=== PATIENT | male | born 1945 | race Caucasian/White ===

== ENCOUNTER → 2017-03-21 | Outpatient (CLI) | payer MEDICARE, BC ==
[~2017-03-21] MED LIST: /CELE20CA PO; BISO10TA6 PO; CELE1CAP4 PO; COUM1TAB OR; FERR1TAB8 PO; GLUCOSAMINE HCL PO; HYDR-3719 PO; LASI40TA PO; LISI-542 PO; LISI20TA PO; LISI20TA5 PO; LOPR1TAB7 PO; MAGN64TASA PO; METH10TA PO; METH25TAB PO; MULTIVIT PO; OMEP20CA3 PO; PRAD75CA3 PO; Prilosec PO; SENN8.6T5 OR; SPIR25TA2 PO; VICODIN 5/500 PO; VITA500T3 PO; VITMTA PO; XARE20TA PO; [UNRECOGNIZED DRUG - CODE] PO
[2017-03-21 14:03] LABS: BASO # 0.1 K/mm3 (0.0-0.2); BASO % 1.1 % (0.0-1.0); EOS # 0.5 K/mm3 (0.0-0.50); EOS % 7.6 % (0.0-3.0); LARGE UNSTAINED CELL # 0.2 K/mm3 (0.0-0.4); LARGE UNSTAINED CELL % 2.9 % (0.0-4.0); LYMPH # 1.4 K/mm3 (1.5-4.5); LYMPH % 20.4 % (24.0-44.0); MEAN CORPUSCULAR HEMOGLOBIN 30.5 pg (27.0-33.0); MEAN CORPUSCULAR VOLUME 95.4 fl (80.0-96.0); MONO # 0.5 K/mm3 (0.0-0.8); MONO % 7.4 % (0.0-5.0); NEUTROPHILS # 4.2 K/mm3 (1.8-7.7); NEUTROPHILS % 60.6 % (36.0-66.0); PLATELET COUNT, AUTOMATED 239 k/mm3 (150-450); RED CELL DISTRIBUTION WIDTH 13.2 % (11.5-14.5); WHITE BLOOD COUNT 6.9 K/mm3 (4.0-10.0)
== END ==
LOC: M SMT 08:44
PROVIDERS: ATTEND Family Medicine
DX: E89.0 Postprocedural hypothyroidism (principal); D50.9 Iron deficiency anemia, unspecified; I11.0 Hypertensive heart disease with heart failure; I50.22 Chronic systolic (congestive) heart failure; Z79.899 Other long term (current) drug therapy

== ENCOUNTER → 2017-07-04 | Outpatient (CLI) | payer MEDICARE, BC ==
[2017-07-04 13:29] LABS: BASO # 0.1 10^3/uL (0.0-0.2); BASO % 1.5 % (0.0-1.0); EOS # 0.7 10^3/uL (0.0-0.50); IMMATURE GRANULOCYTE % 0.2 % (0-0); MEAN CORPUSCULAR HEMOGLOBIN 30.3 pg (27.0-33.0); MEAN CORPUSCULAR HGB CONC 31.2 g/dl (32.0-36.5); MEAN CORPUSCULAR VOLUME 97.1 fl (80.0-96.0); MONO # 1.1 10^3/uL (0.0-0.8); MONO % 11.6 % (0.0-5.0); NEUTROPHILS # 5.1 10^3/uL (1.8-7.7); NEUTROPHILS % 56.7 % (36.0-66.0); PLATELET COUNT, AUTOMATED 278 10^3/uL (150-450); WHITE BLOOD COUNT 9.1 10^3/uL (4.0-10.0)
[2017-07-04 13:50] LABS: ALBUMIN 3.3 GM/DL (3.2-5.2); ALBUMIN/GLOBULIN RATIO 0.97 (1.00-1.93); BILIRUBIN,TOTAL 0.6 MG/DL (0.2-1.0); CALCIUM LEVEL 8.7 MG/DL (8.8-10.2); CREATININE FOR GFR 1.68 MG/DL (0.70-1.30); FREE T4 1.14 NG/DL (0.76-1.46); GLOMERULAR FILTRATION RATE 43.2 (>42); TOTAL PROTEIN 6.7 GM/DL (6.4-8.2)
== END ==
LOC: M SMT 09:44
PROVIDERS: ATTEND Family Medicine
DX: K62.5 Hemorrhage of anus and rectum (principal); I10 Essential (primary) hypertension; D50.9 Iron deficiency anemia, unspecified; E89.0 Postprocedural hypothyroidism

== ENCOUNTER → 2017-07-17 | Outpatient (CLI) | payer MEDICARE, BC ==
--- NOTE | 2017-07-17 15:27 | REP ---
RENAL ULTRASOUND: Real-time sonographic evaluation of the kidneys performed and demonstrates both the kidneys to be normal in size and echotexture, right kidney measuring 9.7 x 4.2 x 4.5 cm and left kidney 10.9 x 3.8 x 5.8 cm. There is mild left hydronephrosis. There is no right hydronephrosis. Vascular calcifications are seen in both kidneys without a discrete calculus. Urinary bladder is not well distended and not well evaluated. IMPRESSION: Mild left hydronephrosis. Signed by Iain Jorgensen MD 07/18/2017 09:04 A
== END ==
LOC: M RAD 10:49
PROVIDERS: ATTEND Internal Medicine Nephrology
DX: N18.3 Chronic kidney disease, stage 3 (moderate) (principal)

== ENCOUNTER → 2017-08-09 | Outpatient (CLI) | payer MEDICARE, BC | LOC: M SMT 14:28 | DX: J20.9 Acute bronchitis, unspecified (principal) | CPT/HCPCS: 71046 ==

== ENCOUNTER → 2017-09-18 | Day surgery (SDC) | payer MEDICARE, BC ==
[~2017-09-18] MED LIST changes: -/CELE20CA PO; -BISO10TA6 PO; -CELE1CAP4 PO; -COUM1TAB OR; -FERR1TAB8 PO; -GLUCOSAMINE HCL PO; -HYDR-3719 PO; -LASI40TA PO; +LIDOCAINE 2% INJ 100 MG/5 ML SDV (FOR ANES.) As Ordered; -LISI-542 PO; -LISI20TA PO; -LISI20TA5 PO; -LOPR1TAB7 PO; -MAGN64TASA PO; -METH10TA PO; -METH25TAB PO; -MULTIVIT PO; -OMEP20CA3 PO; -PRAD75CA3 PO; +PROPOFOL 200 MG/20 ML VIAL As Ordered; -Prilosec PO; -SENN8.6T5 OR; -SPIR25TA2 PO; -VICODIN 5/500 PO; -VITA500T3 PO; -VITMTA PO; -XARE20TA PO; -[UNRECOGNIZED DRUG - CODE] PO; +fentaNYL 100 MCG/2 ML INJECTION (J3010) As Ordered
[2017-09-18] MEDS: LR 1,000 ML IV (09:00)
== END | disposition home or self-care (01) ==
LOC: M OPP 09:21
DX: K62.5 Hemorrhage of anus and rectum (principal); D50.9 Iron deficiency anemia, unspecified; K57.30 Diverticulosis of large intestine without perforation or abscess without bleeding; Z98.0 Intestinal bypass and anastomosis status; Z98.84 Bariatric surgery status; I48.91 Unspecified atrial fibrillation; I50.9 Heart failure, unspecified; E03.9 Hypothyroidism, unspecified; E66.9 Obesity, unspecified; E04.2 Nontoxic multinodular goiter; R12 Heartburn; K21.9 Gastro-esophageal reflux disease without esophagitis; R06.02 Shortness of breath; Z86.711 Personal history of pulmonary embolism; M19.90 Unspecified osteoarthritis, unspecified site; Z85.850 Personal history of malignant neoplasm of thyroid; Z92.3 Personal history of irradiation; N18.9 Chronic kidney disease, unspecified; Z87.891 Personal history of nicotine dependence; Z88.8 Allergy status to other drugs, medicaments and biological substances; Z79.01 Long term (current) use of anticoagulants; Z79.899 Other long term (current) drug therapy
CPT/HCPCS: 45378

== ENCOUNTER → 2017-12-18 | Outpatient (CLI) | payer MEDICARE, BC ==
[2017-12-18 18:31] LABS: IRON (FE) 61 UG/DL (65-175); PERCENT SATURATION 20.1 % (19.7-50.0); TOTAL IRON BINDING CAPACITY 303 UG/DL (250-450)
[2017-12-18 19:10] LABS: HEMATOCRIT 39.6 % (42.0-52.0); HEMOGLOBIN 12.3 g/dl (13.5-17.5); MEAN CORPUSCULAR HGB CONC 31.1 g/dl (32.0-36.5); MEAN CORPUSCULAR VOLUME 96.6 fl (80.0-96.0); PLATELET COUNT, AUTOMATED 316 10^3/uL (150-450); RED CELL DISTRIBUTION WIDTH 13.2 % (11.5-14.5); WHITE BLOOD COUNT 10.8 10^3/uL (4.0-10.0)
== END ==
LOC: M SMT 14:23
DX: D50.9 Iron deficiency anemia, unspecified (principal)
CPT/HCPCS: 83550

== ENCOUNTER → 2018-03-22 | Outpatient (CLI) | payer MEDICARE, BC ==
[2018-03-22 13:54] LABS: ANION GAP 10 MEQ/L (8-16); BLOOD UREA NITROGEN 22 MG/DL (7-18); CALCIUM LEVEL 8.5 MG/DL (8.8-10.2); CARBON DIOXIDE LEVEL 27 MEQ/L (21-32); CHLORIDE LEVEL 109 MEQ/L (98-107); CHOLESTEROL LEVEL 142 MG/DL (<200); CHOLESTEROL RISK RATIO 2.366 (<5); GLOMERULAR FILTRATION RATE 42.6 (>42); GLUCOSE, FASTING 99 MG/DL (70-100); HDL CHOLESTEROL 60 MG/DL (>40); LDL CHOLESTEROL 62.4 MG/DL (<100); NON-HDL-C 82 MG/DL; POTASSIUM SERUM 4.5 MEQ/L (3.5-5.1); SODIUM LEVEL 146 MEQ/L (136-145); TRIGLYCERIDES LEVEL 98 MG/DL (<150)
== END ==
LOC: M SMT 08:10
DX: I12.9 Hypertensive chronic kidney disease with stage 1 through stage 4 chronic kidney disease, or unspecified chronic kidney disease (principal); N18.3 Chronic kidney disease, stage 3 (moderate)
CPT/HCPCS: 80061

== ENCOUNTER 2018-08-17 15:22 | Inpatient (IN) | payer MEDICARE, BC ==
[~2018-08-17] VITALS: Ht 162.6 cm; Wt 98.2 kg
[~2018-08-17 15:22] MED LIST changes: +/CELE20CA PO; +BISO10TA6 PO; +CALC1CAP31 PO; +CELE1CAP4 PO; +COUM1TAB OR; +ELIQ2.5T PO; +FERR1TAB8 PO; +GLUCOSAMINE HCL PO; +HYDR-3719 PO; +LASI40TA PO; +LASI40TA9 PO; -LIDOCAINE 2% INJ 100 MG/5 ML SDV (FOR ANES.) As Ordered; +LISI-542 PO; +LISI20TA PO; +LISI20TA5 PO; +LOPR1TAB7 PO; +MAGN64TASA PO; +METH10TA PO; +METH25TAB PO; +MOVE1TAB PO; +MULTIVIT PO; +OMEP20CA3 PO; +OXYC1TAB23 PO; +PRAD75CA3 PO; -PROPOFOL 200 MG/20 ML VIAL As Ordered; +Prilosec PO; +SENN8.6T5 OR; +SPIR-10 PO; +SYNT100T PO; +VICODIN 5/500 PO; +VITA-122 PO; +VITA500T3 PO; +VITMTA PO; +XARE20TA PO; +[UNRECOGNIZED DRUG - CODE] PO; -fentaNYL 100 MCG/2 ML INJECTION (J3010) As Ordered
[2018-08-17] MEDS ORDERED: ASPIRIN 81 MG CHEW TABLET PO ONE (15:45)
[2018-08-17] MEDS ORDERED: ASPIRIN 81 MG CHEW TABLET As Ordered ONE (15:47)
[2018-08-17] MEDS ORDERED: ALLO100T PO (16:02)
[2018-08-17] MEDS ORDERED: NEUR300C PO (16:02)
[2018-08-17] MEDS ORDERED: TRAM1CAP15 PO (16:02)
[2018-08-17 16:03] LABS: BASO # 0.1 10^3/uL (0.0-0.2); BASO % 0.8 % (0.0-1.0); EOS # 0.6 10^3/uL (0.0-0.50); EOS % 4.3 % (0.0-3.0); HEMATOCRIT 39.5 % (42.0-52.0); HEMOGLOBIN 12.4 g/dl (13.5-17.5); LYMPH # 1.5 10^3/uL (1.5-4.5); LYMPH % 10.6 % (24.0-44.0); MEAN CORPUSCULAR HEMOGLOBIN 31.9 pg (27.0-33.0); MEAN CORPUSCULAR HGB CONC 31.4 g/dl (32.0-36.5); MEAN CORPUSCULAR VOLUME 101.5 fl (80.0-96.0); MONO # 1.1 10^3/uL (0.0-0.8); MONO % 7.6 % (0.0-5.0); NEUTROPHILS # 10.5 10^3/uL (1.8-7.7); NEUTROPHILS % 76.2 % (36.0-66.0); PLATELET COUNT, AUTOMATED 261 10^3/uL (150-450); RED BLOOD COUNT 3.89 10^6/uL (4.30-6.10); WHITE BLOOD COUNT 13.7 10^3/uL (4.0-10.0)
[2018-08-17 16:23] LABS: INR 1.04; PROTHROMBIN TIME 13.7 SECONDS (12.1-14.4)
[2018-08-17 16:24] LABS: BLOOD UREA NITROGEN 25 MG/DL (7-18); CALCIUM LEVEL 8.3 MG/DL (8.8-10.2); CARBON DIOXIDE LEVEL 28 MEQ/L (21-32); CHLORIDE LEVEL 107 MEQ/L (98-107); CPK CREATINE PHOSPHOKINASE 57 U/L (39-308); CREATININE FOR GFR 1.73 MG/DL (0.70-1.30); GLOMERULAR FILTRATION RATE 41.7 (>42); GLUCOSE, FASTING 186 MG/DL (70-100); MAGNESIUM LEVEL 2.1 MG/DL (1.8-2.4); MB/CK RELATIVE INDEX 2.63 (< OR =4); NT-PRO BNP 3859 PG/ML (<125); POTASSIUM SERUM 4.7 MEQ/L (3.5-5.1); SODIUM LEVEL 142 MEQ/L (136-145); TROPONIN I < 0.02 NG/ML (< 0.10)
[2018-08-17] MEDS ORDERED: TRAM50TA2 PO (16:37)
[2018-08-17] MEDS ORDERED: OSTETAB4 PO (16:37)
[2018-08-17] MEDS ORDERED: VITA500T53 PO (16:37)
[2018-08-17] MEDS ORDERED: FURO20TA2 PO (16:37)
[2018-08-17] MEDS ORDERED: METO100T5 PO (16:37)
[2018-08-17] MEDS ORDERED: LISI-542 PO (16:37)
[2018-08-17] MEDS ORDERED: VOLT1GEL15 TOP (16:37)
--- NOTE | 2018-08-17 18:45 | REPVR ---
EXAM: US Bilateral Duplex Lower Extremity Veins EXAM DATE/TIME: 08/17/2018 6:33 PM CLINICAL HISTORY: 73 years old, male; Pain; Leg, lower; Bilateral; Additional info: Swelling TECHNIQUE: Real-time duplex ultrasound of the Bilateral Lower Extremities with 2-D martinez scale, color Doppler flow and spectral waveform analysis. Complete exam focused on the bilateral lower extremity veins. COMPARISON: US Duplex, Ext LOWER veins, bilat 12/02/2015 2:14 PM FINDINGS: Right deep veins: Unremarkable. The common femoral, femoral and popliteal veins are patent without thrombus. Normal compressibility, augmentation response and Doppler waveforms. Right superficial veins: Saphenofemoral junction is patent without thrombus. Left deep veins: Unremarkable. The common femoral, femoral and popliteal veins are patent without thrombus. Normal compressibility, augmentation response and Doppler waveforms. Left superficial veins: Saphenofemoral junction is patent without thrombus. Soft tissues: Unremarkable. IMPRESSION: No acute findings. No evidence of deep vein thrombosis. Electronically signed by: Yobani Mendoza On 08/17/2018 18:45:01 PM
[2018-08-17] MEDS: PERCOCET 5MG/325MG TAB PO PRN (19:57)
[2018-08-17] MEDS: FUROSEMIDE 40 MG/4 ML VIAL (J1940) IV SCH (19:58)
[2018-08-17 20:33] VITALS: BP 149/86
[2018-08-17] MEDS: MAGNESIUM CHLORIDE 64 MG TABCR (SLO MAG) PO SCH (22:28)
[2018-08-17] MEDS: MULTIVITAMINS/MINERALS THERAP 1 TAB PO SCH (22:29)
[2018-08-17] MEDS: GABAPENTIN 300 MG CAP PO SCH (22:29)
[2018-08-17] MEDS: APIXABAN 2.5 MG TAB (ELIQUIS) PO SCH (22:30)
[2018-08-17] MEDS: VITAMIN D 1,000 INTERNATIONAL UNITS TABLET PO SCH (22:30)
[2018-08-17] MEDS: FERROUS SULFATE 325MG TAB PO SCH (22:31)
[2018-08-17] MEDS: METOPROLOL TARTRATE 100 MG TAB PO SCH (22:31)
[2018-08-17 23:59] VITALS: BP 149/71
[2018-08-18 00:02] LABS: CPK CREATINE PHOSPHOKINASE 26 U/L (39-308); MB/CK RELATIVE INDEX 5.77 (< OR =4); TROPONIN I < 0.02 NG/ML (< 0.10)
[2018-08-18] MEDS: FUROSEMIDE 40 MG/4 ML VIAL (J1940) IV SCH ×2 (00:03→06:29)
[2018-08-18 04:00] VITALS: BP 156/84
[2018-08-18 05:20] LABS: BASO # 0.1 10^3/uL (0.0-0.2); BASO % 0.8 % (0.0-1.0); EOS # 0.4 10^3/uL (0.0-0.50); HEMATOCRIT 37.5 % (42.0-52.0); HEMOGLOBIN 11.9 g/dl (13.5-17.5); LYMPH # 1.7 10^3/uL (1.5-4.5); LYMPH % 17.1 % (24.0-44.0); MEAN CORPUSCULAR HEMOGLOBIN 31.6 pg (27.0-33.0); MEAN CORPUSCULAR HGB CONC 31.7 g/dl (32.0-36.5); MEAN CORPUSCULAR VOLUME 99.5 fl (80.0-96.0); MONO # 1.2 10^3/uL (0.0-0.8); MONO % 11.3 % (0.0-5.0); NEUTROPHILS # 6.8 10^3/uL (1.8-7.7); NEUTROPHILS % 66.5 % (36.0-66.0); PLATELET COUNT, AUTOMATED 230 10^3/uL (150-450); RED BLOOD COUNT 3.77 10^6/uL (4.30-6.10); WHITE BLOOD COUNT 10.2 10^3/uL (4.0-10.0)
[2018-08-18 05:50] LABS: CALCIUM LEVEL 8.6 MG/DL (8.8-10.2); CREATININE FOR GFR 1.58 MG/DL (0.70-1.30); GLOMERULAR FILTRATION RATE 46.3 (>42); MAGNESIUM LEVEL 1.6 MG/DL (1.8-2.4); POTASSIUM SERUM 3.5 MEQ/L (3.5-5.1)
[2018-08-18] MEDS: PERCOCET 5MG/325MG TAB PO PRN ×3 (06:29→22:22)
[2018-08-18] MEDS: LEVOTHYROXINE 100MCG TABLET (0.1MG) PO SCH (06:29)
--- NOTE | 2018-08-18 06:39 | REP ---
Portable chest x-ray: Single view. History: Chest pain, shortness of breath. Comparison chest x-ray: August 09, 2017. Findings: EKG electrodes are seen. Moderate cardiac enlargement is observed. The aorta is tortuous. Pulmonary vasculature is not increased. Pleural angles are sharp. No infiltrate is seen. Impression: Cardiomegaly as before. Otherwise no acute disease. Electronically Signed by Eren Orr MD 08/18/2018 09:05 A
[2018-08-18] MEDS ORDERED: POTASSIUM CHLORIDE 10 MEQ SR TABLET PO ONE (07:45)
[2018-08-18 08:00] VITALS: BP 130/90
[2018-08-18] MEDS: MAG SULF 1GM/100ML (MAG RUN) 1 GM in APPROPRIATE DILUENT 1 EA IV SCH ×2 (08:16→09:59)
[2018-08-18] MEDS: METOPROLOL TARTRATE 100 MG TAB PO SCH ×2 (08:18→20:51)
[2018-08-18] MEDS: APIXABAN 2.5 MG TAB (ELIQUIS) PO SCH (08:18)
[2018-08-18] MEDS: OMEPRAZOLE 20 MG CAP PO SCH (08:19)
[2018-08-18] MEDS: CYANOCOBALAMIN 500 MCG TAB PO SCH (08:19)
[2018-08-18] MEDS: ALLOPURINOL 100 MG TAB PO SCH (08:19)
[2018-08-18] MEDS: MULTIVITAMINS/MINERALS THERAP 1 TAB PO SCH ×2 (08:19→20:52)
[2018-08-18] MEDS: LISINOPRIL 5 MG TAB PO SCH (08:19)
--- NOTE | 2018-08-18 11:22 | IPNPDOC ---
Text Note Date of Service The patient was seen on 08/18/18. NOTE Subjective: Patient states he has not been taking his Lasix, as he goes down to [place] to see his physicians, and states there are no places to stop in order to void. He notes that yesterday, he developed chest pressure midsternal, with associated near syncope. Upon presenting to the ED, he was noted to have ventricular tachycardia. He denies any chest pain or palpitations at this time. He notes his dyspnea is improved. Objective: Vitals: (see below) General: No acute distress, laying comfortably in bed. HEENT: Moist mucous membranes. Neck: Mild JVD. No lymphadenopathy Cardiac: Irregularly irregular, No murmurs Pulm: Diminished breath sounds at the bases b/l. No wheezing, rhonchi Abd: NT/ND + BS Ext: 1+ pitting edema bilateral lower extremities. No cyanosis. Distal pulses intact Labs (see below) Assessment/Plan 1. Acute decompensated heart failure, unknown ejection fraction. Continue with IV diuresis, changed to IV every 8 hours. Improving. Echocardiogram pending 2. Near syncope/chest pressure, with nonsustained ventricular tachycardia. Discussed with Dr. Hauser. Will obtain echo. Will likely need cardiac catheterization, inpatient versus outpatient. Continue to monitor on telemetry. No recurrent episodes of ventricular tachycardia. On beta david. Potassium and magnesium replaced. 3. History of PE/Atrial fibrillation rate controlled. On Eliquis - states he had Had prior GI bleed, for which his dose was decreased to 2.5 mg daily. 4. History of chronic pain continue home meds. 5. Diabetes mellitus continue sliding scale insulin. 6. Hypertension continue current blood pressure mediations. 7. 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 We'll obtain PT c onsult. DVT prophy:on Eliquis VS,Fishbone, I+O VS, Fishbone, I+O Laboratory Tests 08/17/18 15:40 Red Blood Count 3.89 L, Mean Corpuscular Volume 101.5 H, Mean Corpuscular Hemoglobin 31.9, Mean Corpuscular Hemoglobin Concent 31.4 L, Red Cell Distribution Width 14.2, Neutrophils (%) (Auto) 76.2 H, Lymphocytes (%) (Auto) 10.6 L, Monocytes (%) (Auto) 7.6 H, Eosinophils (%) (Auto) 4.3 H, Basophils (%) (Auto) 0.8, Neutrophils # (Auto) 10.5 H, Lymphocytes # (Auto) 1.5, Monocytes # (Auto) 1.1 H, Eosinophils # (Auto) 0.6 H, Basophils # (Auto) 0.1, Calcium Level 8.3 L, Total Creatine Kinase 57 08/18/18 04:50 Red Blood Count 3.77 L, Mean Corpuscular Volume 99.5 H, Mean Corpuscular Hemoglobin 31.6, Mean Corpuscular Hemoglobin Concent 31.7 L, Red Cell Distribution Width 14.1, Neutrophils (%) (Auto) 66.5 H, Lymphocytes (%) (Auto) 17.1 L, Monocytes (%) (Auto) 11.3 H, Eosinophils (%) (Auto) 4.0 H, Basophils (%) (Auto) 0.8, Neutrophils # (Auto) 6.8, Lymphocytes # (Auto) 1.7, Monocytes # (Auto) 1.2 H, Eosinophils # (Auto) 0.4, Basophils # (Auto) 0.1, Calcium Level 8.6 L Vital Signs Date Time Temp Pulse Resp B/P (MAP) Pulse Ox O2 Delivery O2 Flow Rate FiO2 08/18/18 08:19 130/90 08/18/18 08:18 68 08/18/18 08:00 97.4 18 92 Room Air I&O- Last 24 Hours up to 6 AM 08/18/18 05:59 Intake Total 270 ml Output Total 1000 ml Balance -730 ml AJAY QUIÑONES MD Aug 18, 2018 11:22
[2018-08-18 12:00] VITALS: BP 140/90
[2018-08-18] MEDS ORDERED: FUROSEMIDE 40 MG/4 ML VIAL (J1940) IV ONE (12:00)
[2018-08-18 16:00] VITALS: BP 132/78
[2018-08-18 20:00] VITALS: BP 135/88
[2018-08-18] MEDS: FERROUS SULFATE 325MG TAB PO SCH (20:52)
[2018-08-18] MEDS: GABAPENTIN 300 MG CAP PO SCH (20:52)
[2018-08-18] MEDS: VITAMIN D 1,000 INTERNATIONAL UNITS TABLET PO SCH (20:52)
[2018-08-18] MEDS: MAGNESIUM CHLORIDE 64 MG TABCR (SLO MAG) PO SCH (20:59)
[2018-08-18 23:59] VITALS: BP 129/78
--- NOTE | 2018-08-19 02:54 | CR ---
DATE OF CONSULTATION: 08/18/2018 REFERRING PHYSICIAN: Dr. Oneil Vallecillo MD INDICATION: Ventricular tachycardia, near-syncope. HISTORY OF PRESENT ILLNESS: Mr. Stafford is known to me from clinic. He is a very pleasant 73-year-old man with chronic atrial fibrillation, a history of pulmonary embolism with secondary pulmonary hypertension and chronic right-sided congestive heart failure. He called emergency medical services (EMS) yesterday after he had several episodes of chest discomfort associated with profound dizziness and near-syncopal sensation. Each of the episodes occurred when he was ambulating and after he sat down the symptoms gradually resolved over the course of about a minute or two. Because the symptoms are recurrent the family called EMS and upon their arrival the patient was virtually asymptomatic but when he tried to walk they were able to record wide complex tachycardia consistent with ventricular tachycardia. He was brought to hospital for further management. So far he has not had any arrhythmias, but he has been kept in bed. At bedside the patient has no acute complaints. He does admit that lately he has not been taking diuretic much because he has made several trips to [place] to see various doctors through the [place] system. But he did not notice any unusual symptoms until the current presentation. He denies any recent fever or chills. He denies any true syncopal events. He denies any new medications. PAST MEDICAL HISTORY 1. Chronic atrial fibrillation. 2. History of massive pulmonary embolism in 2010. 3. Chronic pulmonary hypertension based on last echocardiogram in November 2016 it was at least moderate. 4. 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 5. Hypertension. 6. History of hyperthyroidism. 7. History of thyroidectomy. 8. Gastroesophageal reflux disease (GERD). 9. Osteoporosis. 10. Chronic back pain and lower extremity pain. 11. No history of coronary artery disease or recent or even more remote stress testing. PAST SURGICAL HISTORY: 1. Bariatric surgery. 2. History of surgeries for leg injuries from [place]. 3. Thyroidectomy for hyperthyroidism. SOCIAL HISTORY: The patient is , lives with his . He quit smoking many years ago. There is no significant alcohol use. FAMILY HISTORY: No close relatives with early coronary artery disease. REVIEW OF SYSTEMS: He denies any recent fever, chills, nausea or vomiting, diarrhea, palpitations other than these episodes described in HPI. He has chronic peripheral edema. He has chronic back pain and lower extremity pain. OUTPATIENT MEDICATIONS: - allopurinol 100 mg a day - apixaban 2.5 mg twice a day - calcitriol 0.25 mg at night - vitamin D3 - vitamin B12 - iron sulfate 325 mg a day - furosemide 20 mg a day (not very compliant) - gabapentin 300 mg two tablets at night - levothyroxine 100 mcg a day - lisinopril 5 mg a day - magnesium chloride 64 mcg a day - metoprolol tartrate 100 mg twice a day - multivitamin - omeprazole 20 mg - Osteo Bi-Flex - oxycodone/acetaminophen (APAP) 5/325 mg two tablets every 6 hours as needed for pain control - tramadol 50 mg three times a day for pain - Voltaren Gel ALLERGIES: Allergies to ASPIRIN and NONSTEROIDAL ANTI-INFLAMMATORY DRUGS (NSAIDS). PHYSICAL EXAMINATION: Mr. Stafford is an elderly man who appears actually probably mildly younger than his calendar age. Morning vital signs: Blood pressure 130/90, heart rate has been mostly 60s and 70s in atrial fibrillation, afebrile. Saturation 92% on room air. Weight is 100.7 kg. He had very good diuretic response yesterday of about a liter after he received diuretics and he also already has very good diuretic response today. He is alert and oriented and appropriate. His jugular venous pulse (JVP) does not appear grossly elevated. I do not appreciate any wheezing, crackles or rhonchi on lung exam. Heart exam reveals irregularly irregular rhythm without gallop, rub or murmur. Abdomen is soft, nontender. No hepatosplenomegaly. He has lymphedema and multiple scars after injuries more on the right than left lower extremity. Peripheral pulses are palpable. LABORATORY DATA: Basic metabolic panel: Sodium 143, potassium 3.5, BUN 23, creatinine 1.6 for glomerular filtration rate (GFR) 46, glucose 107. Two sets of cardiac enzymes are negative and the proBNP was 3,900 and thyroid-stimulating hormone (TSH) 2.3. Complete blood count (CBC): White blood cell (WBC) count 10.2, hemoglobin 11.9, hematocrit 35, platelet count 230,000. His bilateral lower extremity ultrasound revealed no evidence for deep vein thrombosis (DVT) and chest x-ray did not reveal any obvious congestive heart failure. It is suggestive of cardiomegaly. An echocardiogram was performed earlier today interpreted by self revealed left ventricular ejection function (LVEF) of approximately 50% - 55%. There is no hemodynamically significant valvular disease. Pulmonary artery pressure is likely moderately severe elevated and central venous pressure is also mildly elevated. This is not significantly changed compared to his prior echocardiogram from December in 2016. An electrocardiogram reveals presence of atrial fibrillation with controlled ventricular rate and no ischemic abnormalities. ASSESSMENT/PLAN: Mr. Stafford is a 73-year-old man who has chronic atrial fibrillation, a history of pulmonary embolism in 2010 with chronic pulmonary hypertension and right-sided heart failure. He has been in his usual state of health until shortly prior to this presentation where he had three episodes of chest discomfort associated with dizziness and sensation of palpitations and near syncope. EMS were able to record wide-complex tachycardia that spontaneously terminated after approximately a minute. In this setting this is a very high-risk scenario to have sustained ventricular tachycardia on three separate occasions and presence of preserved left ventricular (LV) systolic function is certainly suggestive of underlying coronary artery disease. I spoke with the patient and we agreed that we will tentatively plan on transferring him tomorrow to [facility] in [place] for coronary angiogram. He will also be seen by electrophysiology. In preparation for an angiogram I discontinued his Eliquis. His last dose was administered this morning. Otherwise the remaining medications can continue.
[2018-08-19 04:00] VITALS: BP 122/71
[2018-08-19] MEDS: PERCOCET 5MG/325MG TAB PO PRN (04:44)
[2018-08-19 05:12] LABS: BASO # 0.1 10^3/uL (0.0-0.2); BASO % 0.9 % (0.0-1.0); EOS # 0.6 10^3/uL (0.0-0.50); EOS % 5.2 % (0.0-3.0); HEMATOCRIT 40.1 % (42.0-52.0); HEMOGLOBIN 12.7 g/dl (13.5-17.5); LYMPH # 2.2 10^3/uL (1.5-4.5); LYMPH % 20.5 % (24.0-44.0); MEAN CORPUSCULAR HEMOGLOBIN 31.1 pg (27.0-33.0); MEAN CORPUSCULAR HGB CONC 31.7 g/dl (32.0-36.5); MONO # 1.2 10^3/uL (0.0-0.8); MONO % 11.5 % (0.0-5.0); NEUTROPHILS # 6.5 10^3/uL (1.8-7.7); NEUTROPHILS % 61.6 % (36.0-66.0); PLATELET COUNT, AUTOMATED 266 10^3/uL (150-450); RED BLOOD COUNT 4.09 10^6/uL (4.30-6.10); WHITE BLOOD COUNT 10.6 10^3/uL (4.0-10.0)
[2018-08-19 05:32] LABS: CALCIUM LEVEL 8.6 MG/DL (8.8-10.2); CREATININE FOR GFR 1.71 MG/DL (0.70-1.30); GLOMERULAR FILTRATION RATE 42.2 (>42); MAGNESIUM LEVEL 2.3 MG/DL (1.8-2.4); POTASSIUM SERUM 3.7 MEQ/L (3.5-5.1)
[2018-08-19] MEDS: LEVOTHYROXINE 100MCG TABLET (0.1MG) PO SCH (05:48)
--- NOTE | 2018-08-19 06:28 | ECHO ---
DATE OF PROCEDURE: 08/18/2018 REFERRING PHYSICIAN: Dr. Vallecillo INDICATION: Ventricular tachycardia, congestive heart failure. HEIGHT: 64 inches WEIGHT: 236 pounds. DIMENSIONS: IVS: 1.1 LV: 5.1 LVPW: 1.1 LA: 4.1 Aorta: 3.5 IVS: 2.3 Left atrial volume index: 41 FINDINGS: The study is of acceptable technical quality. Left ventricle is normal size and overall normal systolic function. Estimated LVEF around 50-55%. Right ventricle appears dilated and normally contractile. There is severe biatrial enlargement, right atrium appears larger than left. Aortic valve is sclerotic, but it has three leaflets and mobility is preserved. Mitral and tricuspid valves appear normal. Pulmonic valve was poorly visualized, but grossly appears normal. Inferior vena cava is dilated, but collapses with respiration indicative of likely mildly elevated central venous pressure. Aortic root, aortic arch and visualized segment of abdominal aorta appear normal. Doppler interrogation of the aortic valve reveals no stenosis and mild insufficiency. There is mild mitral insufficiency and mild tricuspid insufficiency. Calculated pulmonary artery pressure is in 60s corresponding to moderately severe pulmonary hypertension. Trace pulmonic insufficiency is also noted. Evaluation of diastolic function is inconclusive due to underlying atrial fibrillation with controlled rate. FINDINGS: 1. Study is of acceptable technical quality. 2. Normal LV size with preserved LV systolic function. 3. Dilated right ventricle. 4. Severe biatrial enlargement. 5. Mild aortic mitral and tricuspid insufficiency. 6. Mildly elevated central venous pressure and likely moderately severe pulmonary hypertension. COMMENT: Subacute bacterial endocarditis (SBE) prophylaxis is not recommended cyanotic.
[2018-08-19 08:00] VITALS: BP 139/77
[2018-08-19] MEDS ORDERED: POTASSIUM CHLORIDE 10 MEQ SR TABLET PO ONE (08:00)
[2018-08-19 08:18] VITALS: BP 133/77
[2018-08-19] MEDS: LISINOPRIL 5 MG TAB PO SCH (08:18)
[2018-08-19] MEDS: CYANOCOBALAMIN 500 MCG TAB PO SCH (08:18)
[2018-08-19] MEDS: METOPROLOL TARTRATE 100 MG TAB PO SCH (08:18)
[2018-08-19] MEDS: MULTIVITAMINS/MINERALS THERAP 1 TAB PO SCH (08:19)
[2018-08-19] MEDS: FUROSEMIDE 40 MG/4 ML VIAL (J1940) IV SCH ×2 (08:19)
[2018-08-19] MEDS: OMEPRAZOLE 20 MG CAP PO SCH (08:19)
[2018-08-19] MEDS: ALLOPURINOL 100 MG TAB PO SCH (08:19)
[2018-08-19] MEDS ORDERED: SLF 3 ML SYR IV PRN (09:00)
--- NOTE | 2018-08-19 09:32 | IPN ---
DATE: 08/19/2018 Mr. Stafford has not had any problems overnight. He did have one ventricular triplet but no longer arrhythmias, but he has not been ambulating. Vital signs: Blood pressure 133/77, heart rate was high at 115 this morning atrial fibrillation, but for the most part was in 70s yesterday, afebrile, saturation 98% on room air. Fluid balance was about negative 4 liters yesterday. Weight is 98 kg this morning. He is alert and oriented and appropriate. His jugular venous pulse (JVP) is still elevated. Lungs are clear though heart exam irregular rhythm. No gallop or rub is appreciated. Abdomen is obese. There is still mild edema, mostly lymphedema. LABORATORY DATA: Basic metabolic panel reveals sodium 142, potassium 3.7, BUN 28, creatinine 1.7, glucose 111. ASSESSMENT/PLAN: Mr. Stafford is a 73-year-old man who has chronic atrial fibrillation and chronic right-sided heart failure. He has also history of pulmonary embolism and moderate or moderately severe pulmonary hypertension that has been present for many years. He presented with several episodes of chest pain associated with dizziness and near-syncope. EMS detected sustained ventricular tachycardia that was documented by ECG. He has preserved LV systolic function. At this point up transferring the patient to [facility] for coronary angiography. If this is not ischemia driven then he will need antiarrhythmic therapy. I spoke with Dr. Eason and Dr. De La Rosa ship worker and chairman & ceo and he will be seen by the both in [facility]. I had again a long discussion with the patient and his this morning. I explained the rationale for the decision making and potential outcomes.
--- NOTE | 2018-08-19 11:13 | DS.PDOC ---
Discharge Summary General Date of Admission Aug 17, 2018 at 18:26 Date of Discharge 08/19/18 Attending Physician: AJAY QUIÑONES MD Specialist/Consultants Involve: Cecil Hauser MD Discharge Summary PROCEDURES PERFORMED DURING STAY: None. ADMITTING/DISCHARGE DIAGNOSES: 1. Ventricular tachycardia 2. Acute decompensated heart failure 3. Near syncope 4. History of Atrial fibrillation/PE on eliquis 5. History of chronic pain 6. Diabetes mellitus 7. Chronic gait dysfunction secondary to [place] injury COMPLICATIONS/CHIEF COMPLAINT: Chest pain/shortness of breath HISTORY OF PRESENT ILLNESS/HOSPITAL COURSE: This is a 73-year-old male past medical history of congestive heart failure, pulmonary embolism, atrial fibrillation who presents with chest pain and short ness of breath. Patient was noted to be in decompensated heart failure, and noted to have ventricular tachycardia on the monitor. Patient also had a near syncopal episode with associated palpitations. Patient noted that he is not compliant with his Lasix. Patient was admitted and started on Lasix IV, and his potassium/magnesium were replaced. In light of the patient's symptoms of near syncope, chest pain, palpitations, and ventricular tachycardia, there is certainly concern for underlying coronary artery disease, for which Dr. Hauser has arranged for the patient to be transferred to [place] for a cardiac catheterization. Patient is agreeable and will be sent today. At this time the patient denies any chest pain or palpitations. These hemodynamically stable. DISCHARGE MEDICATIONS: Please see below. ALLERGIES: Please see below. PHYSICAL EXAMINATION ON DISCHARGE: Vitals: (see below) General: No acute distress, laying comfortably in bed. HEENT: Moist mucous membranes. Neck: Mild JVD. No lymphadenopathy Cardiac: Irregularly irregular, No murmurs Pulm: Diminished breath sounds at the bases b/l. No wheezing, rhonchi Abd: NT/ND + BS Ext: 1+ pitting edema bilateral lower extremities. No cyanosis. Distal pulses intact LABORATORY DATA: Please see below. PROGNOSIS: Fair ACTIVITY: As tolerated. DIET: Low-sodium DISCHARGE PLAN/DISPOSITION: Transferred to [facility] for cardiac catheterization and EP evaluation DISCHARGE INSTRUCTIONS: 1. Follow-up with PCP and cardiology as recommended by [facility]. Return to the ED if symptoms worsen. DISCHARGE CONDITION: Stable. TIME SPENT ON DISCHARGE: Greater than 30 minutes. Vital Signs/I&Os Vital Signs Date Time Temp Pulse Resp B/P (MAP) Pulse Ox O2 Delivery O2 Flow Rate FiO2 08/19/18 08:18 115 133/77 08/19/18 08:00 97.0 18 98 Room Air I&O- Last 24 Hours up to 6 AM 08/19/18 06:00 Intake Total 720 ml Output Total 5050 ml Balance -4330 ml Laboratory Data Labs 24H Laboratory Tests 2 08/19/18 04:36: Immature Granulocyte % (Auto) 0.3, White Blood Count 10.6H, Red Blood Count 4.09L, Hemoglobin 12.7L, Hematocrit 40.1L, Mean Corpuscular Volume 98.0H, Mean Corpuscular Hemoglobin 31.1, Mean Corpuscular Hemoglobin Concent 31.7L, Red Cell Distribution Width 13.8, Platelet Count 266, Neutrophils (%) (Auto) 61.6, Lymphocytes (%) (Auto) 20.5L, Monocytes (%) (Auto) 11.5H, Eosinophils (%) (Auto) 5.2H, Basophils (%) (Auto) 0.9, Neutrophils # (Auto) 6.5, Lymphocytes # (Auto) 2.2, Monocytes # (Auto) 1.2H, Eosinophils # (Auto) 0.6H, Basophils # (Auto) 0.1, Nucleated Red Blood Cells % (auto) 0.0, Anion Gap 7L, Glomerular Filtration Rate 42.2, Blood Urea Nitrogen 28H, Creatinine 1.71H, Sodium Level 142, Potassium Level 3.7, Chloride Level 103, Carbon Dioxide Level 32, Calcium Level 8.6L, Magnesium Level 2.3 CBC/BMP Laboratory Tests 08/19/18 04:36 Red Blood Count 4.09 L, Mean Corpuscular Volume 98.0 H, Mean Corpuscular Hemoglobin 31.1, Mean Corpuscular Hemoglobin Concent 31.7 L, Red Cell Distribution Width 13.8, Neutrophils (%) (Auto) 61.6, Lymphocytes (%) (Auto) 20.5 L, Monocytes (%) (Auto) 11.5 H, Eosinophils (%) (Auto) 5.2 H, Basophils (%) (Auto) 0.9, Neutrophils # (Auto) 6.5, Lymphocytes # (Auto) 2.2, Monocytes # (Auto) 1.2 H, Eosinophils # (Auto) 0.6 H, Basophils # (Auto) 0.1, Calcium Level 8.6 L Discharge Medications Scheduled (Move Free Joint Health Ad) 1 Tab Tab, 1 TAB PO DAILY, (Reported) (Osteo Bi-Flex Advanced Do) 1 Tab Tab, 1 TAB PO QHS, (Reported) Allopurinol (Allopurinol) 100 Mg Tab, 100 MG PO DAILY, (Reported) Apixaban Base (Eliquis) 2.5 Mg Tab, 2.5 MG PO BID, (Reported) Calcitriol (Calcitriol) 0.25 Mcg Cap, 0.25 MCG PO QHS, (Reported) Cholecalciferol (Vitamin D3) 1,000 Unit Tab, 1,000 UNIT PO QHS, (Reported) Cyanocobalamin (Vitamin B12) 500 Mcg Tab, 500 MCG PO DAILY, (Reported) Ferrous Sulfate (Ferrous Sulfate) 325 Mg Tab, 325 MG PO QHS, (Reported) Furosemide (Furosemide) 20 Mg Tab, 20 MG PO DAILY, (Reported) Gabapentin (Neurontin) 300 Mg Cap, 600 MG PO QHS, (Reported) Levothyroxine Sodium (Synthroid) 100 Mcg Tab, 100 MCG PO DAILY, (Reported) Lisinopril (Lisinopril) 5 Mg Tab, 5 MG PO DAILY, (Reported) Magnesium Chloride (Mag64) 64 Mg Tabcr, 64 MG PO QHS, (Reported) Metoprolol Tartrate (Metoprolol Tartrate) 100 Mg Tab, 100 MG PO BID, (Reported) Multivitamins *[facility] STOCKED* (Thera M Plus *[facility] STOCKED*) 1 Tab Tab, 1 TAB PO BID, (Reported) Omeprazole (Omeprazole) 20 Mg Cap, 20 MG PO DAILY, (Reported) Tramadol HCl (Tramadol HCl) 50 Mg Tab, 50 MG PO TID, (Reported) Scheduled PRN (Voltaren) 1 % Gel, 1 APLCT TOP QID PRN for KNEE PAIN, (Reported) apply to affected area(s) Oxycodone/Acetaminophen (Oxycodone/Acetaminophen 5-325 mg) 1 Tab Tab, 2 TAB PO Q6H PRN for PAIN, (Reported) Allergies Coded Allergies: NSAIDs (Unverified Allergy, Unknown, STOMACH ACHE, 09/10/17) Aspirin (Verified Adverse Reaction, Mild, NAUSEA/VOMITING, 09/10/17) AJAY QUIÑONES MD Aug 19, 2018 11:13
--- NOTE | 2018-08-19 11:45 | HPE ---
DATE OF ADMISSION: 08/17/2018 PRIMARY CARE PROVIDER: Wilda Johnson DO, [facility] AUDIO VIDEO TECH: Cecil Hauser MD CHIEF COMPLAINT: Dizziness - non-sustained ventricular tachycardia (V-tac). HISTORY: Bob Stafford felt weak and dizzy today. He cannot walk without being short of breath and feeling like he is going to pass out. He called an ambulance and in the ambulance he had non-sustained Vtac. In the emergency room he has had atrial fibrillation with rapid ventricular response as well as some bradycardic episodes. Patient called an ambulance initially it was for chest pain. He said he did not want to come to the emergency room. He became short of breath, lightheaded and had captured strip showing Vtac while trying to decide whether to come to the emergency room, which kind of forced the issue. His air quality manager is Dr. Hauser. He has been consulted. He is aware of the patient's presenting symptoms. I do not have access to his records. I do see on 12/2015 he had an echocardiogram at [facility] and left atrium was 40 mm, ejection fraction 40 to 45%, global hypokinesis noted. Severe biatrial enlargement. Mitral insufficiency noted. Thread-like echo density attached to the mitral chordal apparatus most likely a loose chord. Moderate pulmonary hypertension noted. 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 PAST MEDICAL HISTORY: He has atrial fibrillation, history of deep venous thrombosis (DVT) and pulmonary embolism, gastric bypass surgery, with a pulmonary embolism (PE) a week after his gastric bypass, history of Grave's disease, followed by Dr. Miriam Carranza in the past, hypertension, type 2 diabetes, gout, chronic low back pain, history of shrapnel injury to both lower legs in [facility] in the 1960s. PAST SURGICAL HISTORY: Left lower extremity tendon repair. Gastric bypass 2004. Tonsillectomy. SOCIAL HISTORY: . Quit smoking in 1981. Occasional alcohol use. REVIEW OF SYSTEMS: No hemoptysis, fever, chills. Does have increasing lower extremity edema. The lower edema is chronic. It has been worse recently. MEDICATIONS: - allopurinol 100 mg daily - Eliquis 2.5 mg twice a day - calcitriol 25 mcg at bedtime - vitamin D 1000 units daily - gabapentin 600 mg at bedtime - furosemide 20 mg daily - ferrous sulfate 325 mg at bedtime - vitamin B12 500 mcg daily - levothyroxine 100 mcg daily - lisinopril 5 mg daily - mag chloride 64 mg at bedtime - metoprolol tartrate 100 mg twice a day - multivitamin - omeprazole 20 mg daily - Anzua-Hm-Sjue - oxycodone - acetaminophen two tablets every 6 hours or tramadol 50 mg three times a day. Both are reported. - voltaren 1% gel four times a day PHYSICAL EXAMINATION: VITAL SIGNS: Per flow sheet. Heart rate was 60 to 120 at different times during the exam. Afebrile. GENERAL APPEARANCE: Resting comfortably. No distress. HEENT: Unremarkable. Thyroid nonpalpable. HEART: Irregular rate and rhythm. 1/6 holosystolic murmur at the apex. LUNGS: Clear. ABDOMEN: Soft, nontender. No masses. EXTREMITIES: Has 1+ peripheral edema. Some venous stasis present. Moves arms and legs with equal strength. LABS: White count 13.7, hemoglobin 12.4, platelets 261. Sodium 142, potassium 4.7, BUN 25, creatinine 1.7, glucose 186. BNP 3859. TSH normal. EKG was reviewed. Chest x-ray showed cardiomegaly. IMPRESSION: 1. Dizziness, probably from ventricular arrhythmia. He had non-sustained but prolonged Vtac captured by EMS strips. Will be admitted to a monitored bed. Dr. Hauser has been consulted and he is aware of this admission. Continue beta david therapy. Magnesium level is normal. Will check that daily. There is some atrial fibrillation. He has rapid ventricular response at times, but also heart rate is in the 60s so I cannot augment his current chronotropic therapy. Continue Eliquis. 2. Leukocytosis. Etiology is unknown. Could be stress/reactive. Followup CBC with diff ordered. 3. Hypothyroidism. Status post presumed PICKARD therapy for Grave's disease. Continue levothyroxine 100 mcg daily. 4. History of global hypokinesis/cardiomyopathy 09/2015. I am not sure if he has had a more recent echocardiogram. I will order one. Though if it has been done through cardiology office, this could be cancelled. Defer to Dr. Hauser on this. 5. Chronic kidney disease, stage III. Adjust dose of medicines based on renal function. 6. Volume overload on exam. Presumed congestive heart failure. I will initiate a diuresis. Echocardiogram ordered. Dr. Weldon will assume his care in the morning.
[2018-08-19] MEDS ORDERED: SLF 3 ML SYR IV SCH (14:00)
--- NOTE | 2018-08-20 07:19 | ECGEPIP ---
Stationary ECG Study [facility] - ED Test Date: 2018-08-17 Pat Name: MILENA ROBISON Department: Room: - Gender: M Storage Battery Inspector: mauricio : 1945 Requested By: Katelyn Mauricio Order Number: [id number] Reading MD: Kris Murillo Measurements Intervals [place] Rate: 73 P: MA: 0 QRS: -2 QRSD: 102 T: 23 QT: 397 QTc: 438 Interpretive Statements ATRIAL FIBRILLATION WITH ABERRANT CONDUCTION OR VENTRICULAR PREMATURE COMPLEXES ABNORMAL RHYTHM ECG NONSPECIFIC ST T WAVE CHANGES 04/25/[address] T WAVE CHANGES Electronically Signed On 08-20-2018 7:19:15 EST by Kris Murillo
--- NOTE | 2018-08-20 19:19 | ECGEPIP ---
Stationary ECG Study [facility] - ED Test Date: 2018-08-17 Pat Name: MILENA ROBISON Department: Room: [place] [address] Gender: M Ophthalmic Medical Technician: YOANNA : 1945 Requested By: EJ HERNANDEZ Order Number: [id number] Reading MD: Kris Murillo Measurements Intervals [place] Rate: 75 P: -48 [place]: 129 QRS: 3 QRSD: 107 T: 18 QT: 417 QTc: 469 Interpretive Statements ATRIAL FIBRILLATION NONSPECIFIC ST T WAVE CHANGES CW 08/17/18 SIMILAR Electronically Signed On 08-20-2018 19:18:46 EST by Kris Murillo
== END 2018-08-19 10:08 | disposition short-term general hospital (02) | DRG 292 ==
LOC: M ED 15:22 → EDBD 15:22 → M ED INP 18:26 → M PCU 20:10
PROVIDERS: ADMIT Family Medicine; ATTEND Internal Medicine
DX: I13.0 Hypertensive heart and chronic kidney disease with heart failure and stage 1 through stage 4 chronic kidney disease, or unspecified chronic kidney disease (principal); I50.30 Unspecified diastolic (congestive) heart failure; I47.2 Ventricular tachycardia; I50.810 Right heart failure, unspecified; E11.9 Type 2 diabetes mellitus without complications; Z79.01 Long term (current) use of anticoagulants; I48.2 Chronic atrial fibrillation; Z86.711 Personal history of pulmonary embolism; R55 Syncope and collapse; R26.89 Other abnormalities of gait and mobility; G89.29 Other chronic pain; Z79.899 Other long term (current) drug therapy; Z88.6 Allergy status to analgesic agent; Z88.8 Allergy status to other drugs, medicaments and biological substances; I27.20 Pulmonary hypertension, unspecified; Z86.718 Personal history of other venous thrombosis and embolism; M10.9 Gout, unspecified; Z87.891 Personal history of nicotine dependence; D72.829 Elevated white blood cell count, unspecified; N18.3 Chronic kidney disease, stage 3 (moderate); M81.0 Age-related osteoporosis without current pathological fracture

== ENCOUNTER → 2018-10-10 | Outpatient (CLI) | payer MEDICARE, BC ==
[~2018-10-10] MED LIST changes: +ALLO100T PO; +FURO20TA2 PO; +METO100T5 PO; +NEUR300C PO; +OSTETAB4 PO; +TRAM1CAP15 PO; +TRAM50TA2 PO; +VITA500T53 PO; +VOLT1GEL15 TOP
[2018-10-10 13:41] LABS: BASO # 0.1 10^3/uL (0.0-0.2); BASO % 0.8 % (0.0-1.0); EOS # 0.5 10^3/uL (0.0-0.50); HEMATOCRIT 39.5 % (42.0-52.0); HEMOGLOBIN 12.6 g/dl (13.5-17.5); LYMPH % 19.8 % (24.0-44.0); MEAN CORPUSCULAR HEMOGLOBIN 31.4 pg (27.0-33.0); MEAN CORPUSCULAR HGB CONC 31.9 g/dl (32.0-36.5); MEAN CORPUSCULAR VOLUME 98.5 fl (80.0-96.0); MONO # 0.9 10^3/uL (0.0-0.8); MONO % 9.4 % (0.0-5.0); NEUTROPHILS # 6.5 10^3/uL (1.8-7.7); NEUTROPHILS % 64.7 % (36.0-66.0); PLATELET COUNT, AUTOMATED 266 10^3/uL (150-450); RED BLOOD COUNT 4.01 10^6/uL (4.30-6.10)
[2018-10-10 14:20] LABS: ALBUMIN 3.4 GM/DL (3.2-5.2); BILIRUBIN,TOTAL 0.5 MG/DL (0.2-1.0); CALCIUM LEVEL 8.6 MG/DL (8.8-10.2); CHOLESTEROL RISK RATIO 2.836 (<5); CREATININE FOR GFR 1.77 MG/DL (0.70-1.30); FREE T4 1.32 NG/DL (0.76-1.46); GLOMERULAR FILTRATION RATE 40.6 (>42); PERCENT SATURATION 21.1 % (19.7-50.0); POTASSIUM SERUM 4.7 MEQ/L (3.5-5.1); THYROID STIMULATING HORMONE 6.67 uIU/ML (0.358-3.740); TOTAL PROTEIN 6.8 GM/DL (6.4-8.2)
== END ==
LOC: M SMT 10:09
PROVIDERS: ATTEND Family Medicine
DX: D50.9 Iron deficiency anemia, unspecified (principal); I51.7 Cardiomegaly; R06.02 Shortness of breath; R05 Cough; Z85.850 Personal history of malignant neoplasm of thyroid; Z95.818 Presence of other cardiac implants and grafts

== ENCOUNTER → 2018-10-10 | Outpatient (CLI) | payer MEDICARE, BC ==
--- NOTE | 2018-10-10 12:50 | REP ---
Chest x-ray: Two views. History: Cough and shortness of breath. Comparison chest x-ray: August 17, 2018. Findings: The left hemidiaphragm is again noted to be somewhat elevated. Mild cardiomegaly is observed unchanged. A loop recorder is visible in the left precordial region. There are degenerative changes in the thoracic spine. Pleural angles are sharp. No infiltrate is seen. Pulmonary vasculature is cephalized. The thoracic aorta is tortuous. Impression: Cardiomegaly. Mildly elevated left hemidiaphragm. Loop recorder visible. Pulmonary vascular cephalization. Otherwise no acute disease. No focal infiltrate. Electronically Signed by Eren Orr MD 10/10/2018 01:41 P
== END ==
LOC: M SMT 10:14
PROVIDERS: ATTEND Internal Medicine Cardiovascular Disease
DX: I51.7 Cardiomegaly (principal); R06.02 Shortness of breath; R05 Cough; Z95.818 Presence of other cardiac implants and grafts

== ENCOUNTER → 2019-05-22 | Outpatient (CLI) | payer MEDICARE, BC ==
[~2019-05-22] MED LIST changes: -/CELE20CA PO; +BISO10TA10 PO; -BISO10TA6 PO; +CYAN500T8 PO; -LISI20TA PO; +LISI20TA19 PO; -OMEP20CA3 PO; +OMEP20CA4 PO; -PRAD75CA3 PO; +PRAD75CA5 PO; +VITA500T17 PO; -VITA500T3 PO; -VITA500T53 PO
[2019-05-22 13:39] LABS: ALBUMIN 3.5 GM/DL (3.2-5.2); BILIRUBIN,TOTAL 0.5 MG/DL (0.2-1.0); CALCIUM LEVEL 9.1 MG/DL (8.8-10.2); CREATININE FOR GFR 2.03 MG/DL (0.70-1.30); GLOMERULAR FILTRATION RATE 34.6 (>42); POTASSIUM SERUM 4.9 MEQ/L (3.5-5.1)
[2019-05-22 13:40] LABS: BASO # 0.1 10^3/uL (0.0-0.2); EOS # 0.4 10^3/uL (0.0-0.5); EOS % 4.8 % (0.0-3.0); HEMATOCRIT 45.3 % (42.0-52.0); HEMOGLOBIN 13.5 g/dl (13.5-17.5); LYMPH % 21.6 % (24.0-44.0); MEAN CORPUSCULAR HEMOGLOBIN 30.5 pg (27.0-33.0); MEAN CORPUSCULAR HGB CONC 29.8 g/dl (32.0-36.5); MEAN CORPUSCULAR VOLUME 102.3 fl (80.0-96.0); MONO # 1.1 10^3/uL (0.0-0.8); MONO % 11.8 % (0.0-5.0); NEUTROPHILS # 5.6 10^3/uL (1.5-8.5); NEUTROPHILS % 60.4 % (36.0-66.0); PLATELET COUNT, AUTOMATED 273 10^3/uL (150-450); RED BLOOD COUNT 4.43 10^6/uL (4.30-6.10); WHITE BLOOD COUNT 9.3 10^3/uL (4.0-10.0)
== END ==
LOC: M SMT 10:33
PROVIDERS: ATTEND Family Medicine
DX: I50.22 Chronic systolic (congestive) heart failure (principal); D50.9 Iron deficiency anemia, unspecified; I48.19 Other persistent atrial fibrillation

== ENCOUNTER 2019-10-18 02:49 | Emergency (ER) | payer MEDICARE, BC, OTHER ==
[~2019-10-18] VITALS: Ht 157.5 cm; Wt 119.9 kg
[~2019-10-18 02:49] MED LIST changes: -BISO10TA10 PO; +BISO10TA14 PO; +OMEP1CAP73 PO; -OMEP20CA4 PO
[2019-10-18] MEDS ORDERED: oxyCODONE 10 MG CR TAB PO ONE (03:30)
--- NOTE | 2019-10-18 03:40 | REPVR ---
PROCEDURE INFORMATION: Exam: CT Head Without Contrast Exam date and time: 10/18/2019 2:54 AM Age: 74 years old Clinical indication: Injury or trauma; Fall; Initial encounter; Concussion / head injury; Consciousness not specified TECHNIQUE: Imaging protocol: Computed tomography of the head without contrast. Radiation optimization: All CT scans at this facility use at least one of these dose optimization techniques: automated exposure control; mA and/or kV adjustment per patient size (includes targeted exams where dose is matched to clinical indication); or iterative reconstruction. COMPARISON: Thyroid, ST head+neck US 12/07/2015 3:47 PM FINDINGS: Brain: Mild hypodensities in the periventricular white matter which are consistent with chronic small vessel ischemic disease. Chronic lacunar infarcts in the lentiform nuclei bilaterally. No acute intracranial hemorrhage.Cortical martinez-white matter differentiation is preserved. Ventricles: Normal. No ventriculomegaly. Bones/joints: Unremarkable. No acute fracture. Sinuses: Visualized sinuses are unremarkable. No fluid levels. Mastoid air cells: Visualized mastoid air cells are well aerated. Soft tissues: Unremarkable. IMPRESSION: 1. No acute intracranial hemorrhage. 2. Mild hypodensities in the periventricular white matter which are consistent with chronic small vessel ischemic disease. 3. Chronic lacunar infarcts in the lentiform nuclei bilaterally. Electronically signed by: Kieran Segovia On 10/18/2019 03:39:49 AM
--- NOTE | 2019-10-18 03:43 | REPVR ---
PROCEDURE INFORMATION: Exam: CT Cervical Spine Without Contrast Exam date and time: 10/18/2019 2:54 AM Age: 74 years old Clinical indication: Neck pain; Additional info: Fall TECHNIQUE: Imaging protocol: Computed tomography images of the cervical spine without contrast. Radiation optimization: All CT scans at this facility use at least one of these dose optimization techniques: automated exposure control; mA and/or kV adjustment per patient size (includes targeted exams where dose is matched to clinical indication); or iterative reconstruction. COMPARISON: CT Neck with contrast 04/25/2016 11:05 PM FINDINGS: Limitations: Examination is limited by motion artifact. Vertebrae: No acute fracture. Normal alignment. Diffuse facet arthropathy. Multilevel mild anterior marginal osteophytes. C2-C3: No disc herniation. No spinal canal stenosis. No neural foraminal narrowing. C3-C4: 3 mm central disc protrusion. Mild spinal stenosis. Moderate right neural foraminal narrowing. Moderate left neural foraminal narrowing. C4-C5: 3 mm disc osteophyte complex. Mild spinal stenosis. Moderate right neural foraminal narrowing. No left neural foraminal narrowing. C5-C6: 3 mm disc osteophyte complex. Mild spinal stenosis. Mild right neural foraminal narrowing. No left neural foraminal narrowing. C6-C7: 3 mm disc osteophyte complex. Mild spinal stenosis. Mild right neural foraminal narrowing. Moderate left neural foraminal narrowing. C7-T1: No disc herniation. No spinal canal stenosis. No neural foraminal narrowing. Soft tissues: Unremarkable. Thyroid: Status post thyroid surgery. Vasculature: Mild atherosclerotic disease at the origin of the internal carotid arteries bilaterally. Lungs: Lung apices are normal. IMPRESSION: 1. No acute fracture. 2. Degenerative changes as described. Electronically signed by: Kieran Segovia On 10/18/2019 03:43:35 AM
[2019-10-18] MEDS ORDERED: LIDOCAINE W/EPINEPHRINE 1% 20ML VIAL SC ONE (04:45)
[2019-10-18 07:46] VITALS: BP 140/68
--- NOTE | 2019-10-19 18:33 | ED PDOC ---
Post-Departure Follow-Up dr abelardo latif faxed formal report of ct c spine for fu Kris Harris MD Oct 19, 2019 18:33
== END 2019-10-18 07:47 | disposition home or self-care (01) ==
LOC: M ED 02:49
DX: S81.812A Laceration without foreign body, left lower leg, initial encounter (principal); S00.83XA Contusion of other part of head, initial encounter; W05.0XXA Fall from non-moving wheelchair, initial encounter; Y92.019 Unspecified place in single-family (private) house as the place of occurrence of the external cause; I63.9 Cerebral infarction, unspecified; M48.02 Spinal stenosis, cervical region; M50.21 Other cervical disc displacement, high cervical region; M25.78 Osteophyte, vertebrae; I11.0 Hypertensive heart disease with heart failure; D51.9 Vitamin B12 deficiency anemia, unspecified; E55.9 Vitamin D deficiency, unspecified; E78.5 Hyperlipidemia, unspecified; E03.9 Hypothyroidism, unspecified; E11.9 Type 2 diabetes mellitus without complications; Z98.84 Bariatric surgery status; Z88.6 Allergy status to analgesic agent; Z79.01 Long term (current) use of anticoagulants; Z79.84 Long term (current) use of oral hypoglycemic drugs; Z79.899 Other long term (current) drug therapy

== ENCOUNTER → 2019-11-20 | Outpatient (REF) ==
[2019-11-20 09:43] LABS: HEMATOCRIT 29.1 % (42.0-52.0); HEMOGLOBIN 8.8 g/dl (13.5-17.5); MEAN CORPUSCULAR HEMOGLOBIN 29.8 pg (27.0-33.0); MEAN CORPUSCULAR HGB CONC 30.2 g/dl (32.0-36.5); MEAN CORPUSCULAR VOLUME 98.6 fl (80.0-96.0); PLATELET COUNT, AUTOMATED 275 10^3/uL (150-450); RED BLOOD COUNT 2.95 10^6/uL (4.30-6.10); WHITE BLOOD COUNT 6.3 10^3/uL (4.0-10.0)
[2019-11-20 10:58] LABS: CREATININE FOR GFR 2.47 MG/DL (0.70-1.30); GLOMERULAR FILTRATION RATE 27.5 (>42); POTASSIUM SERUM 4.1 MEQ/L (3.5-5.1)
[2019-11-20 10:59] LABS: ALBUMIN 2.4 GM/DL (3.2-5.2); BILIRUBIN,TOTAL 0.4 MG/DL (0.2-1.0); MAGNESIUM LEVEL 2.2 MG/DL (1.8-2.4); THYROID STIMULATING HORMONE 10.8 uIU/ML (0.358-3.740); TOTAL PROTEIN 5.7 GM/DL (6.4-8.2)
== END ==
LOC: SKLAB2 09:55
PROVIDERS: ATTEND Internal Medicine
DX: D64.9 Anemia, unspecified (principal); N18.9 Chronic kidney disease, unspecified; I12.9 Hypertensive chronic kidney disease with stage 1 through stage 4 chronic kidney disease, or unspecified chronic kidney disease; I48.91 Unspecified atrial fibrillation; E83.42 Hypomagnesemia

== ENCOUNTER → 2019-11-24 | Outpatient (REF) ==
[2019-11-24 07:50] LABS: ALBUMIN 2.4 GM/DL (3.2-5.2); CALCIUM LEVEL 7.9 MG/DL (8.8-10.2); CREATININE FOR GFR 2.33 MG/DL (0.70-1.30); GLOMERULAR FILTRATION RATE 29.5 (>42); PHOSPHORUS LEVEL 4.6 MG/DL (2.5-4.9); POTASSIUM SERUM 4.5 MEQ/L (3.5-5.1)
== END ==
LOC: SKLAB2 08:41
PROVIDERS: ATTEND Internal Medicine
DX: E07.9 Disorder of thyroid, unspecified (principal)

== ENCOUNTER → 2019-11-27 | Outpatient (REF) ==
[2019-11-27 13:17] LABS: MEAN CORPUSCULAR HEMOGLOBIN 30.4 pg (27.0-33.0); PLATELET COUNT, AUTOMATED 295 10^3/uL (150-450); RED BLOOD COUNT 2.96 10^6/uL (4.30-6.10); WHITE BLOOD COUNT 8.2 10^3/uL (4.0-10.0)
== END ==
LOC: SKLAB2 09:02
PROVIDERS: ATTEND Internal Medicine
DX: D64.9 Anemia, unspecified (principal)

== ENCOUNTER → 2019-12-02 | Outpatient (REF) ==
[2019-12-02 08:07] LABS: ALBUMIN 2.4 GM/DL (3.2-5.2); CREATININE FOR GFR 1.78 MG/DL (0.70-1.30); GLOMERULAR FILTRATION RATE 40.2 (>42)
== END ==
LOC: SKLAB2 07:00
PROVIDERS: ATTEND Internal Medicine
DX: N18.9 Chronic kidney disease, unspecified (principal)

== ENCOUNTER → 2019-12-04 | Outpatient (REF) ==
[2019-12-04 08:59] LABS: HEMATOCRIT 29.9 % (42.0-52.0); HEMOGLOBIN 9.3 g/dl (13.5-17.5); MEAN CORPUSCULAR HEMOGLOBIN 30.7 pg (27.0-33.0); MEAN CORPUSCULAR HGB CONC 31.1 g/dl (32.0-36.5); MEAN CORPUSCULAR VOLUME 98.7 fl (80.0-96.0); PLATELET COUNT, AUTOMATED 220 10^3/uL (150-450); RED BLOOD COUNT 3.03 10^6/uL (4.30-6.10); WHITE BLOOD COUNT 6.9 10^3/uL (4.0-10.0)
== END ==
LOC: SKLAB2 07:00
PROVIDERS: ATTEND Internal Medicine
DX: D64.9 Anemia, unspecified (principal)

== ENCOUNTER 2020-07-26 23:11 | Inpatient (IN) | payer OTHER, MEDICARE, BC ==
[~2020-07-26] VITALS: Ht 162.6 cm; Wt 119.5 kg
[~2020-07-26 23:11] MED LIST changes: +CYAN500T14 PO; -CYAN500T8 PO; -LISI20TA19 PO; +LISI20TA35 PO
--- NOTE | 2020-07-27 00:09 | REPVR ---
PROCEDURE INFORMATION: Exam: XR Chest, 1 View Exam date and time: 07/26/2020 11:56 PM Age: 75 years old Clinical indication: Other: Chf TECHNIQUE: Imaging protocol: XR of the chest Views: 1 view. COMPARISON: [place] PORTABLE CHEST X-RAY 08/17/2018 3:48 PM FINDINGS: Lungs: There is decreased inflation of the lungs. No interval focal infiltrates are seen. Pleural space: Unremarkable. No pleural effusion. No pneumothorax. Heart/Mediastinum: Mild cardiomegaly which is unchanged from the prior study. Bones/joints: Unremarkable. Soft tissues: There are generous overlying soft tissues. IMPRESSION: Stable poor inspiratory chest since 08/17/2018. No interval congestive failure is seen. Electronically signed by: Guero Thomson On 07/27/2020 00:08:51 AM
[2020-07-27 00:19] LABS: BASO # 0.1 10^3/uL (0.0-0.2); BASO % 0.7 % (0.0-1.0); EOS # 0.3 10^3/uL (0.0-0.5); EOS % 3.3 % (0.0-3.0); HEMATOCRIT 35.1 % (42.0-52.0); HEMOGLOBIN 10.4 g/dl (13.5-17.5); LYMPH # 0.7 10^3/uL (1.5-5.0); LYMPH % 8.7 % (24.0-44.0); MEAN CORPUSCULAR HEMOGLOBIN 29.6 pg (27.0-33.0); MEAN CORPUSCULAR HGB CONC 29.6 g/dl (32.0-36.5); MONO # 1.1 10^3/uL (0.0-0.8); MONO % 12.7 % (0.0-5.0); NEUTROPHILS # 6.2 10^3/uL (1.5-8.5); NEUTROPHILS % 74.4 % (36.0-66.0); PLATELET COUNT, AUTOMATED 223 10^3/uL (150-450); RED BLOOD COUNT 3.51 10^6/uL (4.30-6.10); WHITE BLOOD COUNT 8.3 10^3/uL (4.0-10.0)
--- NOTE | 2020-07-27 00:41 | ECGEPIP ---
[facility] - ED Test Date: 2020-07-26 Pat Name: MILENA ROBISON Department: Room: - Gender: Male Direct Support Worker: : 1945 Requested By: Curt Barone Order Number: [id number] Reading MD: Curt Sweeney Measurements Intervals [place] Rate: 100 P: [place]: 0 QRS: -2 QRSD: 108 T: 160 QT: 381 QTc: 492 Interpretive Statements ATRIAL FIBRILLATION WITH RAPID VENTRICULAR RESPONSE LOW QRS VOLTAGE IN EXTREMITY LEADS PATTERN CONSISTENT WITH PULMONARY DISEASE SEPTAL MYOCARDIAL INFARCTION, PROBABLY OLD RATE CHANGE COMPARED TO 08/17/18 Electronically Signed on 07-27-2020 0:41:02 EST by Curt Sweeney
[2020-07-27 01:09] LABS: ALBUMIN 2.5 GM/DL (3.2-5.2); BILIRUBIN,DIRECT 0.1 MG/DL (0.0-0.2); BILIRUBIN,TOTAL 0.5 MG/DL (0.2-1.0); CALCIUM LEVEL 8.1 MG/DL (8.8-10.2); CREATININE FOR GFR 1.9 MG/DL (0.70-1.30); FREE T4 1.06 NG/DL (0.76-1.46); GLOMERULAR FILTRATION RATE 37.2 (>42); POTASSIUM SERUM 4.2 MEQ/L (3.5-5.1); THYROID STIMULATING HORMONE 17.6 uIU/ML (0.358-3.740); TOTAL PROTEIN 6.2 GM/DL (6.4-8.2)
[2020-07-27] MEDS ORDERED: DIGOXIN INJ 0.5 MG/2 ML AMP (J1160) IV ONE (01:30)
--- NOTE | 2020-07-27 01:59 | REPVR ---
PROCEDURE INFORMATION: Exam: CT Abdomen And Pelvis Without Contrast Exam date and time: 07/27/2020 1:13 AM Age: 75 years old Clinical indication: Abdominal pain; Generalized; Additional info: Anasarca, R/O ascites TECHNIQUE: Imaging protocol: Computed tomography of the abdomen and pelvis without contrast. Radiation optimization: All CT scans at this facility use at least one of these dose optimization techniques: automated exposure control; mA and/or kV adjustment per patient size (includes targeted exams where dose is matched to clinical indication); or iterative reconstruction. COMPARISON: CT ABD PELVIS W/O FOL BY WIT 08/25/2014 4:11 PM FINDINGS: Lungs: Minimal bibasilar fibro-atelectatic change. Liver: Normal. No mass. Gallbladder and bile ducts: Multiple small gallstones are layering in the gallbladder. The gallbladder measures 5.6 cm in diameter. Pancreas: Normal. No ductal dilation. Spleen: There is a splenic calcification. Adrenal glands: Normal. No mass. Kidneys and ureters: Normal. No hydronephrosis. Stomach and bowel: There has been gastric bypass with collapse of the bypassed stomach. Mild colonic diverticulosis without diverticulitis. Appendix: A normal small appendix is seen. Intraperitoneal space: No peritoneal ascites. Vasculature: There is mild calcification of the abdominal aorta with extension into the iliac arteries. Lymph nodes: Unremarkable. No enlarged lymph nodes. Urinary bladder: Unremarkable as visualized. Reproductive: Unremarkable as visualized. Bones/joints: Degenerative changes of the lumbar spine are noted and include discs and facet arthropathy. Soft tissues: Diffuse subcutaneous edema is noted about the abdomen and pelvis. IMPRESSION: 1. Cholelithiasis with multiple small stones and mild distention of the gallbladder. 2. Diffuse subcutaneous edema about the abdomen and pelvis. No peritoneal ascites is seen. 3. Status post gastric bypass. 4. Mild colonic diverticulosis, greatest in the sigmoid without diverticulitis. Electronically signed by: Guero Thomson On 07/27/2020 01:59:14 AM
[2020-07-27 03:10] LABS: RSV AMPLIFICATION NEGATIVE (NEGATIVE)
--- NOTE | 2020-07-27 03:26 | HPEPDOC ---
[facility] Medical History & Physical Date of Admission Jul 27, 2020 Date of Service: Jul 27, 2020 Other Provider Nathan Auguste MD History and Physical TIME OF SERVICE: 3:38 AM CHIEF COMPLAINT: bloating HISTORY OF PRESENT ILLNESS: This 75 yr old M presented with c/o feeling "bloated" for a few weeks. He stopped taking his lasix because he was too weak to get up and go to the bathroom. His PCP is aware of his c/o weakness and told the patient that it was due to not taking enough of his thyroid medications. He denied having CP, dyspnea, f/c/d. REVIEW OF SYSTEMS: 12 point review of systems negative except as listed in HPI PAST MEDICAL/ SURGICAL HISTORY: PE / Chronic thrombo-embolic pulmonary hypertension Iron deficiency anemia. CKD 3 HFpEF A. fib Lower GI bleed Diverticulosis Depression SHASHANK Status dermatitis Squamous cell cancer affecting the ear. Grave's dz BPH Osteoporosis Bariatric surgery Thyroidectomy SOCIAL HISTORY: He is a He is a former smoker FAMILY HISTORY: Reviewed per patient, none ALLERGIES: Please see below. HOME MEDICATIONS: Please see below. PHYSICAL EXAMINATION: VITAL SIGNS: Please see below. GEN: well-nourished / well developed/ NAD INTEGUMENT: not flushed/ not jaundice HEENT: lips acyanotic /mucus membranes moist and pink CVS: Heart rate irregularly irregular/NMRG/ radial pulses intact / + bilateral lower extremity edema LUNGS: able to speak full sentences without stopping to take a breath / no coughing / lungs are clear to auscultation bilaterally on room air ABDOMEN: Contour ( obese) /, soft & not tender with palpation MSK/EXTREMITIES: NCAT NEURO: CN 2-12 are grossly intact / speech is not dysarthric PSYCH: alert and oriented to person place and time/ able to understand and follow all commands LABORATORY DATA: See below. IMAGING: Chest x-ray "Stable poor inspiratory chest since 08/17/2018. No interval congestive failure is seen. " CT abdomen and pelvis "1. Cholelithiasis with multiple small stones and mild distention of the gallbladder. 2. Diffuse subcutaneous edema about the abdomen and pelvis. No peritoneal ascites is seen. 3. Status post gastric bypass. 4. Mild colonic diverticulosis, greatest in the sigmoid without diverticulitis. " MICROBIOLOGY: Please see below. ASSESSMENT: Mr. Stafford is a 75-year-old with a history of osteoporosis, CKD 3, PE, chronic thromboembolic pulmonary hypertension, HFpEF A. fib, Lower GI bleed, depression, SHASHANK, Graves disease, and BPH who presented with complaints of weak ness in the setting of not taking his thyroid medications. Because of the weakness, he stopped taking his diuretics and developed fluid overload. He will be admitted for management of acute decompensated CHF and rapid A. fib. PLAN: 1. Custar Fibrillation w RVR EKG showed A. fib with RVR He received digoxin in the ER Plan: admit to PCU / telemetry / f/u Trops to r/o MN, BNP, Mag / resume amiodarone, atenolol and apixaban 2. Acute diastolic CHF/HFpEF 2/2 not taking diuretics Plan: Follow-up I's and O's/daily weights/salt and fluid restriction/IV Lasix 3. Weakness 2/2 suboptimally treated hypothyroidism Plan: IV levothyroxine until gut edema related to fluid overload has resolved 4. 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 Macrocytic anemia He has a history of B12 deficiency & BA Plan f/u iron studies, B12, folate 6. CKD 3 Plan: Calcitriol 7. PE / Chronic thrombo-embolic pulmonary hypertension Plan: Eliquis 8. SHASHANK Plan: may use CPAP 9. Obesity BMI 55.6 complicates care He has SHASHANK and has had Bariatric surgery Plan: f/u A1C DVT PROPHYLAXIS: n/a on DOAC DISPOSITION: home after more than 2 midnight's stay Vital Signs Vital Signs Date Time Temp Pulse Resp B/P (MAP) Pulse Ox O2 Delivery O2 Flow Rate FiO2 07/27/20 02:30 128 18 102/62 (75) 94 Room Air 07/26/20 23:40 97.8 Laboratory Data Labs 24H Laboratory Tests 2 07/26/20 23:45: Immature Granulocyte % (Auto) 0.2, Neutrophils (%) (Auto) 74.4H, Lymphocytes (%) (Auto) 8.7L, Monocytes (%) (Auto) 12.7H, Eosinophils (%) (Auto) 3.3H, Basophils (%) (Auto) 0.7, Neutrophils # (Auto) 6.2, Lymphocytes # (Auto) 0.7L, Monocytes # (Auto) 1.1H, Eosinophils # (Auto) 0.3, Basophils # (Auto) 0.1, Nucleated Red Blood Cells % (auto) 0.0, Anion Gap 6L, Glomerular Filtration Rate 37.2L, Calcium Level 8.1L, Total Bilirubin 0.5, Direct Bilirubin 0.1, Aspartate Amino Transf (AST/SGOT) 39H, Alanine Aminotransferase (ALT/SGPT) 27, Alkaline Phosphatase 148H, Total Protein 6.2L, Albumin 2.5L, Albumin/Globulin Ratio 0.7, Thyroid Stimulating Hormone (TSH) 17.600H, Free Thyroxine 1.06 07/27/20 02:25: Coronavirus (COVID-19)(PCR) NEGATIVE, Influenza Type A (RT-PCR) NEGATIVE, Influenza Type B (RT-PCR) NEGATIVE, Respiratory Syncytial Virus (PCR) NEGATIVE CBC/BMP Laboratory Tests 07/26/20 23:45 Home Medications Scheduled Allopurinol (Allopurinol) 100 Mg Tab, 100 MG PO DAILY Amiodarone HCl (Amiodarone HCl) 200 Mg Tablet, 200 MG PO DAILY Apixaban (Eliquis) 2.5 Mg Tab, 2.5 MG PO BID Atenolol (Atenolol) 25 Mg Tablet, 25 MG PO DAILY Atenolol (Atenolol) 25 Mg Tablet, 50 MG PO QHS Calcitriol (Calcitriol) 0.25 Mcg Cap, 0.25 MCG PO QHS Calcium Carbonate (Calcium) 500 Mg Tablet, 500 MG PO DAILY Cholecalciferol (Vitamin D3) (Vitamin D3) 1,000 Unit Tablet, 2,000 UNITS PO QHS Duloxetine Hcl (Duloxetine HCl) 30 Mg Capsule.dr, 30 MG PO DAILY Ferrous Sulfate (Ferrous Sulfate) 325 Mg Tab, 325 MG PO BID Furosemide (Furosemide) 40 Mg Tablet, 40 MG PO Q2D Gabapentin (Gabapentin) 600 Mg Tablet, 600 MG PO QHS Gluc Hudson/Chondro [place] A/Vit C/Mn (Glucosamine Chondroitin Tab) 1 Each Tablet, 1 TAB PO BID Ketoconazole (Ketoconazole) 15 Gm Cream..g., 1 DOSE EXT DAILY APPLY FROM BELOW THE KNEE TO THE FOOT Lanolin Alcohol/Mo/W.pet/[place] (Eucerin Creme) 454 Gm Cream..g., 1 DOSE TOP DA YOUSIF Levothyroxine Sodium (Synthroid) 137 Mcg Tablet, 137 MCG PO DAILY Lisinopril (Lisinopril) 5 Mg Tab, 5 MG PO DAILY Magnesium Chloride (Mag64) 64 Mg Tabcr, 64 MG PO QHS Multivitamins (Thera M Plus Tablet) 1 Tab Tab, 1 TAB PO BID Mupirocin (Mupirocin) 2 % Oint...g., 1 DOSE EXT DAILY APPLY TO LEGS Omeprazole (Omeprazole) 20 Mg Cap, 20 MG PO DAILY Oxycodone HCl (Oxycodone HCl) 10 Mg Tablet, 10 MG PO TID BREAKFAST, DINNER, QHS Prazosin Hcl (Prazosin HCl) 1 Mg Capsule, 1 MG PO QHS Scheduled PRN Diclofenac Sodium (Voltaren) 1 % Gel, 2 GM TOP BID PRN for PAIN APPLY TO KNEES Nystatin (Nystatin Powder) 15 Gm Powder, 1 DOSE TOP BID PRN for RASH APPLY TO STOMACH FOLDS Tramadol HCl (Tramadol HCl) 50 Mg Tab, 50 MG PO TID PRN for PAIN Allergies Coded Allergies: aspirin (Verified Adverse Reaction, Mild, NAUSEA / VOMITING, 10/18/19) NSAIDS (Non-Steroidal Anti-Inflamma (Verified Adverse Reaction, Unknown, STOMACHE ACHE, 10/18/19) A-FIB/CHADSVASC A-FIB History Current/History of A-Fib/PAF?: Yes Current PO Anticoag Therapy: Yes OSVALDO ZHONG MD Jul 27, 2020 03:26
[2020-07-27] MEDS ORDERED: GLUCTAB6 PO (03:32)
[2020-07-27] MEDS ORDERED: FURO40TA2 PO (03:32)
[2020-07-27] MEDS ORDERED: OXYC10TA12 PO (03:32)
[2020-07-27] MEDS ORDERED: GABA600T4 PO (03:32)
[2020-07-27] MEDS ORDERED: AMIO200T3 PO (03:32)
[2020-07-27] MEDS ORDERED: MUPI2OI EXT (03:32)
[2020-07-27] MEDS ORDERED: KETO2CR EXT (03:32)
[2020-07-27] MEDS ORDERED: ATEN25TA PO ×2 (03:32)
[2020-07-27] MEDS ORDERED: EUCECRE8 TOP (03:32)
[2020-07-27] MEDS ORDERED: OYST1TAB PO (03:32)
[2020-07-27] MEDS ORDERED: DULO1CAP5 PO (03:32)
[2020-07-27] MEDS ORDERED: NYST1POW9 TOP (03:32)
[2020-07-27] MEDS ORDERED: PRAZ1CAP PO (03:32)
[2020-07-27] MEDS ORDERED: D31000TA2 PO (03:32)
[2020-07-27] MEDS ORDERED: SYNT137T7 PO (03:32)
[2020-07-27] MEDS ORDERED: MOM 30ML SUSPENSION UDC PO PRN (03:45)
[2020-07-27] MEDS ORDERED: MAALOX 30 ML SUSP *UDC PO PRN (03:45)
[2020-07-27] MEDS ORDERED: FUROSEMIDE 40MG/4ML VIAL (J1940) IV SCH (04:30)
[2020-07-27] MEDS ORDERED: LEVOTHYROXINE 100MCG (0.1MG) VIAL IV ONE (04:45)
[2020-07-27] MEDS ORDERED: LEVOTHYROXINE 137MCG TABLET (0.137MG) PO SCH (06:00)
[2020-07-27 07:21] LABS: HEMATOCRIT 35.8 % (42.0-52.0); HEMOGLOBIN 10.5 g/dl (13.5-17.5); MEAN CORPUSCULAR HEMOGLOBIN 29.8 pg (27.0-33.0); MEAN CORPUSCULAR HGB CONC 29.3 g/dl (32.0-36.5); MEAN CORPUSCULAR VOLUME 101.7 fl (80.0-96.0); PLATELET COUNT, AUTOMATED 248 10^3/uL (150-450); RED BLOOD COUNT 3.52 10^6/uL (4.30-6.10); WHITE BLOOD COUNT 7.7 10^3/uL (4.0-10.0)
[2020-07-27 07:29] LABS: INR 1.17; PROTHROMBIN TIME 15.2 SECONDS (12.5-14.3)
[2020-07-27 07:30] LABS: PARTIAL THROMBOPLASTIN TIME 35.4 SECONDS (24.2-38.5)
[2020-07-27 07:43] LABS: ALBUMIN 2.6 GM/DL (3.2-5.2); ALT/SGPT 26 U/L (12-78); BILIRUBIN,TOTAL 0.5 MG/DL (0.2-1.0); BLOOD UREA NITROGEN 21 MG/DL (7-18); CALCIUM LEVEL 8.1 MG/DL (8.8-10.2); CARBON DIOXIDE LEVEL 30 MEQ/L (21-32); CHLORIDE LEVEL 108 MEQ/L (98-107); GLOMERULAR FILTRATION RATE 39.6 (>42); GLUCOSE, FASTING 103 MG/DL (70-100); POTASSIUM SERUM 3.6 MEQ/L (3.5-5.1); SODIUM LEVEL 144 MEQ/L (136-145); TOTAL PROTEIN 6.2 GM/DL (6.4-8.2); TROPONIN I < 0.02 NG/ML (< 0.10)
[2020-07-27 07:45] LABS: PHOSPHORUS LEVEL 3.5 MG/DL (2.5-4.9); TROPONIN I < 0.02 NG/ML (< 0.10)
[2020-07-27 08:00] VITALS: BP 119/64
[2020-07-27] MEDS: MULTIVITAMINS/MINERALS THERAP 1 TAB PO SCH ×2 (08:24→22:02)
[2020-07-27] MEDS: FERROUS SULFATE 325MG TAB PO SCH ×2 (08:24→22:03)
[2020-07-27] MEDS: oxyCODONE 5MG TAB PO SCH ×3 (08:24→22:02)
[2020-07-27] MEDS: DULoxetine 30 MG CAP (CYMBALTA) PO SCH (08:24)
[2020-07-27] MEDS: OYSTER SHELL CALCIUM 500 MG TAB PO SCH (08:24)
[2020-07-27] MEDS: APIXABAN 2.5 MG TAB (ELIQUIS) PO SCH ×2 (08:25→22:03)
[2020-07-27] MEDS: allopurinoL 100 MG TAB PO SCH (08:25)
[2020-07-27] MEDS: AMIODARONE 200 MG TAB (PACERONE) PO SCH (08:25)
[2020-07-27] MEDS: OMEPRAZOLE 20 MG CAP PO SCH (08:25)
[2020-07-27] MEDS: lisinopriL 5 MG TAB PO SCH (08:46)
[2020-07-27] MEDS: atenoloL 50 MG TAB PO SCH ×2 (08:46→22:03)
[2020-07-27] MEDS ORDERED: MUPIROCIN 2% OINT 22 GM TUBE EXT SCH (09:00)
[2020-07-27] MEDS ORDERED: KETOCONAZOLE 2% CREAM EXT SCH (09:00)
[2020-07-27] MEDS ORDERED: METOPROLOL TARTRATE 100 MG TAB PO SCH (09:00)
[2020-07-27] MEDS ORDERED: atenoloL 25 MG TAB PO SCH ×2 (09:00→21:00)
[2020-07-27 09:30] LABS: HEPATITIS B SURFACE ANTIGEN NEGATIVE (NEGATIVE)
[2020-07-27 09:57] LABS: HEPATITIS B CORE ANTIBODY IGM NEGATIVE (NEGATIVE)
[2020-07-27 10:00] LABS: HEPATITIS A ANTIBODY IGM NEGATIVE (NEGATIVE)
[2020-07-27 10:04] LABS: HEPATITIS C VIRUS ABY INDEX 0.1 INDEX (<0.8)
[2020-07-27 12:00] VITALS: BP 131/78
[2020-07-27] MEDS: FUROSEMIDE 40MG/4ML VIAL (J1940) IV SCH ×2 (13:04→22:01)
[2020-07-27 14:00] VITALS: BP 131/65
--- NOTE | 2020-07-27 14:54 | IPNPDOC ---
Text Note Date of Service The patient was seen on 07/27/20. NOTE SUBJECTIVE: Feels better this am. Says the swelling is going down. Denies any SOB. Omar was placed in the ED. He uses a power chair for mobilization. Has chronic bilateral leg wounds since the [place] due to sharpnel which has been really bad from October this year. PHYSICAL EXAMINATION: VITAL SIGNS: Please see below. GEN: well-nourished / well developed/ NAD INTEGUMENT: not flushed/ not jaundice HEENT: lips acyanotic /mucus membranes moist and pink , anicteric. CVS: Heart rate irregularly irregular/NMRG/ radial pulses intact / + bilateral lower extremity edema LUNGS: able to speak full sentences without stopping to take a breath / no coughing / lungs are clear to auscultation bilaterally on room air, diminished at the bases. ABDOMEN: Contour ( obese) /, soft & not tender with palpation Extremities: both legs with chronic wounds, left worse than right now under dressing. Bipedal chronic edema and lymphedema. Skin tears at both the upper extremities just below the elbow. NEURO: CN 2-12 are grossly intact / speech is not dysarthric PSYCH: alert and oriented to person place and time/ able to understand and follow all commands LABORATORY DATA: See below. IMAGING: Chest x-ray "Stable poor inspiratory chest since 08/17/2018. No interval congest per failure is seen. " CT abdomen and pelvis "1. Cholelithiasis with multiple small stones and mild distention of the gallbladder. 2. Diffuse subcutaneous edema about the abdomen and pelvis. No peritoneal ascites is seen. 3. Status post gastric bypass. 4. Mild colonic diverticulosis, greatest in the sigmoid without diverticulitis. " MICROBIOLOGY: Please see below. ASSESSMENT and Plan: Mr. Stafford is a 75-year-old with a history of osteoporosis, CKD 3, PE, chronic thromboembolic pulmonary hypertension, HFpEF A. fib, Lower GI bleed, depression, SHASHANK, Graves disease, and BPH who presented with complaints of weakness in the setting of not taking his thyroid medications. Because of the weakness, he stopped taking his diuretics and developed fluid overload. He will be admitted for management of acute decompensated CHF and rapid A. fib. Chronic [place] Fibrillation w RVR He received digoxin in the ER, Rate now controlled amiodarone, atenolol and apixaban Acute diastolic CHF/HFpEF 2/2 not taking diuretics IV lasix, I/O, 2 gm sodium diet. Weakness probably due to CHF exacerbation and fluid overload. Uses a motorized chair to mobilize. about a week ago fell out of the chiar as he fell asleep in it and it has only 1 arm. He had to remove the arm as otherwise it would not pass though the dooorways. His leg wound opened up more after the fall and he was in a lot of pain Hypothyroid TSH mildly elevated at 17 continue PO synthroid Transaminitis Due to chronic right heart failure and congestive hepatopathy. Macrocytic anemia He has a history of B12 deficiency & BA CKD 3 Calcitriol Pulmonary embolism / Chronic thrombo-embolic pulmonary hypertension Eliquis SHASHANK may use CPAP Morbid Obesity with H/O bariatric surgery BMI 55.6 complicates care Bilateral leg chronic wounds will continue with daily dressings here as per home regimen. DVT PROPHYLAXIS: n/a on DOAC VS,Fishbone, I+O VS, Fishbone, I+O Laboratory Tests 07/26/20 23:45 07/27/20 07:02 Vital Signs Date Time Temp Pulse Resp B/P (MAP) Pulse Ox O2 Delivery O2 Flow Rate FiO2 07/27/20 12:00 97.9 79 16 131/78 (95) 95 Room Air RUSS CHAN MD Jul 27, 2020 14:30
[2020-07-27] MEDS: KETOCONAZOLE 2% CREAM TOP SCH (16:11)
[2020-07-27] MEDS ORDERED: MAGNESIUM CHLORIDE 64 MG TABCR (SLO MAG) PO SCH (21:00)
[2020-07-27 22:00] VITALS: BP 138/72
[2020-07-27] MEDS: CALCITRIOL 0.25 MCG CAP (S0169) PO SCH (22:02)
[2020-07-27] MEDS: VITAMIN D 1,000 INTERNATIONAL UNITS TABLET PO SCH (22:02)
[2020-07-27] MEDS: GABAPENTIN 300 MG CAP PO SCH (22:03)
[2020-07-27] MEDS: PRAZOSIN 1 MG CAP PO SCH (22:17)
[2020-07-28] MEDS: FUROSEMIDE 40MG/4ML VIAL (J1940) IV SCH ×2 (05:54→18:19)
[2020-07-28] MEDS: LEVOTHYROXINE 137MCG TABLET (0.137MG) PO SCH (05:54)
[2020-07-28 06:00] VITALS: BP 142/98
[2020-07-28 06:28] LABS: HEMATOCRIT 35.1 % (42.0-52.0); HEMOGLOBIN 10.8 g/dl (13.5-17.5); MEAN CORPUSCULAR HEMOGLOBIN 30.9 pg (27.0-33.0); MEAN CORPUSCULAR HGB CONC 30.8 g/dl (32.0-36.5); MEAN CORPUSCULAR VOLUME 100.6 fl (80.0-96.0); PLATELET COUNT, AUTOMATED 283 10^3/uL (150-450); RED BLOOD COUNT 3.49 10^6/uL (4.30-6.10); WHITE BLOOD COUNT 9.8 10^3/uL (4.0-10.0)
[2020-07-28 06:56] LABS: ALBUMIN 2.4 GM/DL (3.2-5.2); BILIRUBIN,TOTAL 0.7 MG/DL (0.2-1.0); CALCIUM LEVEL 8.2 MG/DL (8.8-10.2); CREATININE FOR GFR 1.61 MG/DL (0.70-1.30); POTASSIUM SERUM 3.3 MEQ/L (3.5-5.1); TOTAL PROTEIN 5.9 GM/DL (6.4-8.2)
[2020-07-28] MEDS: POTASSIUM CHLORIDE 10 MEQ SR TABLET PO ONE ×2 (08:00→09:52)
[2020-07-28] MEDS ORDERED: LEVOTHYROXINE 100MCG (0.1MG) VIAL IV SCH (09:00)
[2020-07-28] MEDS ORDERED: POTASSIUM CHLORIDE 10 MEQ SR TABLET PO SCH (09:00)
[2020-07-28] MEDS: AMIODARONE 200 MG TAB (PACERONE) PO SCH (09:53)
[2020-07-28] MEDS: MULTIVITAMINS/MINERALS THERAP 1 TAB PO SCH ×2 (09:53→21:00)
[2020-07-28] MEDS: OMEPRAZOLE 20 MG CAP PO SCH (09:53)
[2020-07-28] MEDS: atenoloL 50 MG TAB PO SCH ×2 (09:53→21:04)
[2020-07-28] MEDS: lisinopriL 5 MG TAB PO SCH (09:53)
[2020-07-28] MEDS: FERROUS SULFATE 325MG TAB PO SCH ×2 (09:54→21:00)
[2020-07-28] MEDS: oxyCODONE 5MG TAB PO SCH ×3 (09:54→21:00)
[2020-07-28] MEDS: DULoxetine 30 MG CAP (CYMBALTA) PO SCH (09:54)
[2020-07-28] MEDS: OYSTER SHELL CALCIUM 500 MG TAB PO SCH (09:54)
[2020-07-28] MEDS: allopurinoL 100 MG TAB PO SCH (09:54)
[2020-07-28] MEDS: APIXABAN 2.5 MG TAB (ELIQUIS) PO SCH ×2 (09:54→21:00)
[2020-07-28] MEDS ORDERED: KCL 10MEQ/100ML SWI (KRUN) 10 MEQ in IV 1 EA IV ONE ×4 (12:00→15:00)
[2020-07-28] MEDS: KETOCONAZOLE 2% CREAM TOP SCH (12:24)
--- NOTE | 2020-07-28 13:17 | IPNPDOC ---
Text Note Date of Service The patient was seen on 07/28/20. NOTE SUBJECTIVE: Feels better this am. Says the swelling is going down. Denies any SOB. Omar was placed in the ED. He uses a power chair for mobilization. Good urine output. Negative about 8 l till now from admission. PHYSICAL EXAMINATION: VITAL SIGNS: Please see below. GEN: well-nourished / well developed/ NAD INTEGUMENT: not flushed/ not jaundice HEENT: lips acyanotic /mucus membranes moist and pink , anicteric. CVS: Heart rate irregularly irregular/NMRG/ radial pulses intact / + bilateral lower extremity edema LUNGS: able to speak full sentences without stopping to take a breath / no coughing / lungs are clear to auscultation bilaterally on room air, diminished at the bases. ABDOMEN: Contour ( obese) /, soft & not tender with palpation Extremities: both legs with chronic wounds, left worse than right now under dressing. Bipedal chronic edema and lymphedema. Skin tears at both the upper extremities just below the elbow. NEURO: CN 2-12 are grossly intact / speech is not dysarthric PSYCH: alert and oriented to person place and time/ able to understand and follow all commands LABORATORY DATA: See below. IMAGING: Chest x-ray "Stable poor inspiratory chest since 08/17/2018. No interval congestive failure is seen. " CT abdomen and pelvis "1. Cholelithiasis with multiple small stones and mild distention of the gallbladder. 2. Diffuse subcutaneous edema about the abdomen and pelvis. No peritoneal ascites is seen. 3. Status post gastric bypass. 4. Mild colonic diverticulosis, greatest in the sigmoid without diverticulitis. " MICROBIOLOGY: Please see below. ASSESSMENT and Plan: Mr. Stafford is a 75-year-old with a history of osteoporosis, CKD 3, PE, chronic thromboembolic pulmonary hypertension, HFpEF A. fib, Lower GI bleed, depression, SHASHANK, Graves disease, and BPH who presented with complaints of weakness in the setting of not taking his thyroid medications. Because of the weakness, he stopped taking his diuretics and developed fluid overload. He will be admitted for management of acute decompensated CHF and rapid A. fib. Acute diastolic CHF/HFpEF 2/2 not taking diuretics IV lasix, I/O, 2 gm sodium diet. Hypokalemia will replace. Chronic [place] Fibrillation w RVR He received digoxin in the ER, Rate now controlled amiodarone, atenolol and apixaban Weakness probably due to CHF exacerbation and fluid overload. Uses a motorized chair to mobilize. about a week ago fell out of the chair as he fell asleep in it and it has only 1 arm. He had to remove the arm as otherwise it would not pass though the dooorways. His leg wound opened up more after the fall and he was in a lot of pain PT/OT Hypothyroid TSH mildly elevated at 17 continue PO synthroid Transaminitis Due to chronic right heart failure and congestive hepatopathy. Macrocytic anemia He has a history of B12 deficiency & BA CKD 3 Calcitriol Pulmonary embolism / Chronic thrombo-embolic pulmonary hypertension Eliquis SHASHANK may use CPAP Morbid Obesity with H/O bariatric surgery BMI 55.6 complicates care Bilateral leg chronic wounds will continue with daily dressings here as per home regimen. DVT PROPHYLAXIS: n/a on DOAC VS,Fishbone, I+O VS, Fishbone, I+O Laboratory Tests 07/28/20 05:45 Vital Signs Date Time Temp Pulse Resp B/P (MAP) Pulse Ox O2 Delivery O2 Flow Rate FiO2 07/28/20 10:30 18 Room Air 07/28/20 09:53 98 07/28/20 09:53 128/67 07/28/20 06:00 98.2 97 I&O- Last 24 Hours up to 6 AM 07/28/20 06:00 Intake Total 1580 ml Output Total 7900 ml Balance -6320 ml RUSS CHAN MD Jul 28, 2020 13:17
[2020-07-28] MEDS: MAGNESIUM GLUCONATE 500 MG TAB PO SCH ×2 (20:59→21:00)
[2020-07-28] MEDS: CALCITRIOL 0.25 MCG CAP (S0169) PO SCH (21:00)
[2020-07-28] MEDS: VITAMIN D 1,000 INTERNATIONAL UNITS TABLET PO SCH (21:00)
[2020-07-28] MEDS: GABAPENTIN 300 MG CAP PO SCH (21:00)
[2020-07-28] MEDS: PRAZOSIN 1 MG CAP PO SCH (21:03)
[2020-07-28 22:00] VITALS: BP 112/75
[2020-07-29] MEDS: LEVOTHYROXINE 137MCG TABLET (0.137MG) PO SCH (05:52)
[2020-07-29 06:00] VITALS: BP 153/89
[2020-07-29 08:46] LABS: HEMATOCRIT 36.1 % (42.0-52.0); HEMOGLOBIN 11.1 g/dl (13.5-17.5); MEAN CORPUSCULAR HEMOGLOBIN 30.7 pg (27.0-33.0); MEAN CORPUSCULAR HGB CONC 30.7 g/dl (32.0-36.5); PLATELET COUNT, AUTOMATED 255 10^3/uL (150-450); RED BLOOD COUNT 3.61 10^6/uL (4.30-6.10); WHITE BLOOD COUNT 10.6 10^3/uL (4.0-10.0)
[2020-07-29 09:06] LABS: CALCIUM LEVEL 7.7 MG/DL (8.8-10.2); CREATININE FOR GFR 1.63 MG/DL (0.70-1.30); GLOMERULAR FILTRATION RATE 44.4 (>42); POTASSIUM SERUM 3.6 MEQ/L (3.5-5.1)
[2020-07-29] MEDS: allopurinoL 100 MG TAB PO SCH (09:07)
[2020-07-29] MEDS: MULTIVITAMINS/MINERALS THERAP 1 TAB PO SCH ×2 (09:07→20:43)
[2020-07-29] MEDS: FERROUS SULFATE 325MG TAB PO SCH ×2 (09:07→20:42)
[2020-07-29] MEDS: MAGNESIUM GLUCONATE 500 MG TAB PO SCH ×2 (09:07→20:40)
[2020-07-29] MEDS: APIXABAN 2.5 MG TAB (ELIQUIS) PO SCH ×2 (09:07→20:41)
[2020-07-29] MEDS: FUROSEMIDE 40MG/4ML VIAL (J1940) IV SCH ×2 (09:08→16:17)
[2020-07-29] MEDS: OMEPRAZOLE 20 MG CAP PO SCH (09:08)
[2020-07-29] MEDS: DULoxetine 30 MG CAP (CYMBALTA) PO SCH (09:08)
[2020-07-29] MEDS: AMIODARONE 200 MG TAB (PACERONE) PO SCH (09:09)
[2020-07-29] MEDS: atenoloL 50 MG TAB PO SCH ×2 (09:09→20:42)
[2020-07-29] MEDS: lisinopriL 5 MG TAB PO SCH (09:09)
[2020-07-29] MEDS: KETOCONAZOLE 2% CREAM TOP SCH (09:10)
[2020-07-29] MEDS: oxyCODONE 5MG TAB PO SCH ×3 (09:10→20:42)
[2020-07-29] MEDS: OYSTER SHELL CALCIUM 500 MG TAB PO SCH (09:11)
--- NOTE | 2020-07-29 12:02 | REP ---
INDICATION: Pain with movement, falls at home COMPARISON: None. TECHNIQUE: AP, lateral, bilateral oblique views. FINDINGS: Advanced osteopenia and generalized arthritic degenerative changes are appreciated along with overlying soft tissue swelling. The ankle mortise appears relatively intact. No obvious acute fractures identified. IMPRESSION: Advanced osteopenia and degenerative changes with overlying soft tissue swelling. No definite acute fracture appreciated. If the patient remains symptomatic consider re-evaluation in 3-[address] to evaluate for subtle injury. <Electronically signed by Jc Fairchild > 07/29/20 [id number]
--- NOTE | 2020-07-29 12:11 | IPNPDOC ---
Text Note Date of Service The patient was seen on 07/29/20. NOTE SUBJECTIVE: No complaints this am except for leg weakness and right ankle pain. Says the swelling is going down. Denies any SOB. Omar was placed in the ED. He uses a power chair for mobilization. Good urine output. Very good negative balance. I/O documentation is wrong. Xray right ankle. PHYSICAL EXAMINATION: VITAL SIGNS: Please see below. GEN: well-nourished / well developed/ NAD INTEGUMENT: not flushed/ not jaundice HEENT: lips acyanotic /mucus membranes moist and pink , anicteric. CVS: Heart rate irregularly irregular/NMRG/ radial pulses intact / + bilateral lower extremity edema LUNGS: able to speak full sentences without stopping to take a breath / no coughing / lungs are clear to auscultation bilaterally on room air, diminished at the bases. ABDOMEN: Contour ( obese) /, soft & not tender with palpation Extremities: both legs with chronic wounds, left worse than right now under dressing. Bipedal chronic edema and lymphedema. Skin tears at both the upper extremities just below the elbow. NEURO: CN 2-12 are grossly intact / speech is not dysarthric PSYCH: alert and oriented to person place and time/ able to understand and follow all commands LABORATORY DATA: See below. IMAGING: Chest x-ray "Stable poor inspiratory chest since 08/17/2018. No interval congestive failure is seen. " CT abdomen and pelvis "1. Cholelithiasis with multiple small stones and mild distention of the gallbladder. 2. Diffuse subcutaneous edema about the abdomen and pelvis. No peritoneal ascites is seen. 3. Status post gastric bypass. 4. Mild colonic diverticulosis, greatest in the sigmoid without diverticulitis. " MICROBIOLOGY: Please see below. ASSESSMENT and Plan: Mr. Stafford is a 75-year-old with a history of osteoporosis, CKD 3, PE, chronic thromboembolic pulmonary hypertension, HFpEF A. fib, Lower GI bleed, depression, SHASHANK, Graves disease, and BPH who presented with complaints of weakness in the setting of not taking his thyroid medications. Because of the weakness, he stopped taking his diuretics and developed fluid overload. He will be admitted for management of acute decompensated CHF and rapid A. fib. Acute diastolic CHF/HFpEF 2/2 not taking diuretics IV lasix, I/O, 2 gm sodium diet. Hypokalemia replaced. Chronic [place] Fibrillation w RVR He received digoxin in the ER, Rate now controlled amiodarone, atenolol and apixaban Weakness unable to ambulate for a month. probably due to CHF exacerbation and fluid overload. Uses a motorized chair to mobilize. about a week ago fell out of the chair as he fell asleep in it and it has only 1 arm. He had to remove the arm as otherwise it would not pass though the doorways. PT/OT recommended continued rehab after dc. Hypothyroid TSH mildly elevated at 17 continue PO synthroid Transaminitis Due to chronic right heart failure and congestive hepatopathy. Macrocytic anemia He has a history of B12 deficiency & BA CKD 3 creatinine improved a little with diuresis. Calcitriol Pulmonary embolism / Chronic thrombo-embolic pulmonary hypertension Eliquis SHASHANK may use CPAP Morbid Obesity with H/O bariatric surgery BMI 55.6 complicates care Bilateral leg chronic wounds will continue with daily dressings here as per home regimen. DVT PROPHYLAXIS: n/a on DOAC VS,Fishbone, I+O VS, Fishbone, I+O Vital Signs Date Time Temp Pulse Resp B/P (MAP) Pulse Ox O2 Delivery O2 Flow Rate FiO2 07/29/20 06:00 98.2 94 18 153/89 (110) 95 Room Air I&O- Last 24 Hours up to 6 AM 07/29/20 06:00 Intake Total 2220 ml Output Total 63459 ml Balance -84728 ml RUSS CHAN MD Jul 29, 2020 07:59
[2020-07-29 14:00] VITALS: BP 141/81
[2020-07-29] MEDS: NYSTATIN 100,000 UNITS/GM TOPICAL PWD 15 GM TOP PRN (19:17)
[2020-07-29] MEDS: VITAMIN D 1,000 INTERNATIONAL UNITS TABLET PO SCH (20:40)
[2020-07-29] MEDS: CALCITRIOL 0.25 MCG CAP (S0169) PO SCH (20:41)
[2020-07-29] MEDS: PRAZOSIN 1 MG CAP PO SCH (20:41)
[2020-07-29] MEDS: GABAPENTIN 300 MG CAP PO SCH (20:41)
[2020-07-29 22:00] VITALS: BP 132/80
[2020-07-30 06:00] VITALS: BP 139/77
[2020-07-30] MEDS: LEVOTHYROXINE 137MCG TABLET (0.137MG) PO SCH (06:08)
[2020-07-30 06:24] LABS: BASO # 0.1 10^3/uL (0.0-0.2); BASO % 0.4 % (0.0-1.0); EOS # 0.3 10^3/uL (0.0-0.5); EOS % 2.1 % (0.0-3.0); HEMATOCRIT 34.9 % (42.0-52.0); HEMOGLOBIN 10.5 g/dl (13.5-17.5); LYMPH # 1.2 10^3/uL (1.5-5.0); LYMPH % 9.4 % (24.0-44.0); MEAN CORPUSCULAR HEMOGLOBIN 29.7 pg (27.0-33.0); MEAN CORPUSCULAR HGB CONC 30.1 g/dl (32.0-36.5); MEAN CORPUSCULAR VOLUME 98.6 fl (80.0-96.0); MONO # 2.2 10^3/uL (0.0-0.8); MONO % 17.9 % (0.0-5.0); NEUTROPHILS # 8.6 10^3/uL (1.5-8.5); NEUTROPHILS % 69.6 % (36.0-66.0); PLATELET COUNT, AUTOMATED 274 10^3/uL (150-450); RED BLOOD COUNT 3.54 10^6/uL (4.30-6.10); WHITE BLOOD COUNT 12.3 10^3/uL (4.0-10.0)
[2020-07-30 06:50] LABS: CALCIUM LEVEL 7.8 MG/DL (8.8-10.2); CREATININE FOR GFR 1.49 MG/DL (0.70-1.30); GLOMERULAR FILTRATION RATE 49.2 (>42); POTASSIUM SERUM 3.3 MEQ/L (3.5-5.1)
[2020-07-30] MEDS: OYSTER SHELL CALCIUM 500 MG TAB PO SCH (08:13)
[2020-07-30] MEDS: allopurinoL 100 MG TAB PO SCH (08:13)
[2020-07-30] MEDS: APIXABAN 2.5 MG TAB (ELIQUIS) PO SCH ×2 (08:13→21:09)
[2020-07-30] MEDS: MAGNESIUM GLUCONATE 500 MG TAB PO SCH ×2 (08:13→21:09)
[2020-07-30] MEDS: OMEPRAZOLE 20 MG CAP PO SCH (08:13)
[2020-07-30] MEDS: FERROUS SULFATE 325MG TAB PO SCH ×2 (08:13→21:09)
[2020-07-30] MEDS: FUROSEMIDE 40MG/4ML VIAL (J1940) IV SCH ×2 (08:13→17:15)
[2020-07-30] MEDS: MULTIVITAMINS/MINERALS THERAP 1 TAB PO SCH ×2 (08:14→21:10)
[2020-07-30] MEDS: atenoloL 50 MG TAB PO SCH ×2 (08:14→21:08)
[2020-07-30] MEDS: DULoxetine 30 MG CAP (CYMBALTA) PO SCH (08:14)
[2020-07-30] MEDS: AMIODARONE 200 MG TAB (PACERONE) PO SCH (08:14)
[2020-07-30] MEDS: lisinopriL 5 MG TAB PO SCH (08:14)
[2020-07-30] MEDS: oxyCODONE 5MG TAB PO SCH ×3 (08:15→21:09)
[2020-07-30] MEDS: traMADol 50 MG TAB PO PRN ×2 (08:16→15:50)
[2020-07-30] MEDS: POTASSIUM CHLORIDE 10 MEQ SR TABLET PO SCH ×2 (08:16→21:09)
[2020-07-30] MEDS: NYSTATIN 100,000 UNITS/GM TOPICAL PWD 15 GM TOP PRN (08:17)
[2020-07-30] MEDS: KETOCONAZOLE 2% CREAM TOP SCH (08:18)
[2020-07-30 14:00] VITALS: BP 135/87
[2020-07-30] MEDS: GABAPENTIN 300 MG CAP PO SCH (21:05)
[2020-07-30] MEDS: VITAMIN D 1,000 INTERNATIONAL UNITS TABLET PO SCH (21:09)
[2020-07-30] MEDS: PRAZOSIN 1 MG CAP PO SCH (21:10)
[2020-07-30] MEDS: CALCITRIOL 0.25 MCG CAP (S0169) PO SCH (21:10)
[2020-07-30 22:00] VITALS: BP 134/86
[2020-07-31 06:00] VITALS: BP 111/59
[2020-07-31] MEDS: LEVOTHYROXINE 137MCG TABLET (0.137MG) PO SCH (06:12)
[2020-07-31 06:29] LABS: BASO % 0.2 % (0.0-1.0); EOS # 0.1 10^3/uL (0.0-0.5); EOS % 0.5 % (0.0-3.0); HEMATOCRIT 34.3 % (42.0-52.0); HEMOGLOBIN 10.5 g/dl (13.5-17.5); LYMPH % 7.4 % (24.0-44.0); MEAN CORPUSCULAR HEMOGLOBIN 30.2 pg (27.0-33.0); MEAN CORPUSCULAR HGB CONC 30.6 g/dl (32.0-36.5); MEAN CORPUSCULAR VOLUME 98.6 fl (80.0-96.0); MONO # 2.1 10^3/uL (0.0-0.8); MONO % 15.9 % (0.0-5.0); NEUTROPHILS # 10.1 10^3/uL (1.5-8.5); NEUTROPHILS % 75.6 % (36.0-66.0); PLATELET COUNT, AUTOMATED 250 10^3/uL (150-450); RED BLOOD COUNT 3.48 10^6/uL (4.30-6.10); WHITE BLOOD COUNT 13.4 10^3/uL (4.0-10.0)
[2020-07-31 06:48] LABS: CALCIUM LEVEL 7.4 MG/DL (8.8-10.2); CREATININE FOR GFR 1.7 MG/DL (0.70-1.30); GLOMERULAR FILTRATION RATE 42.3 (>42); POTASSIUM SERUM 3.7 MEQ/L (3.5-5.1)
--- NOTE | 2020-07-31 08:40 | IPN ---
PROGRESS NOTE DATE: 07/30/2020 SUBJECTIVE: Bob is [facility] stable from yesterday, admitted with decompensated congestive heart failure, history of atrial fibrillation back to ventricular response, which is now under control. Severe deconditioning due to weakness and inability to ambulate. He would like to get to the rehab unit during his hospitalization. He is on chronic anticoagulation therapy for a history of pulmonary embolism. Chronic embolic pulmonary hypertension. He also has chronic kidney disease for which he follows with nephrology. Overall, he feels better. He has had a good diuresis. Looks like he has had a 20 liter of that diuresis to date if his input and output is accurate. OBJECTIVE: VITAL SIGNS: Blood pressure 137/75, afebrile, vital signs stable. Pulse of 90. GENERAL APPEARANCE: Alert and conversant, in no distress. LUNGS: Decreased breath sounds. HEART: Regular rate and rhythm. ABDOMEN: Soft and nontender. EXTREMITIES: Trace to 1+ peripheral edema. NEUROLOGIC: Last mental status exam was normal. He is alert and conversant with no distress. EXTREMITIES: He has some ecchymosis over his upper shoulders. He has some lymphedema of his lower extremities, which is chronic and this was dressed. LABORATORY DATA: White count is 12.3, hemoglobin 10.5, platelets 274,000. Sodium 139, potassium 3.3, BUN 17, creatinine 1.49, glucose 113. ASSESSMENT AND PLAN: 1. Decompensated congestive heart failure. He has had a dramatic diuresis to date, but he still has some peripheral edema, and I would continue his IV diuretics until his renal function shows he has reached a dry weight. 2. Hypokalemia. Supplemental potassium has been given. 3. Hypertensive heart disease. Blood pressure is under good control on current regimen. 4. Atrial fibrillation. His rate is controlled and he is anticoagulated with Eliquis. 5. Chronic kidney disease stage III. Adjust dose of medicine based on renal function. Continue his vitamin D supplementation and his SHLOMO inhibitor therapy. Watch renal function closely. Daily labs have been ordered.
[2020-07-31] MEDS: FUROSEMIDE 40MG/4ML VIAL (J1940) IV SCH ×2 (09:24→16:35)
[2020-07-31] MEDS: oxyCODONE 5MG TAB PO SCH ×3 (09:24→21:44)
[2020-07-31] MEDS: OMEPRAZOLE 20 MG CAP PO SCH (09:25)
[2020-07-31] MEDS: POTASSIUM CHLORIDE 10 MEQ SR TABLET PO SCH ×2 (09:25→21:44)
[2020-07-31] MEDS: lisinopriL 5 MG TAB PO SCH (09:25)
[2020-07-31] MEDS: MAGNESIUM GLUCONATE 500 MG TAB PO SCH ×2 (09:25→21:44)
[2020-07-31] MEDS: DULoxetine 30 MG CAP (CYMBALTA) PO SCH (09:26)
[2020-07-31] MEDS: OYSTER SHELL CALCIUM 500 MG TAB PO SCH (09:26)
[2020-07-31] MEDS: FERROUS SULFATE 325MG TAB PO SCH ×2 (09:26→21:44)
[2020-07-31] MEDS: MULTIVITAMINS/MINERALS THERAP 1 TAB PO SCH ×2 (09:26→21:44)
[2020-07-31] MEDS: AMIODARONE 200 MG TAB (PACERONE) PO SCH (09:26)
[2020-07-31] MEDS: atenoloL 50 MG TAB PO SCH ×2 (09:26→22:56)
[2020-07-31] MEDS: APIXABAN 2.5 MG TAB (ELIQUIS) PO SCH ×2 (09:26→21:44)
[2020-07-31] MEDS: allopurinoL 100 MG TAB PO SCH (09:26)
[2020-07-31] MEDS: KETOCONAZOLE 2% CREAM TOP SCH (09:27)
--- NOTE | 2020-07-31 12:23 | IPNPDOC ---
Text Note Date of Service The patient was seen on 07/31/20. NOTE Subjective: Patient seen and examined at bedside. Objective: Constitutional: Appears well. Non-distressed HEENT: PEERLA, EOMI Cardiovascular: Heart sounds 1+ 2 present. No added sounds, murmurs, regurgitations Lungs: Clear to auscultation bilaterally. No wheezing/crackles Abdomen: Soft, non-tender. Non-distended. BS present Extremities: No pitting edema Neurological: No FND. AO x 3 Assessment/Plan: 75-year-old M, history of osteoporosis, CKD 3, PE, chronic thromboembolic pulmonary hypertension, HFpEF A. fib, Lower GI bleed, depression, SHASHANK, Graves disease, and BPH who presented with complaints of weakness in the setting of not taking his thyroid medications. Because of the weakness, he stopped taking his diuretics and developed fluid overload. He will be admitted for management of acute decompensated CHF and rapid A. fib. Diet: Low sodium DVT PPX: Elliquis 2.5 BID Disposition: Case discussed with Dr. Hawk Helm MD Hospitalist Resident Sophia SCHULZ I+Sophia THAYER I+O Laboratory Tests 07/31/20 05:24 Vital Signs Date Time Temp Pulse Resp B/P (MAP) Pulse Ox O2 Delivery O2 Flow Rate FiO2 07/31/20 09:54 16 07/31/20 09:26 98 128/88 07/31/20 06:00 98.4 91 Room Air I&O- Last 24 Hours up to 6 AM 07/31/20 06:00 Intake Total 900 ml Output Total 3500 ml Balance -2600 ml MERT HELM M.D.,PGY-2 Jul 31, 2020 12:22
--- NOTE | 2020-07-31 12:32 | IPNPDOC ---
Text Note Date of Service The patient was seen on 07/31/20. NOTE Subjective: Patient seen and examined at bedside. Doing well overnight. Notes his weakness has improved and swelling is going down. Continues to have -3L fluid balance overnight. Objective: Constitutional: Appears well. Non-distressed. Obese HEENT: PEERLA, EOMI Cardiovascular: Heart sounds 1+ 2 present. No added sounds, murmurs, re gurgitations Lungs: Mild crackling bilateral lung bases. No wheezing. Abdomen: Soft, non-tender. Non-distended. BS present Extremities: Bipedal edema 2+. 1+ Pitting edema up to level of upper tibia. W rapped with dressing. Neurological: No FND. AO x 3 Assessment/Plan: 75-year-old M with a history of osteoporosis, CKD 3, PE, chronic thromboembolic pulmonary hypertension, HFpEF A. fib, Lower GI bleed, depression, SHASHANK, Graves disease, and BPH who presented with complaints of weakness in the setting of not taking his thyroid medications. Because of the weakness, he stopped taking his diuretics and developed fluid overload. He will be admitted for management of acute decompensated CHF and rapid A. fib. #Acute on chronic HFpEF -ECHO LV 50-55% on 08/2018 -BNP not measured -As per Dr. Horton's not, exacerbation likely 2/2 medication non-compliance -Hospital Regiment: IV furosemide 40 BID. Will change to PO 40 BID on 08/01. Continues to have negative fluid balance as per I/Os. Low sodium diet. Head of bed elevated. Jose stockings -Incentive spirometer ordered #Chronic [place] Fibrillation w RVR (controlled) -S/P Digoxin in ED. Currently controlled -Home medications: Atenolol 75 daily, amiodarone 200 daily, eliquis 2.5 BID -In hospital, atenolol 50 daily in light of CHF exacerbation #Weakness -As per previous note, patient has been unable to ambulate for a month. -Likely 2/2 CHF exacerbation -Uses a motorized chair to mobilize. - PT/OT recommended continued rehab after dc. #Subclinical Hypothyroidism vs Sick euthyroid -TSH elevated at 17. Free T4 WNL -C/W home medication PO synthroid 137 mcg -T3 Ordered for tomorrow #Mild Transaminitis (resolved) -Likely 2/2 chronic HFpEF vs fatty liver -AST/ALT WNL. ALK phos elevated at 151 on 07/27 likely 2/2 prolonged immobility #Macrocytic anemia -Hb Stable -Hx of stage 3b CKD and B12/Iron deficiency although labs in November were not significantly lowered - B12, folate and Iron panel ordered for tomorrow #CKD 3b -BUN /Creatinine initially improved with diuresis but may be worsened on 07/31. -07/31: BUN 21. Creatinine 1.80. -C/W home medication calcitriol 0.25 qhs #Hx of Pulmonary embolism / Chronic thrombo-embolic pulmonary hypertension -Unclear when PE was. As per 2016 VQ scan, intermediate probability of PE. However, patient is on eliquis for A.Fib already. #SHASHANK -May use CPAP #Morbid Obesity with H/O bariatric surgery BMI 55.6 complicates care #Bilateral leg chronic wounds will continue with daily dressings here as per home regimen. Diet: Low sodium DVT PPX: Eliquis 2.5 BID Disposition: Home Case discussed with Dr. Hawk Helm MD Hospitalist Resident Sophia SCHULZ I+O VSSophia I+O Laboratory Tests 07/31/20 05:24 Vital Signs Date Time Temp Pulse Resp B/P (MAP) Pulse Ox O2 Delivery O2 Flow Rate FiO2 07/31/20 09:54 16 07/31/20 09:26 98 128/88 07/31/20 06:00 98.4 91 Room Air I&O- Last 24 Hours up to 6 AM 07/31/20 06:00 Intake Total 900 ml Output Total 3500 ml Balance -2600 ml GME ATTESTATION GME ATTESTATION My faculty preceptor for this patient encounter was physically present during the encounter and was fully available. All aspects of the patient interview, examination, medical decision making process, and medical care plan development were reviewed and approved by the faculty preceptor. The faculty preceptor is aware and concurs with the plan as stated in the body of this note and will attest to such by his/her cosignature. ATTENDING NOTE IMari, have independently examined this patient and performed my own physical exam, as well as reviewed the documentation and edited where necessary. I have discussed in detail with the resident / student the findings and plan of treatment as documented by the resident / student and edited their note. I agree with their findings and treatment plan and have edited their documentation. I will continue to follow the patient during this hospital stay. MERT HELM M.D.,PGY-2 Jul 31, 2020 12:32 KOBI SALMERON MD Aug 01, 2020 16:33
[2020-07-31 14:00] VITALS: BP 103/63
[2020-07-31 20:54] VITALS: BP 100/58
[2020-07-31] MEDS: PRAZOSIN 1 MG CAP PO SCH (21:00)
[2020-07-31 21:35] VITALS: BP 98/54
[2020-07-31] MEDS: VITAMIN D 1,000 INTERNATIONAL UNITS TABLET PO SCH (21:44)
[2020-07-31] MEDS: GABAPENTIN 300 MG CAP PO SCH (21:44)
[2020-07-31] MEDS: CALCITRIOL 0.25 MCG CAP (S0169) PO SCH (21:45)
[2020-07-31 22:00] VITALS: BP 103/54
[2020-07-31] MEDS ORDERED: atenoloL 25 MG TAB PO ONE (22:30)
[2020-07-31 23:40] VITALS: BP 90/62
[2020-08-01 02:00] VITALS: BP 98/60
[2020-08-01 04:15] VITALS: BP 98/66
[2020-08-01 06:00] VITALS: BP 100/70
[2020-08-01] MEDS: LEVOTHYROXINE 137MCG TABLET (0.137MG) PO SCH (06:09)
[2020-08-01 06:44] LABS: BASO % 0.2 % (0.0-1.0); EOS # 0.1 10^3/uL (0.0-0.5); EOS % 1.1 % (0.0-3.0); HEMOGLOBIN 10.4 g/dl (13.5-17.5); LYMPH # 1.1 10^3/uL (1.5-5.0); LYMPH % 8.3 % (24.0-44.0); MEAN CORPUSCULAR HEMOGLOBIN 29.7 pg (27.0-33.0); MEAN CORPUSCULAR HGB CONC 29.7 g/dl (32.0-36.5); MONO # 2.1 10^3/uL (0.0-0.8); MONO % 16.5 % (0.0-5.0); NEUTROPHILS # 9.3 10^3/uL (1.5-8.5); NEUTROPHILS % 73.5 % (36.0-66.0); PLATELET COUNT, AUTOMATED 268 10^3/uL (150-450); WHITE BLOOD COUNT 12.6 10^3/uL (4.0-10.0)
[2020-08-01 07:24] LABS: CALCIUM LEVEL 7.7 MG/DL (8.8-10.2); CREATININE FOR GFR 1.78 MG/DL (0.70-1.30); FREE T3 1.2 PG/ML (2.2-4.0); GLOMERULAR FILTRATION RATE 40.1 (>42); PERCENT SATURATION 13.4 % (19.7-50.0); POTASSIUM SERUM 3.9 MEQ/L (3.5-5.1)
[2020-08-01] MEDS: lisinopriL 5 MG TAB PO SCH (09:00)
[2020-08-01] MEDS: oxyCODONE 5MG TAB PO SCH ×3 (09:17→21:16)
[2020-08-01] MEDS: DULoxetine 30 MG CAP (CYMBALTA) PO SCH (09:18)
[2020-08-01] MEDS: FUROSEMIDE 40 MG TAB PO SCH ×2 (09:18→16:20)
[2020-08-01] MEDS: AMIODARONE 200 MG TAB (PACERONE) PO SCH (09:18)
[2020-08-01] MEDS: OYSTER SHELL CALCIUM 500 MG TAB PO SCH (09:18)
[2020-08-01] MEDS: FERROUS SULFATE 325MG TAB PO SCH ×2 (09:18→21:17)
[2020-08-01] MEDS: APIXABAN 2.5 MG TAB (ELIQUIS) PO SCH ×2 (09:18→21:17)
[2020-08-01] MEDS: MULTIVITAMINS/MINERALS THERAP 1 TAB PO SCH ×2 (09:18→21:17)
[2020-08-01] MEDS: POTASSIUM CHLORIDE 10 MEQ SR TABLET PO SCH ×2 (09:18→21:00)
[2020-08-01] MEDS: MAGNESIUM GLUCONATE 500 MG TAB PO SCH ×3 (09:18→21:16)
[2020-08-01] MEDS: allopurinoL 100 MG TAB PO SCH (09:19)
[2020-08-01] MEDS: OMEPRAZOLE 20 MG CAP PO SCH (09:19)
[2020-08-01] MEDS: KETOCONAZOLE 2% CREAM TOP SCH (09:21)
[2020-08-01] MEDS: atenoloL 50 MG TAB PO SCH ×2 (09:24→21:37)
--- NOTE | 2020-08-01 12:25 | IPNPDOC ---
Text Note Date of Service The patient was seen on 08/01/20. NOTE Subjective: Patient seen and examined at bedside. Doing well overnight. Notes he is still swollen however clinically euvolemic. Furosemide will be switched to PO today. Awaiting rehab placement Objective: Constitutional: Appears well. Non-distressed. Obese HEENT: PEERLA, EOMI Cardiovascular: Heart sounds 1+ 2 present. No added sounds, murmurs, regurgitations Lungs: Mild crackling bilateral lung bases. No wheezing. Abdomen: Soft, non-tender. Non-distended. BS present Extremities: No pitting edema noted in bilateral lower extremities. Toes warm and well perfused with 2+ DP pulses. Left leg wounds wrapped with dressing. Two areas with ulceration seen. One near left tibia on lateral side and one on back of calf near ankle. The one near the ankle has two areas of black tissue, one near the top and a smaller one on the inferior pole Neurological: No FND. AO x 3 Assessment/Plan: 75-year-old M with a history of osteoporosis, CKD 3, PE, chronic thromboembolic pulmonary hypertension, HFpEF A. fib, Lower GI bleed, depression, SHASHANK, Graves disease, and BPH who presented with complaints of weakness in the setting of not taking his thyroid medications. Because of the weakness, he stopped taking his diuretics and developed fluid overload. He will be admitted for management of acute decompensated CHF and rapid A. fib. #Acute on chronic HFpEF (resolved) -ECHO LV 50-55% on 08/2018 -BNP not measured -As per Dr. Horton's not, exacerbation likely 2/2 medication non-compliance -Home regiment: Furosemide 40 mg q2d -Hospital Regiment: IV furosemide 40 BID. Changed to PO 40 BID on 08/01. Strict I/Os. Low sodium diet. Head of bed elevated. Jose stockings -Incentive spirometer ordered #Chronic [place] Fibrillation w RVR (controlled) -S/P Digoxin in ED. Currently controlled -Home medications: Atenolol 75 daily, amiodarone 200 daily, eliquis 2.5 BID -In hospital, atenolol 50 daily in light of CHF exacerbation #Weakness -As per previous note, patient has been unable to ambulate for a month. -Likely 2/2 CHF exacerbation -Uses a motorized chair to mobilize. - PT/OT recommended continued rehab after dc. #Subclinical Hypothyroidism vs Sick euthyroid -TSH elevated at 17. Free T4 WNL. T3 low -C/W home medication PO synthroid 137 mcg #Mild Transaminitis (resolved) -Likely 2/2 chronic HFpEF vs fatty liver -AST/ALT WNL. ALK phos elevated at 151 on 07/27 likely 2/2 prolonged immobility #Macrocytic anemia -Hb Stable -Hx of stage 3b CKD and B12/Iron deficiency although labs in November were not significantly lowered - B12, folate and Iron panel. levels pending #CKD 3b -BUN /Creatinine initially improved with diuresis but may be worsened on 07/31. -07/31: BUN 21. Creatinine 1.80. Worsening likely due to overdiuresis. Regiment titrated on 08/01 -C/W home medication calcitriol 0.25 qhs #Hx of Pulmonary embolism / Chronic thrombo-embolic pulmonary hypertension -Unclear when PE was. As per 2015 VQ scan, intermediate probability of PE. However, patient is on eliquis for A.Fib already. #SHASHANK -May use CPAP #Bilateral leg chronic wounds -will continue with daily dressings here as per home regimen. -Advanced wound care consult ordered as it is unclear whether black tissue is necrotic or not. Patient unable to verify #Morbid Obesity with H/O bariatric surgery -BMI 55.6 complicates care Diet: Low sodium DVT PPX: Eliquis 2.5 BID Disposition: Home Case discussed with Dr. Hawk Helm MD Hospitalist Resident Sophia SCHULZ I+O Sophia SCHULZ I+O Laboratory Tests 08/01/20 06:33 Vital Signs Date Time Temp Pulse Resp B/P (MAP) Pulse Ox O2 Delivery O2 Flow Rate FiO2 08/01/20 09:47 16 08/01/20 09:24 95 111/60 08/01/20 06:00 98.7 95 Room Air I&O- Last 24 Hours up to 6 AM 08/01/20 06:00 Intake Total 760 ml Output Total 1400 ml Balance -640 ml GME ATTESTATION GME ATTESTATION My faculty preceptor for this patient encounter was physically present during the encounter and was fully available. All aspects of the patient interview, examination, medical decision making process, and medical care plan development were reviewed and approved by the faculty preceptor. The faculty preceptor is aware and concurs with the plan as stated in the body of this note and will attest to such by his/her cosignature. ATTENDING NOTE I, A Yarelyf, have independently examined this patient and performed my own physical exam, as well as reviewed the documentation and edited where necessary. I have discussed in detail with the resident / student the findings and plan of treatment as documented by the resident / student and edited their note. I agree with their findings and treatment plan and have edited their documentation. I will continue to follow the patient during this hospital stay. Dr. Gipson for advanced wound consultation and lower extremities. Wound with appearance of overlying eschar Improved volume status closely euvolemic to be switched from IV Lasix to by mouth Will need subacute rehabilitation MERT HELM M.D.,PGY-2 Aug 01, 2020 12:25 KOBI SALMERON MD Aug 01, 2020 16:34
[2020-08-01 14:00] VITALS: BP 124/84
[2020-08-01] MEDS ORDERED: ANALGESIC BALM CRM 120 GM TOP PRN (17:15)
[2020-08-01] MEDS: PRAZOSIN 1 MG CAP PO SCH (21:00)
[2020-08-01] MEDS: GABAPENTIN 300 MG CAP PO SCH (21:16)
[2020-08-01] MEDS: VITAMIN D 1,000 INTERNATIONAL UNITS TABLET PO SCH (21:16)
[2020-08-01] MEDS: CALCITRIOL 0.25 MCG CAP (S0169) PO SCH (21:17)
[2020-08-01 22:00] VITALS: BP 115/69
[2020-08-02] MEDS: LEVOTHYROXINE 137MCG TABLET (0.137MG) PO SCH (05:42)
[2020-08-02 06:00] VITALS: BP 142/78
[2020-08-02 07:14] LABS: BASO # 0.1 10^3/uL (0.0-0.2); BASO % 0.4 % (0.0-1.0); EOS # 0.2 10^3/uL (0.0-0.5); EOS % 1.8 % (0.0-3.0); HEMATOCRIT 34.9 % (42.0-52.0); HEMOGLOBIN 10.6 g/dl (13.5-17.5); LYMPH # 0.9 10^3/uL (1.5-5.0); LYMPH % 7.6 % (24.0-44.0); MEAN CORPUSCULAR HGB CONC 30.4 g/dl (32.0-36.5); MEAN CORPUSCULAR VOLUME 98.9 fl (80.0-96.0); MONO # 1.9 10^3/uL (0.0-0.8); MONO % 15.6 % (0.0-5.0); NEUTROPHILS # 8.9 10^3/uL (1.5-8.5); NEUTROPHILS % 74.1 % (36.0-66.0); PLATELET COUNT, AUTOMATED 296 10^3/uL (150-450); RED BLOOD COUNT 3.53 10^6/uL (4.30-6.10)
[2020-08-02 07:41] LABS: CREATININE FOR GFR 1.93 MG/DL (0.70-1.30); GLOMERULAR FILTRATION RATE 36.5 (>42); POTASSIUM SERUM 3.9 MEQ/L (3.5-5.1)
[2020-08-02] MEDS: DULoxetine 30 MG CAP (CYMBALTA) PO SCH (08:11)
[2020-08-02] MEDS: FERROUS SULFATE 325MG TAB PO SCH ×2 (08:11→20:31)
[2020-08-02] MEDS: OMEPRAZOLE 20 MG CAP PO SCH (08:11)
[2020-08-02] MEDS: MULTIVITAMINS/MINERALS THERAP 1 TAB PO SCH ×2 (08:11→20:34)
[2020-08-02] MEDS: MAGNESIUM GLUCONATE 500 MG TAB PO SCH ×2 (08:11→20:30)
[2020-08-02] MEDS: OYSTER SHELL CALCIUM 500 MG TAB PO SCH (08:11)
[2020-08-02] MEDS: allopurinoL 100 MG TAB PO SCH (08:11)
[2020-08-02] MEDS: APIXABAN 2.5 MG TAB (ELIQUIS) PO SCH ×2 (08:11→20:31)
[2020-08-02] MEDS: AMIODARONE 200 MG TAB (PACERONE) PO SCH (08:16)
[2020-08-02] MEDS: FUROSEMIDE 40 MG TAB PO SCH (08:16)
[2020-08-02] MEDS: atenoloL 50 MG TAB PO SCH ×2 (08:16→21:17)
[2020-08-02] MEDS: oxyCODONE 5MG TAB PO SCH ×3 (08:17→20:33)
[2020-08-02] MEDS: POTASSIUM CHLORIDE 10 MEQ SR TABLET PO SCH ×2 (08:17→20:29)
[2020-08-02] MEDS: KETOCONAZOLE 2% CREAM TOP SCH (08:18)
[2020-08-02] MEDS: lisinopriL 5 MG TAB PO SCH (08:18)
[2020-08-02 10:18] LABS: FOLATE 21.1 NG/ML (>5.4)
[2020-08-02 14:00] VITALS: BP 127/86
[2020-08-02] MEDS ORDERED: FERROUS SULFATE 325MG TAB PO SCH (14:30)
--- NOTE | 2020-08-02 14:31 | IPNPDOC ---
Text Note Date of Service The patient was seen on 08/02/20. NOTE Subjective: Patient seen and examined at bedside. Doing well overnight. Notes he is still swollen however clinically euvolemic. Furosemide will be switched to PO today. Awaiting rehab placement Objective: Constitutional: Appears well. Non-distressed. Obese HEENT: PEERLA, EOMI Cardiovascular: Heart sounds 1+ 2 present. No added sounds, murmurs, regurgitations Lungs: Mild crackling bilateral lung bases. No wheezing. Abdomen: Soft, non-tender. Non-distended. BS present Extremities: No pitting edema noted in bilateral lower extremities. Toes warm and well perfused with 2+ DP pulses. Left leg wounds wrapped with dressing. Two areas with ulceration seen. One near left tibia on lateral side and one on back of calf near ankle. The one near the ankle has two areas of black tissue, one near the top and a smaller one on the inferior pole Neurological: No FND. AO x 3 Assessment/Plan: 75-year-old M with a history of osteoporosis, CKD 3, PE, chronic thromboembolic pulmonary hypertension, HFpEF A. fib, Lower GI bleed, depression, SHASHANK, Graves disease, and BPH who presented with complaints of weakness in the setting of not taking his thyroid medications. Because of the weakness, he stopped taking his diuretics and developed fluid overload. He will be admitted for management of acute decompensated CHF and rapid A. fib. #Acute on chronic HFpEF (resolved) -ECHO LV 50-55% on 08/2018 -BNP not measured -As per Dr. Horton's not, exacerbation likely 2/2 medication non-compliance -Home regiment: Furosemide 40 mg q2d -Hospital Regiment: IV furosemide 40 BID. Changed to PO 40 BID on 08/01 and 08/02 and will continue q2d as per home regiment starting 08/04. Strict I/Os. Low sodium diet. Head of bed elevated. Jose stockings -Incentive spirometer ordered #Chronic [place] Fibrillation w RVR (controlled) -S/P Digoxin in ED. Currently controlled -Home medications: Atenolol 75 daily, amiodarone 200 daily, eliquis 2.5 BID -C/w Home medications as above. #Weakness -As per previous note, patient has been unable to ambulate for a month. -Likely 2/2 CHF exacerbation -Uses a motorized chair to mobilize. - PT/OT recommended continued rehab after dc. #Subclinical Hypothyroidism vs Sick euthyroid -TSH elevated at 17. Free T4 WNL. T3 low -C/W home medication PO synthroid 137 mcg #Mild Transaminitis (resolved) -Likely 2/2 chronic HFpEF vs fatty liver -AST/ALT WNL. ALK phos elevated at 151 on 07/27 likely 2/2 prolonged immobility and bone turnover #Macrocytic anemia -Hb Stable -Hx of stage 3b CKD and B12/Iron deficiency although labs in November were not significantly lowered - B12, folate WNL. Iron low at 18 although ferritin WNL. Iron replaced with 325 ferrous sulfate BID #CKD 3b (worsening) -BUN /Creatinine initially improved with diuresis but may be worsened on 07/31. -07/31: BUN 21. Creatinine 1.80. Worsening likely due to overdiuresis. Since 08/01, patient has been back on home dose of 40 lasix PO q2d. Next dose 08/04 -C/W home medication calcitriol 0.25 qhs #Hx of Pulmonary embolism / Chronic thrombo-embolic pulmonary hypertension -Unclear when PE was. As per 2016 VQ scan, intermediate probability of PE. However, patient is on eliquis for A.Fib already. #SHASHANK -May use CPAP #Bilateral leg chronic wounds -will continue with daily dressings here as per home regimen. -Advanced wound care consult ordered due to 2 areas of black tissue seen. As per , these have been intermittently present. However unsure if necrotic. No wound care consult available until next week. Will need to follow up outpatient #Morbid Obesity with H/O bariatric surgery -BMI 55.6 complicates care Diet: Low sodium DVT PPX: Eliquis 2.5 BID Disposition: Home Case discussed with Dr. Hawk Helm MD Hospitalist Resident Sophia SCHULZ I+O Sophia SCHULZ I+O Laboratory Tests 08/02/20 06:35 Vital Signs Date Time Temp Pulse Resp B/P (MAP) Pulse Ox O2 Delivery O2 Flow Rate FiO2 08/02/20 08:47 15 Room Air 08/02/20 08:18 125/82 08/02/20 08:16 110 08/02/20 06:00 98.0 91 I&O- Last 24 Hours up to 6 AM 08/02/20 05:59 Intake Total 1375 ml Output Total 1300 ml Balance 75 ml GME ATTESTATION GME ATTESTATION My faculty preceptor for this patient encounter was physically present during the encounter and was fully available. All aspects of the patient interview, examination, medical decision making process, and medical care plan development were reviewed and approved by the faculty preceptor. The faculty preceptor is aware and concurs with the plan as stated in the body of this note and will attest to such by his/her cosignature. ATTENDING NOTE IMari, have independently examined this patient and performed my own physical exam, as well as reviewed the documentation and edited where necessary. I have discussed in detail with the resident / student the findings and plan of treatment as documented by the resident / student and edited their note. I agree with their findings and treatment plan and have edited their documentation. I will continue to follow the patient during this hospital stay. Appears more euvolemic today. OP followup with Dr manzo wound care MERT HELM M.D.,PGY-2 Aug 02, 2020 14:31 KOBI SALMERON MD Aug 03, 2020 19:26
[2020-08-02] MEDS: GABAPENTIN 300 MG CAP PO SCH (20:30)
[2020-08-02] MEDS: VITAMIN D 1,000 INTERNATIONAL UNITS TABLET PO SCH (20:30)
[2020-08-02] MEDS: CALCITRIOL 0.25 MCG CAP (S0169) PO SCH (20:31)
[2020-08-02] MEDS: PRAZOSIN 1 MG CAP PO SCH (20:42)
[2020-08-02] MEDS ORDERED: atenoloL 25 MG TAB PO SCH (21:00)
[2020-08-02 22:00] VITALS: BP 118/64
[2020-08-02] MEDS: ACETAMINOPHEN TAB 650MG DOSE (2X325MG) PO PRN (22:22)
[2020-08-03 06:00] VITALS: BP 111/65
[2020-08-03] MEDS: LEVOTHYROXINE 137MCG TABLET (0.137MG) PO SCH (06:02)
[2020-08-03 06:17] LABS: BASO % 0.4 % (0.0-1.0); EOS # 0.5 10^3/uL (0.0-0.5); EOS % 4.9 % (0.0-3.0); HEMATOCRIT 32.6 % (42.0-52.0); HEMOGLOBIN 9.7 g/dl (13.5-17.5); LYMPH % 9.8 % (24.0-44.0); MEAN CORPUSCULAR HEMOGLOBIN 29.7 pg (27.0-33.0); MEAN CORPUSCULAR HGB CONC 29.8 g/dl (32.0-36.5); MEAN CORPUSCULAR VOLUME 99.7 fl (80.0-96.0); MONO # 1.4 10^3/uL (0.0-0.8); MONO % 13.9 % (0.0-5.0); NEUTROPHILS # 6.9 10^3/uL (1.5-8.5); NEUTROPHILS % 70.7 % (36.0-66.0); PLATELET COUNT, AUTOMATED 284 10^3/uL (150-450); RED BLOOD COUNT 3.27 10^6/uL (4.30-6.10); WHITE BLOOD COUNT 9.8 10^3/uL (4.0-10.0)
[2020-08-03 06:49] LABS: CALCIUM LEVEL 7.7 MG/DL (8.8-10.2); CREATININE FOR GFR 1.82 MG/DL (0.70-1.30); GLOMERULAR FILTRATION RATE 39.1 (>42)
[2020-08-03] MEDS: lisinopriL 5 MG TAB PO SCH (09:00)
[2020-08-03] MEDS: oxyCODONE 5MG TAB PO SCH ×3 (09:29→21:21)
[2020-08-03] MEDS: atenoloL 25 MG TAB PO SCH (09:30)
[2020-08-03] MEDS: allopurinoL 100 MG TAB PO SCH (09:33)
[2020-08-03] MEDS: MAGNESIUM GLUCONATE 500 MG TAB PO SCH ×2 (09:33→21:19)
[2020-08-03] MEDS: FERROUS SULFATE 325MG TAB PO SCH ×2 (09:33→21:20)
[2020-08-03] MEDS: DULoxetine 30 MG CAP (CYMBALTA) PO SCH (09:34)
[2020-08-03] MEDS: APIXABAN 2.5 MG TAB (ELIQUIS) PO SCH ×2 (09:34→21:20)
[2020-08-03] MEDS: OYSTER SHELL CALCIUM 500 MG TAB PO SCH (09:34)
[2020-08-03] MEDS: MULTIVITAMINS/MINERALS THERAP 1 TAB PO SCH ×2 (09:34→21:20)
[2020-08-03] MEDS: FUROSEMIDE 40 MG TAB PO SCH ×2 (09:34→16:13)
[2020-08-03] MEDS: POTASSIUM CHLORIDE 10 MEQ SR TABLET PO SCH ×2 (09:35→21:19)
[2020-08-03] MEDS: AMIODARONE 200 MG TAB (PACERONE) PO SCH (09:35)
[2020-08-03] MEDS: OMEPRAZOLE 20 MG CAP PO SCH (09:35)
[2020-08-03] MEDS: ACETAMINOPHEN TAB 650MG DOSE (2X325MG) PO PRN (13:40)
[2020-08-03] MEDS: KETOCONAZOLE 2% CREAM TOP SCH (13:41)
[2020-08-03 14:00] VITALS: BP 128/65
[2020-08-03] MEDS: PRAZOSIN 1 MG CAP PO SCH (20:18)
[2020-08-03] MEDS: CALCITRIOL 0.25 MCG CAP (S0169) PO SCH (21:19)
[2020-08-03] MEDS: VITAMIN D 1,000 INTERNATIONAL UNITS TABLET PO SCH (21:20)
[2020-08-03] MEDS: GABAPENTIN 300 MG CAP PO SCH (21:21)
[2020-08-03] MEDS: atenoloL 50 MG TAB PO SCH (21:23)
[2020-08-03 22:00] VITALS: BP 113/65
--- NOTE | 2020-08-03 22:11 | IPNPDOC ---
Text Note Date of Service The patient was seen on 08/03/20. NOTE SUBJECTIVE: Continues to be very weak. Working with PT but he is very frustrated as he is not seeing any improvement in his strength or his mobility. He is upset that his leg wounds are not closing. PHYSICAL EXAMINATION: VITAL SIGNS: Please see below. GEN: well-nourished / well developed/ NAD INTEGUMENT: not flushed/ not jaundice HEENT: lips acyanotic /mucus membranes moist and pink , anicteric. CVS: Heart rate irregularly irregular/NMRG/ radial pulses intact / + bilateral lower extremity edema LUNGS: able to speak full sentences without stopping to take a breath / no coughing / lungs are clear to auscultation bilaterally on room air, diminished at the bases. ABDOMEN: Contour ( obese) /, soft & not tender with palpation Extremities: both legs with chronic wounds, left worse than right. On Left leg there are 2 areas of chronic ulcers on the lateral aspect one above the ankle and one below the knee. Lower one worse 6 cm x 3 cm with a small area of black s pot at the base of the ulcer with some slough. The upper ulcer is 4 cm x 2 cm with some slough at the lower edge. Base is clean. The right leg just a small superficial ulcer about 2 cm x 1cm on the lateral side, clean base dry. Bipedal chronic edema and lymphedema. NEURO: CN 2-12 are grossly intact / speech is not dysarthric PSYCH: alert and oriented to person place and time/ able to understand and follow all commands Laboratory and Radiology reviewed. ASSESSMENT and Plan: Mr. Stafford is a 75-year-old with a history of osteoporosis, CKD 3, PE, chronic thromboembolic pulmonary hypertension, HFpEF A. fib, Lower GI bleed, depression, SHASHANK, Graves disease, and BPH who presented with complaints of weakness and falls and unable to stand and pivot for about a month. Because of the weakness, he stopped taking his diuretics and developed fluid overload. In ED he was found to have CHF exacerbation and Afib with Rvr. He was admitted for management of acute decompensated CHF and rapid A. fib. Acute on chronic diastolic CHF/HFpEF 2/2 not taking diuretics improving Continue Po lasix, I/O, 2 gm sodium diet, fluid restriction. Hypokalemia replaced. Chronic [place] Fibrillation w RVR RVR has resolved. Rate now controlled amiodarone, atenolol and apixaban Weakness unable to ambulate for a month. probably due to CHF exacerbation and fluid overload. Uses a motorized chair to mobilize. about a week ago fell out of the chair as he fell asleep in it and it has only 1 arm. He had to remove the arm as otherwise it would not pass though the doorways. PT/OT recommended continued rehab after dc. Hypothyroid TSH mildly elevated at 17 continue PO synthroid Transaminitis Due to chronic right heart failure and congestive hepatopathy. Macrocytic anemia He has a history of B12 deficiency & BA CKD 3 baseline creatinine 1.6 to 1.8. creatinine remains at baseline. Calcitriol Pulmonary embolism / Chronic thrombo-embolic pulmonary hypertension Eliquis SHASHANK may use CPAP Morbid Obesity with H/O bariatric surgery BMI 55.6 complicates care Bilateral leg chronic wounds since October 2019. will continue with daily dressings here as per home regimen. An area of necrotic tissues at luis base of left leg lower lateral ulcer As per , these have been intermittently present. Will get surgical evaluation for the wounds. DVT PROPHYLAXIS: n/a on DOAC VS,Fishbone, I+O VS, Fishbone, I+O Laboratory Tests 08/03/20 05:32 Vital Signs Date Time Temp Pulse Resp B/P (MAP) Pulse Ox O2 Delivery O2 Flow Rate FiO2 08/03/20 21:23 68 08/03/20 21:21 16 Room Air 08/03/20 20:18 113/65 08/03/20 14:00 98.9 98 I&O- Last 24 Hours up to 6 AM 08/03/20 07:00 Intake Total 680 ml Output Total 1500 ml Balance -820 ml RUSS CHAN MD Aug 03, 2020 22:11
[2020-08-04] MEDS: LEVOTHYROXINE 137MCG TABLET (0.137MG) PO SCH (05:32)
[2020-08-04 06:00] VITALS: BP 128/65
[2020-08-04 06:34] LABS: BASO # 0.1 10^3/uL (0.0-0.2); BASO % 0.5 % (0.0-1.0); EOS # 0.6 10^3/uL (0.0-0.5); HEMATOCRIT 34.6 % (42.0-52.0); HEMOGLOBIN 10.2 g/dl (13.5-17.5); LYMPH # 1.1 10^3/uL (1.5-5.0); LYMPH % 10.5 % (24.0-44.0); MEAN CORPUSCULAR HEMOGLOBIN 29.7 pg (27.0-33.0); MEAN CORPUSCULAR HGB CONC 29.5 g/dl (32.0-36.5); MEAN CORPUSCULAR VOLUME 100.6 fl (80.0-96.0); MONO # 1.2 10^3/uL (0.0-0.8); MONO % 12.4 % (0.0-5.0); NEUTROPHILS # 7.1 10^3/uL (1.5-8.5); NEUTROPHILS % 70.2 % (36.0-66.0); PLATELET COUNT, AUTOMATED 333 10^3/uL (150-450); RED BLOOD COUNT 3.44 10^6/uL (4.30-6.10)
[2020-08-04 07:05] LABS: CREATININE FOR GFR 1.85 MG/DL (0.70-1.30); GLOMERULAR FILTRATION RATE 38.3 (>42); POTASSIUM SERUM 4.3 MEQ/L (3.5-5.1)
--- NOTE | 2020-08-04 07:45 | IPNPDOC ---
Text Note Date of Service The patient was seen on 08/04/20. NOTE SUBJECTIVE: No new events overnight. Continues to be very weak. Working with PT but he is very frustrated as he is not seeing any improvement in his strength or his mobility. He is upset that his leg wounds are not closing. his leg swelling has improved significantly since last week. PHYSICAL EXAMINATION: VITAL SIGNS: Please see below. GEN: well-nourished / well developed/ NAD INTEGUMENT: not flushed/ not jaundice HEENT: lips acyanotic /mucus membranes moist and pink , anicteric. CVS: Heart rate irregularly irregular/NMRG/ radial pulses intact / + bilateral lower extremity edema LUNGS: able to speak full sentences without stopping to take a breath / no coughing / lungs are clear to auscultation bilaterally on room air, diminished at the bases. ABDOMEN: Contour ( obese) /, soft & not tender with palpation Extremities: both legs with chronic wounds, left worse than right. On Left leg there are 2 areas of chronic ulcers on the lateral aspect one above the ankle and one below the knee. Lower one worse 6 cm x 3 cm with a small area of black spot at the base of the ulcer with some slough. The upper ulcer is 4 cm x 2 cm with some slough at the lower edge. Base is clean. The right leg just a small superficial ulcer about 2 cm x 1cm on the lateral side, clean base dry. Bipedal chronic edema and lymphedema. NEURO: CN 2-12 are grossly intact / speech is not dysarthric PSYCH: alert and oriented to person place and time/ able to understand and follow all commands Laboratory and Radiology reviewed. ASSESSMENT and Plan: Mr. Stafford is a 75-year-old with a history of osteoporosis, CKD 3, PE, chronic thromboembolic pulmonary hypertension, HFpEF A. fib, Lower GI bleed, depression, SHASHANK, Graves disease, and BPH who presented with complaints of weakness and falls and unable to stand and pivot for about a month. Because of the weakness, he stopped taking his diuretics and developed fluid overload. In ED he was found to have CHF exacerbation and Afib with Rvr. He was admitted for management of acute decompensated CHF and rapid A. fib. Acute on chronic diastolic CHF/HFpEF 2/2 not taking diuretics improving Continue Po lasix, I/O, 2 gm sodium diet, fluid restriction. Hypokalemia replaced. Chronic [place] Fibrillation w RVR RVR has resolved. Rate now controlled amiodarone, atenolol and apixaban Weakness unable to ambulate for a month. probably due to CHF exacerbation and fluid overload. Uses a motorized chair to mobilize. about a week ago fell out of the chair as he fell asleep in it and it has only 1 arm. He had to remove the arm as otherwise it would not pass though the doorways. PT/OT recommended continued rehab after dc. Hypothyroid TSH mildly elevated at 17 continue PO synthroid Transaminitis Due to chronic right heart failure and congestive hepatopathy. Macrocytic anemia He has a history of B12 deficiency & BA CKD 3 baseline creatinine 1.6 to 1.8. creatinine remains at baseline. Calcitriol Pulmonary embolism / Chronic thrombo-embolic pulmonary hypertension Eliquis SHASHANK may use CPAP Morbid Obesity with H/O bariatric surgery BMI 55.6 complicates care Bilateral leg chronic wounds since October 2019. will continue with daily dressings here as per home regimen. An area of necrotic tissues at [facility] base of left leg lower lateral ulcer As per , these have been intermittently present. Will get surgical evaluation for the wounds. DVT PROPHYLAXIS: on DOAC VS,Fishbone, I+O VS, Fishbone, I+O Laboratory Tests 08/04/20 05:51 Vital Signs Date Time Temp Pulse Resp B/P (MAP) Pulse Ox O2 Delivery O2 Flow Rate FiO2 08/04/20 06:00 97.9 93 18 128/65 (86) 95 Room Air I&O- Last 24 Hours up to 6 AM 08/04/20 06:00 Intake Total 1560 ml Output Total 1700 ml Balance -140 ml Discharge Summary General Date of Admission Jul 27, 2020 at 03:31 Date of Discharge 08/04/20 Discharge Summary PROCEDURES PERFORMED DURING STAY: [None]. DISCHARGE DIAGNOSES: Acute on chronic diastolic CHF/HFpEF Transaminitis due to congestive hepatopathy. Afib with RVR Chronic bilateral leg wounds. Chronic bilateral stasis dermatitis and lymphedema. CKD stage 3 Morbid obesity s/p bariatric surgery SHASHANK Weakness and debility Pulmonary embolism / Chronic thrombo-embolic pulmonary hypertension Macrocytic anemia Iron deficiency H/O Lower GI bleed Diverticulosis Depression Squamous cell cancer affecting the ear. Grave's dz s/p thyroidectomy Hypothyroidism BPH Osteoporosis COMPLICATIONS/CHIEF COMPLAINT: Chronic Atrial Fibrillation W/Rvr. HOSPITAL COURSE: Mr. Stafford is a 75-year-old with a history of osteoporosis, CKD 3, PE, chronic thromboembolic pulmonary hypertension, HFpEF A. fib, Lower GI bleed, depression, SHASHANK, Graves disease, and BPH, uses motorized WC for movement, who presented with complaints of weakness and falls and unable to stand and pivot for about a month. Because of the weakness, he stopped taking his diuretics and developed fluid overload. In ED he was found to have CHF exacerbation and Afib with Rvr. He was admitted for management of acute decompensated CHF and rapid A. fib. He was aggressively diuresed with improvement in his swelling and decrease in his weight. His afib rate improved. However he continued to be very weak and debilitated and unable to stand and pivot. He was assessed by PT and they felt he would benefit from continued rehab after discharge. He is being discharged to ARU. DISCHARGE MEDICATIONS: Please see below. ALLERGIES: Please see below. PHYSICAL EXAMINATION ON DISCHARGE: As above LABORATORY DATA: Please see below. ACTIVITY: [As tolerated]. DIET: 2 gm sodium, fluid restriction 1.8 L DISCHARGE PLAN: ARU DISCHARGE INSTRUCTIONS: Dr Cortez consulted from leg wounds please follow up with him. DISCHARGE CONDITION: [Stable]. TIME SPENT ON DISCHARGE: 35 minutes. Vital Signs/I&Os Vital Signs Date Time Temp Pulse Resp B/P (MAP) Pulse Ox O2 Delivery O2 Flow Rate FiO2 08/04/20 08:56 18 08/04/20 08:18 93 128/65 08/04/20 06:00 97.9 95 Room Air I&O- Last 24 Hours up to 6 AM 08/04/20 06:00 Intake Total 1560 ml Output Total 1700 ml Balance -140 ml Laboratory Data Labs 24H Laboratory Tests 2 08/04/20 05:51: Immature Granulocyte % (Auto) 0.4, Neutrophils (%) (Auto) 70.2H, Lymphocytes (%) (Auto) 10.5L, Monocytes (%) (Auto) 12.4H, Eosinophils (%) (Auto) 6.0H, Basophils (%) (Auto) 0.5, Neutrophils # (Auto) 7.1, Lymphocytes # (Auto) 1.1L, Monocytes # (Auto) 1.2H, Eosinophils # (Auto) 0.6H, Basophils # (Auto) 0.1, Nucleated Red Blood Cells % (auto) 0.0, Anion Gap 4L, Glomerular Filtration Rate 38.3L, Calcium Level 8.0L CBC/BMP Laboratory Tests 08/04/20 05:51 Discharge Medications Scheduled Allopurinol (Allopurinol) 100 Mg Tab, 100 MG PO DAILY, (Reported) Amiodarone HCl (Amiodarone HCl) 200 Mg Tablet, 200 MG PO DAILY, (Reported) Apixaban (Eliquis) 2.5 Mg Tab, 2.5 MG PO BID, (Reported) Atenolol (Atenolol) 25 Mg Tablet, 25 MG PO DAILY, (Reported) Atenolol (Atenolol) 25 Mg Tablet, 50 MG PO QHS, (Reported) Calcitriol (Calcitriol) 0.25 Mcg Cap, 0.25 MCG PO QHS, (Reported) Calcium Carbonate (Calcium) 500 Mg Tablet, 500 MG PO DAILY, (Reported) Cholecalciferol (Vitamin D3) (Vitamin D3) 1,000 Unit Tablet, 2,000 UNITS PO QHS, (Reported) Duloxetine Hcl (Duloxetine HCl) 30 Mg Capsule.dr, 30 MG PO DAILY, (Reported) Ferrous Sulfate (Ferrous Sulfate) 325 Mg Tab, 325 MG PO BID, (Reported) Furosemide (Furosemide) 40 Mg Tablet, 40 MG PO Q2D, (Reported) Gabapentin (Gabapentin) 600 Mg Tablet, 600 MG PO QHS, (Reported) Gluc [place]/Chondro [place] A/Vit C/Mn (Glucosamine Chondroitin Tab) 1 Each Tablet, 1 TAB PO BID, (Reported) Ketoconazole (Ketoconazole) 15 Gm Cream..g., 1 DOSE EXT DAILY, (Reported) APPLY FROM BELOW THE KNEE TO THE FOOT Lanolin Alcohol/Mo/W.pet/[place] (Eucerin Creme) 454 Gm Cream..g., 1 DOSE TOP DAILY, (Reported) Levothyroxine Sodium (Synthroid) 137 Mcg Tablet, 137 MCG PO DAILY, (Reported) Lisinopril (Lisinopril) 5 Mg Tab, 5 MG PO DAILY, (Reported) Magnesium Chloride (Mag64) 64 Mg Tabcr, 64 MG PO QHS, (Reported) Multivitamins (Thera M Plus Tablet) 1 Tab Tab, 1 TAB PO BID, (Reported) Mupirocin (Mupirocin) 2 % Oint...g., 1 DOSE EXT DAILY, (Reported) APPLY TO LEGS Omeprazole (Omeprazole) 20 Mg Cap, 20 MG PO DAILY, (Reported) Oxycodone HCl (Oxycodone HCl) 10 Mg Tablet, 10 MG PO TID, (Reported) BREAKFAST, DINNER, QHS Prazosin Hcl (Prazosin HCl) 1 Mg Capsule, 1 MG PO QHS, (Reported) Scheduled PRN Diclofenac Sodium (Voltaren) 1 % Gel, 2 GM TOP BID PRN for PAIN, (Reported) APPLY TO KNEES Nystatin (Nystatin Powder) 15 Gm Powder, 1 DOSE TOP BID PRN for RASH, (Reported) APPLY TO STOMACH FOLDS Tramadol HCl (Tramadol HCl) 50 Mg Tab, 50 MG PO TID PRN for PAIN, (Reported) Allergies Coded Allergies: aspirin (Verified Adverse Reaction, Mild, NAUSEA / VOMITING, 10/18/19) NSAIDS (Non-Steroidal Anti-Inflamma (Verified Adverse Reaction, Unknown, STOMACHE ACHE, 10/18/19) RUSS CHAN MD Aug 04, 2020 07:45
[2020-08-04] MEDS: OMEPRAZOLE 20 MG CAP PO SCH (08:15)
[2020-08-04] MEDS: MULTIVITAMINS/MINERALS THERAP 1 TAB PO SCH (08:15)
[2020-08-04] MEDS: allopurinoL 100 MG TAB PO SCH (08:16)
[2020-08-04] MEDS: FUROSEMIDE 40 MG TAB PO SCH ×2 (08:16→16:25)
[2020-08-04] MEDS: FERROUS SULFATE 325MG TAB PO SCH (08:16)
[2020-08-04] MEDS: MAGNESIUM GLUCONATE 500 MG TAB PO SCH ×2 (08:16→08:24)
[2020-08-04] MEDS: APIXABAN 2.5 MG TAB (ELIQUIS) PO SCH (08:16)
[2020-08-04] MEDS: DULoxetine 30 MG CAP (CYMBALTA) PO SCH (08:17)
[2020-08-04] MEDS: oxyCODONE 5MG TAB PO SCH ×2 (08:17→15:11)
[2020-08-04] MEDS: AMIODARONE 200 MG TAB (PACERONE) PO SCH (08:17)
[2020-08-04] MEDS: OYSTER SHELL CALCIUM 500 MG TAB PO SCH (08:17)
[2020-08-04 08:18] VITALS: BP 128/65
[2020-08-04] MEDS: POTASSIUM CHLORIDE 10 MEQ SR TABLET PO SCH ×2 (08:18→08:22)
[2020-08-04] MEDS: lisinopriL 5 MG TAB PO SCH (08:18)
[2020-08-04] MEDS: atenoloL 25 MG TAB PO SCH (08:18)
[2020-08-04] MEDS: KETOCONAZOLE 2% CREAM TOP SCH (08:18)
[2020-08-04] MEDS ORDERED: FUROSEMIDE 40 MG TAB PO SCH (09:00)
[2020-08-04] MEDS ORDERED: FURO40TA2 PO (11:13)
[2020-08-04] MEDS ORDERED: KLOR10TA76 PO (11:13)
[2020-08-04] MEDS: ACETAMINOPHEN TAB 650MG DOSE (2X325MG) PO PRN (12:12)
[2020-08-04 14:00] VITALS: BP 116/63
--- NOTE | 2020-08-04 16:39 | CR ---
CONSULTATION DATE: 08/04/2020 REASON FOR CONSULTATION: Left lower extremity wound. HISTORY OF PRESENT ILLNESS: Patient is a 75-year-old male with a history of chronic venous stasis dermatitis. He [facility], and his does home wound care for him as well when the [facility] is unable to [facility]. He currently was following up with them about once a week. He was admitted to the hospital recently for atrial fibrillation and acute congestive heart failure (CHF) exacerbation. He currently is being transferred over to rehabilitation for further stay; however, they noticed that his wound on his left lower extremity is starting to have a little bit of a black eschar on the top of it, so I was asked to evaluate him prior to moving over to rehabilitation. He denies any other complaints. He normally takes care of his wounds himself, and his takes care of them, and they have not had any problems. He says, however, since he has been in the hospital they have started to open up and get a little bit worse. No problems with drainage or pain. No foul smell. No problems with nausea, vomiting, fevers, or chills. MEDICAL HISTORY: Positive for: 1. Pulmonary emboli (PE). 2. Pulmonary hypertension. 3. Iron deficiency anemia. 4. Chronic kidney disease. 5. Heart failure. 6. Atrial fibrillation. 7. Diverticulosis. 8. Depression. 9. Sleep apnea. 10. Venous stasis dermatitis. 11. Graves disease. 12. BPH. 13. Osteoporosis. SURGICAL HISTORY: 1. Bariatric surgery. 2. Thyroidectomy. SOCIAL HISTORY: Denies drugs, alcohol, tobacco use. FAMILY HISTORY: Noncontributory. ALLERGIES: NONSTEROIDAL ANTI-INFLAMMATORY DRUGS (NSAIDS), ASPIRIN. HOME MEDICATIONS: Please see medication rec. REVIEW OF SYSTEMS: Pertinent positives and negatives as stated in history of present illness (HPI). PHYSICAL EXAMINATION: GENERAL: Alert and oriented (A and O) times three. No acute distress. VITAL SIGNS: Temperature 97.9, pulse 93, respirations 18, blood pressure 128/65, pulse oximetry 95% on room air. HEENT: Pupils equally round and reactive to light and accommodation. HEART: S1, S2, irregularly irregular rate and rhythm. LUNGS: Clear to auscultation bilaterally. ABDOMEN: Soft, nontender, nondistended, slightly obese with a body mass index (BMI) of 45. EXTREMITIES: Bilateral lower extremity pressure dressings are in place. Removal of the left lower extremity pressure dressing reveals two open areas, about 2 x 5 cm distally and 2 x 4 cm on the proximal lower extremity. The superior wound is dry but has slough tissue around the borders of it. The one inferiorly has a black eschar, about 1 x 1.5 cm in the upper pole of it. Recommendation was proceed with bedside debridement. ASSESSMENT AND PLAN: Patient is a 75-year-old male with venous stasis dermatitis, currently with some necrosis of his wound on the left lower extremity. Recommendation is to proceed with bedside debridement. Risks and benefits not limited to, but including bleeding, infection, damage to surrounding structures, need for further surgery, were discussed in detail with the patient. Informed consent was obtained, and the bedside procedure was completed using a curette. Dressings were then reapplied, and he was stable to be transferred over to rehabilitation once a bed is available.
== END 2020-08-04 18:07 | DRG 291 ==
LOC: M ED 23:11 → M ED INP 07-27 03:31 → M MSPAV 07-27 14:07
PROVIDERS: ADMIT Internal Medicine; ATTEND Internal Medicine Nephrology
DX: I13.0 Hypertensive heart and chronic kidney disease with heart failure and stage 1 through stage 4 chronic kidney disease, or unspecified chronic kidney disease (principal); I50.33 Acute on chronic diastolic (congestive) heart failure; I27.82 Chronic pulmonary embolism; Z68.43 Body mass index [BMI] 50.0-59.9, adult; I48.20 Chronic atrial fibrillation, unspecified; N18.30 Chronic kidney disease, stage 3 unspecified; D50.9 Iron deficiency anemia, unspecified; K57.30 Diverticulosis of large intestine without perforation or abscess without bleeding; G47.33 Obstructive sleep apnea (adult) (pediatric); N40.0 Benign prostatic hyperplasia without lower urinary tract symptoms; M81.0 Age-related osteoporosis without current pathological fracture; I27.20 Pulmonary hypertension, unspecified; Z87.891 Personal history of nicotine dependence; E03.9 Hypothyroidism, unspecified; Z79.899 Other long term (current) drug therapy; Z88.6 Allergy status to analgesic agent; E66.01 Morbid (severe) obesity due to excess calories; E87.6 Hypokalemia; I87.8 Other specified disorders of veins

== ENCOUNTER 2020-08-04 11:30 | Inpatient (IN) | payer OTHER, MEDICARE, BC ==
[~2020-08-04] VITALS: Ht 165.1 cm; Wt 107.1 kg
[~2020-08-04 11:30] MED LIST changes: +AMIO200T3 PO; +ATEN25TA PO; +D31000TA2 PO; +DULO1CAP5 PO; +EUCECRE8 TOP; +FURO40TA2 PO; +GABA600T4 PO; +GLUCTAB6 PO; +KETO2CR EXT; +KLOR10TA76 PO; +MUPI2OI EXT; +NYST1POW9 TOP; +OXYC10TA12 PO; +OYST1TAB PO; +PRAZ1CAP PO; +SYNT137T7 PO
[2020-08-04] MEDS ORDERED: BISACODYL 10 MG SUPP PR PRN (14:15)
[2020-08-04] MEDS ORDERED: MOM 30ML SUSPENSION UDC PO PRN (14:15)
--- NOTE | 2020-08-04 15:04 | HPEPDOC ---
Management Consulting Note DATE OF ADMISSION: 08-04-20 DATE OF SERVICE: 08-05-20 TIME OF ADMISSION: Please refer to physician's admission order. SOURCE OF ADMISSION INFORMATION: [facility] record and patient CHIEF COMPLAINT: CHF exacerbation HISTORY OF PRESENT ILLNESS: 75M pmh chronic PE and pulmonary HTN, CKD3, Afib, chronic diastolic CHF, hypothyroidism, left ear squamous cell cancer, depression, diverticulosis, SHASHANK, lower GI bleed presented to [facility] ED on 07-27-20 with weakness and appeared fluid overloaded. And found to be in Afib with rapid RVR. He was admitted to telemetry and given IV thyroxine for his recent non-compliance and worsening hypothyroidism and IV diuretics. He was found to have bilateral leg venous stasis wounds for which daily wound dressings were applied and general surgery consulted for possible debridement. He had impairments in mobility and ADLs and deemed medically appropriate for discharge to ARU on 08-04-20. REVIEW OF SYSTEMS: The following is a completed review of systems and has been reviewed. Review of systems otherwise unremarkable. PAIN: Patient self reports no pain EYES: No recent vision changes EARS, NOSE, & THROAT: No throat pain, or dysphagia, or rhinorrhea CARDIOVASCULAR: Denies chest pain or palpitations PULMONARY: Denies shortness of breath GASTROINTESTINAL: + constipation. GENITOURINARY: +retention MUSCULOSKELETAL: generalized weakness NEUROLOGICAL:+bilat LE paresthesias HEMATOLOGICAL: denies easy bruising SKIN: bilat Le wounds PSYCHIATRIC: Unremarkable All other review of systems found to be negative. PAST MEDICAL HISTORY: as per hpi PAST SURGICAL HISTORY: thyroidectomy, bariatric surgery ALLERGIES: Please see below. MEDICATIONS: Please see below. SOCIAL HISTORY: former smoker, no etoh or illicit drugs DIET: low sodium, fluid restrict PHYSICAL EXAMINATION: VITAL SIGNS: Please see below. GENERAL: Pleasant and cooperative. No acute distress. obese HEENT: PERRL. Extraocular movements intact. Clear conjunctiva CARDIOVASCULAR: Irregular rate and rhythm. No murmurs, rubs, or gallops LUNGS: Clear to auscultation bilaterally. No wheezes. No rhonchi ABDOMEN: Soft, nontender, nondistended. Positive bowel sounds. Normal active bowel sounds NEUROLOGICAL: Alert and oriented times three. Cranial nerves II through XII grossly intact. Sensation diminished to light touch in stocking pattern EXTREMITIES: 5-\5 strength bilateral upper extremities. 3/5 bilat hip flexors, 4-/5 bilat knee extensors, ankle DF, 3/5 EHL SKIN: right calf with hyperpigmented skin, no open wounds, small healing wound anterior proximal tibia left calf with hyperpigmented skin, distal wound s/p recent debridement with gra nulation tissue, no eschar, and some yellow exudate, left proximal wound with granulation tissue LABORATORY DATA: Please see below. IMAGING: Imaging documentation personally reviewed by record FUNCTIONAL STATUS: Premorbid: Modified Independent mobility from a wheelchair level, requiring assistance with LE dressing On Admission: Min-total assist for bed mobility, functional transfers, toileting, dressing GOALS: Modified independent for functional transfers from wheelchair level, toileting, upper body dressing, bathing, supervision-min assist for LE dressing and wound care ASSESSMENT:75-year-old M with past medical history of CKD and Afib who presents status post CHF exacerbation with LE wounds PLAN: 1. Rehab- PT/OT- advance ADLS and mobility, strengthen/stretch/maintain ROM all 4 limbs 2. Neuro-patient presenting with peripheral polyneuropathy likely due to longstanding hypothyroidism and and PVD contributing to overall weakness and functional impairments 3. CArdiac- recent acute on chronic diastolic CHF exacerbation, c/u daily weights, fluid restrict, lasix and SHLOMO-I- medicine consulted to assist in overall management -Afib on Amiodarone and Eliquis, c/u atenolol 4. Resp- SHASHANK, patien reports he does not use CPAP at home and does not want nocturnal 02, monitor for infection 5. Endo- hypothyroidism, c/u synthroid 6. Renal- CKD- monitor kidney function will consider inhouse renal function 7. Rheum- hx of gout c/u allopurinol 8. Pain- Gabapentin qHS and oxycodone, tylenol prn 9. DErm- bilat LE wounds- c/u wound care, surgery consulted for bedside debridement- appreciated 10. GI ppx- prilosec 11. DVT ppx- on eliquis 12. Dispo- TBD POST ADMISSION PHYSICIAN EVALUATION: Medical and functional status: Description of medical status, medical assessment: As above. Rehabilitation diagnosis and current and prior cold morbid medical conditions as above. Risk of complications and plans to mitigate them as above. Description of functional status current status is as above. Prior status as above. Status compared to preadmission: There are no clinically significant differences between the patient's current status and the information described on the preadmission screening document. Treatment plan anticipated: Treatment plan is as described above. Required disciplines including physical therapy, occupational therapy, others as noted above Intensity of services: 3 hours a day, 6 days a week. Special considerations: There are no specific special or safety considerations that would likely preclude immediate implementation of an intensive rehabilitation program or subsequently influence the plan of care ATTESTATION: Considering all the information above, it is my best judgment that this patient requires intensive rehabilitation therapy as described above and an inpatient hospital environment due to the complexity of nursing, medical, and rehabilitation needs required by the patient. Furthermore, this patient can reasonably be expected to participate in an benefit from an inpatient rehabilitation stay with an interdisciplinary team approach to the delivery of rehabilitation care under the direction and supervision of rehabilitation physician PROGNOSIS: good ESTIMATED LENGTH OF STAY:12-16 days. PROJECTED DISCHARGE DESTINATION: Home with family support and any durable medical equipment required to increase functional safety and mobility TIME SPENT COUNSELING AND COORDINATING INITIAL CARE: Greater than 70 minutes. Vital Signs Vital Signs Date Time Temp Pulse Resp B/P (MAP) Pulse Ox O2 Delivery O2 Flow Rate FiO2 08/04/ 17:30 97.2 85 24 167/94 (118) 96 Room Air Home Medications Scheduled Allopurinol (Allopurinol) 100 Mg Tab, 100 MG PO DAILY, (Reported) Amiodarone HCl (Amiodarone HCl) 200 Mg Tablet, 200 MG PO DAILY, (Reported) Apixaban (Eliquis) 2.5 Mg Tab, 2.5 MG PO BID, (Reported) Atenolol (Atenolol) 25 Mg Tablet, 25 MG PO DAILY, (Reported) Atenolol (Atenolol) 25 Mg Tablet, 50 MG PO QHS, (Reported) Calcitriol (Calcitriol) 0.25 Mcg Cap, 0.25 MCG PO QHS, (Reported) Calcium Carbonate (Calcium) 500 Mg Tablet, 500 MG PO DAILY, (Reported) Cholecalciferol (Vitamin D3) (Vitamin D3) 1,000 Unit Tablet, 2,000 UNITS PO QHS, (Reported) Duloxetine Hcl (Duloxetine HCl) 30 Mg Capsule.dr, 30 MG PO DAILY, (Reported) Ferrous Sulfate (Ferrous Sulfate) 325 Mg Tab, 325 MG PO BID, (Reported) Furosemide (Furosemide) 40 Mg Tablet, 40 MG PO BID Gabapentin (Gabapentin) 600 Mg Tablet, 600 MG PO QHS, (Reported) Gluc Hudson/Chondro Hudson A/Vit C/Mn (Glucosamine Chondroitin Tab) 1 Each Tablet, 1 TAB PO BID, (Reported) Ketoconazole (Ketoconazole) 15 Gm Cream..g., 1 DOSE EXT DAILY, (Reported) APPLY FROM BELOW THE KNEE TO THE FOOT Lanolin Alcohol/Mo/W.pet/Lillian (Eucerin Creme) 454 Gm Cream..g., 1 DOSE TOP DAILY, (Reported) Levothyroxine Sodium (Synthroid) 137 Mcg Tablet, 137 MCG PO DAILY, (Reported) Lisinopril (Lisinopril) 5 Mg Tab, 5 MG PO DAILY, (Reported) Magnesium Chloride (Mag64) 64 Mg Tabcr, 64 MG PO QHS, (Reported) Multivitamins (Thera M Plus Tablet) 1 Tab Tab, 1 TAB PO BID, (Reported) Mupirocin (Mupirocin) 2 % Oint...g., 1 DOSE EXT DAILY, (Reported) APPLY TO LEGS Omeprazole (Omeprazole) 20 Mg Cap, 20 MG PO DAILY, (Reported) Oxycodone HCl (Oxycodone HCl) 10 Mg Tablet, 10 MG PO TID, (Reported) BREAKFAST, DINNER, QHS Potassium Chloride (Klor-Con M10) 10 Meq Tab.er.prt, 20 MEQ PO BID Prazosin Hcl (Prazosin HCl) 1 Mg Capsule, 1 MG PO QHS, (Reported) Scheduled PRN Diclofenac Sodium (Voltaren) 1 % Gel, 2 GM TOP BID PRN for PAIN, (Reported) APPLY TO KNEES Nystatin (Nystatin Powder) 15 Gm Powder, 1 DOSE TOP BID PRN for RASH, (Reported) APPLY TO STOMACH FOLDS Tramadol HCl (Tramadol HCl) 50 Mg Tab, 50 MG PO TID PRN for PAIN, (Reported) Allergies Coded Allergies: aspirin (Verified Adverse Reaction, Mild, NAUSEA / VOMITING, 10/18/19) NSAIDS (Non-Steroidal Anti-Inflamma (Verified Adverse Reaction, Unknown, STOMACHE ACHE, 10/18/19) A-FIB/CHADSVASC A-FIB History Current/History of A-Fib/PAF?: Yes Current PO Anticoag Therapy: Yes RENALDO WALKER MD Aug 04, 2020 15:04
[2020-08-04] MEDS ORDERED: oxyCODONE 5MG TAB PO SCH (16:00)
[2020-08-04] MEDS ORDERED: FUROSEMIDE 40 MG TAB PO SCH (17:00)
[2020-08-04 17:30] VITALS: BP 167/94
--- NOTE | 2020-08-04 19:11 | RO ---
OPERATIVE NOTE DATE OF OPERATION: 08/04/2020 PREOPERATIVE DIAGNOSIS: Left lower extremity venous stasis wound. POSTOPERATIVE DIAGNOSIS: Left lower extremity venous stasis wound. PROCEDURE: Bedside sharp excisional debridement of left lower extremity wound. SURGEON: Dr. Cortez ASSIST: None. ANESTHESIA: None. INDICATION FOR PROCEDURE: The patient is a 75-year-old male with chronic lower extremity venous stasis dermatitis. He has wounds on bilateral lower extremities. The left wound has a little bit of an eschar over the inferior portion of it. Therefore, the recommendation is to proceed with bedside debridement. Risks and benefits of the procedure are not limited to but include bleeding, infection, damage to surrounding structures, and need for further surgery were discussed in detail with the patient. Informed consent was obtained and the procedure was planned. PROCEDURE: The patient's left dressing was removed using a sharp curette. He has two wounds about 2 x 5 cm in size on the left lower extremity distally and a 2 x 4 cm in size on the left lower extremity just proximal to that. The one distally had a little bit of a black eschar on the superior pole of it. The other one had a little bit of a white fluff tissue around the borders. All of the white fluff tissue, as well as the eschar from the skin and subcutaneous tissue, were debrided from both wounds using the curette. Once that was completed, the patient had his wounds covered with dry gauze and tape. Those were left in place for a couple of hours and then he had his pressure dressing reapplied by nursing.
[2020-08-04 20:30] VITALS: BP 131/76
[2020-08-04] MEDS: REMEDY PHYTOPLEX Z-GUARD PASTE 113GM TUBE (FROM STOREROOM PRODUCT) TOP SCH (21:00)
[2020-08-04] MEDS: APIXABAN 2.5 MG TAB (ELIQUIS) PO SCH (21:48)
[2020-08-04] MEDS: SENNA 8.6 MG TAB (SENOKOT) PO SCH (21:48)
[2020-08-04] MEDS: DOCUSATE SODIUM 100MG CAPSULE PO SCH (21:48)
[2020-08-04] MEDS: MAGNESIUM GLUCONATE 500 MG TAB PO SCH (21:48)
[2020-08-04] MEDS: VITAMIN D 1,000 INTERNATIONAL UNITS TABLET PO SCH (21:49)
[2020-08-04] MEDS: CALCITRIOL 0.25 MCG CAP (S0169) PO SCH (21:49)
[2020-08-04] MEDS: FERROUS SULFATE 325MG TAB PO SCH (21:49)
[2020-08-04] MEDS: atenoloL 50 MG TAB PO SCH (21:49)
[2020-08-04] MEDS: PRAZOSIN 1 MG CAP PO SCH (21:49)
[2020-08-04] MEDS: POTASSIUM CHLORIDE 10 MEQ SR TABLET PO SCH (21:50)
[2020-08-04] MEDS: GABAPENTIN 300 MG CAP PO SCH (21:50)
[2020-08-04] MEDS: ACETAMINOPHEN TAB 650MG DOSE (2X325MG) PO PRN (21:51)
[2020-08-04] MEDS: oxyCODONE 5MG TAB PO SCH (21:51)
[2020-08-05] MEDS: ACETAMINOPHEN TAB 650MG DOSE (2X325MG) PO PRN ×3 (03:00→21:18)
[2020-08-05] MEDS: LEVOTHYROXINE 137MCG TABLET (0.137MG) PO SCH (05:55)
[2020-08-05 06:00] VITALS: BP 118/57
[2020-08-05 07:26] LABS: BASO # 0.1 10^3/uL (0.0-0.2); BASO % 0.7 % (0.0-1.0); EOS # 0.6 10^3/uL (0.0-0.5); EOS % 7.7 % (0.0-3.0); HEMATOCRIT 31.7 % (42.0-52.0); HEMOGLOBIN 9.5 g/dl (13.5-17.5); LYMPH % 11.9 % (24.0-44.0); MEAN CORPUSCULAR HEMOGLOBIN 30.2 pg (27.0-33.0); MEAN CORPUSCULAR VOLUME 100.6 fl (80.0-96.0); MONO # 0.9 10^3/uL (0.0-0.8); MONO % 11.3 % (0.0-5.0); NEUTROPHILS # 5.6 10^3/uL (1.5-8.5); NEUTROPHILS % 67.9 % (36.0-66.0); PLATELET COUNT, AUTOMATED 316 10^3/uL (150-450); RED BLOOD COUNT 3.15 10^6/uL (4.30-6.10); WHITE BLOOD COUNT 8.2 10^3/uL (4.0-10.0)
[2020-08-05 08:05] LABS: ALBUMIN 1.7 GM/DL (3.2-5.2); BILIRUBIN,TOTAL 0.4 MG/DL (0.2-1.0); CALCIUM LEVEL 8.1 MG/DL (8.8-10.2); CREATININE FOR GFR 1.85 MG/DL (0.70-1.30); GLOMERULAR FILTRATION RATE 38.3 (>42); POTASSIUM SERUM 4.2 MEQ/L (3.5-5.1); TOTAL PROTEIN 5.2 GM/DL (6.4-8.2)
[2020-08-05] MEDS: FUROSEMIDE 40 MG TAB PO SCH ×2 (08:19→16:32)
[2020-08-05] MEDS: FERROUS SULFATE 325MG TAB PO SCH ×2 (08:19→20:07)
[2020-08-05] MEDS: OMEPRAZOLE 20 MG CAP PO SCH (08:19)
[2020-08-05] MEDS: POTASSIUM CHLORIDE 10 MEQ SR TABLET PO SCH ×2 (08:19→20:06)
[2020-08-05] MEDS: OYSTER SHELL CALCIUM 500 MG TAB PO SCH (08:20)
[2020-08-05] MEDS: APIXABAN 2.5 MG TAB (ELIQUIS) PO SCH ×2 (08:20→20:07)
[2020-08-05] MEDS: allopurinoL 100 MG TAB PO SCH (08:20)
[2020-08-05] MEDS: DOCUSATE SODIUM 100MG CAPSULE PO SCH ×2 (08:20→20:06)
[2020-08-05] MEDS: MAGNESIUM GLUCONATE 500 MG TAB PO SCH ×2 (08:20→20:13)
[2020-08-05] MEDS: DULoxetine 30 MG CAP (CYMBALTA) PO SCH (08:20)
[2020-08-05] MEDS: MULTIVITAMINS/MINERALS THERAP 1 TAB PO SCH (08:20)
[2020-08-05] MEDS: AMIODARONE 200 MG TAB (PACERONE) PO SCH (08:21)
[2020-08-05] MEDS: atenoloL 25 MG TAB PO SCH (08:36)
[2020-08-05] MEDS: oxyCODONE 5MG TAB PO SCH ×3 (08:36→20:11)
[2020-08-05] MEDS: lisinopriL 5 MG TAB PO SCH (08:37)
[2020-08-05] MEDS: REMEDY PHYTOPLEX Z-GUARD PASTE 113GM TUBE (FROM STOREROOM PRODUCT) TOP SCH ×3 (08:37→20:13)
[2020-08-05] MEDS: KETOCONAZOLE 2% CREAM TOP SCH (11:47)
[2020-08-05 14:00] VITALS: BP 127/67
--- NOTE | 2020-08-05 14:23 | IPNPDOC ---
Text Note Date of Service The patient was seen on 08/05/20. NOTE SUBJECTIVE: No new events overnight. Continues to be very weak. Working with PT. His left leg wounds were debrided at bedside by Dr Cortez yesterday. Looks clean now. The right leg wounds have closed. PHYSICAL EXAMINATION: VITAL SIGNS: Please see below. GEN: well-nourished / well developed, obese. INTEGUMENT: not flushed/ not jaundice HEENT: lips acyanotic /mucus membranes moist and pink , anicteric. CVS: Heart rate irregularly irregular, normal rate. No rub r murmur or gallop. LUNGS:Clear to auscultation anteriorly, has bilateral basal crackles. ABDOMEN: Contour ( obese) /, soft & not tender with palpation, There is parietal edema with lymphedematous changes on luis left lateral wall. Patients always seems to be tilted to that side. Extremities: On Left leg there are 2 areas of chronic ulcers on the lateral aspect one above the ankle and one below the knee. Lower one worse 6 cm x 3 cm. The upper ulcer is 4 cm x 3 cm. Now with clean base with healthy granulation tissue. Right leg wounds have closed. Pedal edema better, Does have lymphedema. NEURO: CN 2-12 are grossly intact / speech is not dysarthric PSYCH: alert and oriented to person place and time/ able to understand and follow all commands Laboratory and Radiology reviewed. ASSESSMENT and Plan: Mr. Stafford is a 75-year-old with a history of osteoporosis, CKD 3, PE, chronic thromboembolic pulmonary hypertension, HFpEF A. fib, Lower GI bleed, depression, SHASHANK, Graves disease, and BPH who presented with complaints of weakness and falls and unable to stand and pivot for about a month. Because of the weakness, he stopped taking his diuretics and developed fluid overload. In ED he was found to have CHF exacerbation and Afib with Rvr. He was admitted for management of acute decompensated CHF and rapid A. fib. He was aggressively diuresed with improvement in his fluid status and CHF exacerbation however he remained extremely week ans was unable to stand and pivot na it was felt he would benefit from further rehab. So he was discharged to ARU for continued rehab. Debility, weakness, inability to stand and pivot PT/OT as per ARU. Acute on chronic diastolic CHF/HFpEF 2/2 not taking diuretics improving Continue Po lasix, I/O, carb consistent diet and fluid restriction. Chronic [place] Fibrillation Rate controlled amiodarone, atenolol and apixaban Hypothyroid TSH mildly elevated at 17 continue PO synthroid Transaminitis Due to chronic right heart failure and congestive hepatopathy. Macrocytic anemia He has a history of B12 deficiency & BA CKD 3 baseline creatinine 1.6 to 1.8. creatinine remains at baseline. Calcitriol Pulmonary embolism / Chronic thrombo-embolic pulmonary hypertension Eliquis SHASHANK may use CPAP Morbid Obesity with H/O bariatric surgery BMI 55.6 complicates care Left chronic leg wounds since October 2019. will continue with daily dressings here as per home regimen. S/p debridement on 08/04/20 He did have chronic wounds on the right leg also but those have healed. VS,Fishbone, I+O VS, Fishbone, I+O Laboratory Tests 08/05/20 07:01 Vital Signs Date Time Temp Pulse Resp B/P (MAP) Pulse Ox O2 Delivery O2 Flow Rate FiO2 08/05/20 09:06 18 08/05/20 08:37 107/60 08/05/20 08:36 Room Air 08/05/20 08:36 83 08/05/20 06:00 97.2 94 I&O- Last 24 Hours up to 6 AM 08/05/20 06:00 Intake Total 620 ml Output Total 1075 ml Balance -455 ml RUSS CHAN MD Aug 05, 2020 11:53
[2020-08-05 20:00] VITALS: BP 109/60
[2020-08-05] MEDS: VITAMIN D 1,000 INTERNATIONAL UNITS TABLET PO SCH (20:07)
[2020-08-05] MEDS: SENNA 8.6 MG TAB (SENOKOT) PO SCH (20:07)
[2020-08-05] MEDS: CALCITRIOL 0.25 MCG CAP (S0169) PO SCH (20:07)
[2020-08-05] MEDS: GABAPENTIN 300 MG CAP PO SCH (20:08)
[2020-08-05] MEDS: PRAZOSIN 1 MG CAP PO SCH (20:10)
[2020-08-05] MEDS: atenoloL 50 MG TAB PO SCH (20:13)
[2020-08-06] MEDS: LEVOTHYROXINE 137MCG TABLET (0.137MG) PO SCH (05:27)
[2020-08-06 05:29] VITALS: BP 119/66
[2020-08-06] MEDS: FERROUS SULFATE 325MG TAB PO SCH ×2 (08:22→20:15)
[2020-08-06] MEDS: MAGNESIUM GLUCONATE 500 MG TAB PO SCH ×2 (08:22→20:14)
[2020-08-06] MEDS: atenoloL 25 MG TAB PO SCH (08:22)
[2020-08-06] MEDS: allopurinoL 100 MG TAB PO SCH (08:22)
[2020-08-06] MEDS: OMEPRAZOLE 20 MG CAP PO SCH (08:22)
[2020-08-06] MEDS: lisinopriL 5 MG TAB PO SCH (08:22)
[2020-08-06] MEDS: FUROSEMIDE 40 MG TAB PO SCH ×2 (08:23→16:36)
[2020-08-06] MEDS: MULTIVITAMINS/MINERALS THERAP 1 TAB PO SCH (08:23)
[2020-08-06] MEDS: DULoxetine 30 MG CAP (CYMBALTA) PO SCH (08:23)
[2020-08-06] MEDS: OYSTER SHELL CALCIUM 500 MG TAB PO SCH (08:23)
[2020-08-06] MEDS: APIXABAN 2.5 MG TAB (ELIQUIS) PO SCH ×2 (08:23→20:16)
[2020-08-06] MEDS: DOCUSATE SODIUM 100MG CAPSULE PO SCH ×2 (08:23→20:16)
[2020-08-06] MEDS: POTASSIUM CHLORIDE 10 MEQ SR TABLET PO SCH ×2 (08:23→20:14)
[2020-08-06] MEDS: AMIODARONE 200 MG TAB (PACERONE) PO SCH (08:23)
[2020-08-06] MEDS: REMEDY PHYTOPLEX Z-GUARD PASTE 113GM TUBE (FROM STOREROOM PRODUCT) TOP SCH ×3 (08:24→20:18)
[2020-08-06] MEDS: oxyCODONE 5MG TAB PO SCH ×3 (08:24→20:15)
[2020-08-06] MEDS: KETOCONAZOLE 2% CREAM TOP SCH (08:29)
[2020-08-06] MEDS ORDERED: VANICREAM MOISTURIZING SKIN CREAM 113GM TUBE TOP SCH (09:00)
[2020-08-06 10:25] LABS: BASO # 0.1 10^3/uL (0.0-0.2); EOS # 0.8 10^3/uL (0.0-0.5); EOS % 7.7 % (0.0-3.0); HEMATOCRIT 36.3 % (42.0-52.0); HEMOGLOBIN 10.9 g/dl (13.5-17.5); LYMPH # 0.9 10^3/uL (1.5-5.0); LYMPH % 9.4 % (24.0-44.0); MEAN CORPUSCULAR HEMOGLOBIN 30.7 pg (27.0-33.0); MEAN CORPUSCULAR VOLUME 102.3 fl (80.0-96.0); MONO # 0.8 10^3/uL (0.0-0.8); MONO % 8.4 % (0.0-5.0); NEUTROPHILS # 7.1 10^3/uL (1.5-8.5); PLATELET COUNT, AUTOMATED 417 10^3/uL (150-450); RED BLOOD COUNT 3.55 10^6/uL (4.30-6.10); WHITE BLOOD COUNT 9.7 10^3/uL (4.0-10.0)
[2020-08-06 10:54] LABS: CALCIUM LEVEL 8.4 MG/DL (8.8-10.2); CREATININE FOR GFR 2.3 MG/DL (0.70-1.30); GLOMERULAR FILTRATION RATE 29.8 (>42); POTASSIUM SERUM 4.6 MEQ/L (3.5-5.1)
[2020-08-06 14:00] VITALS: BP 138/84
[2020-08-06 20:00] VITALS: BP 114/57
[2020-08-06] MEDS: PRAZOSIN 1 MG CAP PO SCH (20:15)
[2020-08-06] MEDS: VITAMIN D 1,000 INTERNATIONAL UNITS TABLET PO SCH (20:16)
[2020-08-06] MEDS: atenoloL 50 MG TAB PO SCH (20:16)
[2020-08-06] MEDS: SENNA 8.6 MG TAB (SENOKOT) PO SCH (20:16)
[2020-08-06] MEDS: GABAPENTIN 300 MG CAP PO SCH (20:16)
[2020-08-06] MEDS: CALCITRIOL 0.25 MCG CAP (S0169) PO SCH (20:16)
[2020-08-06] MEDS: ACETAMINOPHEN TAB 650MG DOSE (2X325MG) PO PRN (20:17)
[2020-08-07] MEDS: LEVOTHYROXINE 137MCG TABLET (0.137MG) PO SCH (05:58)
[2020-08-07 06:00] VITALS: BP 107/56
[2020-08-07] MEDS: lisinopriL 5 MG TAB PO SCH (07:06)
[2020-08-07] MEDS: atenoloL 25 MG TAB PO SCH (07:06)
[2020-08-07] MEDS: MAGNESIUM GLUCONATE 500 MG TAB PO SCH ×2 (07:28→21:05)
[2020-08-07] MEDS: OYSTER SHELL CALCIUM 500 MG TAB PO SCH (07:28)
[2020-08-07] MEDS: APIXABAN 2.5 MG TAB (ELIQUIS) PO SCH ×2 (07:28→21:05)
[2020-08-07] MEDS: FERROUS SULFATE 325MG TAB PO SCH ×2 (07:28→21:05)
[2020-08-07] MEDS: MULTIVITAMINS/MINERALS THERAP 1 TAB PO SCH (07:28)
[2020-08-07] MEDS: AMIODARONE 200 MG TAB (PACERONE) PO SCH (07:28)
[2020-08-07] MEDS: allopurinoL 100 MG TAB PO SCH (07:28)
[2020-08-07] MEDS: POTASSIUM CHLORIDE 10 MEQ SR TABLET PO SCH (07:29)
[2020-08-07] MEDS: DULoxetine 30 MG CAP (CYMBALTA) PO SCH (07:29)
[2020-08-07] MEDS: OMEPRAZOLE 20 MG CAP PO SCH (07:29)
[2020-08-07] MEDS: REMEDY PHYTOPLEX Z-GUARD PASTE 113GM TUBE (FROM STOREROOM PRODUCT) TOP SCH ×3 (07:30→21:10)
[2020-08-07] MEDS: oxyCODONE 5MG TAB PO SCH ×3 (07:30→21:09)
[2020-08-07] MEDS: DOCUSATE SODIUM 100MG CAPSULE PO SCH ×2 (07:30→21:04)
[2020-08-07] MEDS: VANICREAM MOISTURIZING SKIN CREAM 113GM TUBE TOP SCH (07:31)
[2020-08-07] MEDS: ACETAMINOPHEN TAB 650MG DOSE (2X325MG) PO PRN ×2 (12:04→18:13)
[2020-08-07 14:00] VITALS: BP 119/78
[2020-08-07 20:00] VITALS: BP 113/72
[2020-08-07] MEDS: CALCITRIOL 0.25 MCG CAP (S0169) PO SCH (21:04)
[2020-08-07] MEDS: SENNA 8.6 MG TAB (SENOKOT) PO SCH (21:05)
[2020-08-07] MEDS: GABAPENTIN 300 MG CAP PO SCH (21:05)
[2020-08-07] MEDS: VITAMIN D 1,000 INTERNATIONAL UNITS TABLET PO SCH (21:05)
[2020-08-07] MEDS: PRAZOSIN 1 MG CAP PO SCH (21:07)
[2020-08-07] MEDS: atenoloL 50 MG TAB PO SCH (21:08)
[2020-08-08] MEDS: LEVOTHYROXINE 137MCG TABLET (0.137MG) PO SCH (05:34)
[2020-08-08] MEDS: ACETAMINOPHEN TAB 650MG DOSE (2X325MG) PO PRN (05:36)
[2020-08-08 06:00] VITALS: BP 98/63
[2020-08-08] MEDS: lisinopriL 5 MG TAB PO SCH (07:13)
[2020-08-08] MEDS: atenoloL 25 MG TAB PO SCH (07:14)
[2020-08-08] MEDS: OMEPRAZOLE 20 MG CAP PO SCH (08:12)
[2020-08-08] MEDS: APIXABAN 2.5 MG TAB (ELIQUIS) PO SCH ×2 (08:12→20:10)
[2020-08-08] MEDS: AMIODARONE 200 MG TAB (PACERONE) PO SCH (08:12)
[2020-08-08] MEDS: DULoxetine 30 MG CAP (CYMBALTA) PO SCH (08:13)
[2020-08-08] MEDS: OYSTER SHELL CALCIUM 500 MG TAB PO SCH (08:13)
[2020-08-08] MEDS: MAGNESIUM GLUCONATE 500 MG TAB PO SCH ×2 (08:13→20:11)
[2020-08-08] MEDS: POTASSIUM CHLORIDE 10 MEQ SR TABLET PO SCH (08:13)
[2020-08-08] MEDS: FERROUS SULFATE 325MG TAB PO SCH ×2 (08:13→20:10)
[2020-08-08] MEDS: allopurinoL 100 MG TAB PO SCH (08:13)
[2020-08-08] MEDS: MULTIVITAMINS/MINERALS THERAP 1 TAB PO SCH (08:14)
[2020-08-08] MEDS: DOCUSATE SODIUM 100MG CAPSULE PO SCH ×2 (08:14→20:10)
[2020-08-08] MEDS: oxyCODONE 5MG TAB PO SCH ×3 (08:14→20:12)
[2020-08-08] MEDS: REMEDY PHYTOPLEX Z-GUARD PASTE 113GM TUBE (FROM STOREROOM PRODUCT) TOP SCH ×3 (08:14→20:14)
[2020-08-08] MEDS: VANICREAM MOISTURIZING SKIN CREAM 113GM TUBE TOP SCH (08:21)
[2020-08-08 14:00] VITALS: BP 138/72
[2020-08-08 20:00] VITALS: BP 129/76
[2020-08-08] MEDS: SENNA 8.6 MG TAB (SENOKOT) PO SCH (20:10)
[2020-08-08] MEDS: VITAMIN D 1,000 INTERNATIONAL UNITS TABLET PO SCH (20:10)
[2020-08-08] MEDS: GABAPENTIN 300 MG CAP PO SCH (20:10)
[2020-08-08] MEDS: CALCITRIOL 0.25 MCG CAP (S0169) PO SCH (20:10)
[2020-08-08] MEDS: atenoloL 50 MG TAB PO SCH (20:12)
[2020-08-08] MEDS: PRAZOSIN 1 MG CAP PO SCH (20:13)
[2020-08-09] MEDS: LEVOTHYROXINE 137MCG TABLET (0.137MG) PO SCH (05:49)
[2020-08-09 06:00] VITALS: BP 131/74
[2020-08-09] MEDS: DOCUSATE SODIUM 100MG CAPSULE PO SCH ×2 (07:12→21:00)
[2020-08-09] MEDS: oxyCODONE 5MG TAB PO SCH ×3 (07:13→20:59)
[2020-08-09] MEDS: MULTIVITAMINS/MINERALS THERAP 1 TAB PO SCH (07:13)
[2020-08-09] MEDS: FERROUS SULFATE 325MG TAB PO SCH ×2 (07:13→21:00)
[2020-08-09] MEDS: allopurinoL 100 MG TAB PO SCH (07:13)
[2020-08-09] MEDS: atenoloL 25 MG TAB PO SCH (07:14)
[2020-08-09] MEDS: DULoxetine 30 MG CAP (CYMBALTA) PO SCH (07:14)
[2020-08-09] MEDS: OYSTER SHELL CALCIUM 500 MG TAB PO SCH (07:14)
[2020-08-09] MEDS: OMEPRAZOLE 20 MG CAP PO SCH (07:14)
[2020-08-09] MEDS: AMIODARONE 200 MG TAB (PACERONE) PO SCH (07:14)
[2020-08-09] MEDS: POTASSIUM CHLORIDE 10 MEQ SR TABLET PO SCH (07:14)
[2020-08-09] MEDS: MAGNESIUM GLUCONATE 500 MG TAB PO SCH (07:15)
[2020-08-09] MEDS: APIXABAN 2.5 MG TAB (ELIQUIS) PO SCH ×2 (07:15→21:00)
[2020-08-09] MEDS: lisinopriL 5 MG TAB PO SCH (07:15)
[2020-08-09] MEDS: REMEDY PHYTOPLEX Z-GUARD PASTE 113GM TUBE (FROM STOREROOM PRODUCT) TOP SCH ×3 (07:16→21:02)
[2020-08-09] MEDS: VANICREAM MOISTURIZING SKIN CREAM 113GM TUBE TOP SCH (07:16)
[2020-08-09 08:09] LABS: BASO # 0.1 10^3/uL (0.0-0.2); EOS # 0.7 10^3/uL (0.0-0.5); HEMATOCRIT 36.7 % (42.0-52.0); HEMOGLOBIN 10.9 g/dl (13.5-17.5); LYMPH # 1.3 10^3/uL (1.5-5.0); MEAN CORPUSCULAR HEMOGLOBIN 30.7 pg (27.0-33.0); MEAN CORPUSCULAR HGB CONC 29.7 g/dl (32.0-36.5); MEAN CORPUSCULAR VOLUME 103.4 fl (80.0-96.0); MONO # 0.9 10^3/uL (0.0-0.8); MONO % 9.3 % (0.0-5.0); NEUTROPHILS # 6.2 10^3/uL (1.5-8.5); NEUTROPHILS % 67.4 % (36.0-66.0); PLATELET COUNT, AUTOMATED 476 10^3/uL (150-450); RED BLOOD COUNT 3.55 10^6/uL (4.30-6.10); WHITE BLOOD COUNT 9.2 10^3/uL (4.0-10.0)
[2020-08-09 08:40] LABS: CALCIUM LEVEL 8.7 MG/DL (8.8-10.2); CREATININE FOR GFR 2.36 MG/DL (0.70-1.30); GLOMERULAR FILTRATION RATE 28.9 (>42); POTASSIUM SERUM 5.5 MEQ/L (3.5-5.1)
[2020-08-09] MEDS ORDERED: SOD POLYSTYRENE SULFONATE SUSP 15 GM/60 ML UD PO ONE (09:15)
--- NOTE | 2020-08-09 10:16 | IPNPDOC ---
PM&R Progress Note DATE OF SERVICE: Aug 09, 2020 Motor And Controls Tester Progress Note Subjective: Patirnt reporting he has had bilateral hand and arm tremors in the past when he goes to reach for items, but that it has gotten worse since being hospitalized. He is agreeable to removing the wilder and working on bedside commode transfer once cleared by kidney doctors. REVIEW OF SYSTEMS: The following is a completed review of systems and has been reviewed. Review of systems otherwise unremarkable. PAIN: Patient self reports no pain EYES: No recent vision changes EARS, NOSE, & THROAT: No throat pain, or dysphagia, or rhinorrhea CARDIOVASCULAR: Denies chest pain or palpitations PULMONARY: Denies shortness of breath GASTROINTESTINAL: denies diarrhea/constipation GENITOURINARY: +retention MUSCULOSKELETAL: generalized weakness NEUROLOGICAL:+bilat LE paresthesias HEMATOLOGICAL: denies easy bruising SKIN: bilat Le wounds PSYCHIATRIC: Unremarkable All other review of systems found to be negative. PHYSICAL EXAMINATION: VITAL SIGNS: Please see below. GENERAL: Pleasant and cooperative. No acute distress. obese HEENT: PERRL. Extraocular movements intact. Clear conjunctiva CARDIOVASCULAR: Irregular rate and rhythm. No murmurs, rubs, or gallops LUNGS: Clear to auscultation bilaterally. No wheezes. No rhonchi ABDOMEN: Soft, nontender, nondistended. Positive bowel sounds. Normal active bowel sounds NEUROLOGICAL: Alert and oriented times three. Cranial nerves II through XII grossly intact. Sensation diminished to light touch in stocking pattern EXTREMITIES: 5-\5 strength bilateral upper extremities. 3/5 bilat hip flexors, 4-/5 bilat knee extensors, ankle DF, 3/5 EHL SKIN: bilat calf wound not examined today ASSESSMENT:75-year-old M with past medical history of CKD and Afib who presents status post CHF exacerbation with LE wounds PLAN: 1. Rehab- PT/OT- advance ADLS and mobility, strengthen/stretch/maintain ROM all 4 limbs 2. Neuro-patient presenting with peripheral polyneuropathy likely due to longstanding hypothyroidism and and PVD contributing to overall weakness and functional impairments -bilat UE intention tremors possible side effect of gabapentin and cymbalta, will lower dosing in setting of worsening kidney function 3. CArdiac- recent acute on chronic diastolic CHF exacerbation, c/u daily weights, fluid restrict, lasix and SHLOMO-I- medicine consulted to assist in overall management -Afib on Amiodarone and Eliquis, c/u atenolol 4. Resp- SHASHANK, patien reports he does not use CPAP at home and does not want nocturnal 02, monitor for infection 5. Endo- hypothyroidism, c/u synthroid, repeat TSH 14 which although high is improvement from last levels and responding to synthroid, FT4 wnl 6. Renal- CKD with hyperkalemia and worsening renal function, renal consulted to assist in CKD/fluid management- kayexelate and veltassa ordered, daily po potassium discontinued -patient had refused wilder removal over weekend as repots difficulty transferring to toilet and does not want to use urinal, however has agreed to have it removed once cleared by renal who would like to monitor I&Os for a period of time, therapy to work on bed-side commode transfers in the meantime to better prepare patient for voiding at night once wilder removed 7. Rheum- hx of gout c/u allopurinol 8. Pain- Gabapentin qHS and oxycodone, tylenol prn 9. DErm- bilat LE wounds- c/u wound care s/p surgical bedside sharp debridement 10. GI ppx- prilosec 11. DVT ppx- on eliquis 12. Dispo- TBD Allergies Coded Allergies: aspirin (Verified Adverse Reaction, Mild, NAUSEA / VOMITING, 10/18/19) NSAIDS (Non-Steroidal Anti-Inflamma (Verified Adverse Reaction, Unknown, STOMACHE ACHE, 10/18/19) Vital Signs Vital Signs Date Time Temp Pulse Resp B/P (MAP) Pulse Ox O2 Delivery O2 Flow Rate FiO2 08/09/20 07:43 16 08/09/20 07:15 131/74 08/09/20 07:14 84 08/09/20 06:00 97.4 98 Room Air Laboratory Data CBC/BMP Laboratory Tests 08/09/20 07:39 Labs 24H Laboratory Tests 2 08/09/20 07:39: Immature Granulocyte % (Auto) 0.3, Neutrophils (%) (Auto) 67.4H, Lymphocytes (%) (Auto) 14.0L, Monocytes (%) (Auto) 9.3H, Eosinophils (%) (Auto) 8.0H, Basophils (%) (Auto) 1.0, Neutrophils # (Auto) 6.2, Lymphocytes # (Auto) 1.3L, Monocytes # (Auto) 0.9H, Eosinophils # (Auto) 0.7H, Basophils # (Auto) 0.1, Nucleated Red Blood Cells % (auto) 0.0, Anion Gap 5L, Glomerular Filtration Rate 28.9L, C alcium Level 8.7L Current Medications Current Medications Current Medications Medications (Trade) Dose Ordered Sig/Alie Route PRN Reason Start Time Stop Time Status Last Admin Dose Admin Acetaminophen (Tylenol Tab) 650 mg Q4HP PRN PO fever/MILD PAIN (PS 1-4) 08/04/20 14:15 08/08/20 05:36 Allopurinol (Zyloprim) 100 mg DAILY PO 08/05/20 09:00 08/09/20 07:13 Amiodarone HCl (Pacerone, Cordarone) 200 mg DAILY PO 08/05/20 09:00 08/09/20 07:14 Apixaban (Eliquis) 2.5 mg BID PO 08/04/20 21:00 08/09/20 07:15 Atenolol (Tenormin) 25 mg DAILY PO 08/05/20 09:00 08/09/20 07:14 Atenolol (Tenormin) 50 mg QHS PO 08/04/20 21:00 08/08/20 20:12 Bisacodyl (Dulcolax Suppository) 10 mg DAILYPRN PRN [place] CONSTIPATION 08/04/20 14:15 Calcitriol (Rocaltrol) 0.25 mcg QHS PO 08/04/20 21:00 08/08/20 20:10 Calcium Carbonate (Oscal) 500 mg DAILY PO 08/05/20 09:00 08/09/20 07:14 Docusate Sodium (Colace) 100 mg BID PO 08/04/20 21:00 08/09/20 07:12 Duloxetine HCl (Cymbalta) 30 mg DAILY PO 08/05/20 09:00 08/09/20 07:14 Emollient Cream (Vanicream) APPLY DAILY TO BILATE... DAILY TOP 08/06/20 09:56 08/09/20 07:16 Emollient Cream (Vanicream) please see with wound c... ASDIRECTED TOP 08/06/20 09:00 08/06/20 09:56 DC Ferrous Sulfate (Ferrous Sulfate) 325 mg BID PO 08/04/20 21:00 08/09/20 07:13 Furosemide (Lasix) 40 mg BID@, PO 08/04/20 17:00 08/04/20 19:24 DC Furosemide (Lasix) 40 mg BID@,17 PO 08/05/20 09:00 08/07/20 06:35 DC 08/06/20 16:36 Gabapentin (Neurontin) 600 mg QHS PO 08/04/20 21:00 08/08/20 20:10 Ketoconazole (Nizoral) apply to bilat legs and f... DAILY TOP 08/05/20 09:00 08/06/20 08:55 DC 08/06/20 08:29 Levothyroxine Sodium (Synthroid) 137 mcg DAILY@06 PO 08/05/20 06:00 08/09/20 05:49 Lisinopril (Prinivil) 5 mg DAILY PO 08/05/20 09:00 08/09/20 07:15 Magnesium Gluconate (Magnesium Gluconate) 500 mg BID PO 08/04/20 21:00 08/09/20 07:15 Magnesium Hydroxide (Milk Of Magnesia) 30 ml DAILYPRN PRN PO CONSTIPATION 08/04/20 14:15 Miscellaneous (Unresolved Clarification Entry) SEE LABEL COMMENTS DAILY XX 08/06/20 09:00 08/06/20 09:54 DC Multivitamins (Theragram-M) 1 tab DAILY PO 08/05/20 09:00 08/09/20 07:13 Omeprazole (PriLOSEC) 20 mg DAILY PO 08/05/20 09:00 08/09/20 07:14 Oxycodone HCl (Roxicodone, Oxyir) 10 mg TID PO 08/04/20 16:00 08/04/20 18:32 DC Oxycodone HCl (Roxicodone, Oxyir) 10 mg TID PO 08/04/20 21:00 08/09/20 07:13 Potassium Chloride (Micro-K Extencaps) 40 meq BID PO 08/04/20 21:00 08/07/20 06:35 DC 08/06/20 20:14 Potassium Chloride (Micro-K Extencaps) 40 meq DAILY PO 08/07/20 09:00 08/09/20 09:04 DC 08/09/20 07:14 Prazosin HCl (Minipress) 1 mg QHS PO 08/04/20 21:00 08/08/20 20:13 Senna (Senokot) 1 tab QHS PO 08/04/20 21:00 08/08/20 20:10 Vitamin D (Vitamin D) 2,000 units QHS PO 08/04/20 21:00 08/08/20 20:10 RENALDO WALKER MD Aug 09, 2020 10:16
[2020-08-09 10:38] LABS: FREE T4 1.1 NG/DL (0.76-1.46); MAGNESIUM LEVEL 2.6 MG/DL (1.8-2.4); THYROID STIMULATING HORMONE 14.2 uIU/ML (0.358-3.740)
--- NOTE | 2020-08-09 11:19 | REP ---
INDICATION: hx of chf COMPARISON: None. TECHNIQUE: Portable AP view of the chest FINDINGS: Mediastinum and cardiac silhouette stable with cardiomegaly again suggested. Loop recorder identified. Lung benjamin demonstrate chronic changes. No acute consolidation, effusion, or pneumothorax. Skeletal structures are intact. IMPRESSION: Chronic stable changes. No acute process appreciated. <Electronically signed by Jc Fairchild > 08/09/20 1113
[2020-08-09] MEDS ORDERED: PATIROMER SORBITEX CALCIUM 8.4 GM POWDER PACKET (VELTASSA) PO ONE (12:00)
[2020-08-09 13:24] VITALS: BP 146/62
[2020-08-09] MEDS: FUROSEMIDE 40 MG TAB PO SCH (14:18)
[2020-08-09 20:15] VITALS: BP 109/65
[2020-08-09] MEDS: GABAPENTIN 300 MG CAP PO SCH (21:00)
[2020-08-09] MEDS: atenoloL 50 MG TAB PO SCH (21:00)
[2020-08-09] MEDS: CALCITRIOL 0.25 MCG CAP (S0169) PO SCH (21:00)
[2020-08-09] MEDS: SENNA 8.6 MG TAB (SENOKOT) PO SCH (21:00)
[2020-08-09] MEDS: PRAZOSIN 1 MG CAP PO SCH (21:00)
[2020-08-09] MEDS: VITAMIN D 1,000 INTERNATIONAL UNITS TABLET PO SCH (21:02)
--- NOTE | 2020-08-10 00:46 | REPVR ---
PROCEDURE INFORMATION: Exam: US Retroperitoneal Limited, Kidneys Exam date and time: 08/10/2020 12:31 AM Age: 75 years old Clinical indication: Condition or disease; Kidney or ureter condition; Acute renal insufficiency; Additional info: Mp on ckd TECHNIQUE: Imaging protocol: Real-time ultrasound of the retroperitoneum with image documentation. Examination was focused on the kidneys. COMPARISON: RENAL US 07/17/2017 10:57 AM FINDINGS: Right kidney: The right kidney measures 10.0 cm in its cephalocaudad dimension and 5.3 x 4.6 cm in diameter. No mass, cyst or hydronephrosis. The parenchyma is mildly hyperechoic. Left kidney: The left kidney measures 9.9 cm in its cephalocaudad dimension and 4.4 x 4.2 cm in diameter. No mass, cyst or hydronephrosis. The left renal parenchyma is mildly hyperechoic. Bladder: The bladder is not seen due to Nelson in position. IMPRESSION: 1. Mildly hyperechoic renal parenchyma consistent with medical renal disease. 2. Otherwise negative renal sonogram. No hydronephrosis. Electronically signed by: Guero Thomson On 08/10/2020 00:46:48 AM
[2020-08-10 05:59] VITALS: BP 129/83
[2020-08-10] MEDS: LEVOTHYROXINE 137MCG TABLET (0.137MG) PO SCH (06:13)
[2020-08-10 07:17] LABS: CALCIUM LEVEL 8.5 MG/DL (8.8-10.2); CREATININE FOR GFR 2.27 MG/DL (0.70-1.30); GLOMERULAR FILTRATION RATE 30.3 (>42); POTASSIUM SERUM 5.3 MEQ/L (3.5-5.1)
[2020-08-10] MEDS: DOCUSATE SODIUM 100MG CAPSULE PO SCH ×2 (09:00→21:09)
[2020-08-10] MEDS: OYSTER SHELL CALCIUM 500 MG TAB PO SCH (09:13)
[2020-08-10] MEDS: DULoxetine 20 MG CAP (CYMBALTA) PO SCH (09:13)
[2020-08-10] MEDS: atenoloL 25 MG TAB PO SCH (09:16)
[2020-08-10] MEDS: oxyCODONE 5MG TAB PO SCH ×3 (09:16→21:08)
[2020-08-10] MEDS: MULTIVITAMINS/MINERALS THERAP 1 TAB PO SCH (09:17)
[2020-08-10] MEDS: AMIODARONE 200 MG TAB (PACERONE) PO SCH (09:17)
[2020-08-10] MEDS: allopurinoL 100 MG TAB PO SCH (09:17)
[2020-08-10] MEDS: OMEPRAZOLE 20 MG CAP PO SCH (09:17)
[2020-08-10] MEDS: APIXABAN 2.5 MG TAB (ELIQUIS) PO SCH ×2 (09:17→21:09)
[2020-08-10] MEDS: FUROSEMIDE 40 MG TAB PO SCH (09:17)
[2020-08-10] MEDS: FERROUS SULFATE 325MG TAB PO SCH ×2 (09:17→21:09)
[2020-08-10] MEDS: REMEDY PHYTOPLEX Z-GUARD PASTE 113GM TUBE (FROM STOREROOM PRODUCT) TOP SCH ×3 (09:19→21:10)
--- NOTE | 2020-08-10 09:44 | IPNPDOC ---
PM&R Progress Note DATE OF SERVICE: Aug 10, 2020 Optometric Technologist Progress Note Subjective: Patient refusing to take veltassa stating he thinks his potassium levels will go down by tomorrow. He denies chest pain or worsening tremor. REVIEW OF SYSTEMS: The following is a completed review of systems and has been reviewed. Review of systems otherwise unremarkable. PAIN: Patient self reports no pain EYES: No recent vision changes EARS, NOSE, & THROAT: No throat pain, or dysphagia, or rhinorrhea CARDIOVASCULAR: Denies chest pain or palpitations PULMONARY: Denies shortness of breath GASTROINTESTINAL: denies diarrhea/constipation GENITOURINARY: +retention MUSCULOSKELETAL: generalized weakness NEUROLOGICAL:+bilat LE paresthesias HEMATOLOGICAL: denies easy bruising SKIN: bilat Le wounds PSYCHIATRIC: Unremarkable All other review of systems found to be negative. PHYSICAL EXAMINATION: VITAL SIGNS: Please see below. GENERAL: Pleasant and cooperative. No acute distress. obese HEENT: PERRL. Extraocular movements intact. Clear conjunctiva CARDIOVASCULAR: Irregular rate and rhythm. No murmurs, rubs, or gallops LUNGS: Clear to auscultation bilaterally. No wheezes. No rhonchi ABDOMEN: Soft, nontender, nondistended. Positive bowel sounds. Normal active bowel sounds NEUROLOGICAL: Alert and oriented times three. Cranial nerves II through XII grossly intact. Sensation diminished to light touch in stocking pattern EXTREMITIES: 5-\5 strength bilateral upper extremities. 3/5 bilat hip flexors, 4-/5 bilat knee extensors, ankle DF, 3/5 EHL SKIN: bilat calf wound not examined today ASSESSMENT:75-year-old M with past medical history of CKD and Afib who presents status post CHF exacerbation with LE wounds PLAN: 1. Rehab- PT/OT- advance ADLS and mobility, strengthen/stretch/maintain ROM all 4 limbs 2. Neuro-patient presenting with peripheral polyneuropathy likely due to longstanding hypothyroidism and and PVD contributing to overall weakness and functional impairments -bilat UE intention tremors possible side effect of gabapentin and cymbalta, c/u lower dosing in setting of worsening kidney function 3. CArdiac- recent acute on chronic diastolic CHF exacerbation, c/u daily weights, fluid restrict, lasix and SHLOMO-I- medicine consulted to assist in overall management -Afib on Amiodarone and Eliquis, c/u atenolol 4. Resp- SHASHANK, patient reports he does not use CPAP at home and does not want nocturnal 02, monitor for infection 5. Endo- hypothyroidism, c/u synthroid, repeat TSH 14 which although high is improvement from last levels and responding to synthroid, FT4 wnl 6. Renal- CKD with hyperkalemia and worsening renal function, renal consulted to assist in CKD/fluid management- today K 5.3, patient refusing veltassa and wants to wait another day to see if his K level goes down on its own-daily po potassium discontinued -patient had refused wilder removal over weekend as repots difficulty transferring to toilet and does not want to use urinal, however has agreed to have it removed once cleared by renal who would like to monitor I&Os for a period of time, therapy to work on bed-side commode transfers in the meantime to better prepare patient for voiding at night once wilder removed 7. Rheum- hx of gout c/u allopurinol 8. Pain- Gabapentin qHS and oxycodone, tylenol prn 9. DErm- bilat LE wounds- c/u wound care s/p surgical bedside sharp debridement, will refer to dr. reece on d/c 10. GI ppx- prilosec 11. DVT ppx- on eliquis 12. Dispo- 08-17-20 to home, progressing towards goals Allergies Coded Allergies: aspirin (Verified Adverse Reaction, Mild, NAUSEA / VOMITING, 10/18/19) NSAIDS (Non-Steroidal Anti-Inflamma (Verified Adverse Reaction, Unknown, STOMACHE ACHE, 10/18/19) Vital Signs Vital Signs Date Time Temp Pulse Resp B/P (MAP) Pulse Ox O2 Delivery O2 Flow Rate FiO2 08/10/20 09:16 18 Room Air 08/10/20 09:16 88 120/80 08/10/20 05:59 98.5 93 Laboratory Data CBC/BMP Laboratory Tests 08/10/20 06:23 Labs 24H Laboratory Tests 2 08/10/20 06:23: Anion Gap 4L, Glomerular Filtration Rate 30.3L, Calcium Level 8.5L Current Medications Current Medications Current Medications Medications (Trade) Dose Ordered Sig/Alie Route PRN Reason Start Time Stop Time Status Last Admin Dose Admin Acetaminophen (Tylenol Tab) 650 mg Q4HP PRN PO fever/MILD PAIN (PS 1-4) 08/04/20 14:15 08/08/20 05:36 Allopurinol (Zyloprim) 100 mg DAILY PO 08/05/20 09:00 08/10/20 09:17 Amiodarone HCl (Pacerone, Cordarone) 200 mg DAILY PO 08/05/20 09:00 08/10/20 09:17 Apixaban (Eliquis) 2.5 mg BID PO 08/04/20 21:00 08/10/20 09:17 Atenolol (Tenormin) 25 mg DAILY PO 08/05/20 09:00 08/10/20 09:16 Atenolol (Tenormin) 50 mg QHS PO 08/04/20 21:00 08/08/20 20:12 Bisacodyl (Dulcolax Suppository) 10 mg DAILYPRN PRN [place] CONSTIPATION 08/04/20 14:15 Calcitriol (Rocaltrol) 0.25 mcg QHS PO 08/04/20 21:00 08/09/20 21:00 Calcium Carbonate (Oscal) 500 mg DAILY PO 08/05/20 09:00 08/10/20 09:13 Docusate Sodium (Colace) 100 mg BID PO 08/04/20 21:00 08/09/20 21:00 Duloxetine HCl (Cymbalta) 20 mg DAILY PO 08/10/20 09:00 08/10/20 09:13 Duloxetine HCl (Cymbalta) 30 mg DAILY PO 08/05/20 09:00 08/09/20 10:49 DC 08/09/20 07:14 Emollient Cream (Vanicream) APPLY DAILY TO BILATE... DAILY TOP 08/06/20 09:56 08/09/20 07:16 Emollient Cream (Vanicream) please see with wound c... ASDIRECTED TOP 08/06/20 09:00 08/06/20 09:56 DC Ferrous Sulfate (Ferrous Sulfate) 325 mg BID PO 08/04/20 21:00 08/10/20 09:17 Furosemide (Lasix) 40 mg BID@, PO 08/04/20 17:00 08/04/20 19:24 DC Furosemide (Lasix) 40 mg BID@, PO 08/05/20 09:00 08/07/20 06:35 DC 08/06/20 16:36 Furosemide (Lasix) 40 mg DAILY PO 08/09/20 09:00 08/10/20 09:17 Gabapentin (Neurontin) 300 mg QHS PO 08/09/20 21:00 08/09/20 21:00 Gabapentin (Neurontin) 600 mg QHS PO 08/04/20 21:00 08/09/20 10:11 DC 08/08/20 20:10 Ketoconazole (Nizoral) apply to bilat legs and f... DAILY TOP 08/05/20 09:00 08/06/20 08:55 DC 08/06/20 08:29 Levothyroxine Sodium (Synthroid) 137 mcg DAILY@06 PO 08/05/20 06:00 08/10/20 06:13 Lisinopril (Prinivil) 5 mg DAILY PO 08/05/20 09:00 08/09/20 10:11 DC 08/09/20 07:15 Magnesium Gluconate (Magnesium Gluconate) 500 mg BID PO 08/04/20 21:00 08/09/20 10:49 DC 08/09/20 07:15 Magnesium Hydroxide (Milk Of Magnesia) 30 ml DAILYPRN PRN PO CONSTIPATION 08/04/20 14:15 Miscellaneous (Unresolved Clarification Entry) SEE LABEL COMMENTS DAILY XX 08/06/20 09:00 08/06/20 09:54 DC Multivitamins (Theragram-M) 1 tab DAILY PO 08/05/20 09:00 08/10/20 09:17 Omeprazole (PriLOSEC) 20 mg DAILY PO 08/05/20 09:00 08/10/20 09:17 Oxycodone HCl (Roxicodone, Oxyir) 10 mg TID PO 08/04/20 16:00 08/04/20 18:32 DC Oxycodone HCl (Roxicodone, Oxyir) 10 mg TID PO 08/04/20 21:00 08/10/20 09:16 Potassium Chloride (Micro-K Extencaps) 40 meq BID PO 08/04/20 21:00 08/07/20 06:35 DC 08/06/20 20:14 Potassium Chloride (Micro-K Extencaps) 40 meq DAILY PO 08/07/20 09:00 08/09/20 09:04 DC 08/09/20 07:14 Prazosin HCl (Minipress) 1 mg QHS PO 08/04/20 21:00 08/09/20 21:00 Senna (Senokot) 1 tab QHS PO 08/04/20 21:00 08/09/20 21:00 Vitamin D (Vitamin D) 2,000 units QHS PO 08/04/20 21:00 08/09/20 21:02 RENALDO WALKER MD Aug 10, 2020 09:44
[2020-08-10] MEDS ORDERED: PATIROMER SORBITEX CALCIUM 8.4 GM POWDER PACKET (VELTASSA) PO ONE (11:00)
--- NOTE | 2020-08-10 12:43 | CR ---
NEPHROLOGY CONSULTATION DATE: 08/09/2020 REQUESTING PHYSICIAN: Dr. Marielena Lizarraga CONSULTING PHYSICIAN: Dr. Mcneal REASON FOR CONSULTATION: Acute kidney injury on chronic kidney disease stage 3 with hyperkalemia. HISTORY OF PRESENT ILLNESS: Bob Stafford is previously unknown to me, but he sees Dr. Nikita Mcneal in the Nephrology Office. He is a 75-year-old male with a past medical history of chronic diastolic congestive heart failure, chronic kidney disease stage 3b with baseline creatinine of 1.8, chloride pulmonary embolism, severe pulmonary hypertension, atrial fibrillation, and other comorbid conditions mentioned below. He presented to the Emergency Room on July 27 with decompensated heart failure and generalized weakness and was found to be in atrial fibrillation with rapid ventricular response. The patient was diuresed and he required IV Thyroxine as well for his hypothyroidism. He symptomatically improved but was found to be debilitated and had bilateral leg venous stasis wounds and impairments in mobility and was discharged to the Acute Rehabilitation Unit on August 04, 2020. In the Acute Rehab Unit his diuretics were held, but he was receiving potassium supplementation. His creatinine increased from 1.8 to 2.3 and the patient became hyperkalemic and Nephrology evaluation was subsequently requested. PAST MEDICAL HISTORY: The patient's past medical history is significant for: 1. 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 2. Moderate to severe pulmonary hypertension. 3. Dilated right ventricle. 4. Chronic kidney disease stage 3b. 5. Atrial fibrillation. 6. History of ventricular tachycardia. 7. Chronic diastolic congestive heart failure. 8. Hypothyroidism (Graves disease). 9. Left ear squamous cell cancer. 10. Depression. 11. Diverticulosis. 12. Obstructive sleep apnea. 13. Lower GI bleed. 14. 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 15. Gastroesophageal reflux disease. 16. Osteoporosis. 17. Chronic back pain. PAST SURGICAL HISTORY: The patient's past surgical history is significant for: 1. Bariatric surgery. 2. Thyroidectomy. 3. History of surgeries for leg injuries from [place]. SOCIAL HISTORY: He is and lives with his . He is an ex-smoker. There is no alcohol or drug use. FAMILY HISTORY: No family history of coronary artery disease. ALLERGIES: NSAIDs. HOME MEDICATIONS: 1. Allopurinol 100 mg p.o. daily. 2. Amiodarone 200 mg p.o. daily. 3. Eliquis 2.5 mg p.o. twice daily. 4. Atenolol 25 mg p.o. daily and 50 mg p.o. q. h.s. 5. Calcitriol 0.25 mg p.o. q. h.s. 6. Tums 500 mg p.o. daily. 7. Vitamin D 2,000 units p.o. q. h.s. 8. Duloxetine 30 mg p.o. daily. 9. Ferrous Sulfate 325 mg p.o. twice daily. 10. Lasix 40 mg alternating with 20 mg every day. 11. Gabapentin 600 mg p.o. q. h.s. 12. Glucosamine Chondroitin one tab p.o. twice daily. 13. Levothyroxine 137 mcg p.o. daily. 14. Lisinopril 5 mg p.o. daily. 15. Magnesium Chloride 64 mg p.o. q. h.s. 16. Multivitamin one tab p.o. twice daily. 17. Omeprazole 20 mg p.o. daily. 18. Oxycodone 10 mg p.o. three times daily. 19. Potassium Chloride 20 mEq p.o. twice daily. 20. Prazosin one mg p.o. q. h.s. 21. Nystatin p.r.n. 22. Tramadol p.r.n. REVIEW OF SYSTEMS: Constitutional: He denies fevers or chills. Eyes: He denies visual changes or tearing. ENT: He denies rhinorrhea or dysphagia. CARDIAC: He reports history of congestive heart failure and atrial fibrillation. RESPIRATORY: He denies shortness of breath. He reports sleep apnea. GASTROINTESTINAL: He denies nausea or vomiting. GENITOURINARY: He reports Nelson catheter. MUSCULOSKELETAL: He reports generalized weakness and chronic back pain. NEUROLOGICAL: He reports bilateral lower extremity paresthesias. He denies seizures. HEMATOLOGIC: He reports iron deficiency and anemia and longterm anticoagulant use. SKIN: Bilateral lower extremity wounds are reported. PSYCHIATRIC: He reports a history of depression. ENDOCRINE: He reports obesity and hypothyroidism. The remainder of the review of systems is negative or as per HPI. PHYSICAL EXAMINATION: VITAL SIGNS: Temperature 97.8, pulse 67, respiratory rate 22, blood pressure 146/62, saturating 96% on room air. INTAKE AND OUTPUT: Intake yesterday was 1,220. Urine output was 925. Weight in the bed scale today is not recorded. GENERAL APPEARANCE: The patient is seen sitting out of bed to chair, morbidly obese male in no apparent distress. HEENT: The extraocular muscles are intact. Tongue is moist. NECK: Supple. Jugular veins are not elevated while he is sitting upright. HEART: Irregularly irregular. There is no murmur. LUNGS: Clear to auscultation bilaterally. No crackles or rales. ABDOMEN: Soft, obese and nontender. There are bowel sounds. GENITOURINARY: Indwelling Nelson catheter. EXTREMITIES: He has wraps that extend up to the knees bilaterally. There is trace edema present in the thighs and 1+ edema in the dependent areas. NEUROLOGICAL: He is oriented x3, interactive and conversational. SKIN: The bilateral calf wounds are not examined and are covered with clean dressings and wraps. LABORATORY DATA: Sodium 138, potassium 5.5, bicarbonate 32, BUN 30, creatinine 2.3, magnesium 2.6. BNP 6,400. Hemoglobin 10.9, platelet count 476. INPATIENT MEDICATIONS: 1. Tylenol p.r.n. 2. Allopurinol 100 mg p.o. daily. 3. Amiodarone 200 mg p.o. daily. 4. Eliquis 2.5 mg p.o. twice daily. 5. Atenolol 25 mg in the morning, 50 mg at bedtime. 6. Dulcolax p.r.n. 7. Calcitriol 0.25 mcg p.o. q. h.s. 8. Docusate 100 mg p.o. twice daily. 9. Duloxetine 20 mg p.o. daily. 10. Iron tab twice daily. 11. Gabapentin 300 mg p.o. q. h.s. 12. Levothyroxine 137 mcg p.o. daily. 13. He was on Lisinopril 5 mg daily but this was discontinued today. 14. Multivitamin one tab p.o. daily. 15. Omeprazole 20 mg p.o. daily. 16. Oxycodone 10 mg p.o. three times daily. 17. Oyster Shell Calcium 500 mg p.o. daily. 18. He received Veltassa 8.4 grams p.o. x1 and Kayexalate 30 mL p.o. x1. 19. He was on potassium supplements but this was also discontinued today. 20. Prazosin one mg p.o. q. h.s. 21. Vitamin D 2,000 units p.o. q. h.s. PROBLEMS: 1. Acute kidney injury on chronic kidney disease stage 3b baseline creatinine is around 1.8, and the patient has mild acute kidney injury at present. His beau inhibitor was already stopped today, and he is mildly hypervolemic on exam and I am going to place him back on an oral diuretic regimen of Lasix 40 mg p.o. daily. We will also get a renal ultrasound. He has a Nelson catheter. There is no evidence of urinary retention. His remainder medications are appropriate for GFR and Gabapentin dose was already appropriately decreased. 2. Decompensated diastolic congestive heart failure - BNP is 6,400. His Lasix was held in the Acute Rehabilitation Unit. I am going to get a chest x-ray as well. He is comfortable on room air. We will restart him back on Lasix for control of volume status and it will also help with his hyperkalemia. 3. Hyperkalemia it is due to use of beau inhibitor and potassium supplementation while the patient's loop diuretic was held. His potassium was already stopped. His beau inhibitor was stopped. I am putting him back on Lasix and Primary Team gave him a dose of Kayexalate. His potassium will likely improve. 4. Hypertension - blood pressures are acceptable on the current regimen of Atenolol. 5. Anemia related to iron deficiency, chronic kidney disease and it is improved from prior he thinks he got IV iron while he was on the medical side of the hospital. He is on an oral iron tablet now. There is no need for erythropoietin stimulating agent at present.
--- NOTE | 2020-08-10 13:23 | IPN ---
INPATIENT PROGRESS NOTE DATE: 08/10/20 SUBJECTIVE: Patient seen and examined this morning in the Acute Rehabilitation Unit. He reports his physical therapy is going well. He wants to get rid of the Nelson catheter, but is still unable to get to the bathroom and states that he cannot use the urinal either. His renal function is slowly improving. He denies any shortness of breath at rest and denies dyspnea with simple exertion. PHYSICAL EXAMINATION: Temperature 98.5, pulse 85, respiratory rate 18, blood pressure 129/83, saturating 93% on room air. Intake yesterday was 1270, urine output yesterday was 750. Weight on the bed scale today was 111.7 kg. General: Patient is seen awake, alert and oriented in bed in no apparent distress. HEENT: Extraocular muscles are intact. Tongue is moist. Neck: Supple. Jugular veins are not elevated. Heart: Sounds are irregularly irregular. There is 1+ thigh edema present bilaterally. Lungs: Clear to auscultation, no crackles or rales. Abdomen: Soft and very obese and nontender. There is an indwelling Nelson catheter present. Neurologic: He is awake, alert and oriented times 3, at baseline mentation. Extremities: He moves all 4 extremities on command. He has wraps on his calves bilaterally. IMAGING: Chest x-ray yesterday showed no effusions and no acute process. Renal ultrasound done yesterday showed hyperechoic renal parenchyma and no other acute finding. INPATIENT MEDICATIONS: He was started yesterday on Lasix 40 mg by mouth daily. His remainder of medications are unchanged from prior. PROBLEMS/PLAN: 1. FABI on CKD stage 3B: His renal function renal function is improving. He remains off of SHLOMO inhibitor. He is back on Lasix 40 mg by mouth daily. His potassium levels are improving as well. His renal ultrasound was negative. He continues with an indwelling Nelson catheter, but this can be discontinued as he progresses with his rehabilitation as he has trouble transferring to toilet and tells me he cannot even use a urinal. 2. Diastolic congestive heart failure: Patient has mild decompensation. He was off of his diuretic for a few days. He is back on Lasix 40 mg by mouth daily. His chest x-ray was clear. His SHLOMO inhibitor is held in the setting of mild acute kidney injury. Continue diuresis and oral fluid restriction of 1800 mL. 3. Hyperkalemia: Potassium level is slowly improved. It was due to an FABI, potassium supplement, SHLOMO inhibitor. He is receiving another dose of Veltassa today.
[2020-08-10 14:00] VITALS: BP 140/89
[2020-08-10] MEDS: VANICREAM MOISTURIZING SKIN CREAM 113GM TUBE TOP SCH (15:22)
[2020-08-10 20:10] VITALS: BP_SYST 12; BP_SYST 120; BP_DIAS 79
[2020-08-10] MEDS: PRAZOSIN 1 MG CAP PO SCH (21:08)
[2020-08-10] MEDS: CALCITRIOL 0.25 MCG CAP (S0169) PO SCH (21:09)
[2020-08-10] MEDS: GABAPENTIN 300 MG CAP PO SCH (21:09)
[2020-08-10] MEDS: SENNA 8.6 MG TAB (SENOKOT) PO SCH (21:09)
[2020-08-10] MEDS: VITAMIN D 1,000 INTERNATIONAL UNITS TABLET PO SCH (21:09)
[2020-08-10] MEDS: atenoloL 50 MG TAB PO SCH (21:09)
[2020-08-11] MEDS: LEVOTHYROXINE 137MCG TABLET (0.137MG) PO SCH (05:37)
[2020-08-11 05:48] VITALS: BP 126/75
[2020-08-11 07:30] LABS: BASO # 0.1 10^3/uL (0.0-0.2); BASO % 0.9 % (0.0-1.0); EOS # 0.7 10^3/uL (0.0-0.5); EOS % 7.8 % (0.0-3.0); HEMATOCRIT 32.5 % (42.0-52.0); HEMOGLOBIN 9.5 g/dl (13.5-17.5); LYMPH # 1.1 10^3/uL (1.5-5.0); MEAN CORPUSCULAR HGB CONC 29.2 g/dl (32.0-36.5); MEAN CORPUSCULAR VOLUME 102.5 fl (80.0-96.0); MONO # 1.2 10^3/uL (0.0-0.8); MONO % 13.1 % (0.0-5.0); NEUTROPHILS % 65.7 % (36.0-66.0); PLATELET COUNT, AUTOMATED 443 10^3/uL (150-450); RED BLOOD COUNT 3.17 10^6/uL (4.30-6.10); WHITE BLOOD COUNT 9.1 10^3/uL (4.0-10.0)
[2020-08-11 07:55] LABS: CALCIUM LEVEL 8.5 MG/DL (8.8-10.2); CREATININE FOR GFR 2.23 MG/DL (0.70-1.30); GLOMERULAR FILTRATION RATE 30.9 (>42); POTASSIUM SERUM 4.5 MEQ/L (3.5-5.1)
[2020-08-11] MEDS: DOCUSATE SODIUM 100MG CAPSULE PO SCH ×2 (09:00→20:34)
[2020-08-11] MEDS: REMEDY PHYTOPLEX Z-GUARD PASTE 113GM TUBE (FROM STOREROOM PRODUCT) TOP SCH ×3 (09:00→20:37)
[2020-08-11] MEDS: MULTIVITAMINS/MINERALS THERAP 1 TAB PO SCH (09:11)
[2020-08-11] MEDS: allopurinoL 100 MG TAB PO SCH (09:11)
[2020-08-11] MEDS: APIXABAN 2.5 MG TAB (ELIQUIS) PO SCH ×2 (09:11→20:34)
[2020-08-11] MEDS: OYSTER SHELL CALCIUM 500 MG TAB PO SCH (09:11)
[2020-08-11] MEDS: FERROUS SULFATE 325MG TAB PO SCH ×2 (09:11→20:34)
[2020-08-11] MEDS: oxyCODONE 5MG TAB PO SCH ×3 (09:11→20:36)
[2020-08-11] MEDS: AMIODARONE 200 MG TAB (PACERONE) PO SCH (09:12)
[2020-08-11] MEDS: DULoxetine 20 MG CAP (CYMBALTA) PO SCH (09:12)
[2020-08-11] MEDS: OMEPRAZOLE 20 MG CAP PO SCH (09:12)
[2020-08-11] MEDS: FUROSEMIDE 40 MG TAB PO SCH (09:12)
[2020-08-11] MEDS: atenoloL 25 MG TAB PO SCH (09:13)
[2020-08-11] MEDS: VANICREAM MOISTURIZING SKIN CREAM 113GM TUBE TOP SCH (09:15)
[2020-08-11 10:39] LABS: PERCENT SATURATION 48.2 % (19.7-50.0)
--- NOTE | 2020-08-11 11:56 | IPNPDOC ---
PM&R Progress Note DATE OF SERVICE: Aug 11, 2020 [employer] Progress Note Subjective: Patient sttaing he thinks his arm swelling is better now that he is back on lasix. He would like to hold off on removing wilder because he wants to be left alone to attending psychiatrist the bathroom in order to go and knows he is not safe to do that just yet. REVIEW OF SYSTEMS: The following is a completed review of systems and has been reviewed. Review of systems otherwise unremarkable. PAIN: Patient self reports no pain EYES: No recent vision changes EARS, NOSE, & THROAT: No throat pain, or dysphagia, or rhinorrhea CARDIOVASCULAR: Denies chest pain or palpitations PULMONARY: Denies shortness of breath GASTROINTESTINAL: denies diarrhea/constipation GENITOURINARY: +retention MUSCULOSKELETAL: generalized weakness NEUROLOGICAL:+bilat LE paresthesias HEMATOLOGICAL: denies easy bruising SKIN: bilat Le wounds PSYCHIATRIC: Unremarkable All other review of systems found to be negative. PHYSICAL EXAMINATION: VITAL SIGNS: Please see below. GENERAL: Pleasant and cooperative. No acute distress. obese HEENT: PERRL. Extraocular movements intact. Clear conjunctiva CARDIOVASCULAR: Irregular rate and rhythm. No murmurs, rubs, or gallops LUNGS: Clear to auscultation bilaterally. No wheezes. No rhonchi ABDOMEN: Soft, nontender, nondistended. Positive bowel sounds. Normal active bowel sounds NEUROLOGICAL: Alert and oriented times three. Cranial nerves II through XII grossly intact. Sensation diminished to light touch in stocking pattern EXTREMITIES: 5-\5 strength bilateral upper extremities. 3/5 bilat hip flexors, 4-/5 bilat knee extensors, ankle DF, 3/5 EHL SKIN: bilat calf wound not examined today ASSESSMENT:75-year-old M with past medical history of CKD and Afib who presents status post CHF exacerbation with LE wounds PLAN: 1. Rehab- PT/OT- advance ADLS and mobility, strengthen/stretch/maintain ROM all 4 limbs 2. Neuro-patient presenting with peripheral polyneuropathy likely due to longstanding hypothyroidism and and PVD contributing to overall weakness and functional impairments -bilat UE intention tremors possible side effect of gabapentin and cymbalta, c/u lower dosing in setting of worsening kidney function 3. CArdiac- recent acute on chronic diastolic CHF exacerbation, c/u daily weights, fluid restrict, lasix, SHLOMO-I d/c'd due to worsening FABI- medicine consulted to assist in overall management -Afib on Amiodarone and Eliquis, c/u atenolol 4. Resp- SHASHANK, patient reports he does not use CPAP at home and does not want nocturnal 02, monitor for infection 5. Endo- hypothyroidism, c/u synthroid, repeat TSH 14 which although high is improvement from last levels and responding to synthroid, FT4 wnl 6. Renal- CKD with hyperkalemia and worsening renal function, renal consulted to assist in CKD/fluid management- hyperkalemia resolved today -patient requesting to wait until discharge for wilder to be removed stating he has a shy bladder and can only go when left alone to stand by the toilet and that it takes a long time, he does not want to practice here, but is willing to reconsider in a few days 7. Rheum- hx of gout c/u allopurinol 8. Pain- Gabapentin qHS and oxycodone, tylenol prn 9. DErm- bilat LE wounds- c/u wound care s/p surgical bedside sharp debridement, will refer to dr. reece on d/c 10. GI ppx- prilosec 11. DVT ppx- on eliquis 12. Dispo- 08-17-20 to home, progressing towards goals Allergies Coded Allergies: aspirin (Verified Adverse Reaction, Mild, NAUSEA / VOMITING, 10/18/19) NSAIDS (Non-Steroidal Anti-Inflamma (Verified Adverse Reaction, Unknown, STOMACHE ACHE, 10/18/19) Vital Signs Vital Signs Date Time Temp Pulse Resp B/P (MAP) Pulse Ox O2 Delivery O2 Flow Rate FiO2 08/11/20 09:45 18 08/11/20 09:13 79 124/69 08/11/20 05:48 97.3 94 Room Air Laboratory Data CBC/BMP Laboratory Tests 08/11/20 06:32 Labs 24H Laboratory Tests 2 08/11/20 06:32: Immature Granulocyte % (Auto) 0.5, Neutrophils (%) (Auto) 65.7, Lymphocytes (%) (Auto) 12.0L, Monocytes (%) (Auto) 13.1H, Eosinophils (%) (Auto) 7.8H, Basophils (%) (Auto) 0.9, Neutrophils # (Auto) 6.0, Lymphocytes # (Auto) 1.1L, Monocytes # (Auto) 1.2H, Eosinophils # (Auto) 0.7H, Basophils # (Auto) 0.1, Nucleated Red Blood Cells % (auto) 0.0, Anion Gap 3L, Glomerular Filtration Rate 30.9L, Calcium Level 8.5L, Iron Level 41L, Total Iron Binding Capacity 85L, Transferrin % Saturation 48.2 Current Medications Current Medications Current Medications Medications (Trade) Dose Ordered Sig/Alie Route PRN Reason Start Time Stop Time Status Last Admin Dose Admin Acetaminophen (Tylenol Tab) 650 mg Q4HP PRN PO fever/MILD PAIN (PS 1-4) 08/04/20 14:15 08/08/20 05:36 Allopurinol (Zyloprim) 100 mg DAILY PO 08/05/20 09:00 08/11/20 09:11 Amiodarone HCl (Pacerone, Cordarone) 200 mg DAILY PO 08/05/20 09:00 08/11/20 09:12 Apixaban (Eliquis) 2.5 mg BID PO 08/04/20 21:00 08/11/20 09:11 Atenolol (Tenormin) 25 mg DAILY PO 08/05/20 09:00 08/11/20 09:13 Atenolol (Tenormin) 50 mg QHS PO 08/04/20 21:00 08/10/20 21:09 Bisacodyl (Dulcolax Suppository) 10 mg DAILYPRN PRN [place] CONSTIPATION 08/04/20 14:15 Calcitriol (Rocaltrol) 0.25 mcg QHS PO 08/04/20 21:00 08/10/20 21:09 Calcium Carbonate (Oscal) 500 mg DAILY PO 08/05/20 09:00 08/11/20 09:11 Docusate Sodium (Colace) 100 mg BID PO 08/04/20 21:00 08/10/20 21:09 Duloxetine HCl (Cymbalta) 20 mg DAILY PO 08/10/20 09:00 08/11/20 09:12 Duloxetine HCl (Cymbalta) 30 mg DAILY PO 08/05/20 09:00 08/09/20 10:49 DC 08/09/20 07:14 Emollient Cream (Vanicream) APPLY DAILY TO BILATE... DAILY TOP 08/06/20 09:56 08/11/20 09:15 Emollient Cream (Vanicream) please see with wound c... ASDIRECTED TOP 08/06/20 09:00 08/06/20 09:56 DC Ferrous Sulfate (Ferrous Sulfate) 325 mg BID PO 08/04/20 21:00 08/11/20 09:11 Furosemide (Lasix) 40 mg BID@,17 PO 08/04/20 17:00 08/04/20 19:24 DC Furosemide (Lasix) 40 mg BID@,17 PO 08/05/20 09:00 08/07/20 06:35 DC 08/06/20 16:36 Furosemide (Lasix) 40 mg DAILY PO 08/09/20 09:00 08/11/20 09:12 Gabapentin (Neurontin) 300 mg QHS PO 08/09/20 21:00 08/10/20 21:09 Gabapentin (Neurontin) 600 mg QHS PO 08/04/20 21:00 08/09/20 10:11 DC 08/08/20 20:10 Ketoconazole (Nizoral) apply to bilat legs and f... DAILY TOP 08/05/20 09:00 08/06/20 08:55 DC 08/06/20 08:29 Levothyroxine Sodium (Synthroid) 137 mcg DAILY@06 PO 08/05/20 06:00 08/11/20 05:37 Lisinopril (Prinivil) 5 mg DAILY PO 08/05/20 09:00 08/09/20 10:11 DC 08/09/20 07:15 Magnesium Gluconate (Magnesium Gluconate) 500 mg BID PO 08/04/20 21:00 08/09/20 10:49 DC 08/09/20 07:15 Magnesium Hydroxide (Milk Of Magnesia) 30 ml DAILYPRN PRN PO CONSTIPATION 08/04/20 14:15 Miscellaneous (Unresolved Clarification Entry) SEE LABEL COMMENTS DAILY XX 08/06/20 09:00 08/06/20 09:54 DC Multivitamins (Theragram-M) 1 tab DAILY PO 08/05/20 09:00 08/11/20 09:11 Omeprazole (PriLOSEC) 20 mg DAILY PO 08/05/20 09:00 08/11/20 09:12 Oxycodone HCl (Roxicodone, Oxyir) 10 mg TID PO 08/04/20 16:00 08/04/20 18:32 DC Oxycodone HCl (Roxicodone, Oxyir) 10 mg TID PO 08/04/20 21:00 08/11/20 09:11 Potassium Chloride (Micro-K Extencaps) 40 meq BID PO 08/04/20 21:00 08/07/20 06:35 DC 08/06/20 20:14 Potassium Chloride (Micro-K Extencaps) 40 meq DAILY PO 08/07/20 09:00 08/09/20 09:04 DC 08/09/20 07:14 Prazosin HCl (Minipress) 1 mg QHS PO 08/04/20 21:00 08/10/20 21:08 Senna (Senokot) 1 tab QHS PO 08/04/20 21:00 08/10/20 21:09 Vitamin D (Vitamin D) 2,000 units QHS PO 08/04/20 21:00 08/10/20 21:09 RENALDO WALKER MD Aug 11, 2020 11:55
[2020-08-11 14:00] VITALS: BP 138/78
[2020-08-11 20:00] VITALS: BP 132/78
[2020-08-11] MEDS: CALCITRIOL 0.25 MCG CAP (S0169) PO SCH (20:34)
[2020-08-11] MEDS: SENNA 8.6 MG TAB (SENOKOT) PO SCH (20:34)
[2020-08-11] MEDS: GABAPENTIN 300 MG CAP PO SCH (20:34)
[2020-08-11] MEDS: VITAMIN D 1,000 INTERNATIONAL UNITS TABLET PO SCH (20:35)
[2020-08-11] MEDS: atenoloL 50 MG TAB PO SCH (20:35)
[2020-08-11] MEDS: PRAZOSIN 1 MG CAP PO SCH (20:36)
--- NOTE | 2020-08-11 20:57 | IPN ---
NEPHROLOGY PROGRESS NOTE DATE: 08/11/2020 SUBJECTIVE: Bob is seen and examined this morning in the Rehabilitation Unit while he was working with the physical therapist. He denies any overnight events or complaints. Denies any shortness of breath nor dyspnea on exertion. Renal function remains stable and urine output is improving and hyperkalemia has resolved. He denies any trouble with his therapy. VITAL SIGNS: Temperature 98.1, pulse 82, respiratory rate 19, blood pressure 138/78, saturating 94% on room air. INTAKE AND OUTPUT: Intake yesterday was one liter. Urine output was 2.1 liters, net negative to one liter. Weight in the bed scale today is 110.2 kg. PHYSICAL EXAMINATION: GENERAL APPEARANCE: The patient is seen working with the physical therapist, awake, alert, oriented, in no apparent distress. The extraocular muscles are intact. Tongue is moist. NECK: Supple. Jugular veins are not elevated. HEART: Irregular. There is no significant edema in the upper extremities nor in the thighs. His calves are wrapped in dressings. LUNGS: Clear to auscultation bilaterally. No crackles or rales. He is comfortable on room air. ABDOMEN: Soft, obese and nontender. There are bowel sounds. GENITOURINARY: Indwelling Nelson catheter. EXTREMITIES: Dressings bilaterally of the legs that come up to the knee. NEUROLOGICAL: Oriented x3, interactive and conversational, at baseline mentation. LABORATORY STUDIES: Sodium 137, potassium 4.5, bicarbonate 35, BUN 26, creatinine 2.2, transferrin saturation is 48%. Hemoglobin 9.5, platelet count 443. INPATIENT MEDICATIONS: The patient's medications were reviewed by myself. He was started yesterday on Cymbalta 20 mg p.o. daily. His remainder of medications are unchanged from prior. PROBLEMS: 1. Acute kidney injury on chronic kidney disease, stage 3b. His renal function is stable though not at baseline. His baseline is creatinine 1.6 to around 1.9. He continues on Lasix 40 mg by mouth daily. His renal ultrasound was negative for obstructive uropathy. He continues with Nelson catheter right now because of limited mobility and this can be discontinued as he progresses with his rehabilitation and can transfer to toilet. 2. Congestive heart failure volume status is improved. Continue Lasix 40 mg daily. Chest x-ray is clear. He is saturating well on room air. He is on a fluid restriction of 1.8 liters. 3. Status post hyperkalemia - potassium levels have normalized. Yoandy inhibitor remains on hold. No further need of Veltassa. I would continue to hold the yoandy inhibitor at present though because of the mild acute kidney injury. 4. Anemia related to chronic kidney disease his iron stores are adequate. Transferrin saturation was 48%. He is on oral iron supplement. We will start Aranesp if hemoglobin remains persistently below 10. 5. Hypertension blood pressures are acceptable on the current regimen and no changes are being made. 6. Atrial fibrillation - The patient is weight controlled with Atenolol and also on Amiodarone and he is anticoagulated with Eliquis. 7. Secondary hyperparathyroidism of renal origin he is on Calcitriol. Parathyroid hormone level is ordered for tomorrow.
[2020-08-12] MEDS: LEVOTHYROXINE 137MCG TABLET (0.137MG) PO SCH (05:54)
[2020-08-12 06:00] VITALS: BP 122/58
[2020-08-12 08:16] LABS: CALCIUM LEVEL 8.2 MG/DL (8.8-10.2); CREATININE FOR GFR 2.15 MG/DL (0.70-1.30); GLOMERULAR FILTRATION RATE 32.2 (>42); POTASSIUM SERUM 4.2 MEQ/L (3.5-5.1)
--- NOTE | 2020-08-12 08:50 | IPNPDOC ---
PM&R Progress Note DATE OF SERVICE: Aug 12, 2020 [employer] Progress Note Subjective: Patient reporting if he is able to be left alone either on the toilet or leaning against the bed to urinate he will be able to go stating he has a shy bladder. REVIEW OF SYSTEMS: The following is a completed review of systems and has been reviewed. Review of systems otherwise unremarkable. PAIN: Patient self reports no pain EYES: No recent vision changes EARS, NOSE, & THROAT: No throat pain, or dysphagia, or rhinorrhea CARDIOVASCULAR: Denies chest pain or palpitations PULMONARY: Denies shortness of breath GASTROINTESTINAL: denies diarrhea/constipation GENITOURINARY: +retention MUSCULOSKELETAL: generalized weakness NEUROLOGICAL:+bilat LE paresthesias HEMATOLOGICAL: denies easy bruising SKIN: bilat Le wounds PSYCHIATRIC: Unremarkable All other review of systems found to be negative. PHYSICAL EXAMINATION: VITAL SIGNS: Please see below. GENERAL: Pleasant and cooperative. No acute distress. obese HEENT: PERRL. Extraocular movements intact. Clear conjunctiva CARDIOVASCULAR: Irregular rate and rhythm. No murmurs, rubs, or gallops LUNGS: Clear to auscultation bilaterally. No wheezes. No rhonchi ABDOMEN: Soft, nontender, nondistended. Positive bowel sounds. Normal active bowel sounds NEUROLOGICAL: Alert and oriented times three. Cranial nerves II through XII grossly intact. Sensation diminished to light touch in stocking pattern EXTREMITIES: 5-\5 strength bilateral upper extremities. 3/5 bilat hip flexors, 4-/5 bilat knee extensors, ankle DF, 3/5 EHL SKIN: bilat calf wound not examined today ASSESSMENT:75-year-old M with past medical history of CKD and Afib who presents status post CHF exacerbation with LE wounds PLAN: 1. Rehab- PT/OT- advance ADLS and mobility, strengthen/stretch/maintain ROM all 4 limbs 2. Neuro-patient presenting with peripheral polyneuropathy likely due to longstanding hypothyroidism and and PVD contributing to overall weakness and functional impairments -bilat UE intention tremors possible side effect of gabapentin and cymbalta, c/u lower dosing in setting of worsening kidney function 3. CArdiac- recent acute on chronic diastolic CHF exacerbation, c/u daily weights, fluid restrict, lasix, SHLOMO-I d/c'd due to worsening FABI- medicine consulted to assist in overall management -Afib on Amiodarone and Eliquis, c/u atenolol 4. Resp- SHASHANK, patient reports he does not use CPAP at home and does not want nocturnal 02, monitor for infection 5. Endo- hypothyroidism, c/u synthroid, repeat TSH 14 which although high is improvement from last levels and responding to synthroid, FT4 wnl 6. Renal- CKD with hyperkalemia and worsening renal function, renal consulted to assist in CKD/fluid management- hyperkalemia resolved today -patient agrees to remove wilder tomorrow morning after practicing safe pos itioning in therapy today 7. Rheum- hx of gout c/u allopurinol 8. Pain- Gabapentin qHS and oxycodone, tylenol prn 9. DErm- bilat LE wounds- c/u wound care s/p surgical bedside sharp debridement, will refer to dr. reece on d/c 10. GI ppx- prilosec 11. DVT ppx- on eliquis 12. Dispo- 08-17-20 to home, progressing towards goals Allergies Coded Allergies: aspirin (Verified Adverse Reaction, Mild, NAUSEA / VOMITING, 10/18/19) NSAIDS (Non-Steroidal Anti-Inflamma (Verified Adverse Reaction, Unknown, STOMACHE ACHE, 10/18/19) Vital Signs Vital Signs Date Time Temp Pulse Resp B/P (MAP) Pulse Ox O2 Delivery O2 Flow Rate FiO2 08/12/20 06:00 98.5 81 19 122/58 (79) 95 Room Air Laboratory Data CBC/BMP Laboratory Tests 08/12/20 07:08 Labs 24H Laboratory Tests 2 08/12/20 07:08: Anion Gap 6L, Glomerular Filtration Rate 32.2L, Calcium Level 8.2L, NT-Pro -B-Type Natriuretic Peptide 6900H Current Medications Current Medications Current Medications Medications (Trade) Dose Ordered Sig/Alie Route PRN Reason Start Time Stop Time Status Last Admin Dose Admin Acetaminophen (Tylenol Tab) 650 mg Q4HP PRN PO fever/MILD PAIN (PS 1-4) 08/04/20 14:15 08/08/20 05:36 Allopurinol (Zyloprim) 100 mg DAILY PO 08/05/20 09:00 08/11/20 09:11 Amiodarone HCl (Pacerone, Cordarone) 200 mg DAILY PO 08/05/20 09:00 08/11/20 09:12 Apixaban (Eliquis) 2.5 mg BID PO 08/04/20 21:00 08/11/20 20:34 Atenolol (Tenormin) 25 mg DAILY PO 08/05/20 09:00 08/11/20 09:13 Atenolol (Tenormin) 50 mg QHS PO 08/04/20 21:00 08/11/20 20:35 Bisacodyl (Dulcolax Suppository) 10 mg DAILYPRN PRN [place] CONSTIPATION 08/04/20 14:15 Calcitriol (Rocaltrol) 0.25 mcg QHS PO 08/04/20 21:00 08/11/20 20:34 Calcium Carbonate (Oscal) 500 mg DAILY PO 08/05/20 09:00 08/11/20 09:11 Docusate Sodium (Colace) 100 mg BID PO 08/04/20 21:00 08/11/20 20:34 Duloxetine HCl (Cymbalta) 20 mg DAILY PO 08/10/20 09:00 08/11/20 09:12 Duloxetine HCl (Cymbalta) 30 mg DAILY PO 08/05/20 09:00 08/09/20 10:49 DC 08/09/20 07:14 Emollient Cream (Vanicream) APPLY DAILY TO BILATE... DAILY TOP 08/06/20 09:56 08/11/20 09:15 Emollient Cream (Vanicream) please see with wound c... ASDIRECTED TOP 08/06/20 09:00 08/06/20 09:56 DC Ferrous Sulfate (Ferrous Sulfate) 325 mg BID PO 08/04/20 21:00 08/11/20 20:34 Furosemide (Lasix) 40 mg BID@,17 PO 08/04/20 17:00 08/04/20 19:24 DC Furosemide (Lasix) 40 mg BID@, PO 08/05/20 09:00 08/07/20 06:35 DC 08/06/20 16:36 Furosemide (Lasix) 40 mg DAILY PO 08/09/20 09:00 08/11/20 09:12 Gabapentin (Neurontin) 300 mg QHS PO 08/09/20 21:00 08/11/20 20:34 Gabapentin (Neurontin) 600 mg QHS PO 08/04/20 21:00 08/09/20 10:11 DC 08/08/20 20:10 Ketoconazole (Nizoral) apply to bilat legs and f... DAILY TOP 08/05/20 09:00 08/06/20 08:55 DC 08/06/20 08:29 Levothyroxine Sodium (Synthroid) 137 mcg DAILY@06 PO 08/05/20 06:00 08/12/20 05:54 Lisinopril (Prinivil) 5 mg DAILY PO 08/05/20 09:00 08/09/20 10:11 DC 08/09/20 07:15 Magnesium Gluconate (Magnesium Gluconate) 500 mg BID PO 08/04/20 21:00 08/09/20 10:49 DC 08/09/20 07:15 Magnesium Hydroxide (Milk Of Magnesia) 30 ml DAILYPRN PRN PO CONSTIPATION 08/04/20 14:15 Miscellaneous (Unresolved Clarification Entry) SEE LABEL COMMENTS DAILY XX 08/06/20 09:00 08/06/20 09:54 DC Multivitamins (Theragram-M) 1 tab DAILY PO 08/05/20 09:00 08/11/20 09:11 Omeprazole (PriLOSEC) 20 mg DAILY PO 08/05/20 09:00 08/11/20 09:12 Oxycodone HCl (Roxicodone, Oxyir) 10 mg TID PO 08/04/20 16:00 08/04/20 18:32 DC Oxycodone HCl (Roxicodone, Oxyir) 10 mg TID PO 08/04/20 21:00 08/11/20 20:36 Potassium Chloride (Micro-K Extencaps) 40 meq BID PO 08/04/20 21:00 08/07/20 06:35 DC 08/06/20 20:14 Potassium Chloride (Micro-K Extencaps) 40 meq DAILY PO 08/07/20 09:00 08/09/20 09:04 DC 08/09/20 07:14 Prazosin HCl (Minipress) 1 mg QHS PO 08/04/20 21:00 08/11/20 20:36 Senna (Senokot) 1 tab QHS PO 08/04/20 21:00 08/11/20 20:34 Vitamin D (Vitamin D) 2,000 units [facility] PO 08/04/20 21:00 08/11/20 20:35 RENALDO WALKER MD Aug 12, 2020 08:50
[2020-08-12] MEDS: DOCUSATE SODIUM 100MG CAPSULE PO SCH ×2 (08:59→21:40)
[2020-08-12] MEDS: FERROUS SULFATE 325MG TAB PO SCH ×2 (09:00→21:40)
[2020-08-12] MEDS: OMEPRAZOLE 20 MG CAP PO SCH (09:00)
[2020-08-12] MEDS: DULoxetine 20 MG CAP (CYMBALTA) PO SCH (09:00)
[2020-08-12] MEDS: FUROSEMIDE 40 MG TAB PO SCH (09:00)
[2020-08-12] MEDS: MULTIVITAMINS/MINERALS THERAP 1 TAB PO SCH (09:00)
[2020-08-12] MEDS: allopurinoL 100 MG TAB PO SCH (09:00)
[2020-08-12] MEDS: OYSTER SHELL CALCIUM 500 MG TAB PO SCH (09:00)
[2020-08-12] MEDS: APIXABAN 2.5 MG TAB (ELIQUIS) PO SCH ×2 (09:01→21:40)
[2020-08-12] MEDS: AMIODARONE 200 MG TAB (PACERONE) PO SCH (09:01)
[2020-08-12] MEDS: atenoloL 25 MG TAB PO SCH (09:01)
[2020-08-12] MEDS: oxyCODONE 5MG TAB PO SCH ×3 (09:02→21:43)
[2020-08-12] MEDS: REMEDY PHYTOPLEX Z-GUARD PASTE 113GM TUBE (FROM STOREROOM PRODUCT) TOP SCH ×3 (09:03→21:44)
[2020-08-12] MEDS: VANICREAM MOISTURIZING SKIN CREAM 113GM TUBE TOP SCH (09:04)
[2020-08-12 11:38] LABS: PTH INTACT 53.1 PG/ML (18.5-88.0)
[2020-08-12 14:00] VITALS: BP 132/73
[2020-08-12 20:00] VITALS: BP 127/70
[2020-08-12] MEDS: SENNA 8.6 MG TAB (SENOKOT) PO SCH (21:40)
[2020-08-12] MEDS: GABAPENTIN 300 MG CAP PO SCH (21:41)
[2020-08-12] MEDS: VITAMIN D 1,000 INTERNATIONAL UNITS TABLET PO SCH (21:41)
[2020-08-12] MEDS: CALCITRIOL 0.25 MCG CAP (S0169) PO SCH (21:41)
[2020-08-12] MEDS: PRAZOSIN 1 MG CAP PO SCH (21:41)
[2020-08-12] MEDS: atenoloL 50 MG TAB PO SCH (21:42)
[2020-08-12] MEDS: CALCIUM CARBONATE 500 MG CHEW U/D PO PRN (23:34)
[2020-08-13 05:28] VITALS: BP 100/52
[2020-08-13] MEDS: LEVOTHYROXINE 137MCG TABLET (0.137MG) PO SCH (05:49)
[2020-08-13 08:16] LABS: BASO # 0.1 10^3/uL (0.0-0.2); BASO % 1.1 % (0.0-1.0); EOS # 0.5 10^3/uL (0.0-0.5); EOS % 6.6 % (0.0-3.0); HEMATOCRIT 31.7 % (42.0-52.0); HEMOGLOBIN 9.3 g/dl (13.5-17.5); LYMPH # 1.1 10^3/uL (1.5-5.0); LYMPH % 13.7 % (24.0-44.0); MEAN CORPUSCULAR HEMOGLOBIN 29.5 pg (27.0-33.0); MEAN CORPUSCULAR HGB CONC 29.3 g/dl (32.0-36.5); MEAN CORPUSCULAR VOLUME 100.6 fl (80.0-96.0); MONO % 11.7 % (0.0-5.0); NEUTROPHILS # 5.5 10^3/uL (1.5-8.5); NEUTROPHILS % 66.4 % (36.0-66.0); PLATELET COUNT, AUTOMATED 456 10^3/uL (150-450); RED BLOOD COUNT 3.15 10^6/uL (4.30-6.10); WHITE BLOOD COUNT 8.2 10^3/uL (4.0-10.0)
[2020-08-13 08:49] LABS: CALCIUM LEVEL 8.1 MG/DL (8.8-10.2); CREATININE FOR GFR 2.07 MG/DL (0.70-1.30); GLOMERULAR FILTRATION RATE 33.7 (>42); POTASSIUM SERUM 4.2 MEQ/L (3.5-5.1)
[2020-08-13] MEDS: atenoloL 25 MG TAB PO SCH (09:00)
[2020-08-13] MEDS: REMEDY PHYTOPLEX Z-GUARD PASTE 113GM TUBE (FROM STOREROOM PRODUCT) TOP SCH ×3 (09:00→20:45)
[2020-08-13] MEDS: oxyCODONE 5MG TAB PO SCH ×3 (09:09→20:43)
[2020-08-13] MEDS: DULoxetine 20 MG CAP (CYMBALTA) PO SCH (09:09)
[2020-08-13] MEDS: DOCUSATE SODIUM 100MG CAPSULE PO SCH ×2 (09:10→20:43)
[2020-08-13] MEDS: allopurinoL 100 MG TAB PO SCH (09:10)
[2020-08-13] MEDS: AMIODARONE 200 MG TAB (PACERONE) PO SCH (09:10)
[2020-08-13] MEDS: FUROSEMIDE 40 MG TAB PO SCH (09:10)
[2020-08-13] MEDS: CALCIUM CARBONATE 500 MG CHEW U/D PO PRN (09:10)
[2020-08-13] MEDS: OMEPRAZOLE 20 MG CAP PO SCH (09:10)
[2020-08-13] MEDS: APIXABAN 2.5 MG TAB (ELIQUIS) PO SCH ×2 (09:10→20:44)
[2020-08-13] MEDS: OYSTER SHELL CALCIUM 500 MG TAB PO SCH (09:10)
[2020-08-13] MEDS: MULTIVITAMINS/MINERALS THERAP 1 TAB PO SCH (09:10)
[2020-08-13] MEDS: FERROUS SULFATE 325MG TAB PO SCH ×2 (09:10→20:44)
[2020-08-13] MEDS: VANICREAM MOISTURIZING SKIN CREAM 113GM TUBE TOP SCH (09:12)
--- NOTE | 2020-08-13 09:59 | IPN ---
INPATIENT PROGRESS NOTE DATE: 08/12/20 SUBJECTIVE: Bob seen and examined this morning in the rehabilitation unit receiving his therapy. Denies any overnight events, specifically denies shortness of breath or dyspnea with exertion. Reports his swelling seems to be getting better. PHYSICAL EXAMINATION: Vital signs: Temperature 97.9, pulse 88, respiratory rate 18, blood pressure 132/73, saturating 96% on room air. Intake yesterday was 1280, urine output was 1850. Weight on the bed scale today is 110.4 kg. General: Patient is seen awake, alert, oriented, in no apparent distress. HEENT: Extraocular muscles are intact. Tongue is moist. Neck: Supple. Jugular veins are not elevated. Heart: Sounds are irregular. There is no significant edema in the upper extremities or in the thighs. His calves were wrapped in dressings. Lungs: Clear to auscultation bilaterally. No crackles or rales. He is comfortable on room air. Abdomen: Soft, obese and nontender. There are bowel sounds. Genitourinary: Indwelling Nelson catheter. Extremities: Show dressings on the legs bilaterally that come up to the knees. Neurologically: He is oriented times 3, interactive, conversational and at baseline mentation. LABORATORY DATA: Labs today show white count 9.1, hemoglobin 9.5, platelets 443. Sodium 141, potassium 4.2, bicarbonate 34, BUN 26, creatinine 2.1. BNP 6900. Transferrin saturation 48%. INPATIENT MEDICATIONS: Reviewed by myself and no change noted as compared to the past 24 hours. PROBLEMS/PLAN: 1. FABI on CKD stage 3B: Baseline creatinine is around 1.6-1.9. He has a mild FABI. His volume status is improving. There is no obstructive uropathy. He continues on Lasix 40 mg daily along with an oral fluid restriction. 2. Hypertension: Blood pressures are acceptable on the current regimen and SHLOMO inhibitor continues to be held in view of mild acute kidney injury and recent hyperkalemia. 3. Anemia related to chronic kidney disease: His iron stores are adequate. He is on a ferrous supplement. We will start Aranesp if hemoglobin remains persistently less than 10. 4. Atrial fibrillation: Patient is rate controlled with atenolol and amiodarone and anticoagulated with Eliquis. 5. Congestive heart failure with preserved ejection fraction: Patient continues on Lasix 40 mg by mouth daily and daily weights are slow down trending and he is respiring comfortably on room air. Continue current diuretic along with 1800 mL fluid restriction.
[2020-08-13] MEDS ORDERED: MAALOX 30 ML SUSP *UDC PO ONE (11:15)
--- NOTE | 2020-08-13 13:43 | IPNPDOC ---
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 REVIEW OF SYSTEMS: The following is a completed review of systems and has been reviewed. Review of systems otherwise unremarkable. PAIN: Patient self reports no pain EYES: No recent vision changes EARS, NOSE, & THROAT: No throat pain, or dysphagia, or rhinorrhea CARDIOVASCULAR: Denies chest pain or palpitations PULMONARY: Denies shortness of breath GASTROINTESTINAL: denies diarrhea/constipation GENITOURINARY: denies dysuria or retention MUSCULOSKELETAL: generalized weakness NEUROLOGICAL:+bilat LE paresthesias HEMATOLOGICAL: denies easy bruising SKIN: bilat Le wounds PSYCHIATRIC: Unremarkable All other review of systems found to be negative. PHYSICAL EXAMINATION: VITAL SIGNS: Please see below. GENERAL: Pleasant and cooperative. No acute distress. obese HEENT: PERRL. Extraocular movements intact. Clear conjunctiva CARDIOVASCULAR: Irregular rate and rhythm. No murmurs, rubs, or gallops LUNGS: Clear to auscultation bilaterally. No wheezes. No rhonchi ABDOMEN: Soft, nontender, nondistended. Positive bowel sounds. Normal active bowel sounds NEUROLOGICAL: Alert and oriented times three. Cranial nerves II through XII grossly intact. Sensation diminished to light touch in stocking pattern EXTREMITIES: 5-\5 strength bilateral upper extremities. 3/5 bilat hip flexors, 4-/5 bilat knee extensors, ankle DF, 3/5 EHL SKIN: bilat calf wound not examined today ASSESSMENT:75-year-old M with past medical history of CKD and Afib who presents status post CHF exacerbation with LE wounds PLAN: 1. Rehab- PT/OT- advance ADLS and mobility, strengthen/stretch/maintain ROM all 4 limbs 2. Neuro-patient presenting with peripheral polyneuropathy likely due to longstanding hypothyroidism and and PVD contributing to overall weakness and fun ctional impairments -bilat UE intention tremors possible side effect of gabapentin and cymbalta, c/u lower dosing in setting of worsening kidney function 3. CArdiac- recent acute on chronic diastolic CHF exacerbation, c/u daily weights, fluid restrict, lasix, SHLOMO-I d/c'd due to worsening FABI- medicine consulted to assist in overall management -Afib on Amiodarone and Eliquis, c/u atenolol 4. Resp- SHASHANK, patient reports he does not use CPAP at home and does not want nocturnal 02, monitor for infection 5. Endo- hypothyroidism, c/u synthroid, repeat TSH 14 which although high is improvement from last levels and responding to synthroid, FT4 wnl 6. Renal- CKD with hyperkalemia and worsening renal function, renal consulted to assist in CKD/fluid management- hyperkalemia resolved today -wilder remvoed, monitor PVrs 7. Rheum- hx of gout c/u allopurinol 8. Pain- Gabapentin qHS and oxycodone, tylenol prn 9. DErm- bilat LE wounds- c/u wound care s/p surgical bedside sharp debridement, will refer to dr. reece on d/c 10. GI ppx- prilosec 11. DVT ppx- on eliquis 12. Dispo- 08-17-20 to home, progressing towards goals Allergies Coded Allergies: aspirin (Verified Adverse Reaction, Mild, NAUSEA / VOMITING, 10/18/19) NSAIDS (Non-Steroidal Anti-Inflamma (Verified Adverse Reaction, Unknown, STOMACHE ACHE, 10/18/19) Vital Signs Vital Signs Date Time Temp Pulse Resp B/P (MAP) Pulse Ox O2 Delivery O2 Flow Rate FiO2 08/13/20 09:39 17 08/13/20 09:00 97 100/52 08/13/20 05:28 99.2 91 Room Air Laboratory Data CBC/BMP Laboratory Tests 08/13/20 07:27 Labs 24H Laboratory Tests 2 08/13/20 07:27: Immature Granulocyte % (Auto) 0.5, Neutrophils (%) (Auto) 66.4H, Lymphocytes (%) (Auto) 13.7L, Monocytes (%) (Auto) 11.7H, Eosinophils (%) (Auto) 6.6H, Basophils (%) (Auto) 1.1H, Neutrophils # (Auto) 5.5, Lymphocytes # (Auto) 1.1L, Monocytes # (Auto) 1.0H, Eosinophils # (Auto) 0.5, Basophils # (Auto) 0.1, Nucleated Red Blood Cells % (auto) 0.0, Anion Gap 5L, Glomerular Filtration Rate 33.7L, Calcium Level 8.1L Current Medications Current Medications Current Medications Medications (Trade) Dose Ordered Sig/Alie Route PRN Reason Start Time Stop Time Status Last Admin Dose Admin Acetaminophen (Tylenol Tab) 650 mg Q4HP PRN PO fever/MILD PAIN (PS 1-4) 08/04/20 14:15 08/08/20 05:36 Allopurinol (Zyloprim) 100 mg DAILY PO 08/05/20 09:00 08/13/20 09:10 Amiodarone HCl (Pacerone, Cordarone) 200 mg DAILY PO 08/05/20 09:00 08/13/20 09:10 Apixaban (Eliquis) 2.5 mg BID PO 08/04/20 21:00 08/13/20 09:10 Atenolol (Tenormin) 25 mg DAILY PO 08/05/20 09:00 08/12/20 09:01 Atenolol (Tenormin) 50 mg QHS PO 08/04/20 21:00 08/12/20 21:42 Bisacodyl (Dulcolax Suppository) 10 mg DAILYPRN PRN [place] CONSTIPATION 08/04/20 14:15 Calcitriol (Rocaltrol) 0.25 mcg QHS PO 08/04/20 21:00 08/12/20 21:41 Calcium Carbonate (Oscal) 500 mg DAILY PO 08/05/20 09:00 08/13/20 09:10 Calcium Carbonate (Tums) 100 mg TID PRN PO INDIGESTION 08/13/20 16:00 Calcium Carbonate (Tums) 500 mg BID PRN PO INDIGESTION 08/12/20 23:30 08/13/20 11:03 DC 08/13/20 09:10 Darbepoetin Spencer (Aranesp) 100 mcg Sa@09 SC 08/14/20 09:00 Docusate Sodium (Colace) 100 mg BID PO 08/04/20 21:00 08/13/20 09:10 Duloxetine HCl (Cymbalta) 20 mg DAILY PO 08/10/20 09:00 08/13/20 09:09 Duloxetine HCl (Cymbalta) 30 mg DAILY PO 08/05/20 09:00 08/09/20 10:49 DC 08/09/20 07:14 Emollient Cream (Vanicream) APPLY DAILY TO BILATE... DAILY TOP 08/06/20 09:56 08/13/20 09:12 Emollient Cream (Vanicream) please see with wound c... ASDIRECTED TOP 08/06/20 09:00 08/06/20 09:56 DC Ferrous Sulfate (Ferrous Sulfate) 325 mg BID PO 08/04/20 21:00 08/13/20 09:10 Furosemide (Lasix) 40 mg BID@,17 PO 08/04/20 17:00 08/04/20 19:24 DC Furosemide (Lasix) 40 mg BID@, PO 08/05/20 09:00 08/07/20 06:35 DC 08/06/20 16:36 Furosemide (Lasix) 40 mg DAILY PO 08/09/20 09:00 08/13/20 09:10 Gabapentin (Neurontin) 300 mg QHS PO 08/09/20 21:00 08/12/20 21:41 Gabapentin (Neurontin) 600 mg QHS PO 08/04/20 21:00 08/09/20 10:11 DC 08/08/20 20:10 Ketoconazole (Nizoral) apply to bilat legs and f... DAILY TOP 08/05/20 09:00 08/06/20 08:55 DC 08/06/20 08:29 Levothyroxine Sodium (Synthroid) 137 mcg DAILY@06 PO 08/05/20 06:00 08/13/20 05:49 Lisinopril (Prinivil) 5 mg DAILY PO 08/05/20 09:00 08/09/20 10:11 DC 08/09/20 07:15 Magnesium Gluconate (Magnesium Gluconate) 500 mg BID PO 08/04/20 21:00 08/09/20 10:49 DC 08/09/20 07:15 Magnesium Hydroxide (Milk Of Magnesia) 30 ml DAILYPRN PRN PO CONSTIPATION 08/04/20 14:15 Miscellaneous (Unresolved Clarification Entry) SEE LABEL COMMENTS DAILY XX 08/06/20 09:00 08/06/20 09:54 DC Multivitamins (Theragram-M) 1 tab DAILY PO 08/05/20 09:00 08/13/20 09:10 Omeprazole (PriLOSEC) 20 mg DAILY PO 08/05/20 09:00 08/13/20 09:10 Oxycodone HCl (Roxicodone, Oxyir) 10 mg TID PO 08/04/20 16:00 08/04/20 18:32 DC Oxycodone HCl (Roxicodone, Oxyir) 10 mg TID PO 08/04/20 21:00 08/13/20 09:09 Potassium Chloride (Micro-K Extencaps) 40 meq BID PO 08/04/20 21:00 08/07/20 06:35 DC 08/06/20 20:14 Potassium Chloride (Micro-K Extencaps) 40 meq DAILY PO 08/07/20 09:00 08/09/20 09:04 DC 08/09/20 07:14 Prazosin HCl (Minipress) 1 mg QHS PO 08/04/20 21:00 08/12/20 21:41 Senna (Senokot) 1 tab QHS PO 08/04/20 21:00 08/12/20 21:40 Vitamin D (Vitamin D) 2,000 units QHS PO 08/04/20 21:00 08/12/20 21:41 RENALDO WALKER MD Aug 13, 2020 13:43
[2020-08-13 14:00] VITALS: BP 122/59
[2020-08-13] MEDS ORDERED: CALCIUM CARBONATE 500 MG CHEW U/D PO PRN (16:00)
[2020-08-13 20:36] VITALS: BP 136/78
[2020-08-13] MEDS: SENNA 8.6 MG TAB (SENOKOT) PO SCH (20:43)
[2020-08-13] MEDS: GABAPENTIN 300 MG CAP PO SCH (20:43)
[2020-08-13] MEDS: PRAZOSIN 1 MG CAP PO SCH (20:43)
[2020-08-13] MEDS: CALCITRIOL 0.25 MCG CAP (S0169) PO SCH (20:44)
[2020-08-13] MEDS: VITAMIN D 1,000 INTERNATIONAL UNITS TABLET PO SCH (20:44)
[2020-08-13] MEDS: atenoloL 50 MG TAB PO SCH (20:44)
[2020-08-14] MEDS: LEVOTHYROXINE 137MCG TABLET (0.137MG) PO SCH (06:46)
[2020-08-14 06:49] VITALS: BP 123/66
[2020-08-14] MEDS: oxyCODONE 5MG TAB PO SCH ×3 (07:47→20:57)
[2020-08-14] MEDS: OYSTER SHELL CALCIUM 500 MG TAB PO SCH (07:47)
[2020-08-14] MEDS: OMEPRAZOLE 20 MG CAP PO SCH (07:48)
[2020-08-14] MEDS: FUROSEMIDE 40 MG TAB PO SCH ×2 (07:48→16:20)
[2020-08-14] MEDS: MULTIVITAMINS/MINERALS THERAP 1 TAB PO SCH (07:48)
[2020-08-14] MEDS: AMIODARONE 200 MG TAB (PACERONE) PO SCH (07:48)
[2020-08-14] MEDS: APIXABAN 2.5 MG TAB (ELIQUIS) PO SCH ×2 (07:49→20:57)
[2020-08-14] MEDS: FERROUS SULFATE 325MG TAB PO SCH ×2 (07:49→20:58)
[2020-08-14] MEDS: DULoxetine 20 MG CAP (CYMBALTA) PO SCH (07:49)
[2020-08-14] MEDS: allopurinoL 100 MG TAB PO SCH (07:49)
[2020-08-14] MEDS: DOCUSATE SODIUM 100MG CAPSULE PO SCH ×2 (07:50→20:58)
[2020-08-14] MEDS: atenoloL 25 MG TAB PO SCH (07:50)
[2020-08-14] MEDS: REMEDY PHYTOPLEX Z-GUARD PASTE 113GM TUBE (FROM STOREROOM PRODUCT) TOP SCH ×3 (07:53→20:59)
[2020-08-14] MEDS: VANICREAM MOISTURIZING SKIN CREAM 113GM TUBE TOP SCH (07:54)
[2020-08-14] MEDS ORDERED: DARBEPOETIN 100 MCG/0.5 ML *NON-DIALYSIS* SYRINGE (J0881) SC SCH (09:00)
[2020-08-14 12:46] LABS: ALBUMIN 2.6 GM/DL (3.2-5.2); CALCIUM LEVEL 8.6 MG/DL (8.8-10.2); CREATININE FOR GFR 2.01 MG/DL (0.70-1.30); GLOMERULAR FILTRATION RATE 34.8 (>42); PHOSPHORUS LEVEL 4.3 MG/DL (2.5-4.9)
[2020-08-14 14:00] VITALS: BP 141/79
[2020-08-14] MEDS: GABAPENTIN 300 MG CAP PO SCH (20:57)
[2020-08-14] MEDS: VITAMIN D 1,000 INTERNATIONAL UNITS TABLET PO SCH (20:57)
[2020-08-14] MEDS: SENNA 8.6 MG TAB (SENOKOT) PO SCH (20:58)
[2020-08-14] MEDS: CALCITRIOL 0.25 MCG CAP (S0169) PO SCH (20:58)
[2020-08-14] MEDS: atenoloL 50 MG TAB PO SCH (20:59)
[2020-08-14 21:00] VITALS: BP 145/74
[2020-08-15] MEDS: LEVOTHYROXINE 137MCG TABLET (0.137MG) PO SCH (05:41)
[2020-08-15 05:49] VITALS: BP 131/75
--- NOTE | 2020-08-15 08:41 | IPN ---
INPATIENT PROGRESS NOTE DATE: 08/13/20 SUBJECTIVE: Bob seen and examined this morning in the rehabilitation unit receiving his therapy. He denies any shortness of breath or dyspnea with exertion. His Nelson catheter was removed his morning and he reports voiding afterwards. PHYSICAL EXAMINATION: Temperature 99.2, pulse 97, respiratory rate 17, blood pressure 100/52, saturating 91% on room air. Intake yesterday was 1320, urine output was 1300, equivalent fluid balance. Weight on the bed scale today is 110.5 kg. General: Patient is seen sitting up in bed legs dangling, awake, alert, oriented, in no apparent distress. HEENT: Extraocular muscles are intact. Tongue is moist. Neck: Supple. Jugular veins are not elevated. Heart: Sounds are irregular. There is 1+ edema in the thighs and his calves are wrapped in dressings. Lungs: Symmetric air entry, clear to auscultation, no crackle or rale. He is seen comfortable on room air. Abdomen: Soft, obese and nontender. There are bowel sounds. Genitourinary: He no longer has a Nelson catheter. Extremities: Show dressings on the legs that come up to the knees and 1+ edema of the thighs. Neurologic: Oriented times 3, interactive, conversational and at baseline mentation. LABORATORY DATA: Today's laboratory studies show white count 8.2, hemoglobin 9.3, platelets 456. Sodium 139, potassium 4.2, bicarbonate 34, BUN 25, creatinine 2. INPATIENT MEDICATIONS: Reviewed by myself. He was ordered for Aranesp 100 mcg subcutaneously on Saturdays and Mylanta 30 mL by mouth times 1. The remainder of his medications are unchanged as compared to yesterday. PROBLEMS/PLAN: 1. FABI on CKD stage 3B: Baseline creatinine is around 1.6-1.9. He has a mild superimposed acute kidney injury. His volume status is improving. His Nelson catheter was discontinued this morning. He is voiding without it. He continues on Lasix 40 mg daily along with an oral fluid restriction and his SHLOMO inhibitor continues to be held. 2. Hypertension: Blood pressures are borderline soft. I would keep him off of SHLOMO inhibitor due to risk of hypotension and recurrent acute kidney injury. He is on atenolol at present for hypertension along with atrial fibrillation and rate is adequately controlled. 3. Anemia related to chronic kidney disease: His iron stores are adequate. His hemoglobin remains persistently less than 10. We will start low dose Aranesp once weekly. 4. Atrial fibrillation: He is rate controlled with atenolol and amiodarone and anticoagulated with Eliquis. 5. Congestive heart failure with preserved ejection fraction: Patient continues on Lasix 40 mg daily and his daily weights are slowly down trending and he is respiring comfortably on room air. Continue oral fluid restriction. 6. Secondary hyperparathyroidism of renal origin: His parathyroid hormone level is acceptable. Continue Calcitriol.
--- NOTE | 2020-08-15 08:41 | IPN ---
PROGRESS NOTE DATE: 08/14/2020 SUBJECTIVE: Patient was seen and examined at the bedside today morning in the rehab unit. He was sitting up in the chair. He reports that his lower extremity edema is getting better. Renal function is stable. He is tolerating a daily dose of Lasix now. He denies any active complaints at this time. OBJECTIVE: VITAL SIGNS: Temperature is 97.4 degrees Fahrenheit. Blood pressure 141/79, pulse 70, respiratory rate 18, saturating 95% on room air. INTAKE AND OUTPUT: Urine output recorded as 1.3 liters yesterday, 650 mL so far today since overnight. Weight on the bed scale is 106.8 kg, which is not reliable because there is a 4 kg difference since yesterday. GENERAL: The patient is awake, alert, and oriented x3. Sitting up in the sofa, in no apparent distress. HEAD AND NECK: Extraocular movements are intact. Pupils are equally round and reactive to light. Mucous membranes are moist. Neck is supple. There is no JVD. CARDIOVASCULAR: S1, S2. Regular rate. 2+ edema of the bilateral lower extremities all the way up to the thighs. RESPIRATORY: Mildly decreased breath sounds at the bases and otherwise no rales or rhonchi. ABDOMEN: Soft and obese. There is positive abdominal wall edema, which is noted. GENITOURINARY: There is no Nelson catheter. He reports the Nelson was recently removed. MUSCULOSKELETAL: 2+ edema of the extremities. Otherwise, no clubbing or cyanosis. VISCOSITY TESTER: No focal deficit. Power is 5/5 in bilateral upper extremities. LABORATORY REVIEW: CBC showed WBC 8.2, hemoglobin 9.3, platelets 456,000. BMP showed sodium 139, potassium 4, chloride 100, bicarb 32, BUN 24, creatinine 2.01 and it was 2.07 yesterday. Calcium 8.6, phosphorus 4.3, albumin 2.6. CURRENT INPATIENT MEDICATIONS: The patient's medications were all reviewed by myself. He was started on Aranesp 100 mcg subcutaneously starting today. I have increased his Lasix dose to 40 mg p.o. twice a day. I have stopped his evening dose Prazosin. ASSESSMENT AND PLAN: 1. Persistent lower extremity edema. Patient is currently on Lasix 40 mg p.o. daily. His blood pressures are within the acceptable range. I have increased the Lasix dose to 40 mg p.o. twice a day. 2. Acute kidney injury superimposed on chronic kidney disease stage IIIB. Patient's renal function is stable. He is tolerating the diuretic dose. Diuretic is being increased now. 3. Hypertension. Blood pressure is acceptable. I am actually going to hold his doxazosin as well, which can sometimes cause lower extremity edema. 4. Anemia and chronic kidney disease. Iron levels are adequate. He has been started on Aranesp starting today. 5. Atrial fibrillation. Heart rate is controlled with Atenolol and amiodarone. Anticoagulation is being done with Eliquis. 6. Chronic diastolic congestive heart failure. As mentioned above because of persistent lower extremity edema, Lasix dose is being increased. Continue the fluid restriction.
[2020-08-15] MEDS: REMEDY PHYTOPLEX Z-GUARD PASTE 113GM TUBE (FROM STOREROOM PRODUCT) TOP SCH ×3 (09:00→21:04)
[2020-08-15] MEDS: FUROSEMIDE 40 MG TAB PO SCH (09:08)
[2020-08-15] MEDS: OMEPRAZOLE 20 MG CAP PO SCH (09:09)
[2020-08-15] MEDS: atenoloL 25 MG TAB PO SCH (09:09)
[2020-08-15] MEDS: FERROUS SULFATE 325MG TAB PO SCH ×2 (09:09→21:04)
[2020-08-15] MEDS: APIXABAN 2.5 MG TAB (ELIQUIS) PO SCH ×2 (09:11→21:03)
[2020-08-15] MEDS: oxyCODONE 5MG TAB PO SCH ×3 (09:11→21:05)
[2020-08-15] MEDS: AMIODARONE 200 MG TAB (PACERONE) PO SCH (09:11)
[2020-08-15] MEDS: DULoxetine 20 MG CAP (CYMBALTA) PO SCH (09:11)
[2020-08-15] MEDS: OYSTER SHELL CALCIUM 500 MG TAB PO SCH (09:12)
[2020-08-15] MEDS: allopurinoL 100 MG TAB PO SCH (09:12)
[2020-08-15] MEDS: MULTIVITAMINS/MINERALS THERAP 1 TAB PO SCH (09:13)
[2020-08-15] MEDS: DOCUSATE SODIUM 100MG CAPSULE PO SCH ×2 (09:19→21:04)
[2020-08-15] MEDS: VANICREAM MOISTURIZING SKIN CREAM 113GM TUBE TOP SCH (12:21)
[2020-08-15] MEDS ORDERED: FUROSEMIDE 20 MG TAB PO ONE (13:00)
[2020-08-15 14:00] VITALS: BP 139/79
--- NOTE | 2020-08-15 18:54 | IPN ---
NEPHROLOGY PROGRESS NOTE DATE: 08/15/2020 SUBJECTIVE: The patient was seen and examined at the bedside today morning in the rehab unit. I was told by the nursing staff that he refused his evening dose of Lasix. He does not want to take Lasix more than 40 mg daily. He has still persistent lower extremity edema. OBJECTIVE: VITAL SIGNS: Temperature is 98.5 degrees Fahrenheit, blood pressure 139/79, pulse is 107, respiratory rate of 18, saturating 95% on room air. INTAKE AND OUTPUT: Urine output recorded as 750 mL yesterday, 450 mL so far today. Weight in the bed scale is 106.2 kg which is almost the same as yesterday. PHYSICAL EXAMINATION: GENERAL APPEARANCE: The patient is awake, alert, oriented x3, sitting up in the wheelchair. HEAD AND NECK: Extraocular muscles intact. Pupils are equally round and reactive to light. Mucous membranes are moist. Neck is supple. There is no significant jugular venous distention. CARDIOVASCULAR: S1, S2, regular rate. EXTREMITIES: 2+ edema of the bilateral lower extremities all the way up to the thighs. RESPIRATORY: Decreased breath sounds at the bases, otherwise no active rales or rhonchi. ABDOMEN: Soft, positive bowel sounds. He is obese and there is positive abdominal wall edema. MUSCULOSKELETAL: He has wraps on both of the lower extremities, and there is edema on the lower extremities. 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 Power is 5/5 in all extremities. LAB REVIEW: Labs were reviewed. His CBC is from August 13 and his BMP is from yesterday. No new labs are available today. CURRENT INPATIENT MEDICATIONS: The patient's medications were all reviewed by myself. He is supposed to be on Lasix 40 mg twice daily, however he is refusing the evening dose. He feels like 40 mg daily of Lasix is good enough for him. ASSESSMENT AND PLAN: 1. [id number] decompensated diastolic congestive heart failure - The patient has persistent edema. He is refusing to take Lasix more than 40 mg daily. I explained to the pt that he has significant volume overload. He needs higher dose of diuretics. He finally agreed to take Lasix 60 mg daily in the morning. He is not ready to increase the dose to bid. 2. Acute kidney injury superimposed on chronic kidney disease stage 3b. His labs were reviewed yesterday. Renal function is stable. The next lab tests will be done tomorrow morning. 3. Anemia and chronic kidney disease he is on Aranesp. Iron levels are adequate. 4. Atrial fibrillation - continue current dose of Atenolol and Amiodarone and anticoagulation with Eliquis. 5. Lower extremity edema - The patient has compression bandages and wraps on the lower extremities. He is very resistant to increasing the diuretic dose. Management of congestive heart failure is as mentioned above. MTDD
[2020-08-15 20:00] VITALS: BP 133/75
[2020-08-15] MEDS: CALCITRIOL 0.25 MCG CAP (S0169) PO SCH (21:03)
[2020-08-15] MEDS: GABAPENTIN 300 MG CAP PO SCH (21:03)
[2020-08-15] MEDS: SENNA 8.6 MG TAB (SENOKOT) PO SCH (21:04)
[2020-08-15] MEDS: VITAMIN D 1,000 INTERNATIONAL UNITS TABLET PO SCH (21:04)
[2020-08-15] MEDS: atenoloL 50 MG TAB PO SCH (21:05)
[2020-08-15] MEDS: CALCIUM CARBONATE 500 MG CHEW U/D PO SCH (22:54)
[2020-08-16] MEDS: LEVOTHYROXINE 137MCG TABLET (0.137MG) PO SCH (05:11)
[2020-08-16 05:51] VITALS: BP 151/86
[2020-08-16] MEDS ORDERED: CALC1CAP31 PO (08:37)
[2020-08-16] MEDS ORDERED: GABA-282 PO (08:37)
[2020-08-16] MEDS ORDERED: ELIQ2.5T PO (08:37)
[2020-08-16] MEDS ORDERED: FERR1TAB8 PO (08:37)
[2020-08-16] MEDS ORDERED: AMIO200T3 PO (08:37)
[2020-08-16] MEDS ORDERED: OMEP1CAP73 PO (08:37)
[2020-08-16] MEDS ORDERED: SYNT137T7 PO (08:37)
[2020-08-16] MEDS ORDERED: FURO20TA2 PO (08:37)
[2020-08-16] MEDS ORDERED: ATEN25TA PO ×2 (08:37)
[2020-08-16] MEDS ORDERED: CYMB1CAP4 PO (08:37)
[2020-08-16] MEDS ORDERED: ALLO100T PO (08:37)
[2020-08-16] MEDS ORDERED: FUROSEMIDE 20 MG TAB PO SCH (09:00)
[2020-08-16 09:09] LABS: BASO # 0.1 10^3/uL (0.0-0.2); BASO % 1.3 % (0.0-1.0); EOS # 0.7 10^3/uL (0.0-0.5); EOS % 7.6 % (0.0-3.0); HEMATOCRIT 35.3 % (42.0-52.0); HEMOGLOBIN 10.7 g/dl (13.5-17.5); LYMPH # 1.4 10^3/uL (1.5-5.0); LYMPH % 14.8 % (24.0-44.0); MEAN CORPUSCULAR HEMOGLOBIN 30.8 pg (27.0-33.0); MEAN CORPUSCULAR HGB CONC 30.3 g/dl (32.0-36.5); MEAN CORPUSCULAR VOLUME 101.7 fl (80.0-96.0); MONO % 10.1 % (0.0-5.0); NEUTROPHILS # 6.2 10^3/uL (1.5-8.5); NEUTROPHILS % 65.8 % (36.0-66.0); PLATELET COUNT, AUTOMATED 453 10^3/uL (150-450); RED BLOOD COUNT 3.47 10^6/uL (4.30-6.10); WHITE BLOOD COUNT 9.4 10^3/uL (4.0-10.0)
[2020-08-16] MEDS: AMIODARONE 200 MG TAB (PACERONE) PO SCH (09:29)
[2020-08-16] MEDS: FERROUS SULFATE 325MG TAB PO SCH ×2 (09:29→20:54)
[2020-08-16] MEDS: DULoxetine 20 MG CAP (CYMBALTA) PO SCH (09:29)
[2020-08-16] MEDS: MULTIVITAMINS/MINERALS THERAP 1 TAB PO SCH (09:29)
[2020-08-16] MEDS: allopurinoL 100 MG TAB PO SCH (09:29)
[2020-08-16] MEDS: CALCIUM CARBONATE 500 MG CHEW U/D PO SCH ×3 (09:29→20:54)
[2020-08-16] MEDS: OYSTER SHELL CALCIUM 500 MG TAB PO SCH (09:30)
[2020-08-16] MEDS: OMEPRAZOLE 20 MG CAP PO SCH (09:30)
[2020-08-16] MEDS: APIXABAN 2.5 MG TAB (ELIQUIS) PO SCH ×2 (09:30→20:54)
[2020-08-16] MEDS: atenoloL 25 MG TAB PO SCH (09:31)
[2020-08-16] MEDS: DOCUSATE SODIUM 100MG CAPSULE PO SCH ×2 (09:31→21:00)
[2020-08-16 09:33] LABS: CALCIUM LEVEL 8.6 MG/DL (8.8-10.2); CREATININE FOR GFR 1.73 MG/DL (0.70-1.30); GLOMERULAR FILTRATION RATE 41.4 (>42); POTASSIUM SERUM 3.9 MEQ/L (3.5-5.1)
[2020-08-16] MEDS: oxyCODONE 5MG TAB PO SCH ×3 (09:33→20:53)
[2020-08-16] MEDS: REMEDY PHYTOPLEX Z-GUARD PASTE 113GM TUBE (FROM STOREROOM PRODUCT) TOP SCH ×3 (09:34→21:00)
--- NOTE | 2020-08-16 09:57 | IPNPDOC ---
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 He denies shortness of breath or chest pain and is feeling ready to go home tomorrow. REVIEW OF SYSTEMS: The following is a completed review of systems and has been reviewed. Review of systems otherwise unremarkable. PAIN: Patient self reports no pain EYES: No recent vision changes EARS, NOSE, & THROAT: No throat pain, or dysphagia, or rhinorrhea CARDIOVASCULAR: Denies chest pain or palpitations PULMONARY: Denies shortness of breath GASTROINTESTINAL: denies diarrhea/constipation GENITOURINARY: denies dysuria or retention MUSCULOSKELETAL: generalized weakness NEUROLOGICAL:+bilat LE paresthesias HEMATOLOGICAL: denies easy bruising SKIN: bilat Le wounds PSYCHIATRIC: Unremarkable All other review of systems found to be negative. PHYSICAL EXAMINATION: VITAL SIGNS: Please see below. GENERAL: Pleasant and cooperative. No acute distress. obese HEENT: PERRL. Extraocular movements intact. Clear conjunctiva CARDIOVASCULAR: Irregular rate and rhythm. No murmurs, rubs, or gallops LUNGS: Clear to auscultation bilaterally. No wheezes. No rhonchi ABDOMEN: Soft, nontender, nondistended. Positive bowel sounds. Normal active ebtsy wel sounds NEUROLOGICAL: Alert and oriented times three. Cranial nerves II through XII grossly intact. Sensation diminished to light touch in stocking pattern EXTREMITIES: 5-\5 strength bilateral upper extremities. 3/5 bilat hip flexors, 4-/5 bilat knee extensors, ankle DF, 3/5 EHL SKIN: bilat calf wound not examined today ASSESSMENT:75-year-old M with past medical history of CKD and Afib who presents status post CHF exacerbation with LE wounds PLAN: 1. Rehab- PT/OT- advance ADLS and mobility, strengthen/stretch/maintain ROM all 4 limbs, wheelchair mobility improving and ADLs 2. Neuro-patient presenting with peripheral polyneuropathy likely due to longstanding hypothyroidism and and PVD contributing to overall weakness and functional impairments -bilat UE intention tremors possible side effect of gabapentin and cymbalta, c/u lower dosing in setting of worsening kidney function 3. CArdiac- recent acute on chronic diastolic CHF exacerbation, c/u daily weights, fluid restrict, lasix, SHLOMO-I d/c'd due to worsening FABI- medicine consulted to assist in overall management -Afib on Amiodarone and Eliquis, c/u atenolol 4. Resp- SHASHANK, patient reports he does not use CPAP at home and does not want nocturnal 02, monitor for infection 5. Endo- hypothyroidism, c/u synthroid, repeat TSH 14 which although high is improvement from last levels and responding to synthroid, FT4 wnl 6. Renal- CKD with hyperkalemia and worsening renal function, renal consulted to assist in CKD/fluid management- hyperkalemia resolved today -wilder removed, monitor PVrs 7. Rheum- hx of gout c/u allopurinol 8. Pain- Gabapentin qHS and oxycodone, tylenol prn 9. DErm- bilat LE wounds- c/u wound care s/p surgical bedside sharp debridement, will refer to dr. reece on d/c 10. GI ppx- prilosec 11. DVT ppx- on eliquis 12. Dispo- 08-17-20 to home, progressing towards goals Allergies Coded Allergies: aspirin (Verified Adverse Reaction, Mild, NAUSEA / VOMITING, 10/18/19) NSAIDS (Non-Steroidal Anti-Inflamma (Verified Adverse Reaction, Unknown, STOMACHE ACHE, 10/18/19) Vital Signs Vital Signs Date Time Temp Pulse Resp B/P (MAP) Pulse Ox O2 Delivery O2 Flow Rate FiO2 08/16/20 09:33 20 Room Air 08/16/20 09:31 94 151/86 08/16/20 05:51 97.9 93 Laboratory Data CBC/BMP Laboratory Tests 08/16/20 07:48 Labs 24H Laboratory Tests 2 08/16/20 07:48: Immature Granulocyte % (Auto) 0.4, Neutrophils (%) (Auto) 65.8, Lymphocytes (%) (Auto) 14.8L, Monocytes (%) (Auto) 10.1H, Eosinophils (%) (Auto) 7.6H, Basophils (%) (Auto) 1.3H, Neutrophils # (Auto) 6.2, Lymphocytes # (Auto) 1.4L, Monocytes # (Auto) 1.0H, Eosinophils # (Auto) 0.7H, Basophils # (Auto) 0.1, Nucleated Red Blood Cells % (auto) 0.0, Anion Gap 9, Glomerular Filtration Rate 41.4L, Calcium Level 8.6L Current Medications Current Medications Current Medications Medications (Trade) Dose Ordered Sig/Alie Route PRN Reason Start Time Stop Time Status Last Admin Dose Admin Acetaminophen (Tylenol Tab) 650 mg Q4HP PRN PO fever/MILD PAIN (PS 1-4) 08/04/20 14:15 08/08/20 05:36 Allopurinol (Zyloprim) 100 mg DAILY PO 08/05/20 09:00 08/16/20 09:29 Amiodarone HCl (Pacerone, Cordarone) 200 mg DAILY PO 08/05/20 09:00 08/16/20 09:29 Apixaban (Eliquis) 2.5 mg BID PO 08/04/20 21:00 08/16/20 09:30 Atenolol (Tenormin) 25 mg DAILY PO 08/05/20 09:00 08/16/20 09:31 Atenolol (Tenormin) 50 mg QHS PO 08/04/20 21:00 08/15/20 21:05 Bisacodyl (Dulcolax Suppository) 10 mg DAILYPRN PRN [place] CONSTIPATION 08/04/20 14:15 Calcitriol (Rocaltrol) 0.25 mcg QHS PO 08/04/20 21:00 08/15/20 21:03 Calcium Carbonate (Oscal) 500 mg DAILY PO 08/05/20 09:00 08/16/20 09:30 Calcium Carbonate (Tums) 100 mg TID PRN PO INDIGESTION 08/13/20 16:00 08/15/20 22:36 DC 08/15/20 09:25 Calcium Carbonate (Tums) 500 mg BID PRN PO INDIGESTION 08/12/20 23:30 08/13/20 11:03 DC 08/13/20 09:10 Calcium Carbonate (Tums) 1,000 mg TID PO 08/15/20 21:00 08/16/20 09:29 Darbepoetin Spencer (Aranesp) 100 mcg Sa@09 SC 08/14/20 09:00 08/14/20 09:55 Docusate Sodium (Colace) 100 mg BID PO 08/04/20 21:00 08/16/20 09:31 Duloxetine HCl (Cymbalta) 20 mg DAILY PO 08/10/20 09:00 08/16/20 09:29 Duloxetine HCl (Cymbalta) 30 mg DAILY PO 08/05/20 09:00 08/09/20 10:49 DC 08/09/20 07:14 Emollient Cream (Vanicream) APPLY DAILY TO BILATE... DAILY TOP 08/06/20 09:56 08/15/20 12:21 Emollient Cream (Vanicream) please see with wound c... ASDIRECTED TOP 08/06/20 09:00 08/06/20 09:56 DC Ferrous Sulfate (Ferrous Sulfate) 325 mg BID PO 08/04/20 21:00 08/16/20 09:29 Furosemide (Lasix) 40 mg BID@, PO 08/04/20 17:00 08/04/20 19:24 DC Furosemide (Lasix) 40 mg BID@,17 PO 08/05/20 09:00 08/07/20 06:35 DC 08/06/20 16:36 Furosemide (Lasix) 40 mg BID@0900,1700 PO 08/14/20 17:00 08/15/20 11:55 DC 08/15/20 09:08 Furosemide (Lasix) 40 mg DAILY PO 08/09/20 09:00 08/14/20 12:02 DC 08/14/20 07:48 Furosemide (Lasix) 60 mg DAILY PO 08/16/20 09:00 08/16/20 09:30 Gabapentin (Neurontin) 300 mg QHS PO 08/09/20 21:00 08/15/20 21:03 Gabapentin (Neurontin) 600 mg QHS PO 08/04/20 21:00 08/09/20 10:11 DC 08/08/20 20:10 Ketoconazole (Nizoral) apply to bilat legs and f... DAILY TOP 08/05/20 09:00 08/06/20 08:55 DC 08/06/20 08:29 Levothyroxine Sodium (Synthroid) 137 mcg DAILY@06 PO 08/05/20 06:00 08/16/20 05:11 Lisinopril (Prinivil) 5 mg DAILY PO 08/05/20 09:00 08/09/20 10:11 DC 08/09/20 07:15 Magnesium Gluconate (Magnesium Gluconate) 500 mg BID PO 08/04/20 21:00 08/09/20 10:49 DC 08/09/20 07:15 Magnesium Hydroxide (Milk Of Magnesia) 30 ml DAILYPRN PRN [place] CONSTIPATION 08/04/20 14:15 Miscellaneous (Unresolved Clarification Entry) SEE LABEL COMMENTS DAILY XX 08/06/20 09:00 08/06/20 09:54 DC Multivitamins (Theragram-M) 1 tab DAILY PO 08/05/20 09:00 08/16/20 09:29 Omeprazole (PriLOSEC) 20 mg DAILY PO 08/05/20 09:00 08/16/20 09:30 Oxycodone HCl (Roxicodone, Oxyir) 10 mg TID PO 08/04/20 16:00 08/04/20 18:32 DC Oxycodone HCl (Roxicodone, Oxyir) 10 mg TID PO 08/04/20 21:00 08/16/20 09:33 Potassium Chloride (Micro-K Extencaps) 40 meq BID PO 08/04/20 21:00 08/07/20 06:35 DC 08/06/20 20:14 Potassium Chloride (Micro-K Extencaps) 40 meq DAILY PO 08/07/20 09:00 08/09/20 09:04 DC 08/09/20 07:14 Prazosin HCl (Minipress) 1 mg QHS PO 08/04/20 21:00 08/14/20 12:01 DC 08/13/20 20:43 Senna (Senokot) 1 tab QHS PO 08/04/20 21:00 08/15/20 21:04 Vitamin D (Vitamin D) 2,000 units QHS PO 08/04/20 21:00 08/15/20 21:04 RENALDO WALKER MD Aug 16, 2020 09:57
[2020-08-16] MEDS: VANICREAM MOISTURIZING SKIN CREAM 113GM TUBE TOP SCH (12:30)
[2020-08-16 14:00] VITALS: BP 147/85
--- NOTE | 2020-08-16 18:27 | IPNPDOC ---
Subjective Date Seen The patient was seen on 08/16/[address] Aren Valderrama and me. Subjective Chief Complaint/HPI Pt was in his wheelchair doing physical therapy at the rehab unit right before examination. He was content had no acute complaints. When pitched the plan of increasing his diuretic dose due to persistent lower extermity edema, he refused. Pt is eager to go home and anticipates to leave tomorrow. Nursing staff reports no overnight events. General: Reports: Normal Appetite; Denies: ROS Unobtainable, Chills, Night Sweats, Fatigue, Malaise, Other Symptoms Constitutional: Denies: Chills, Fever, Malaise, Night Sweats, Weakness, Fatigue, Weight Loss, Lethargy, Other Objective Physical Examination General Exam: Positive: Alert, Cooperative, No Acute Distress ENT Exam: Positive: Atraumatic Chest Exam: Positive: Clear to auscultation, Normal air movement; Negative: Rales, Rhonchi, Wheezing Heart Exam: Positive: Rate Normal, Regular Rhythm; Negative: Gallops, Murmurs, Rubs Extremity Exam: Positive: Edema (2+ pitting edema present in bilaterally lower extremities up to hips) Assessment /Plan Assessment #Decompensated Congestive Heart Failure: pt refuses to increase his dose of Furosemide upwards from 60mg. Pt was counseled on the importance of diuretics, however, pt continued to refuse. #FABI with CKD-IIIb: Renal function continues to remain stable. Continue administration of Aranesp for anemia of chronic disease secondary to CKD IIIb. #Atrial fibrillation: continue administration of amiodarone and atenolol for rhythm and rate control. Continue Eliquis for anticoagulation. Plan/VTE VTE Prophylaxis Ordered?: No (pt is already anti-coagulated) GME ATTESTATION My faculty preceptor for this patient encounter was physically present during the encounter and was fully available. All aspects of the patient interview, examination, medical decision making process, and medical care plan development were reviewed and approved by the faculty preceptor. The faculty preceptor is aware and concurs with the plan as stated in the body of this note and will attest to such by his/her cosignature. VS, I&O, 24H, Fishbone Vital Signs/I&O Vital Signs Date Time Temp Pulse Resp B/P (MAP) Pulse Ox O2 Delivery O2 Flow Rate FiO2 1/11/21 16:38 18 Room Air 08/16/20 14:00 98.6 97 147/85 (105) 96 I&O- Last 24 Hours up to 6 AM 08/16/20 06:00 Intake Total 1710 ml Output Total 575 ml Balance 1135 ml Laboratory Data 24H LABS Laboratory Tests 2 08/16/20 07:48: Immature Granulocyte % (Auto) 0.4, Neutrophils (%) (Auto) 65.8, Lymphocytes (%) (Auto) 14.8L, Monocytes (%) (Auto) 10.1H, Eosinophils (%) (Auto) 7.6H, Basophils (%) (Auto) 1.3H, Neutrophils # (Auto) 6.2, Lymphocytes # (Auto) 1.4L, Monocytes # (Auto) 1.0H, Eosinophils # (Auto) 0.7H, Basophils # (Auto) 0.1, Nucleated Red Blood Cells % (auto) 0.0, Anion Gap 9, Glomerular Filtration Rate 41.4L, Calcium Level 8.6L CBC/BMP Laboratory Tests 08/16/20 07:48 Attending Note Attending Note CKD3, CHF, LE edema Cont Lasix 60 mg daily. He needs higher dose. He would follow up with [facility] in Nephro clinic. I informed her to talk to him again. Say Valderrama DO Aug 16, 2020 18:27 AREN VALDERRAMA MD Aug 19, 2020 19:30
[2020-08-16 20:00] VITALS: BP 138/71
[2020-08-16] MEDS: GABAPENTIN 300 MG CAP PO SCH (20:53)
[2020-08-16] MEDS: atenoloL 50 MG TAB PO SCH (20:54)
[2020-08-16] MEDS: CALCITRIOL 0.25 MCG CAP (S0169) PO SCH (20:54)
[2020-08-16] MEDS: VITAMIN D 1,000 INTERNATIONAL UNITS TABLET PO SCH (20:54)
[2020-08-16] MEDS: SENNA 8.6 MG TAB (SENOKOT) PO SCH (21:00)
[2020-08-17] MEDS: LEVOTHYROXINE 137MCG TABLET (0.137MG) PO SCH (05:47)
[2020-08-17 06:00] VITALS: BP 145/83
--- NOTE | 2020-08-17 09:36 | PMRDS ---
NAME: MILENA ROBISON JR [facility] WT ID#: [id number] JOB: [id number] TRACEY: 08/04/2020 ACCT: [id number] DOCTOR: RENALDO WALKER MD PMR DISCHARGE SUMMARY DATE OF ADMISSION: 08/04/2020 DATE OF DISCHARGE: 08/17/2020 CHIEF COMPLAINT/DISCHARGE DIAGNOSIS: CHF exacerbation. HISTORY OF PRESENT ILLNESS: This is a 75-year-old male with a past medical history of chronic PE and pulmonary hypertension, CKD III, atrial fibrillation, chronic diastolic CHF, hypothyroidism, left ear squamous cell cancer, depression, diverticulosis, SHASHANK, lower GI bleed, who presented to [facility] ED on 07/27/2020 with weakness and appeared fluid overloaded. He was found to be in atrial fibrillation with rapid RVR. He was admitted to telemetry and given IV thyroxine for his recent noncompliance and worsening hypothyroidism and IV diuretics. He was found to have bilateral leg venous stasis wounds for which daily wound dressings were applied and General Surgery consulted for possible debridement. He had impairments in mobility and ADLs and deemed medically appropriate for discharge to ARU on 08/04/2020. PAST MEDICAL HISTORY: As per HPI. HOSPITAL COURSE: The patient was admitted and enrolled in a comprehensive PT/OT program. He received 24 hour nursing supervision and weekly team meetings were held to discuss his progress. Patient complained of bilateral upper extremity tremors for which his Gabapentin dosing and Cymbalta dosing were lowered in the setting of worsening kidney function. He showed improvements in his TSH while on Synthroid and was recommended to follow-up with primary care physician upon discharge for further management. His bilateral lower extremity wounds were treated daily following a bedside chart debridement and his daily fluid balance and edema was managed closely by Nephrology. He made significant and steady gains in therapy and was deemed medically and functionally stable to return home. DISCHARGE MEDICATIONS: As per instructions. FUNCTIONAL HISTORY: On discharge, the patient was modified independent from a wheelchair level and modified independent for toileting. Thank you for this referral.
[2020-08-17] MEDS: DULoxetine 20 MG CAP (CYMBALTA) PO SCH (10:34)
[2020-08-17] MEDS: APIXABAN 2.5 MG TAB (ELIQUIS) PO SCH (10:34)
[2020-08-17 10:35] VITALS: BP 145/83
[2020-08-17] MEDS: allopurinoL 100 MG TAB PO SCH (10:35)
[2020-08-17] MEDS: atenoloL 25 MG TAB PO SCH (10:35)
[2020-08-17] MEDS: AMIODARONE 200 MG TAB (PACERONE) PO SCH (10:35)
[2020-08-17] MEDS: oxyCODONE 5MG TAB PO SCH (10:36)
--- NOTE | 2020-08-17 18:21 | IPNPDOC ---
Subjective Date Seen The patient was seen on 08/17/[address] Aren Valderrama and me. Subjective Chief Complaint/HPI Pt is anticipating being discharged today. His medical team is working on this as well. Pt was informed about the importance of increasing diuretic dose. However, pt still refuses. Pt denies any new concerns or overnight events. Nursing staff reported no adverse overnight events for this pt. General: Denies: ROS Unobtainable, Chills, Night Sweats, Fatigue, Malaise, Normal Appetite, Other Symptoms Constitutional: Denies: Chills, Fever, Malaise, Night Sweats, Weakness, Fatigue, Weight Loss, Lethargy, Other Psych: Reports: Mood Normal; Denies: Anxiety, Depression Objective Physical Examination General Exam: Positive: Alert, Cooperative, No Acute Distress ENT Exam: Positive: Atraumatic Chest Exam: Positive: Clear to auscultation, Normal air movement; Negative: Rales, Rhonchi, Wheezing Heart Exam: Positive: Rate Normal, Regular Rhythm; Negative: Gallops, Murmurs, Rubs Extremity Exam: Positive: Edema (2+ pitting edema present in bilaterally lower extremities up to hips) Assessment /Plan Assessment #Decompensated Congestive Heart Failure: pt refuses to increase his dose of Furosemide upwards from 60mg. Pt was counseled on the importance of diuretics, however, pt continued to refuse. Pt is scheduled to be discharged today. #FABI with CKD-IIIb: Renal function continues to remain stable. Continue administration of Aranesp for anemia of chronic disease secondary to CKD IIIb. #Atrial fibrillation: continue administration of amiodarone and atenolol for rhythm and rate control. Continue Eliquis for anticoagulation. Plan/VTE VTE Prophylaxis Ordered?: No (pt is already anti-coagulated) Disposition Pt is expected to be discharged today. GME ATTESTATION My faculty preceptor for this patient encounter was physically present during the encounter and was fully available. All aspects of the patient interview, examination, medical decision making process, and medical care plan development were reviewed and approved by the faculty preceptor. The faculty preceptor is aware and concurs with the plan as stated in the body of this note and will attest to such by his/her cosignature. VS, I&O, 24H, Fishbone Vital Signs/I&O Vital Signs Date Time Temp Pulse Resp B/P (MAP) Pulse Ox O2 Delivery O2 Flow Rate FiO2 08/17/20 10:36 18 Room Air 08/17/20 10:35 88 145/83 08/17/20 06:00 98.1 94 I&O- Last 24 Hours up to 6 AM 08/17/20 05:59 Intake Total 1180 ml Output Total 525 ml Balance 655 ml Attending Note Attending Note Edema slowly improving. Increase dose as outpatient. Pt is very resistant to increase in diuretic dose. Renal function is stable. Say Valderrama DO Aug 17, 2020 18:21 AREN VALDERRAMA MD Aug 19, 2020 19:44
== END 2020-08-17 12:10 | disposition home health service (06) | DRG 264 ==
LOC: M ED INP 17:30 → M PM&R 18:25
PROVIDERS: ADMIT Physical Medicine & Rehabilitation; ATTEND Physical Medicine & Rehabilitation
PROC: 0JBP0ZZ Excision of Left Lower Leg Subcutaneous Tissue and Fascia, Open Approach (ICD-10-PCS; principal; 2020-08-04)
DX: I87.2 Venous insufficiency (chronic) (peripheral) (principal); I50.33 Acute on chronic diastolic (congestive) heart failure; I48.20 Chronic atrial fibrillation, unspecified; Z68.43 Body mass index [BMI] 50.0-59.9, adult; I27.82 Chronic pulmonary embolism; N17.9 Acute kidney failure, unspecified; N25.81 Secondary hyperparathyroidism of renal origin; E03.9 Hypothyroidism, unspecified; F32.9 Major depressive disorder, single episode, unspecified; G47.33 Obstructive sleep apnea (adult) (pediatric); K57.30 Diverticulosis of large intestine without perforation or abscess without bleeding; I27.20 Pulmonary hypertension, unspecified; Z91.19 Patient's noncompliance with other medical treatment and regimen; N18.32 Chronic kidney disease, stage 3b; Z79.01 Long term (current) use of anticoagulants; Z79.899 Other long term (current) drug therapy; Z88.6 Allergy status to analgesic agent; M81.0 Age-related osteoporosis without current pathological fracture; R53.81 Other malaise; R53.1 Weakness; E66.01 Morbid (severe) obesity due to excess calories; D53.9 Nutritional anemia, unspecified; G25.1 Drug-induced tremor; I70.293 Other atherosclerosis of native arteries of extremities, bilateral legs; K21.9 Gastro-esophageal reflux disease without esophagitis; E87.5 Hyperkalemia; D63.1 Anemia in chronic kidney disease; M10.30 Gout due to renal impairment, unspecified site

== ENCOUNTER 2020-12-14 19:49 | Inpatient (IN) | payer OTHER ==
[~2020-12-14] VITALS: Ht 165.1 cm; Wt 95.9 kg
[~2020-12-14 19:49] MED LIST changes: +CYMB1CAP4 PO; +GABA-282 PO; -LISI-542 PO; +LISI-898 PO
--- NOTE | 2020-12-14 21:39 | REPVR ---
PROCEDURE INFORMATION: Exam: XR Chest Exam date and time: 12/14/2020 9:19 PM Age: 75 years old Clinical indication: Other: Esrdm eval for chf, eval picc placement; Additional info: Esrd, eval for chf, eval picc placement TECHNIQUE: Imaging protocol: XR of the chest. Views: 2 views. COMPARISON: [place] PORTABLE CHEST X-RAY 08/09/2020 10:36 AM FINDINGS: Tubes, catheters and devices: The tip of a right peripherally inserted central venous catheter lies in the SVC approximately 6 cm above the cavoatrial junction. Lungs: Patchy parenchymal opacity right lower lung zone. Clinical correlation to exclude focus of pneumonitis suggested. Remaining lungs are clear. Pleural spaces: Stable blunting right costophrenic angle. Otherwise unremarkable. No pleural effusion. No pneumothorax. Heart/Mediastinum: Borderline cardiomegaly. Bones/joints: Unremarkable. IMPRESSION: 1. Borderline cardiomegaly. 2. Patchy parenchymal opacity right lower lung zone. Clinical correlation to exclude focus of pneumonitis suggested. Electronically signed by: Lennox Chambers On 12/14/2020 21:38:51 PM
[2020-12-14 22:30] LABS: BASO # 0.1 10^3/uL (0.0-0.2); BASO % 0.8 % (0.0-1.0); EOS # 0.4 10^3/uL (0.0-0.5); EOS % 3.6 % (0.0-3.0); HEMATOCRIT 33.4 % (42.0-52.0); HEMOGLOBIN 10.8 g/dl (13.5-17.5); LYMPH # 0.9 10^3/uL (1.5-5.0); LYMPH % 8.1 % (24.0-44.0); MEAN CORPUSCULAR HEMOGLOBIN 31.6 pg (27.0-33.0); MEAN CORPUSCULAR HGB CONC 32.3 g/dl (32.0-36.5); MEAN CORPUSCULAR VOLUME 97.7 fl (80.0-96.0); MONO # 1.1 10^3/uL (0.0-0.8); MONO % 10.1 % (2.0-8.0); NEUTROPHILS # 8.5 10^3/uL (1.5-8.5); PLATELET COUNT, AUTOMATED 233 10^3/uL (150-450); RED BLOOD COUNT 3.42 10^6/uL (4.30-6.10)
[2020-12-14] MEDS ORDERED: NS 500 ML IV ONE (22:45)
[2020-12-14 22:55] LABS: ALBUMIN 2.5 GM/DL (3.2-5.2); ALT/SGPT 16 U/L (12-78); BILIRUBIN,TOTAL 0.3 MG/DL (0.2-1.0); BLOOD UREA NITROGEN 57 MG/DL (7-18); CARBON DIOXIDE LEVEL 22 MEQ/L (21-32); CHLORIDE LEVEL 105 MEQ/L (98-107); CK-MB VALUE MASS 2.8 NG/ML (<3.6); CPK CREATINE PHOSPHOKINASE 57 U/L (39-308); CREATININE FOR GFR 7.95 MG/DL (0.70-1.30); GLOMERULAR FILTRATION RATE 7.1 (>42); GLUCOSE, FASTING 100 MG/DL (70-100); MB/CK RELATIVE INDEX 4.91 (< OR =4); POTASSIUM SERUM 3.9 MEQ/L (3.5-5.1); SODIUM LEVEL 139 MEQ/L (136-145); TOTAL PROTEIN 6.6 GM/DL (6.4-8.2); TROPONIN I < 0.02 NG/ML (< 0.10)
[2020-12-14] MEDS ORDERED: ACETAMINOPHEN TAB 650MG DOSE (2X325MG) PO PRN (23:50)
[2020-12-14] MEDS ORDERED: MOM 30ML SUSPENSION UDC PO PRN (23:50)
[2020-12-14] MEDS ORDERED: MAALOX 30 ML SUSP *UDC PO PRN (23:50)
--- NOTE | 2020-12-14 23:53 | IPNPDOC ---
Text Note Date of Service The patient was seen on 12/14/20. NOTE time of service 1115 PM is a 75 yr old w a hx of SHASHANK, CKD3, PE, Pulm HTN, A fib, HFpEF, Hypothyrodism, SLE, & depression who [facility] with [facility]yn; he was sent to the ER by the pharmacists bc of FABI. The day time team may consider Nepro and ID consults & [facility] per LINETTE Brice's H&P VS,Dillonbone, I+O VS, Dillonbone, I+O Laboratory Tests 12/14/20 22:19 Vital Signs Date Time Temp Pulse Resp B/P (MAP) Pulse Ox O2 Delivery O2 Flow Rate FiO2 12/14/20 23:18 95 95 12/14/20 23:16 16 127/74 (91) Room Air 12/14/20 19:54 97.6 OSVALDO ZHONG MD December 14, 2020 23:53
[2020-12-15] MEDS ORDERED: PERCOCET 5MG/325MG TAB PO ONE (00:15)
[2020-12-15] MEDS ORDERED: FURO40TA2 PO (00:45)
[2020-12-15] MEDS ORDERED: SENN1TAB41 PO (00:45)
[2020-12-15] MEDS ORDERED: SYNT175T2 PO (00:45)
[2020-12-15] MEDS ORDERED: AMIO200T3 PO (00:45)
[2020-12-15] MEDS ORDERED: ALLO100T PO (00:45)
[2020-12-15] MEDS ORDERED: LOPE1CAP5 PO (00:45)
[2020-12-15] MEDS ORDERED: TRAM50TA2 PO (00:45)
[2020-12-15] MEDS ORDERED: PRAZ2CAP PO (00:45)
[2020-12-15] MEDS ORDERED: KETO2CR EXT (00:45)
[2020-12-15] MEDS ORDERED: GABA-282 PO (00:45)
[2020-12-15] MEDS ORDERED: ATEN50TA2 PO (00:45)
[2020-12-15] MEDS ORDERED: BACITAB PO (00:45)
[2020-12-15] MEDS ORDERED: ELIQ2.5T PO (00:45)
[2020-12-15] MEDS ORDERED: FERR1TAB8 PO (00:45)
[2020-12-15] MEDS ORDERED: GENT0.1C2 TOP (00:45)
[2020-12-15] MEDS ORDERED: NYST1POW9 TOP (00:45)
[2020-12-15] MEDS ORDERED: CALC1CAP31 PO (00:45)
[2020-12-15] MEDS ORDERED: OMEP1CAP73 PO (00:45)
[2020-12-15] MEDS ORDERED: ZOLO100T PO (00:45)
[2020-12-15] MEDS ORDERED: MAGN64TASA PO (00:45)
[2020-12-15] MEDS ORDERED: ACET650T61 PO (00:45)
--- NOTE | 2020-12-15 01:17 | HPEPDOC ---
[facility] Medical History & Physical Date of Admission December 14, 2020 Date of Service: December 14, 2020 Attending Physician: OSVALDO ZHONG MD History and Physical CHIEF COMPLAINT: [This is a 75 y/o male who presents to the ED after abnormal bloodwork] HISTORY OF PRESENT ILLNESS: [This is a 75 y/o male with a pmh of diastolic chf, hld, a-fib, htn s/p gastric bypass, hx of dvt/pe, shashank, gerd, ckd3 and graves di sease s/p thyroidectomy who presents to our ED after being found to have an elevated creatinine on routine bloodwork. Patient states that he has been in and out of the hospital [place] [facility] for treatment of b/l lower extremity cellulitis after suffering a wound to the legs from his electric wheelchair last year. Patient states he does not feel the [facility] "took care" of his kidneys in the treatment of his infection. Patient states that as of right now he feels as though the infection has "cleared up" with the zosyn the [facility] gave him through his picc line. Patient states that as of right now, he feels mostly fine other than some pain and weakness in his legs. Patient does admit to decreased urine output the past two days and some mild diarrhea he blames on the antibiotics. Patient denies dysuria, hematuria, fever, chills, chest pain, sob, cough, orthopnea, abdominal pain, vomiting. Patient's repeat cr in our ED was 7.95.] PAST MEDICAL HISTORY: 1. [See HPI PAST SURGICAL HISTORY: 1. [Thyroidectomy]. 2. [Gastric bypass]. 3. [Lithotripsy]. SOCIAL HISTORY: Tobacco use:[Former smoker] ETOH: [Admits to occasional alcohol use] Illicit drug use: [Denies] FAMILY HISTORY: Mother - DM, HTN ALLERGIES: Please see below. REVIEW OF SYSTEMS: CONSTITUTIONAL: [Denies fever, chills]. HEENT: [Denies uri sx]. CARDIOVASCULAR: [See HPI]. RESPIRATORY: [See HPI]. GASTROINTESTINAL: [See HPI]. GENITOURINARY: [See HPI]. SKIN: [Denies rash]. MUSCULOSKELETAL: [Denies acute joint pain]. NEUROLOGICAL: [Denies paresthesias].. ENDOCRINE: [Hx of DM, on meds before gastric bypass]. HEMATOLOGIC/LYMPHATIC: [Denies easy bruising]. HOME MEDICATIONS: Please see below. PHYSICAL EXAMINATION: VITAL SIGNS: Please see below GENERAL APPEARANCE: [This is an obese 75 year old male. He is resting in bed and appears fatigued.]. HEENT: [No mass or lesion. EOMI. No scleral icterus or conjunctival erythema. Nares patent. Oral mucosa dry.]. CARDIOVASCULAR: [Regular rate and rhythm. No murmurs, rubs or gallops]. LUNGS: [Crackles appreciated at left lung base.]. ABDOMEN: [Soft, non-tender]. MUSCULOSKELETAL: [No joint deformity noted]. EXTREMITIES: [B/l lower extremities are wrapped in dressings. Dressings are dry and intact. No edema is appreciated in b/l feet. Pulses intact.]. NEUROLOGICAL: [Sensation intact. Speech clear. A+Ox3. No focal deficits]. PSYCHIATRIC: [Mood and affect appear appropriate.]. LABORATORY DATA: See below. IMAGING: [Chest x-ray: FINDINGS: Tubes, catheters and devices: The tip of a right peripherally inserted central venous catheter lies in the SVC approximately 6 cm above the cavoatrial junction. Lungs: Patchy parenchymal opacity right lower lung zone. Clinical correlation to exclude focus of pneumonitis suggested. Remaining lungs are clear. Pleural spaces: Stable blunting right costophrenic angle. Otherwise unremarkable. No pleural effusion. No pneumothorax. Heart/Mediastinum: Borderline cardiomegaly. Bones/joints: Unremarkable. IMPRESSION: 1. Borderline cardiomegaly. 2. Patchy parenchymal opacity right lower lung zone. Clinical correlation to exclude focus of pneumonitis suggested. ] MICROBIOLOGY: Please see below. ASSESSMENT: [This is a 75 y/o with a pmh of diastolic chf, hld, a-fib, htn s/p gastric bypass, hx of dvt/pe, shashank, gerd, ckd3 and graves disease s/p thyroidectomy who has been undergoing treatment on and off for lower extremity cellulitis since he suffered wounds to them sometime last year. Patient most recently was receiving zosyn through a picc line which he felt helped his infection greatly. Patient presents to our ed today after being found to have an elevated creatinine on routine blood work. ]. . PLAN: 1. [FABI - Patient's cr grossly elevated at 7.95. Etiology currently unclear, pt does have some underlying ckd - Patient received 500mL bolus in ED. Will begin IVF on the floor - Order renal us, urinalysis, urine sodium and cr, spep and c3 and c4 - Will place wilder - Hold lasix - Day team can consider nephrology consult if cr does not begin to improve or patient does not make urine - Will admit to pcu on tele 2. B/L LE wounds/cellulitis - Patient currently has coban dressing to both lower extremities and has been receiving zosyn through his picc line for treatment - Day team can consider wound team consult for advice on dressing changes - Will hold zosyn for now d/t acutely increased cr - continue topical gentamicin, eucerin, mupirocin, ketoconazole - continue probiotic 3. CHF - patient not fluid overloaded at this time. will monitor sx - continue atenolol 4. A-fib - patient rate controlled at this time - continue apixaban, atenolol, amiodarone 5. SHASHANK - patient does not wear cpap at home 6. GERD - continue omeprazole 7. Graves s/p thyroidectomy - continue levothyroxine 8. Chronic leg pain - continue gabapentin, tramadol, oxycodone 9. Depression - continue sertraline 10. Obesity s/p gastric bypass - unfortunately complicates care 11. DVT prophylaxis - patient on eliquis]. Vital Signs Vital Signs Date Time Temp Pulse Resp B/P (MAP) Pulse Ox O2 Delivery O2 Flow Rate FiO2 12/15/20 00:30 16 98 12/15/20 00:18 93 Room Air 12/15/20 00:15 119/57 (77) 12/14/20 19:54 97.6 Laboratory Data Labs 24H Laboratory Tests 2 12/14/20 22:19: Immature Granulocyte % (Auto) 0.4, Neutrophils (%) (Auto) 77.0H, Lymphocytes (%) (Auto) 8.1L, Monocytes (%) (Auto) 10.1H, Eosinophils (%) (Auto) 3.6H, Basophils (%) (Auto) 0.8, Neutrophils # (Auto) 8.5, Lymphocytes # (Auto) 0.9L, Monocytes # (Auto) 1.1H, Eosinophils # (Auto) 0.4, Basophils # (Auto) 0.1, Nucleated Red Blood Cells % (auto) 0.0, Anion Gap 12, Glomerular Filtration Rate 7.1L, Calcium Level 9.0, Total Bilirubin 0.3, Aspartate Amino Transf (AST/SGOT) 23, Alanine Aminotransferase (ALT/SGPT) 16, Alkaline Phosphatase 86, Total Creatine Kinase 57, Creatine Kinase MB 2.8, Creatine Kinase MB Relative Index 4.91H, Troponin I < 0.02, Total Protein 6.6, Albumin 2.5L, Albumin/Globulin Ratio 0.6 CBC/BMP Laboratory Tests 12/14/20 22:19 Microbiology Microbiology 12/14/20 Respiratory Virus Panel (PCR) ([facility]) - Final, Complete Home Medications Scheduled Allopurinol (Allopurinol) 100 Mg Tablet, 100 MG PO DAILY Amiodarone HCl (Amiodarone HCl) 200 Mg Tablet, 200 MG PO DAILY Apixaban (Eliquis) 2.5 Mg Tablet, 2.5 MG PO BID Atenolol (Atenolol) 50 Mg Tablet, 50 MG PO QHS Calcitriol (Calcitriol) 0.25 Mcg Capsule, 0.25 MCG PO QHS Cholecalciferol (Vitamin D3) (Vitamin D3) 1,000 Unit Tablet, 2,000 UNITS PO QHS Ferrous Sulfate (Ferrous Sulfate) 325 Mg Tablet, 325 MG PO DAILY Furosemide (Furosemide) 40 Mg Tablet, 40 MG PO DAILY Gabapentin (Gabapentin) 300 Mg Capsule, 300 MG PO QHS Gentamicin Sulfate (Gentamicin Sulfate) 30 Gm Cream..g., 1 DOSE TOP QWEEK Ketoconazole (Ketoconazole) 15 Gm Cream..g., 1 DOSE EXT DAILY L.acidoph/L.bulg/B.bif/S.therm (Bacid Caplet) 1 Each Tablet, 1 TAB PO DAILY Lanolin Alcohol/Mo/W.pet/[place] (Eucerin Creme) 454 Gm Cream..g., 1 DOSE TOP DAILY Levothyroxine Sodium (Synthroid) 175 Mcg Tablet, 175 MCG PO DAILY Magnesium Chloride (Mag64) 64 Mg Tablet.dr, 64 MG PO DAILY Multivitamins (Thera M Plus Tablet) 1 Tab Tab, 1 TAB PO DAILY TAKES AT NOON Mupirocin (Mupirocin) 2 % Oint...g., 1 DOSE EXT DAILY APPLY TO LEGS Omeprazole (Omeprazole) 20 Mg Capsule.dr, 20 MG PO DAILY Oxycodone HCl (Oxycodone HCl) 10 Mg Tablet, 10 MG PO TID BREAKFAST, DINNER, QHS Prazosin Hcl (Prazosin HCl) 2 Mg Capsule, 2 MG PO QHS Sertraline Hcl (Zoloft) 100 Mg Tablet, 50 MG PO DAILY Scheduled PRN Acetaminophen (Tylenol Arthritis) 650 Mg Tablet.er, 650 MG PO Q8H PRN for PAIN Diclofenac Sodium (Voltaren) 1 % Gel, 2 GM TOP BID PRN for PAIN APPLY TO KNEES Loperamide HCl (Loperamide) 2 Mg Capsule, 4 MG PO TID PRN for DIARRHEA Nystatin (Nystatin Powder) 15 Gm Powder, 1 DOSE TOP BID PRN for RASH APPLY TO STOMACH FOLDS Sennosides/Docusate Sodium (Senna-S Tablet) 1 Each Tablet, 2 TAB PO DAILY PRN for CONSTIPATION Tramadol HCl (Tramadol HCl) 50 Mg Tablet, 50 MG PO TID PRN for PAIN Allergies Coded Allergies: aspirin (Verified Adverse Reaction, Mild, NAUSEA / VOMITING, 10/18/19) NSAIDS (Non-Steroidal Anti-Inflamma (Verified Adverse Reaction, Unknown, STOMACHE ACHE, 10/18/19) A-FIB/CHADSVASC A-FIB History Current/History of A-Fib/PAF?: Yes Current PO Anticoag Therapy: Yes WILLY SONG December 15, 2020 01:17
[2020-12-15] MEDS ORDERED: traMADol 50 MG TAB PO PRN (01:20)
[2020-12-15] MEDS ORDERED: NYSTATIN 100,000 UNITS/GM TOPICAL PWD 15 GM TOP PRN (01:20)
[2020-12-15] MEDS ORDERED: SENOKOT S TAB PO PRN (01:20)
[2020-12-15] MEDS: CALCITRIOL 0.25 MCG CAP (S0169) PO SCH ×2 (01:30→21:00)
[2020-12-15] MEDS ORDERED: NS 1,000 ML IV ONE (01:55)
[2020-12-15] MEDS: APIXABAN 2.5 MG TAB (ELIQUIS) PO SCH ×2 (02:14→08:52)
[2020-12-15] MEDS: atenoloL 50 MG TAB PO SCH ×2 (02:14→21:00)
[2020-12-15] MEDS: GABAPENTIN 300 MG CAP PO SCH ×2 (02:14→21:00)
--- NOTE | 2020-12-15 02:55 | REPVR ---
PROCEDURE INFORMATION: Exam: US Retroperitoneal; Complete; Kidneys and Bladder Exam date and time: 12/15/2020 2:14 AM Age: 75 years old Clinical indication: Other: Mp TECHNIQUE: Imaging protocol: Real-time ultrasound of the retroperitoneum with image documentation. Complete exam focused on the kidneys and bladder. COMPARISON: RENAL US 08/10/2020 12:[address] abdomen/pelvis July 27, 2020. FINDINGS: RK The right kidney measures 10.1 by 4.8 by 4.8 cm. Right renal echogenicity is slightly heterogeneous. Right renal midpole cortical thickness is 1.2 cm. No perinephric fluid is seen. No echogenic right renal calculus or hydronephrosis. There is a 6.8 x 6.9 mm hypoechoic exophytic lesion at the upper pole of the right kidney extending into the hepatorenal space not seen on the prior ultrasound but likely present on the prior CT, too small to further characterize but likely a cyst. LK The left kidney measures 10.7 x 4.4 by 4.8 cm. Left renal echogenicity is slightly heterogeneous. No echogenic left renal calculus or hydronephrosis. No perinephric fluid is seen. Left midpole cortical thickness is 1.5 cm. An exophytic 9 mm hypodense left upper pole renal lesions seen on prior CT is not identified on the current ultrasound. This may be secondary to differences in technique and sonographic limitations. UB The urinary bladder measures 6.4 by 4.8 by approximately 9.2 cm. No bladder wall thickening or perivesical fluid is seen. The ureteral jets are not identified on limited transient evaluation by color Doppler. Postvoid residual of the urinary bladder was not evaluated on this exam. The prostate is not imaged. IMPRESSION: Slight heterogeneity of renal parenchyma. No renal calculi or hydronephrosis. Other findings discussed above. Electronically signed by: Shadi Ramirez On 12/15/2020 02:54:42 AM
[2020-12-15 04:20] VITALS: BP 80/50
[2020-12-15] MEDS ORDERED: NS 500 ML IV ONE ×2 (04:50→06:05)
[2020-12-15] MEDS: LEVOTHYROXINE 150MCG TABLET (0.15MG) PO SCH (05:37)
[2020-12-15] MEDS: LEVOTHYROXINE 25MCG TABLET (0.025MG) PO SCH (05:37)
[2020-12-15 05:53] VITALS: BP 90/50
[2020-12-15 06:09] LABS: PHOSPHORUS LEVEL 9.4 MG/DL (2.5-4.9); URIC ACID 6.5 MG/DL (3.5-7.2)
[2020-12-15 06:24] LABS: AMORPHOUS SEDIMENT MODERATE (NEGATIVE); APPEARANCE, URINE CLOUDY (CLEAR); BACTERIA, URINE AUTO NEGATIVE (NEGATIVE); BILIRUBIN, URINE AUTO NEGATIVE (NEGATIVE); BLOOD, URINE BLOOD NEGATIVE (NEGATIVE); COLOR, URINE YELLOW (YELLOW); GLUCOSE, URINE (UA) AUTO NEGATIVE (NEGATIVE); KETONE, URINE AUTO NEGATIVE (NEGATIVE); LEUKOCYTE ESTERASE, URINE AUTO NEGATIVE (NEGATIVE); NITRITE, URINE AUTO NEGATIVE (NEGATIVE); PROTEIN, URINE AUTO 1+ mg/dL (NEGATIVE); RBC, URINE AUTO 6 /HPF (0-3); SPECIFIC GRAVITY URINE AUTO 1.015 (1.002-1.035); SQUAMOUS EPITHELIAL CELL UR AU 0 /HPF (0-6); UROBILINOGEN, URINE AUTO 0.2 mg/dL (0.0-2.0); WBC, URINE AUTO 4 /HPF (0-3)
[2020-12-15 07:12] LABS: FERRITIN 95 NG/ML (26-388); IRON (FE) 61 UG/DL (65-175); NT-PRO BNP 21367 PG/ML (<125); PERCENT SATURATION 31.8 % (19.7-50.0); TOTAL IRON BINDING CAPACITY 192 UG/DL (250-450); TROPONIN I < 0.02 NG/ML (< 0.10)
--- NOTE | 2020-12-15 07:46 | ECGEPIP ---
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
[2020-12-15 08:00] VITALS: BP 93/55
[2020-12-15] MEDS: oxyCODONE 5MG TAB PO SCH ×3 (08:00→21:01)
[2020-12-15] MEDS: SERTRALINE HCL 50 MG TAB PO SCH (08:50)
[2020-12-15] MEDS: OMEPRAZOLE 20 MG CAP PO SCH (08:50)
[2020-12-15] MEDS: MULTIVITAMINS/MINERALS THERAP 1 TAB PO SCH (08:51)
[2020-12-15] MEDS: LACTOBACILLUS ACIDOPHILUS CAP (BACID) PO SCH (08:51)
[2020-12-15] MEDS: FERROUS SULFATE 325MG TAB PO SCH (08:51)
[2020-12-15] MEDS: DOCUSATE SODIUM 100MG CAPSULE PO SCH ×2 (08:52→20:59)
[2020-12-15] MEDS: AMIODARONE 200 MG TAB (PACERONE) PO SCH (08:52)
[2020-12-15] MEDS: MUPIROCIN 2% OINT 22 GM TUBE EXT SCH (08:54)
[2020-12-15] MEDS: KETOCONAZOLE 2% CREAM EXT SCH (08:54)
[2020-12-15] MEDS: VANICREAM MOISTURIZING SKIN CREAM 113GM TUBE TOP SCH (08:54)
[2020-12-15 08:55] LABS: TOTAL 25(OH) VITAMIN D 34.7 NG/ML (30.0-100.0)
[2020-12-15 08:56] LABS: PTH INTACT 71.4 PG/ML (18.5-88.0)
[2020-12-15] MEDS ORDERED: APIXABAN 2.5 MG TAB (ELIQUIS) PO SCH (09:00)
[2020-12-15] MEDS ORDERED: allopurinoL 100 MG TAB PO SCH (09:00)
[2020-12-15] MEDS ORDERED: FUROSEMIDE 40 MG TAB PO SCH (09:00)
[2020-12-15 09:10] LABS: VITAMIN B12 LEVEL > 2000 PG/ML (247-911)
[2020-12-15 09:11] LABS: FOLATE 13.2 NG/ML (>5.4)
[2020-12-15 10:00] LABS: COMPLEMENT C3 93 MG/DL (90-180); COMPLEMENT C4 25 MG/DL (10-40)
[2020-12-15] MEDS ORDERED: LIDOCAINE 1% MDV 20ML VIAL As Ordered ONE (10:11)
[2020-12-15] MEDS ORDERED: LIDOCAINE W/EPINEPHRINE 1% 20ML VIAL As Ordered ONE ×2 (10:13→10:42)
--- NOTE | 2020-12-15 10:24 | CR.PDOC ---
General Date of Consultation: December 15, 2020 Consultation REASON FOR CONSULTATION/CHIEF COMPLAINT: Renal failure HISTORY OF PRESENT ILLNESS: This very pleasant 75-year-old gentleman with extensive medical history who was admitted with acute on chronic renal failure requiring urgent access for dialysis. Risks benefits and alternatives were exp lained to the patient needs agreeable to proceed. He is on eliquis and to get his dose this morning, so we will place a temporary catheter for today. Eventually, tomorrow or Sunday, we like to place a PermCath and will hold the eliquis accordingly. The patient is agreeable to proceed. Informed consent was obtained. ALLERGIES: Please see below. HOME MEDICATIONS: Please see below. PAST MEDICAL HISTORY: Acute on chronic renal insufficiency, A. fib, hyperlipidemia, hypertension, history of DVT PE, sleep apnea, GERD, CHF PAST SURGICAL HISTORY: Gastric bypass, thyroidectomy, lithotripsy FAMILY HISTORY: Heart disease SOCIAL HISTORY: Denies current tobacco or illicit drug use. Occasional alcohol use. Former smoker. REVIEW OF SYSTEMS: CONSTITUTIONAL: Denies fevers chills positive malaise HEENT: Denies new vision or hearing changes CARDIOVASCULAR: Denies chest pain RESPIRATORY: Positive shortness of breath. GENITOURINARY: History of renal insufficiency MUSCULOSKELETAL: Difficulty ambulation denies claudication GASTROINTESTINAL: Positive reflux denies nausea vomiting SKIN: Denies rashes NEUROLOGICAL: Denies strokes headaches seizures PSYCHIATRIC: Positive anxiety and depression ENDOCRINE: Positive for thyroid disease HEMATOLOGIC/LYMPHATIC: Denies anemia, history of DVT PE ALLERGIC/IMMUNOLOGIC: Denies immune disorder PHYSICAL EXAMINATION: VITAL SIGNS: Please see below. GENERAL APPEARANCE: Well-appearing no acute distress HEENT: Normocephalic TMI RESPIRATORY: Slightly coarse breath sounds bilaterally CARDIOVASCULAR: Irregular rhythm ABDOMEN: Soft nontender EXTREMITIES: Warm and well-perfused NEUROLOGICAL: Alert and oriented PSYCHIATRIC: Pleasant and cooperative LABORATORY DATA: Please see below. ASSESSMENT/PLAN: This is a very pleasant 75-year-old woman requiring urgent ac cess for dialysis. 1. Plan for temporary dialysis catheter placement today. Hold eliquis. 2. Plan for PermCath placement tomorrow or Sunday depending on ability to schedule. We appreciate the opportunity to participate in the care of this patient. Vital Signs/I&O Vital Signs Date Time Temp Pulse Resp B/P (MAP) Pulse Ox O2 Delivery O2 Flow Rate FiO2 12/15/20 08:51 20 Room Air 12/15/20 08:00 97.6 58 93/55 (39) 95 I&O- Last 24 Hours up to 6 AM 12/15/20 06:00 Intake Total 1490 ml Output Total 150 ml Balance 1340 ml Laboratory Data Labs 24H Laboratory Tests 2 12/14/20 22:19: Immature Granulocyte % (Auto) 0.4, Neutrophils (%) (Auto) 77.0H, Lymphocytes (%) (Auto) 8.1L, Monocytes (%) (Auto) 10.1H, Eosinophils (%) (Auto) 3.6H, Basophils (%) (Auto) 0.8, Neutrophils # (Auto) 8.5, Lymphocytes # (Auto) 0.9L, Monocytes # (Auto) 1.1H, Eosinophils # (Auto) 0.4, Basophils # (Auto) 0.1, Nucleated Red Blood Cells % (auto) 0.0, Anion Gap 12, Glomerular Filtration Rate 7.1L, Uric Acid 6.5, Calcium Level 9.0, Phosphorus Level 9.4H, Total Bilirubin 0.3, Aspartate Amino Transf (AST/SGOT) 23, Alanine Aminotransferase (ALT/SGPT) 16, Alkaline Phosphatase 86, Total Creatine Kinase 57, Creatine Kinase MB 2.8, Creatine Kinase MB Relative Index 4.91H, Troponin I < 0.02, Total Protein 6.6, Albumin 2.5L, Albumin/Globulin Ratio 0.6, 25-Hydroxy Vitamin D Total 34.7, Parathyroid Hormone (Intact) 71.4, Complement C3 93, Complement C4 25 12/15/20 06:06: Urine Color YELLOW, Urine Appearance CLOUDYH, Urine pH 5.0, Urine Specific [place] 1.015, Urine Protein 1+H, Urine Glucose (Auto)(UA) NEGATIVE, Urine Ketones (Auto) NEGATIVE, Urine Blood NEGATIVE, Urine Nitrite NEGATIVE, Urine Bilirubin NEGATIVE, Urine Urobilinogen 0.2, Urine Leukocyte Esterase (Auto) NEGATIVE, Urine WBC (Auto) 4H, Urine RBC (Auto) 6H, Urine Hyaline Casts (Auto) 0, Urine Bacteria (Auto) NEGATIVE, Urine Squamous Epithelial Cells 0, Urine Amorphous Sediment (Auto) MODERATEH, Urine Sperm (Auto) , Urine Random Creatinine 110.0, Urine Random Sodium 31, Urine Random Urea Nitrogen 320 12/15/20 06:17: Troponin I < 0.02, Lactic Acid Level 0.8, Iron Level 61L, Total Iron Binding Capacity 192L, Transferrin % Saturation 31.8, Ferritin 95, LU-Bni-P-Type Natriuretic Peptide 43573E, Vitamin B12 Level > 2000H, Folate 13.2 CBC/BMP Laboratory Tests 12/14/20 22:19 Microbiology Microbiology 12/15/20 Blood Culture, Received Pending 12/14/20 Respiratory Virus Panel (PCR) ([facility]) - Final, Complete Allergies Coded Allergies: aspirin (Verified Adverse Reaction, Mild, NAUSEA / VOMITING, 10/18/19) NSAIDS (Non-Steroidal Anti-Inflamma (Verified Adverse Reaction, Unknown, STOMACHE ACHE, 10/18/19) Home Medications Scheduled Allopurinol (Allopurinol) 100 Mg Tablet, 100 MG PO DAILY, (Reported) Amiodarone HCl (Amiodarone HCl) 200 Mg Tablet, 200 MG PO DAILY, (Reported) Apixaban (Eliquis) 2.5 Mg Tablet, 2.5 MG PO BID, (Reported) Atenolol (Atenolol) 50 Mg Tablet, 50 MG PO QHS, (Reported) Calcitriol (Calcitriol) 0.25 Mcg Capsule, 0.25 MCG PO QHS, (Reported) Cholecalciferol (Vitamin D3) (Vitamin D3) 1,000 Unit Tablet, 2,000 UNITS PO QHS, (Reported) Ferrous Sulfate (Ferrous Sulfate) 325 Mg Tablet, 325 MG PO DAILY, (Reported) Furosemide (Furosemide) 40 Mg Tablet, 40 MG PO DAILY, (Reported) Gabapentin (Gabapentin) 300 Mg Capsule, 300 MG PO QHS, (Reported) Gentamicin Sulfate (Gentamicin Sulfate) 30 Gm Cream..g., 1 DOSE TOP QWEEK, (Reported) Ketoconazole (Ketoconazole) 15 Gm Cream..g., 1 DOSE EXT DAILY, (Reported) L.acidoph/L.bulg/B.bif/S.therm (Bacid Caplet) 1 Each Tablet, 1 TAB PO DAILY, (Reported) Lanolin Alcohol/Mo/W.pet/Peshtigo (Eucerin Creme) 454 Gm Cream..g., 1 DOSE TOP DAILY, (Reported) Levothyroxine Sodium (Synthroid) 175 Mcg Tablet, 175 MCG PO DAILY, (Reported) Magnesium Chloride (Mag64) 64 Mg Tablet.dr, 64 MG PO DAILY, (Reported) Multivitamins (Thera M Plus Tablet) 1 Tab Tab, 1 TAB PO DAILY, (Reported) TAKES AT NOON Mupirocin (Mupirocin) 2 % Oint...g., 1 DOSE EXT DAILY, (Reported) APPLY TO LEGS Omeprazole (Omeprazole) 20 Mg Capsule.dr, 20 MG PO DAILY, (Reported) Oxycodone HCl (Oxycodone HCl) 10 Mg Tablet, 10 MG PO TID, (Reported) BREAKFAST, DINNER, QHS Prazosin Hcl (Prazosin HCl) 2 Mg Capsule, 2 MG PO QHS, (Reported) Sertraline Hcl (Zoloft) 100 Mg Tablet, 50 MG PO DAILY, (Reported) Scheduled PRN Acetaminophen (Tylenol Arthritis) 650 Mg Tablet.er, 650 MG PO Q8H PRN for PAIN, (Reported) Diclofenac Sodium (Voltaren) 1 % Gel, 2 GM TOP BID PRN for PAIN, (Reported) APPLY TO KNEES Loperamide HCl (Loperamide) 2 Mg Capsule, 4 MG PO TID PRN for DIARRHEA, (Reported) Nystatin (Nystatin Powder) 15 Gm Powder, 1 DOSE TOP BID PRN for RASH, (Reported) APPLY TO STOMACH FOLDS Sennosides/Docusate Sodium (Senna-S Tablet) 1 Each Tablet, 2 TAB PO DAILY PRN for CONSTIPATION, (Reported) Tramadol HCl (Tramadol HCl) 50 Mg Tablet, 50 MG PO TID PRN for PAIN, (Reported) TIM ERICKSON MD December 15, 2020 10:24
[2020-12-15 10:43] LABS: INR 1.49; PROTHROMBIN TIME 18.3 SECONDS (12.5-14.3)
[2020-12-15 11:10] LABS: ALBUMIN 2.2 GM/DL (3.2-5.2); CALCIUM LEVEL 8.6 MG/DL (8.8-10.2); CREATININE FOR GFR 7.71 MG/DL (0.70-1.30); GLOMERULAR FILTRATION RATE 7.4 (>42); PHOSPHORUS LEVEL 9.2 MG/DL (2.5-4.9); POTASSIUM SERUM 3.8 MEQ/L (3.5-5.1)
[2020-12-15] MEDS ORDERED: LIDOCAINE W/EPINEPHRINE 1% 20ML VIAL SC ONE (11:20)
--- NOTE | 2020-12-15 11:22 | REP ---
INDICATION: sp dialysis cath insertion COMPARISON: 12/14/2020 TECHNIQUE: Portable AP view of the chest FINDINGS: Cardiac silhouette is stable. Double-lumen dialysis catheter via right IJ approach with tip in the right atrium. Lung benjamin without focal consolidation, obvious effusion, or pneumothorax. Mildly increased interstitial markings are nonspecific and may reflect chronic change versus interstitial edema. Right PICC line with tip in the SVC. Loop recorder overlies the left cardiac border. IMPRESSION: 1. Dialysis catheter with tip in the right atrium. <Electronically signed by Jc Fairchild > 12/15/20 1111
[2020-12-15 12:00] VITALS: BP 106/56
--- NOTE | 2020-12-15 13:00 | CR ---
NEPHROLOGY CONSULTATION DATE: 12/15/2020 REQUESTING PHYSICIAN: Santosh Jerry DO REASON FOR CONSULTATION: Oliguric acute renal failure. HISTORY OF PRESENT ILLNESS: Mr. Stafford is a 75-year-old gentleman with multiple chronic medical problems including history of diastolic congestive heart failure, hyperlipidemia, atrial fibrillation, obesity; status post gastric bypass, history of DVT and pulmonary embolus in the past, history of obstructive sleep apnea and history of gastroesophageal reflux disease. He has a history of chronic kidney disease with baseline GFR of about 35 to 40 mL per minute in July of 2020. He was admitted to [facility] recently due to leg wound infection with pseudomonas and treated with Zosyn. He feels that he was given some intravenous stuff which affected his kidneys. In any event, he has decreased urine output for the last couple of days and has been feeling jerky and presented to the Emergency Room last evening. He was found to have a BUN of 57 and creatinine of 7.95. He got admitted last evening, but I was not called by the admitting hospitalist. This morning, a nephrology consultation was requested and patient is seen just now. PAST MEDICAL HISTORY: Significant for: 1. Longstanding history of chronic diastolic congestive heart failure. 2. Atrial fibrillation. 3. Hypertension. 4. History of obesity; status post gastric bypass. 5. History of DVT and pulmonary embolus in the past. 6. History of obstructive sleep apnea. 7. History of gastroesophageal reflux disease. 8. History of chronic kidney disease. 9. Hypothyroidism. PAST SURGICAL HISTORY: Significant for: 1. Thyroidectomy. 2. Gastric bypass. 3. Lithotripsy for kidney stone. FAMILY HISTORY: Significant for end-stage renal disease as one of his sisters is on dialysis. His mother had diabetes and hypertension. PERSONAL AND SOCIAL HISTORY: Patient is a former smoker and drinks alcohol occasionally. Denies any illicit drug use. ALLERGIES: He has allergy to aspirin and NSAIDs. HOME MEDICATIONS: Include: 1. Allopurinol 100 mg daily. 2. Amiodarone 200 mg daily. 3. Eliquis 2.5 mg b.i.d. 4. Atenolol 50 mg at bedtime. 5. Calcitriol 0.25 mcg daily. 6. Multivitamin one tablet daily. 7. Ferrous sulfate 325 mg daily. 8. Vitamin D 1,000 units daily. 9. Furosemide 40 mg daily. 10.Gabapentin 300 mg at bedtime. 11.Ketoconazole cream for topical use. 12.Levothyroxine 175 mcg daily. 13.Magnesium chloride 64 mg daily. 14.Omeprazole 20 mg daily. 15.Oxycodone 10 mg t.i.d. 16.Prazosin 2 mg at bedtime. 17.Sertraline 50 mg daily. REVIEW OF SYSTEMS: Patient denies any fever or chills. He has been feeling jerky and somewhat uncomfortable. Ears, nose and throat are unremarkable. Cardiovascular system is significant for diastolic congestive heart failure. Respiratory system is significant for obstructive sleep apnea. He denies any hemoptysis or pleuritic type of chest pain. He has prior history of pulmonary embolus. GI system is significant for decreased appetite, but denies any vomiting or diarrhea. system is significant for decreased urine output for the last couple of days. He has remote history of kidney stones. CAT scan of abdomen and pelvis was done, which did not show any hydronephrosis. Musculoskeletal system is significant for bilateral lower extremity wounds. He also has some leg edema. He has history of gout, but denies any acute flares. Neurological system is significant for severe peripheral neuropathy. Psychosocial system is significant for insomnia and depression. Skin is significant for bilateral lower extremity ulcers. Hematological system is significant for chronic anticoagulation due to atrial fibrillation and history of pulmonary embolus in the past. PHYSICAL EXAMINATION: VITALS: Temperature 97.6 degrees Fahrenheit, heart rate 58 per minute, respiratory rate 20 per minute, blood pressure 93/55 mmHg and oxygen saturation 95% on room air. HEENT: Head is atraumatic. Neck is supple and JVD is about 7 cm above sternal angle. There is no oral thrush or ulcers. He has a mild small ulcer on his right external ear, which he reports is from recent skin cancer procedure. LUNGS: Diminished breath sounds at bases. HEART: Reveals irregular rhythm. There is no pericardial friction rub. ABDOMEN: Soft, obese and nontender. Bowel sounds are normal. EXTREMITIES: Without any cyanosis or clubbing. Both lower legs are wrapped in dressings. NEUROLOGIC: He is awake and without a focal deficit. Mild myoclonus was noticed. LABORATORY DATA: His admission labs showed WBC 11.0, hemoglobin 10.8, hematocrit 33.4, platelets 233,000. Sodium 139, potassium 3.9, BUN 57, creatinine 7.95. BNP level 21,367 today. Troponin less than 0.02. Repeat labs today showed BUN 56 and creatinine 7.71, calcium level 8.6 and phosphorus 9.2. Urinalysis showed only 1+ protein and 4 wbc and 6 rbc. PROBLEMS: 1. Oliguric acute renal failure: Patient has received 2 units of normal saline without any change in his kidney function. I feel that his acute renal failure is related to toxic nephropathy probably caused by antibiotic therapy. I am not sure if he received any I.V. contrast while he was at the [facility]. In any event, he is not volume depleted at this point and in fact he has received significant amount of I.V. fluid. I have discussed with the patient about potential need for dialysis and he is agreeable for acute dialysis. Hydronephrosis has already been ruled out with a recent ultrasound. I am going to request vascular surgery for a dialysis catheter placement and we will make arrangements for dialysis this afternoon. 2. Hyperphosphatemia: This is related to acute renal failure and likely to correct with hemodialysis. We will watch his labs after dialysis and then consider phosphate binder if needed. 3. Anemia: This is probably chronic, related to chronic kidney disease and ongoing leg wounds. No urgent intervention is needed. 4. Congestive heart failure: Patient has known history of diastolic congestive heart failure and he is now hypervolemic. I am stopping his I.V. fluid. We will try to remove some fluid with dialysis if tolerated. 5. Hypotension: His blood pressure is somewhat low, which will make it difficult to remove fluid, however, we will try and see how he does. Thank you for involving me in the care of Mr. Stafford. I will follow him along with you.
--- NOTE | 2020-12-15 13:07 | IPNPDOC ---
Text Note Date of Service The patient was seen on 12/15/20. NOTE Subjective: No any acute events overnight. Patient denies fever, chills, shor tness of breath or palpitations. Objective: GENERAL APPEARANCE: NAD HEENT: no scleral icterus, plus JVD, EOMI CARDIOVASCULAR: S1S2 LUNGS: Diminished sounds bilaterally ABDOMEN: soft & not tender w palpitation, obese MUSCULOSKELETAL: Both legs covered with dressing, there is stage III wound of left distal leg 5-6 cm with some pus INTEGUMENT: Stage II left forearm wound without visible pus NEUROLOGICAL: cranial nerve function from 2-12 intact intact, follows commands, speech not dysarthric Assessment and plan Patient is 75 years old male with past medical history of diastolic CHF, atrial fibrillation, history of gastric bypass, history of DVT/PE presented hospital with acute kidney failure. Patient was treated with Zosyn secondary to lower extremity cellulitis due to pseudomonas aeruginosa. FABI Most like secondary to therapy with Zosyn Patient developed anuria, creatinine around 8 with GFR 7 Patient severely volume overloaded Nephrology team will proceed with dialysis Left lower extremity wound/left arm abrasion Appreciate/agree with wound care consult Acute diastolic CHF Patient has plus JVD, BNP 83229 Echo I's and O's Cardiac/diabetes diet Volume overload will be regulated by dialysis Atrial fibrillation Heart rate under control Eliquis on hold due to dialysis catheter placement GERD Continue PPI Hypothyroidism Continue with digoxin Chronic pain Pain management Depression Continue home meds Obesity BMI of 36.4 Complicated care VS,Fishbone, I+O VS, Fishbone, I+O Laboratory Tests 12/14/20 22:19 12/15/20 10:13 Vital Signs Date Time Temp Pulse Resp B/P (MAP) Pulse Ox O2 Delivery O2 Flow Rate FiO2 12/15/20 12:00 97.8 86 17 106/56 (73) 96 Room Air I&O- Last 24 Hours up to 6 AM 12/15/20 06:00 Intake Total 1490 ml Output Total 150 ml Balance 1340 ml JERRELL ARCE DO December 15, 2020 13:06
[2020-12-15 13:54] LABS: HEPATITIS B CORE ANTIBODY IGM NEGATIVE (NEGATIVE); HEPATITIS B SURFACE ANTIBODY NEGATIVE (POSITIVE); HEPATITIS B SURFACE ANTIGEN NEGATIVE (NEGATIVE)
[2020-12-15 16:04] VITALS: BP 130/65
[2020-12-15 20:00] VITALS: BP 98/60
[2020-12-15] MEDS ORDERED: CALCITRIOL 0.25 MCG CAP (S0169) PO SCH (21:00)
[2020-12-15] MEDS: VITAMIN D 1,000 INTERNATIONAL UNITS TABLET PO SCH (21:00)
[2020-12-15] MEDS ORDERED: atenoloL 50 MG TAB PO SCH (21:00)
[2020-12-15] MEDS: PRAZOSIN 1 MG CAP PO SCH (21:00)
[2020-12-15] MEDS ORDERED: GABAPENTIN 300 MG CAP PO SCH (21:00)
[2020-12-16] VITALS: BP 114/76
[2020-12-16 04:00] VITALS: BP 100/50
[2020-12-16] MEDS: LEVOTHYROXINE 25MCG TABLET (0.025MG) PO SCH (05:52)
[2020-12-16] MEDS: LEVOTHYROXINE 150MCG TABLET (0.15MG) PO SCH (05:52)
[2020-12-16 06:17] LABS: HEMATOCRIT 30.1 % (42.0-52.0); HEMOGLOBIN 9.4 g/dl (13.5-17.5); MEAN CORPUSCULAR HEMOGLOBIN 30.4 pg (27.0-33.0); MEAN CORPUSCULAR HGB CONC 31.2 g/dl (32.0-36.5); MEAN CORPUSCULAR VOLUME 97.4 fl (80.0-96.0); PLATELET COUNT, AUTOMATED 200 10^3/uL (150-450); RED BLOOD COUNT 3.09 10^6/uL (4.30-6.10); WHITE BLOOD COUNT 8.2 10^3/uL (4.0-10.0)
[2020-12-16 06:32] LABS: CALCIUM LEVEL 8.9 MG/DL (8.8-10.2); CREATININE FOR GFR 3.97 MG/DL (0.70-1.30); GLOMERULAR FILTRATION RATE 15.9 (>42); MAGNESIUM LEVEL 2.2 MG/DL (1.8-2.4); POTASSIUM SERUM 3.4 MEQ/L (3.5-5.1)
[2020-12-16 08:00] VITALS: BP 115/64
--- NOTE | 2020-12-16 08:41 | IPNPDOC ---
Date Seen The patient was seen on 12/16/20. Progress Note Patient seen and examined. Doing much better after dialysis with temporary dialysis catheter placed yesterday at the bedside. Today, the patient needs a replacement with a PermCath. He's been off his eliquis yesterday and today. Risks benefits and alternatives to PermCath placement were explained to the patient needs agreeable to proceed. Informed consent was obtained. Continue to hold eliquis. Npo after breakfast. We appreciate the opportunity to participate in the care of this patient. VS, I&O, 24H, Fishbone Vital Signs/I&O Vital Signs Date Time Temp Pulse Resp B/P (MAP) Pulse Ox O2 Delivery O2 Flow Rate FiO2 12/16/20 04:00 97.9 92 16 100/50 (67) 93 Room Air I&O- Last 24 Hours up to 6 AM 12/16/20 05:59 Intake Total 780 ml Output Total 2125 ml Balance -1345 ml Laboratory Data 24H LABS Laboratory Tests 2 12/15/20 10:13: Prothrombin Time 18.3H, Prothromb Time International Ratio 1.49, Anion Gap 13, Glomerular Filtration Rate 7.4L, Calcium Level 8.6L, Phosphorus Level 9.2H, Albumin 2.2L 12/15/20 11:00: Hepatitis B Core IgG Antibody Negative 12/15/20 11:40: Hepatitis B Surface Antigen NEGATIVE, Hepatitis B Surface Antibody NEGATIVE, Hepatitis B Core IgM Antibody NEGATIVE, Hepatitis C Antibody Index 0.0 12/16/20 05:51: Anion Gap 7L, Glomerular Filtration Rate 15.9L, Calcium Level 8.9, Nucleated Red Blood Cells % (auto) 0.0, Magnesium Level 2.2 CBC/BMP Laboratory Tests 12/15/20 10:13 12/16/20 05:51 Microbiology Microbiology 12/15/20 Blood Culture - Preliminary, Resulted No growth after 24 hours . All specim... 12/14/20 Respiratory Virus Panel (PCR) ([facility]) - Final, Complete TIM ERICKSON MD December 16, 2020 08:41
[2020-12-16] MEDS: MULTIVITAMINS/MINERALS THERAP 1 TAB PO SCH (09:20)
[2020-12-16] MEDS: LACTOBACILLUS ACIDOPHILUS CAP (BACID) PO SCH (09:20)
[2020-12-16] MEDS: AMIODARONE 200 MG TAB (PACERONE) PO SCH (09:20)
[2020-12-16] MEDS: SERTRALINE HCL 50 MG TAB PO SCH (09:20)
[2020-12-16] MEDS: DOCUSATE SODIUM 100MG CAPSULE PO SCH ×2 (09:21→20:01)
[2020-12-16] MEDS: oxyCODONE 5MG TAB PO SCH ×3 (09:21→20:04)
[2020-12-16] MEDS: OMEPRAZOLE 20 MG CAP PO SCH (09:21)
[2020-12-16] MEDS: FERROUS SULFATE 325MG TAB PO SCH (09:21)
[2020-12-16] MEDS: MUPIROCIN 2% OINT 22 GM TUBE EXT SCH (09:22)
[2020-12-16] MEDS: KETOCONAZOLE 2% CREAM EXT SCH (09:22)
[2020-12-16] MEDS: VANICREAM MOISTURIZING SKIN CREAM 113GM TUBE TOP SCH (09:42)
[2020-12-16 10:27] LABS: ALBUMIN 3.21 GM/DL (3.29-5.55); ALBUMIN % 48.7 % (55.8-66.1); ALPHA-1-GLOBULIN % 6.2 % (2.9-4.9); ALPHA-1-GLOBULINS 0.41 GM/DL (0.17-0.41); ALPHA-2-GLOBULINS 0.93 GM/DL (0.42-0.99); ALPHA-2-GLOBULINS % 14.1 % (7.1-11.8); BETA-1-GLOBULINS 0.42 GM/DL (0.28-0.60); BETA-1-GLOBULINS % 6.3 % (4.7-7.2)
[2020-12-16 10:28] LABS: BETA-2-GLOBULINS % 7.5 % (3.2-6.5); GAMMA GLOBULIN % 17.2 % (11.1-18.8); GAMMA GLOBULINS 1.14 GM/DL (0.65-1.58); TOTAL PROTEIN 6.6 GM/DL (6.4-8.2)
[2020-12-16 12:00] VITALS: BP 116/70
--- NOTE | 2020-12-16 12:45 | IPNPDOC ---
Text Note Date of Service The patient was seen on 12/16/20. NOTE Subjective: No any acute events overnight. Patient did have dialysis yesterday, tolerated procedure well. No fever or chills Objective: GENERAL APPEARANCE: NAD HEENT: no scleral icterus, plus JVD, EOMI CARDIOVASCULAR: S1S2 LUNGS: Diminished sounds bilaterally ABDOMEN: soft & not tender w palpitation, obese MUSCULOSKELETAL: Both legs covered with dressing, there is stage III wound of left distal leg 5-6 cm with some pus INTEGUMENT: Stage II left forearm wound without visible pus NEUROLOGICAL: cranial nerve function from 2-12 intact intact, follows commands, speech not dysarthric Assessment and plan Patient is 75 years old male with past medical history of diastolic CHF, atrial fibrillation, history of gastric bypass, history of DVT/PE presented hospital with acute kidney failure. Patient was treated with Zosyn secondary to lower extremity cellulitis due to pseudomonas aeruginosa. FABI Most like secondary to therapy with Zosyn Patient developed anuria, creatinine around 8 with GFR 7 Dialysis was done yesterday Nephrology team follows him PermCath will be placed today Left lower extremity wound/left arm abrasion Await wound care consult Acute diastolic CHF Patient has plus JVD, BNP 11216 Await Echo I's and O's Cardiac/diabetes diet Volume overload regulates by dialysis Atrial fibrillation Heart rate under control oral targeted anticoagulation will be re started tomorrow GERD Continue PPI Hypothyroidism Continue with levothyroxine Chronic pain Pain management Depression Continue home meds Obesity BMI of 36.4 Complicated care VS,Fishbone, I+O VS, Fishbone, I+O Laboratory Tests 12/16/20 05:51 Vital Signs Date Time Temp Pulse Resp B/P (MAP) Pulse Ox O2 Delivery O2 Flow Rate FiO2 12/16/20 09:21 18 96 Room Air 12/16/20 08:00 97.9 95 115/64 (81) I&O- Last 24 Hours up to 6 AM 12/16/20 06:00 Intake Total 720 ml Output Total 1975 ml Balance -1255 ml JERRELL ARCE DO December 16, 2020 12:45
--- NOTE | 2020-12-16 15:20 | ROOPDOC ---
[facility] Report Of Operation Report of Operation DATE OF PROCEDURE: 12/15/20 PREPROCEDURE DIAGNOSES: Renal failure requiring access for dialysis POSTPROCEDURE DIAGNOSES: Same PROCEDURE: 1. Ultrasound-guided access right internal jugular vein 2. Placement of a non-tunneled dual-lumen temporary dialysis catheter right internal jugular vein SURGEON: Magaly Pittman MD ANESTHESIA: Local anesthesia only INDICATION FOR PROCEDURE: This is a very pleasant 75-year-old gentleman with acute on chronic renal failure requiring urgent access for dialysis. The patient is fully anticoagulated with eliquis, thus we will place a temperature dialysis catheter today. Risks benefits and alternatives were explained the patient needs agreeable to proceed. We will hold the eliquis, and place a PermCath tomorrow or Sunday. The patient is agreeable to this plan. INTERPRETATION: Chest x-ray was obtained directly following the procedure. The right IJ catheter is in good position, no kinks in the catheter. The tip is in the right atrium. No pneumothorax is present. It is okay to use the catheter for dialysis. REPORT OF OPERATION: Patient's right neck and chest were prepped and draped in a sterile fashion. A timeout was performed. Ultrasound was used to guide access to the right neck with a microneedle after anesthetizing with local anesthesia. A wire was passed through this access needle was removed and a micro-sheath was placed. A J-wire was advanced through this access in the micro-sheath was alejandrina dulce and 2 serial dilators were placed over the wire using a Seldinger technique. We then passed a catheter over the wire and both ports amador back and flushed easily. Appropriate caps were placed. The catheter was secured at the neck with 2 sutures. Sterile dressings were applied. The patient tolerated the procedure very well. ESTIMATED BLOOD LOSS: Approximately 2 mL. COMPLICATIONS: None. MAGALY PITTMAN MD December 16, 2020 15:20
[2020-12-16] MEDS ORDERED: LIDOCAINE W/EPINEPHRINE 1% 20ML VIAL As Ordered ONE ×2 (15:36→15:57)
[2020-12-16] MEDS ORDERED: fentaNYL 100 MCG/2 ML INJECTION (J3010) As Ordered ONE (16:15)
[2020-12-16] MEDS ORDERED: MIDAZOLAM INJ 2MG/2ML VIAL (J2250 PER 1MG) As Ordered ONE (16:15)
[2020-12-16] MEDS ORDERED: ceFAZolin 2 GM/D5W 50 ML IV BAG (J0690 PER 500MG) As Ordered ONE (16:16)
[2020-12-16] MEDS ORDERED: METOPROLOL 5 MG/5 ML VIAL As Ordered ONE (17:08)
--- NOTE | 2020-12-16 17:22 | ROOPDOC ---
[facility] Report Of Operation Report of Operation DATE OF PROCEDURE: 12/16/20 PREPROCEDURE DIAGNOSES: Renal failure requiring access for dialysis POSTPROCEDURE DIAGNOSES: Same PROCEDURE: 1. Ultrasound-guided access right internal jugular vein 2. Placement of a 23 cm tunneled right IJ PermCath SURGEON: Tim Pittman MD ANESTHESIA: Local anesthesia 15 mL lidocaine with epinephrine. Moderate intravenous conscious sedation was supervised by Dr. Pittman. The patient was independently monitored by a registered nurse assigned to the Department of radiology using automated blood pressure, EKG, and pulse oximetry. The detailed sedation record is permanently stored in the hospital information system. The following is a brief sedation record: Start time 16:44, stop time 17:11, Versed 0.5 mg IV, fentanyl 25 g IV, Ancef 2 g IV. INDICATION FOR PROCEDURE: This is a very pleasant 75-year-old gentleman with acute on chronic renal failure requiring more permanent access for dialysis. We are hoping his renal function will recover, but over the next few weeks he will require intermittent hemodialysis. We place a temper a catheter yesterday for urgent dialysis due to the fact the patient was fully anticoagulated, but we have held his anticoagulation and today we filled is safe to place a PermCath. Prior to the procedure, we will have the nurses remove the right IJ temporary catheter. Risks benefits and alternatives to a PermCath placement were explained to the patient needs agreeable to proceed. Informed consent was obtained. INTERPRETATION: The right IJ PermCath is in good position with the tip freely mobile at the right atrial SVC junction. There are no kinks in the catheter. There is no pneumothorax. It is okay to use the PermCath for dialysis. REPORT OF OPERATION: The patient was brought to the angiographic suite in stable condition and his right neck and chest were prepped and draped in a sterile fashion. A timeout was performed. Antibiotics and sedation were administered without complication. Local anesthesia was administered to the skin and subcutaneous tissue over the right neck, the right chest. A microneedle was used to access the right internal jugular vein under ultrasound guidance. A wire was passed through this access needle was removed. A micro-sheath was placed and a J-wire was advanced through this into the IVC, then the SVC. 2 serial dilations were performed over the wire using a Seldinger technique and a peel-away sheath was placed over the wire. The inner cannula and wire were removed. A small incision was made at the jugular access site and at the right chest with the skin knife. The catheter was advanced from the right chest incision to the jugular access site within the subcutaneous tissue over the clavicle. Once the c ough was within the subcutaneous tissue, we advanced the tips of the catheter through the peel-away sheath into the central system. The peel-away sheath was removed. Both ports amador back and flushed easily. They were heparin locked and appropriate caps were placed. The jugular access site was irrigated and the deep tissues were approximated with interrupted Monocryl suture, the skin was closed with deep dermal interrupted Monocryl sutures. Dermabond was placed as a final dressing at the neck. Prolene suture was used to close the exit site on the right chest and to secure the catheter to the chest wall. Sterile dressings were applied. The patient was then taken to recovery in stable condition. He tolerated the procedure and the sedation well. ESTIMATED BLOOD LOSS: Approximately 10 mL. COMPLICATIONS: None. PLAN: It is okay to use the catheter for dialysis. It is okay to resume prep rocedure diet and medications and orders per the primary team. The head of bed remain elevated for the next 48 hours to diminish bleeding and bruising after PermCath placement. Would wait until 12/17/2020 to restart eliquis. If the patient requires long-term dialysis. Recommend vein mapping to help prepare for consultation for AV access placement. We appreciate the opportunity to p articipate in the care of this patient. TIM PITTMAN MD December 16, 2020 17:22
[2020-12-16 19:56] VITALS: BP 127/79
[2020-12-16] MEDS: CALCITRIOL 0.25 MCG CAP (S0169) PO SCH (20:01)
[2020-12-16] MEDS: GABAPENTIN 300 MG CAP PO SCH (20:01)
[2020-12-16] MEDS: atenoloL 50 MG TAB PO SCH (20:02)
[2020-12-16] MEDS: VITAMIN D 1,000 INTERNATIONAL UNITS TABLET PO SCH (20:02)
[2020-12-16] MEDS: PRAZOSIN 1 MG CAP PO SCH (20:02)
--- NOTE | 2020-12-16 21:56 | IPN ---
PROGRESS NOTE DATE: 12/16/2020 Mr. Stafford is seen this morning on his bedside. He is sitting at the edge of bed. He is upset about his dressing removed from his left leg, which he did not want open for a week. I have explained to him about the need for admitting physicians to look at his leg due to possible sepsis. In any event, he has oliguric acute renal failure and required emergency dialysis yesterday due to jerky movements and risk for seizures. He did tolerate dialysis very well but felt somewhat disoriented afterward; however, he is feeling back to normal mentation today, and his jerkiness has improved. He denies any nausea, vomiting, dyspnea, or chest pain. PHYSICAL EXAMINATION: Temperature is 97 degrees Fahrenheit, heart rate 78 per minute, respiratory rate 18 per minute, blood pressure 116/78 mmHg, and oxygen saturation 95% on room air. He has a temporary dialysis catheter in right internal jugular vein. His head is atraumatic. Neck supple and jugular venous distention (JVD) is not abnormally elevated. Heart sounds are irregular and tachycardic. Lungs clear to auscultation. Abdomen soft, obese, and nontender. Bowel sounds are normal. Extremities without any cyanosis or clubbing. There are dressings on both lower legs. Neurologically he is awake and at his baseline mentation without a focal deficit. Today's labs show sodium 139, potassium 3.4, chloride 107, CO2 of 25, BUN 23, and creatinine 3.97. Glucose 73 and calcium 8.9. WBC is 8.2, hemoglobin 9.4, and hematocrit 30. Platelets 200,000. PROBLEMS: 1. Oliguric acute renal failure. Patient is still oliguric with minimal urine output. We removed 1500 mL with dialysis yesterday. We will plan another dialysis tomorrow if needed. 2. Dialysis access. Patient currently has a temporary catheter, and I have discussed with Dr. Pittman and requested to change it to Perm-A-Cath, as patient wants to go home, and I have explained to him that he will not be safe for discharge with a temporarily dialysis catheter. 3. Hypotension. Blood pressure has been slightly better today, and he is asymptomatic sitting at the edge of bed. We will continue to monitor closely. 4. Hypokalemia. Mild hypokalemia noted, which is most likely related to dialysis. Calcium will be replaced, and he is also eating normal now. We anticipate improvement in his potassium level by tomorrow morning. Electrolytes will be checked again tomorrow. 5. Anemia. Slight worsening of anemia since admission without any active blood loss. No urgent intervention needed. We will check a complete blood count (CBC) again tomorrow.
[2020-12-17] VITALS: BP 100/56
[2020-12-17 04:00] VITALS: BP 113/65
[2020-12-17] MEDS: LEVOTHYROXINE 150MCG TABLET (0.15MG) PO SCH (05:54)
[2020-12-17] MEDS: LEVOTHYROXINE 25MCG TABLET (0.025MG) PO SCH (05:54)
[2020-12-17 06:03] LABS: HEMATOCRIT 32.3 % (42.0-52.0); HEMOGLOBIN 10.1 g/dl (13.5-17.5); MEAN CORPUSCULAR HEMOGLOBIN 30.8 pg (27.0-33.0); MEAN CORPUSCULAR HGB CONC 31.3 g/dl (32.0-36.5); MEAN CORPUSCULAR VOLUME 98.5 fl (80.0-96.0); PLATELET COUNT, AUTOMATED 213 10^3/uL (150-450); RED BLOOD COUNT 3.28 10^6/uL (4.30-6.10); WHITE BLOOD COUNT 10.3 10^3/uL (4.0-10.0)
[2020-12-17 06:25] LABS: CALCIUM LEVEL 8.3 MG/DL (8.8-10.2); CREATININE FOR GFR 4.53 MG/DL (0.70-1.30); GLOMERULAR FILTRATION RATE 13.6 (>42); MAGNESIUM LEVEL 2.4 MG/DL (1.8-2.4); POTASSIUM SERUM 3.7 MEQ/L (3.5-5.1)
[2020-12-17 08:00] VITALS: BP 105/54
[2020-12-17] MEDS: oxyCODONE 5MG TAB PO SCH ×3 (08:52→21:52)
[2020-12-17] MEDS: DOCUSATE SODIUM 100MG CAPSULE PO SCH ×2 (08:52→21:47)
[2020-12-17] MEDS: AMIODARONE 200 MG TAB (PACERONE) PO SCH (08:52)
--- NOTE | 2020-12-17 09:50 | IPNPDOC ---
Text Note Date of Service The patient was seen on 12/17/20. NOTE Subjective: No any acute events overnight. Patient received permanent dialysis catheter yesterday. No fever or chills Objective: GENERAL APPEARANCE: NAD HEENT: no scleral icterus, plus JVD, EOMI CARDIOVASCULAR: S1S2 LUNGS: Diminished sounds bilaterally ABDOMEN: soft & not tender w palpitation, obese MUSCULOSKELETAL: Both legs covered with dressing, there is stage III wound of left distal leg 5-6 cm with some pus INTEGUMENT: Stage II left forearm wound without visible pus NEUROLOGICAL: cranial nerve function from 2-12 intact intact, follows commands, speech not dysarthric Assessment and plan Patient is 75 years old male with past medical history of diastolic CHF, atrial fibrillation, history of gastric bypass, history of DVT/PE presented hospital with acute kidney failure. Patient was treated with Zosyn secondary to lower extremity cellulitis due to pseudomonas aeruginosa. FABI/oliguria Most like secondary to therapy with Zosyn Patient developed anuria, creatinine around 8 with GFR 7 on admission Dialysis was done yesterday Nephrology team follows him PermCath placed yesterday Left lower extremity wound/left arm abrasion Await wound care consult Ankle x-ray to rule out osteomyelitis Arterial ultrasound ordered Acute diastolic CHF Patient has plus JVD, BNP 73628 Await Echo report I's and O's Cardiac/diabetes diet Volume overload regulates by dialysis Atrial fibrillation Heart rate under control Continue oral targeted anticoagulation Normocytic anemia Secondary to end-stage renal diseases/chronic diseases Continue iron supplementation B12 and folate wnl Await stool for occult blood GERD Continue PPI Hypothyroidism Continue levothyroxine Chronic pain Pain management Depression Continue home meds Obesity BMI of 36.4 Complicated care VS,Sophia, I+O VS, Sophia, I+O Laboratory Tests 12/17/20 05:43 Vital Signs Date Time Temp Pulse Resp B/P (MAP) Pulse Ox O2 Delivery O2 Flow Rate FiO2 12/17/20 08:52 20 Room Air 12/17/20 04:00 97.0 82 113/65 (81) 94 12/16/20 17:10 2.0 I&O- Last 24 Hours up to 6 AM 12/17/20 06:00 Intake Total 300 ml Output Total 0 ml Balance 300 ml JERRELL ARCE DO December 17, 2020 09:50
--- NOTE | 2020-12-17 12:33 | IPN ---
PROGRESS NOTE DATE: 12/17/2020 SUBJECTIVE: Mr. Stafford is seen this morning during dialysis. He had his temporary hemodialysis catheter changed into a Permacath yesterday, which is being used for dialysis. In the meantime, patient remains oliguric and we decided to dialyze him again today. He wants to go home and I have explained to him that at this point he is not quite ready for discharge as yet. PHYSICAL EXAMINATION: VITALS: Temperature 97.8 degrees Fahrenheit, heart rate 57 per minute, respiratory rate 18 per minute, blood pressure 105/54 mmHg and oxygen saturation 96% on room air. HEENT: Head is atraumatic. Neck is supple and without JVD or thyroid enlargement. Hemodialysis catheter in right internal jugular vein is present. LUNGS: Clear to auscultation. HEART: Sounds are regular. ABDOMEN: Soft, obese and nontender. Bowel sounds are normal. EXTREMITIES: Without any cyanosis or clubbing. NEUROLOGIC: He is at his baseline mentation without a deficit. LABORATORY DATA: Today's labs show WBC 10.3, hemoglobin 10.1, hematocrit 32.3, platelets 213,000. Sodium 141, potassium 3.7, CO2 24, BUN 28, creatinine 4.53. Calcium level 8.3 and magnesium 2.4. PROBLEMS: 1. Oliguric acute renal failure: Patient is being dialyzed again today and volume status seems to be reasonably well compensated. We are removing only 1 liter of fluid as tolerated. 2. Hypokalemia: His potassium level improved and we are using 3.0 mEq potassium bath today. 3. Anemia: His anemia is stable at present and does not need any urgent intervention. 4. Leg wounds: Patient has bilateral lower extremity leg wounds, for which he has been previously treated for possible pseudomonas infection. At present, he is not on any systemic antibiotics. 5. Hypertension: Blood pressure seems to be very well controlled. He remains on chronic antihypertensive medications.
[2020-12-17] MEDS: MUPIROCIN 2% OINT 22 GM TUBE EXT SCH (14:00)
[2020-12-17] MEDS: VANICREAM MOISTURIZING SKIN CREAM 113GM TUBE TOP SCH (14:00)
[2020-12-17] MEDS: KETOCONAZOLE 2% CREAM EXT SCH (14:00)
[2020-12-17] MEDS: IRON POLYSAC (NIFEREX) 150 MG CAP PO SCH ×2 (14:40→21:46)
[2020-12-17] MEDS: OMEPRAZOLE 20 MG CAP PO SCH (14:41)
[2020-12-17] MEDS: MULTIVITAMINS/MINERALS THERAP 1 TAB PO SCH (14:41)
[2020-12-17] MEDS: LACTOBACILLUS ACIDOPHILUS CAP (BACID) PO SCH (14:41)
[2020-12-17] MEDS: SERTRALINE HCL 50 MG TAB PO SCH (14:42)
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
[2020-12-17 16:00] VITALS: BP 111/65
--- NOTE | 2020-12-17 18:34 | REP ---
INDICATION: osteomyelitis COMPARISON: None. TECHNIQUE: Four views left ankle. FINDINGS: No acute fracture or dislocation is seen. There appears to be an old fracture of the distal fibula. Multiple soft tissue calcifications are seen in the lower leg. The ankle mortise is anatomic. Calcaneal spurring is noted. There are no definite radiographic signs of osteomyelitis. IMPRESSION: No fracture. No definite radiographic signs of osteomyelitis. <Electronically signed by Iain Jorgensen > 12/17/20 0056
[2020-12-17 20:00] VITALS: BP 115/69
[2020-12-17 21:40] VITALS: BP 146/76
[2020-12-17] MEDS: CALCITRIOL 0.25 MCG CAP (S0169) PO SCH (21:47)
[2020-12-17] MEDS: APIXABAN 2.5 MG TAB (ELIQUIS) PO SCH (21:47)
[2020-12-17] MEDS: atenoloL 50 MG TAB PO SCH (21:48)
[2020-12-17] MEDS: GABAPENTIN 300 MG CAP PO SCH (21:48)
[2020-12-17] MEDS: PRAZOSIN 1 MG CAP PO SCH (21:48)
[2020-12-17] MEDS: VITAMIN D 1,000 INTERNATIONAL UNITS TABLET PO SCH (21:52)
[2020-12-18] VITALS (9 sets, daily range): BP systolic 80–122; BP diastolic 50–63
[2020-12-18] MEDS: LEVOTHYROXINE 150MCG TABLET (0.15MG) PO SCH (05:31)
[2020-12-18] MEDS: LEVOTHYROXINE 25MCG TABLET (0.025MG) PO SCH (05:31)
[2020-12-18] MEDS: SODIUM CHLORIDE 0.9% INJ 10 ML SYR IV SCH ×3 (05:53→21:14)
[2020-12-18 06:27] LABS: HEMATOCRIT 29.7 % (42.0-52.0); HEMOGLOBIN 9.3 g/dl (13.5-17.5); MEAN CORPUSCULAR HEMOGLOBIN 31.1 pg (27.0-33.0); MEAN CORPUSCULAR HGB CONC 31.3 g/dl (32.0-36.5); MEAN CORPUSCULAR VOLUME 99.3 fl (80.0-96.0); PLATELET COUNT, AUTOMATED 156 10^3/uL (150-450); RED BLOOD COUNT 2.99 10^6/uL (4.30-6.10); WHITE BLOOD COUNT 9.5 10^3/uL (4.0-10.0)
[2020-12-18 06:53] LABS: CALCIUM LEVEL 9.2 MG/DL (8.8-10.2); CREATININE FOR GFR 2.9 MG/DL (0.70-1.30); GLOMERULAR FILTRATION RATE 22.8 (>42); MAGNESIUM LEVEL 2.1 MG/DL (1.8-2.4); POTASSIUM SERUM 3.4 MEQ/L (3.5-5.1)
[2020-12-18] MEDS: oxyCODONE 5MG TAB PO SCH ×3 (09:14→21:13)
--- NOTE | 2020-12-18 09:19 | IPNPDOC ---
Text Note Date of Service The patient was seen on 12/18/20. NOTE Hospitalist Progress Note Subjective: Pleasant 75-year-old male. He is sitting upright on the edge of the bed having just finished breakfast. He is in no distress at this time. He does not have any complaints at this time. As a matter fact he is asking if he might be able to go home. He apparently tolerated dialysis well yesterday. The remainder of his review of systems is unremarkable. Objective: General: Awake, alert, oriented 3. Not in any acute distress. HEENT: Head normocephalic, atraumatic, sclera are nonicteric. Hearing is grossly intact to conversation. Respiratory: Clear to auscultation bilaterally with no wheezes, rales, or rhonchi. Cardiovascular: Regular rate and rhythm, with no rubs, gallops, or murmur. Abdomen: Soft, nontender, nondistended, no hepatosplenomegaly appreciated. Bowel sounds present. Extremities: Bilateral lower extremities are bandaged, these were not removed today. Left elbow has optifoam in place. Assessment: -Acute oliguric renal failure. Likely secondary to Zosyn. Currently on hemodialysis -Hypotension in the setting of chronic hypertension -Lower extremity leg wounds, colonized with pseudomonas -Left elbow abrasion -Hypokalemia -Normocytic Anemia of chronic disease -Acute decompensation of diastolic congestive heart failure -Atrial fibrillation -GERD -Hypothyroidism -Chronic pain -Depression -Obesity -BMI of 36.4 Plan: Urine output continues to be very little. Permanent dialysis catheter has been placed. Management of his hemodialysis is per the nephrology team, their input is greatly appreciated. The patient was hypotensive this morning, but is completely asymptomatic at the time of my evaluation. Ankle x-ray was performed yesterday, and there does not appear to be any evidence of malunion or osteomyelitis at this time. He follows biodiesel engine specialist in [place] as an outpatient, and has an appointment next week. Input regarding inpatient wound care from our Water Gas Operator is greatly appreciated. VS,Fishbone, I+O VS, Fishbone, I+O Laboratory Tests 12/18/20 06:07 Vital Signs Date Time Temp Pulse Resp B/P (MAP) Pulse Ox O2 Delivery O2 Flow Rate FiO2 12/18/20 07:49 96.8 88 18 80/60 (67) 93 Room Air 12/16/20 17:10 2.0 I&O- Last 24 Hours up to 6 AM 12/18/20 06:00 Intake Total 810 ml Output Total 1505 ml Balance -695 ml BECKY CARROLL DO December 18, 2020 09:02
[2020-12-18] MEDS: LACTOBACILLUS ACIDOPHILUS CAP (BACID) PO SCH (09:51)
[2020-12-18] MEDS: MULTIVITAMINS/MINERALS THERAP 1 TAB PO SCH (09:51)
[2020-12-18] MEDS: IRON POLYSAC (NIFEREX) 150 MG CAP PO SCH ×2 (09:51→21:12)
[2020-12-18] MEDS: SERTRALINE HCL 50 MG TAB PO SCH (09:51)
[2020-12-18] MEDS: DOCUSATE SODIUM 100MG CAPSULE PO SCH ×2 (09:51→21:00)
[2020-12-18] MEDS: VANICREAM MOISTURIZING SKIN CREAM 113GM TUBE TOP SCH (09:52)
[2020-12-18] MEDS: AMIODARONE 200 MG TAB (PACERONE) PO SCH (09:52)
[2020-12-18] MEDS: APIXABAN 2.5 MG TAB (ELIQUIS) PO SCH ×2 (09:52→21:13)
[2020-12-18] MEDS: OMEPRAZOLE 20 MG CAP PO SCH (09:52)
[2020-12-18] MEDS: VITAMIN D 1,000 INTERNATIONAL UNITS TABLET PO SCH (21:12)
[2020-12-18] MEDS: GABAPENTIN 300 MG CAP PO SCH (21:12)
[2020-12-18] MEDS: CALCITRIOL 0.25 MCG CAP (S0169) PO SCH (21:12)
[2020-12-18] MEDS: atenoloL 50 MG TAB PO SCH (21:13)
[2020-12-18] MEDS: PRAZOSIN 1 MG CAP PO SCH (21:19)
[2020-12-18] MEDS ORDERED: DARBEPOETIN 100 MCG/0.5 ML *DIALYSIS* SYRINGE (J0882) IV SCH (22:20)
[2020-12-19] VITALS (8 sets, daily range): BP systolic 88–149; BP diastolic 56–89
[2020-12-19] MEDS: LEVOTHYROXINE 25MCG TABLET (0.025MG) PO SCH (05:45)
[2020-12-19] MEDS: LEVOTHYROXINE 150MCG TABLET (0.15MG) PO SCH (05:45)
[2020-12-19 06:47] LABS: HEMATOCRIT 31.1 % (42.0-52.0); HEMOGLOBIN 9.7 g/dl (13.5-17.5); MEAN CORPUSCULAR HEMOGLOBIN 30.9 pg (27.0-33.0); MEAN CORPUSCULAR HGB CONC 31.2 g/dl (32.0-36.5); PLATELET COUNT, AUTOMATED 219 10^3/uL (150-450); RED BLOOD COUNT 3.14 10^6/uL (4.30-6.10); WHITE BLOOD COUNT 8.3 10^3/uL (4.0-10.0)
[2020-12-19 07:01] LABS: CALCIUM LEVEL 8.6 MG/DL (8.8-10.2); CREATININE FOR GFR 3.28 MG/DL (0.70-1.30); GLOMERULAR FILTRATION RATE 19.8 (>42); MAGNESIUM LEVEL 2.2 MG/DL (1.8-2.4); POTASSIUM SERUM 3.7 MEQ/L (3.5-5.1)
[2020-12-19] MEDS: SODIUM CHLORIDE 0.9% INJ 10 ML SYR IV SCH ×3 (08:06→20:44)
[2020-12-19] MEDS: IRON POLYSAC (NIFEREX) 150 MG CAP PO SCH ×2 (08:06→20:42)
[2020-12-19] MEDS: LACTOBACILLUS ACIDOPHILUS CAP (BACID) PO SCH (08:06)
[2020-12-19] MEDS: MULTIVITAMINS/MINERALS THERAP 1 TAB PO SCH (08:07)
[2020-12-19] MEDS: oxyCODONE 5MG TAB PO SCH ×3 (08:07→20:42)
[2020-12-19] MEDS: AMIODARONE 200 MG TAB (PACERONE) PO SCH (08:08)
[2020-12-19] MEDS: OMEPRAZOLE 20 MG CAP PO SCH (08:08)
[2020-12-19] MEDS: APIXABAN 2.5 MG TAB (ELIQUIS) PO SCH ×2 (08:08→20:41)
[2020-12-19] MEDS: DOCUSATE SODIUM 100MG CAPSULE PO SCH ×2 (08:08→20:44)
[2020-12-19] MEDS: VANICREAM MOISTURIZING SKIN CREAM 113GM TUBE TOP SCH (08:08)
[2020-12-19] MEDS: SERTRALINE HCL 50 MG TAB PO SCH (08:08)
--- NOTE | 2020-12-19 14:05 | IPNPDOC ---
Text Note Date of Service The patient was seen on 12/19/20. NOTE Hospitalist Progress Note Subjective: Patient is sitting upright in the chair when I entered the room. He is in good spirits again today. He is once again asking about when he might be able to go home. It appears that he does have a tentative dialysis seat on 12/20/2020 at 4:50 PM. We will confirm this CT is still available to him upon discharge, and hopefully will anticipate discharge tomorrow morning if he does not have any of this overnight. Remainder of his review of systems is negative. Objective: General: Awake, alert, oriented 3. Not in any acute distress. HEENT: Head normocephalic, atraumatic, sclera are nonicteric. Hearing is grossly intact to conversation. Respiratory: Clear to auscultation bilaterally with no wheezes, rales, or rhonchi. Cardiovascular: Regular rate and rhythm, with no rubs, gallops, or murmur. Abdomen: Soft, nontender, nondistended, no hepatosplenomegaly appreciated. Bowel sounds present. Extremities: Bilateral lower extremities are bandaged, Left elbow has optifoam. Assessment: -Acute oliguric renal failure. Likely secondary to Zosyn. Currently on hemodialysis -Hypotension in the setting of chronic hypertension -Lower extremity leg wounds, colonized with pseudomonas -Left elbow abrasion -Hypokalemia -Normocytic Anemia of chronic disease -Acute decompensation of diastolic congestive heart failure -Atrial fibrillation -GERD -Hypothyroidism -Chronic pain -Depression -Obesity -BMI of 36.4 Plan: -Urine output continues to be insufficient, and it does appear that he will need some ongoing dialysis for the time being. Dialysis catheter has been placed. PFS note indicates that he has a tentative seat for tomorrow afternoon. We will confirm this first thing tomorrow morning. -No events on telemetry, will discontinue at this time and transfer to Med/Surg floor. -He follows data analytics specialist in [place] as an outpatient, and has an appointment next week. -Anticipate discharge tomorrow if no events overnight, and continues to do well. VS,Fishbone, I+O VS, Fishbone, I+O Laboratory Tests 12/19/20 06:13 Vital Signs Date Time Temp Pulse Resp B/P (MAP) Pulse Ox O2 Delivery O2 Flow Rate FiO2 12/19/20 11:47 97.8 95 18 126/70 (88) 98 12/19/20 09:30 Room Air 12/16/20 17:10 2.0 I&O- Last 24 Hours up to 6 AM 12/19/20 06:00 Intake Total 578 ml Output Total 450 ml Balance 128 ml BECKY CARROLL DO December 19, 2020 14:04
--- NOTE | 2020-12-19 14:48 | IPN ---
PROGRESS NOTE DATE: 12/18/2020 SUBJECTIVE: The patient was seen and examined at the [facility] today morning. He was afebrile and hemodynamically stable. He was dialyzed yesterday. He tolerated peritoneal dialysis procedure well. He denies any active complaints. He remains oliguric. OBJECTIVE: Temperature is 97 degrees Fahrenheit, blood pressure 122/59, pulse is 85, respiratory rate 18, saturating 96% on room air. Intake and output: Urine output is recorded as 305 ml. Ultrafiltration with hemodialysis was 1 liter. Weight in the bed scale is 95.9 kg. PHYSICAL EXAMINATION: General: The patient is awake, alert and oriented x3, lying in bed in no apparent distress. Head and neck examination: Extraocular muscles are intact. Pupils equally round and reactive to light. Mucous membranes are moist. Neck is supple. He has a right IJ tunnel hemodialysis catheter. Cardiovascular: S1, S2, regular rate. 2+ edema of the thighs was noted. Respiratory: Chest is clear to auscultation bilaterally. Bilateral equal air entry. No rales or rhonchi. Abdomen: Soft. Positive bowel sounds. Nontender. No organomegaly. Musculoskeletal: The patient has a dressing in the left leg. INVESTMENT STRATEGIST: No focal deficit. Power is 5/5 in all extremities. LABORATORY REVIEW: Complete blood count (CBC) showed a WBC of 9.5, hemoglobin 9.3, platelets are 156. Basic metabolic panel (BMP) showed sodium 140, potassium 3.4, chloride 108, bicarbonate 27, BUN 16, creatinine is 2.9. CURRENT INPATIENT MEDICATIONS: The patient's medications were all reviewed by myself. No significant change in the medication today as compared with yesterday. ASSESSMENT AND PLAN: 1. Acute renal failure superimposed on chronic kidney disease. The patient is still oliguric. He is dialysis dependent. He was dialyzed yesterday. I will continue to monitor his renal function for any signs of improvement. 2. Anemia and renal failure. Hemoglobin level is 9.3, which is low. I am going to start the patient on Aranesp with dialysis. 3. Hypokalemia. Potassium is low despite dialysis with high potassium dialysis. He will be given a small dose of oral potassium chloride. 4. Hypertension. Blood pressures are soft at this time. He is on atenolol. He is not requiring any other antihypertensive medications.
[2020-12-19] MEDS: GABAPENTIN 300 MG CAP PO SCH (20:41)
[2020-12-19] MEDS: CALCITRIOL 0.25 MCG CAP (S0169) PO SCH (20:41)
[2020-12-19] MEDS: atenoloL 50 MG TAB PO SCH (20:42)
[2020-12-19] MEDS: VITAMIN D 1,000 INTERNATIONAL UNITS TABLET PO SCH (20:43)
[2020-12-19] MEDS: PRAZOSIN 1 MG CAP PO SCH (20:43)
[2020-12-19] MEDS: FUROSEMIDE 40MG/4ML VIAL (J1940) IV ONE ×2 (22:15→23:12)
--- NOTE | 2020-12-19 23:24 | IPN ---
NEPHROLOGY PROGRESS NOTE DATE: 12/19/2020 SUBJECTIVE: The patient was seen and examined at the bedside today morning. The patient has improvement in the urine output. He was dialyzed 2 days ago. Creatinine is still rising after dialysis. Tomorrow is supposed to be the patient's regular day of dialysis. OBJECTIVE: VITAL SIGNS: Temperature is 97.1 degrees Fahrenheit, blood pressure 149/88, pulse is 61, respiratory rate of 16, saturating 98% on room air. INTAKE AND OUTPUT: Urine output recorded as 385 mL yesterday, 475 mL so far today since overnight. Weight in the bed scale is 95.9 kg. PHYSICAL EXAMINATION: GENERAL APPEARANCE: The patient is awake, alert, oriented x3, laying in bed in no apparent distress. HEAD AND NECK: Extraocular muscles intact. Pupils are equally round and reactive to light. Mucous membranes are moist. Neck is supple. He has a tunneled hemodialysis catheter. CARDIOVASCULAR: S1, S2, regular rate. EXTREMITIES: No edema of the bilateral lower extremities. RESPIRATORY: Chest is clear to auscultation bilaterally. Bilaterally currently no rales or rhonchi. ABDOMEN: Soft, positive bowel sounds, nontender, no organomegaly. MUSCULOSKELETAL: Trace to 1+ edema was noted in the shins and he has a dressing on the left leg. INTERNAL CORROSION SPECIALIST: No focal deficits. Power is 5/5 in all extremities. LAB REVIEW: CBC showed a WBC of 8.3, hemoglobin 9.7, platelet count 219. BMP showed sodium 141, potassium 3.7, chloride 109, bicarbonate 26, BUN 21, creatinine is 3.2. Calcium 8.6. CURRENT INPATIENT MEDICATIONS: The patient's medications were all reviewed by myself. There is no significant change in the medications today as compared with yesterday. ASSESSMENT AND PLAN: 1. Acute oliguric renal function - The patient is still oliguric, however his urine output is slightly better today as compared with yesterday. I would try a small dose of Lasix and if his urine output improves and creatinine plateaus, then I would hold off further dialysis. Continue to monitor for renal recovery. 2. Anemia and renal failure - The patient was getting Aranesp with dialysis. hemoglobin is stable. 3. Hypokalemia potassium level has improved with oral potassium. 4. Hypertension - blood pressure is controlled with Atenolol. Avoid beau or ARB at this time. 5. Disposition pending renal recovery. If I see improvement in the renal function, then we should be able to discharge the patient home without dialysis. Otherwise he would need to continue hemodialysis as an outpatient for acute renal failure until at his renal function recovers.
[2020-12-20 04:22] VITALS: BP 115/59
[2020-12-20] MEDS: LEVOTHYROXINE 25MCG TABLET (0.025MG) PO SCH (06:21)
[2020-12-20] MEDS: LEVOTHYROXINE 150MCG TABLET (0.15MG) PO SCH (06:21)
[2020-12-20] MEDS: SODIUM CHLORIDE 0.9% INJ 10 ML SYR IV SCH (06:22)
[2020-12-20 08:00] VITALS: BP 124/64
[2020-12-20 08:34] LABS: HEMATOCRIT 32.6 % (42.0-52.0); HEMOGLOBIN 10.1 g/dl (13.5-17.5); MEAN CORPUSCULAR HEMOGLOBIN 31.1 pg (27.0-33.0); MEAN CORPUSCULAR VOLUME 100.3 fl (80.0-96.0); PLATELET COUNT, AUTOMATED 237 10^3/uL (150-450); RED BLOOD COUNT 3.25 10^6/uL (4.30-6.10)
[2020-12-20] MEDS: LACTOBACILLUS ACIDOPHILUS CAP (BACID) PO SCH (08:42)
[2020-12-20] MEDS: APIXABAN 2.5 MG TAB (ELIQUIS) PO SCH (08:42)
[2020-12-20] MEDS: AMIODARONE 200 MG TAB (PACERONE) PO SCH (08:42)
[2020-12-20] MEDS: MULTIVITAMINS/MINERALS THERAP 1 TAB PO SCH (08:42)
[2020-12-20] MEDS: SERTRALINE HCL 50 MG TAB PO SCH (08:43)
[2020-12-20] MEDS: OMEPRAZOLE 20 MG CAP PO SCH (08:43)
[2020-12-20] MEDS: VANICREAM MOISTURIZING SKIN CREAM 113GM TUBE TOP SCH (08:44)
[2020-12-20] MEDS: oxyCODONE 5MG TAB PO SCH (08:44)
[2020-12-20] MEDS: DOCUSATE SODIUM 100MG CAPSULE PO SCH (08:45)
[2020-12-20 08:59] LABS: ALBUMIN 2.1 GM/DL (3.2-5.2); CALCIUM LEVEL 9.2 MG/DL (8.8-10.2); CREATININE FOR GFR 3.37 MG/DL (0.70-1.30); GLOMERULAR FILTRATION RATE 19.2 (>42); PHOSPHORUS LEVEL 4.2 MG/DL (2.5-4.9); POTASSIUM SERUM 4.2 MEQ/L (3.5-5.1)
[2020-12-20] MEDS ORDERED: POTASSIUM CHLORIDE 10 MEQ SR TABLET PO SCH (09:00)
[2020-12-20] MEDS ORDERED: GENTAMICIN SULFATE 0.1% OINT 15 GM TOP SCH (09:00)
[2020-12-20] MEDS: IRON POLYSAC (NIFEREX) 150 MG CAP PO SCH (10:02)
[2020-12-20] MEDS ORDERED: FUROSEMIDE 20 MG TAB PO SCH (10:30)
--- NOTE | 2020-12-20 10:38 | ECHO ---
DATE OF PROCEDURE: 12/17/2020 Age: 75 Gender: Male Height: 65 cm Weight: 218 pounds REFERRING PHYSICIAN: Santosh Jerry DO INDICATION: Atrial fibrillation and congestive heart failure. MEASUREMENTS: IVS 0.8 cm LV 5.3 cm LVPW 1.1 cm LA 4.0 cm Aorta 3.5 cm RV 3.0 cm IVC 2.4 cm FINDINGS: This study is of difficult technical quality with limited visualization. Underlying atrial fibrillation with ventricular rate around 100 beats per minute. Left ventricle is normal size. There is probably grossly preserved LV systolic function. Unfortunately based on limitations of the study, I certainly cannot rule out subtle wall motion abnormalities. Right ventricle does not appear grossly enlarged. There is severe biatrial enlargement. Aortic valve was poorly visualized. It is sclerotic and there is some restriction of cusp mobility. There are also degenerative abnormalities of the mitral valve with mitral annular calcifications and thickening of mitral leaflets. Tricuspid valve appears normal. Pulmonic valve was not well seen. No pericardial effusion is noted. Inferior vena cava is dilated and there is no appreciable collapse with inspiration indicative of very high central venous pressure. The aortic root and aortic arch appear normal. Abdominal aorta also appears normal. Doppler interrogation of the aortic valve reveals trivial stenosis (peak gradient 14 mmHg) and mild insufficiency. There is also mild mitral insufficiency and mild mitral stenosis (mean gradient 4 mmHg). Probably moderate tricuspid insufficiency is present. Calculated pulmonary artery pressure is at least 55 or high, which would correspond to moderately severe pulmonary hypertension. Evaluation of diastolic function is inconclusive due to underlying atrial fibrillation. CONCLUSIONS: 1. Study is of fair technical quality with limited visualization. Underlying atrial fibrillation with ventricular rate averaging around 100 BPM. 2. Normal LV size with grossly preserved LV systolic function. 3. Severe biatrial enlargement. 4. Grossly normal RV size based on very poor visualization. 5. Degenerative abnormalities of the aortic valve resulting in mild stenosis and mild insufficiency. 6. Degenerative abnormalities of the mitral valve resulting in mild stenosis and mild insufficiency. 7. Approximately moderate tricuspid insufficiency, moderately severe pulmonary hypertension (estimated pulmonary artery pressure at least 55 mmHg or higher). 8. Very high central venous pressure. 9. Severe biatrial enlargement. MTDD
[2020-12-20] MEDS ORDERED: FURO20TA2 PO (11:02)
[2020-12-20] MEDS ORDERED: KLOR10TA76 PO (11:02)
[2020-12-20] MEDS ORDERED: ATEN25TA PO (11:02)
--- NOTE | 2020-12-20 16:49 | IPN ---
PROGRESS NOTE DATE: 12/20/2020 SUBJECTIVE: Patient was seen and examined at the bedside today morning. He is afebrile, hemodynamically stable. His urine output is slightly improving. His creatinine has plateaued now. Today is supposed to be his regular day of dialysis. He still has an indwelling Nelson catheter. Patient has an outpatient dialysis spot at [facility]. OBJECTIVE: Vital signs: Temperature is 97.3 degrees Fahrenheit, blood pressure 124/64, pulse is 75, respiratory rate of 14, saturating 93% on room air. Intake and output: Urine output recorded is 475 mL yesterday, 435 mL so far today since overnight. Weight in the bed scale was 95.9 kg yesterday. PHYSICAL EXAMINATION: General: Patient is awake, alert, oriented times three, sitting up in the bed, no apparent distress. Head and neck exam: Extraocular muscles intact. Pupils equally round and reactive to light. Mucous membranes are moist. Neck is supple. There is no jugular venous distension (JVD). Cardiovascular: S1, S2, regular rate. 2+ edema of the bilateral lower extremities. Respiratory: Chest is clear to auscultation bilaterally, bilateral equal air entry, no rales or rhonchi. Abdomen: Soft, positive bowel sounds, nontender, no organomegaly. Musculoskeletal: 2+ edema of bilateral lower extremities. Dressing on the left leg is noted. Central nervous system (CHIEF PHYSICAL THERAPIST): No focal deficit. Power is 5/5 in all extremities. LABORATORY REVIEW: CBC showed WBC 10, hemoglobin 10.1, platelets are 237. BMP showed sodium 141, potassium 4.2, chloride 109, bicarbonate 25, BUN 25, creatinine is 3.3, it was 3.2 yesterday, calcium 9.2, phosphorous is 4.2, albumin is 2.1. CURRENT INPATIENT MEDICATIONS: Patient's medications were all reviewed by myself. I have started the patient on Lasix 60 mg by mouth daily along with potassium 20 mEq by mouth daily. Atenolol dose has been changed to 25 mg by mouth nightly because of hypotension at night. ASSESSMENT AND PLAN: 1. Acute renal failure. Patient is still oliguric however his creatinine has plateaued. I have started the patient on diuretic. I would hold off on diuretic as outpatient. He will need to followup as outpatient within 1 week. 2. Hypertension. Blood pressure is controlled with atenolol. He actually had soft blood pressures last night, dose has been decreased to 25 mg by mouth daily. 3. Hypokalemia. It is resolved. Patient will get potassium with diuretic. 4. Lower extremity edema. Patient has been started on Lasix 60 mg by mouth daily which was his outpatient dose before coming to the hospital. 5. Anemia in chronic kidney disease. Patient was getting Aranesp with dialysis. Hemoglobin level is stable. 6. Secondary hyperparathyroidism. Continue current dose of calcitriol 0.25 mcg by mouth daily. DISPOSITION: Patient is okay to be discharged from nephrology standpoint. He needs to followup with nephrology within 1 week. Hold dialysis for now until he is seen in the office.
--- NOTE | 2020-12-20 20:27 | DS.PDOC ---
Discharge Summary General Date of Admission December 14, 2020 at 23:50 Date of Discharge 12/20/2020 Discharge Summary PRIMARY CARE PHYSICIAN: Dr. Wilda Johnson DO ATTENDING AT TIME OF DISCHARGE: Dr. Becky Carroll DO DISCHARGE DIAGNOS(E)S: -Acute oliguric renal failure. Likely secondary to Zosyn. Requiring short-term hemodialysis -Hypotension in the setting of chronic hypertension -Lower extremity leg wounds, colonized with pseudomonas -Left elbow abrasion -Hypokalemia -Normocytic Anemia of chronic disease -Acute decompensation of diastolic congestive heart failure -Atrial fibrillation -GERD -Hypothyroidism -Chronic pain -Depression -Obesity -BMI of 36.4 HPI & HOSPITAL COURSE: The patient was recently hospitalized [facility] due to leg wound infection with Pseudomonas and was treated with Zosyn. After discharge he had decreased urine output and had not been feeling well therefore he presented to the emergency department it was found to have significantly elevated BUN and creatinine. He does have known chronic kidney disease, therefore this is acute oliguric kidney injury superimposed on chronic kidney disease. He was admitted for the need of urgent dialysis. First a temporary dialysis catheter was placed, then during this hospitalization he did have a permacath placed by vascular surgery. He did receive dialysis multiple times while inpatient. It appears that for the past couple days his labs have remained reasonably stable between dialysis sessions, therefore nephrology will allow him to be discharged at this time, and will follow-up with him in one week. Our local senior payroll specialist was also consulted during this hospitalization, and their recommendations regarding wound care while inpatient was greatly appreciated. The patient however would prefer to follow-up with his usual senior payroll specialist at the [facility] in [place] upon discharge. PHYSICAL EXAMINATION ON DISCHARGE: GENERAL: Awake, alert, oriented 3. He is in no acute distress at this time. CARDIOVASCULAR EXAMINATION: Regular rate and rhythm, with no rubs, gallops, or murmur. RESPIRATORY EXAMINATION: Clear to auscultation bilaterally with no wheezes, rales, or rhonchi. ABDOMINAL EXAMINATION: Soft, nontender, nondistended. Bowel sounds present. EXTREMITIES: Bandage is in place on the lower extremities, and left elbow has optifoam covering the wound. DISPOSITION: Home DISCHARGE INSTRUCTIONS: With primary care provider within the next 7-14 days. Also recommend he follow up with Dr Mcneal his c application developer within 1 week. Also recommend that he follow- up with his senior payroll specialist in [place] at his previously scheduled appointment next week. Activity as tolerated. Recommend renal diet. If symptoms return, or if you experience worsening of your symptoms, please call your doctor or return to the emergency department. ITEMS THAT NEED OUTPATIENT FOLLOWUP: Dialysis catheter is still in place in the right anterior chest since there is a possibility that he may require ongoing hemodialysis Vital Signs/I&Os Vital Signs Date Time Temp Pulse Resp B/P (MAP) Pulse Ox O2 Delivery O2 Flow Rate FiO2 12/20/20 09:14 20 Room Air 12/20/20 08:00 97.3 75 124/64 (84) 93 12/16/20 17:10 2.0 I&O- Last 24 Hours up to 6 AM 12/20/20 06:00 Intake Total 500 ml Output Total 250 ml Balance 250 ml Laboratory Data Labs 24H Laboratory Tests 2 12/20/20 08:15: Nucleated Red Blood Cells % (auto) 0.0, Anion Gap 7L, Glomerular Filtration Rate 19.2L, Calcium Level 9.2, Phosphorus Level 4.2, Magnesium Level 2.3, Albumin 2.1L CBC/BMP Laboratory Tests 12/20/20 08:15 Microbiology Microbiology 12/15/20 Blood Culture - Final, Complete NO GROWTH AFTER 5 DAYS 12/14/20 Respiratory Virus Panel (PCR) (ATIYA) - Final, Complete Discharge Medications Scheduled Allopurinol (Allopurinol) 100 Mg Tablet, 100 MG PO DAILY, (Reported) Amiodarone HCl (Amiodarone HCl) 200 Mg Tablet, 200 MG PO DAILY, (Reported) Apixaban (Eliquis) 2.5 Mg Tablet, 2.5 MG PO BID, (Reported) Atenolol (Atenolol) 25 Mg Tablet, 25 MG PO QHS Calcitriol (Calcitriol) 0.25 Mcg Capsule, 0.25 MCG PO QHS, (Reported) Cholecalciferol (Vitamin D3) (Vitamin D3) 1,000 Unit Tablet, 2,000 UNITS PO QHS, (Reported) Ferrous Sulfate (Ferrous Sulfate) 325 Mg Tablet, 325 MG PO DAILY, (Reported) Furosemide (Furosemide) 20 Mg Tablet, 60 MG PO DAILY Gabapentin (Gabapentin) 300 Mg Capsule, 300 MG PO QHS, (Reported) Gentamicin Sulfate (Gentamicin Sulfate) 30 Gm Cream..g., 1 DOSE TOP QWEEK, ( Reported) Ketoconazole (Ketoconazole) 15 Gm Cream..g., 1 DOSE EXT DAILY, (Reported) L.acidoph/L.bulg/B.bif/S.therm (Bacid Caplet) 1 Each Tablet, 1 TAB PO DAILY, (Reported) Lanolin Alcohol/Mo/W.pet/[place] (Eucerin Creme) 454 Gm Cream..g., 1 DOSE TOP DAILY, (Reported) Levothyroxine Sodium (Synthroid) 175 Mcg Tablet, 175 MCG PO DAILY, (Reported) Magnesium Chloride (Mag64) 64 Mg Tablet.dr, 64 MG PO DAILY, (Reported) Multivitamins (Thera M Plus Tablet) 1 Tab Tab, 1 TAB PO DAILY, (Reported) TAKES AT NOON Mupirocin (Mupirocin) 2 % Oint...g., 1 DOSE EXT DAILY, (Reported) APPLY TO LEGS Omeprazole (Omeprazole) 20 Mg Capsule.dr, 20 MG PO DAILY, (Reported) Oxycodone HCl (Oxycodone HCl) 10 Mg Tablet, 10 MG PO TID, (Reported) BREAKFAST, DINNER, QHS Potassium Chloride (Klor-Con M10) 10 Meq Tab.er.prt, 20 MEQ PO DAILY Prazosin Hcl (Prazosin HCl) 2 Mg Capsule, 2 MG PO QHS, (Reported) Sertraline Hcl (Zoloft) 100 Mg Tablet, 50 MG PO DAILY, (Reported) Scheduled PRN Acetaminophen (Tylenol Arthritis) 650 Mg Tablet.er, 650 MG PO Q8H PRN for PAIN, (Reported) Diclofenac Sodium (Voltaren) 1 % Gel, 2 GM TOP BID PRN for PAIN, (Reported) APPLY TO KNEES Loperamide HCl (Loperamide) 2 Mg Capsule, 4 MG PO TID PRN for DIARRHEA, (Reported) Nystatin (Nystatin Powder) 15 Gm Powder, 1 DOSE TOP BID PRN for RASH, (Reported) APPLY TO STOMACH FOLDS Sennosides/Docusate Sodium (Senna-S Tablet) 1 Each Tablet, 2 TAB PO DAILY PRN for CONSTIPATION, (Reported) Tramadol HCl (Tramadol HCl) 50 Mg Tablet, 50 MG PO TID PRN for PAIN, (Reported) Allergies Coded Allergies: aspirin (Verified Adverse Reaction, Mild, NAUSEA / VOMITING, 10/18/19) NSAIDS (Non-Steroidal Anti-Inflamma (Verified Adverse Reaction, Unknown, STOMACHE ACHE, 10/18/19) BECKY CARROLL DO December 20, 2020 20:27
[2020-12-20] MEDS ORDERED: atenoloL 25 MG TAB PO SCH (21:00)
== END 2020-12-20 13:33 | disposition home health service (06) | DRG 291 ==
LOC: M ED 19:49 → M ED INP 23:50 → ENRESERV 12-15 02:32 → M PCU 12-15 03:41
PROVIDERS: ADMIT Internal Medicine; ATTEND Neuromusculoskeletal Medicine & OMM
PROC: 02HV33Z Insertion of Infusion Device into Superior Vena Cava, Percutaneous Approach (ICD-10-PCS; 2020-12-15)
PROC: 02HV33Z Insertion of Infusion Device into Superior Vena Cava, Percutaneous Approach (ICD-10-PCS; 2020-12-16)
PROC: 0JH63XZ Insertion of Tunneled Vascular Access Device into Chest Subcutaneous Tissue and Fascia, Percutaneous Approach (ICD-10-PCS; principal; 2020-12-16 16:30)
PROC: 5A1D70Z Performance of Urinary Filtration, Intermittent, Less than 6 Hours Per Day (ICD-10-PCS; 2020-12-17)
DX: I13.0 Hypertensive heart and chronic kidney disease with heart failure and stage 1 through stage 4 chronic kidney disease, or unspecified chronic kidney disease (principal); I50.33 Acute on chronic diastolic (congestive) heart failure; N17.9 Acute kidney failure, unspecified; L03.115 Cellulitis of right lower limb; L03.116 Cellulitis of left lower limb; Z68.36 Body mass index [BMI] 36.0-36.9, adult; E66.9 Obesity, unspecified; E87.6 Hypokalemia; F32.9 Major depressive disorder, single episode, unspecified; K21.9 Gastro-esophageal reflux disease without esophagitis; I48.91 Unspecified atrial fibrillation; D63.8 Anemia in other chronic diseases classified elsewhere; I95.9 Hypotension, unspecified; Z79.899 Other long term (current) drug therapy; Z88.6 Allergy status to analgesic agent; G47.33 Obstructive sleep apnea (adult) (pediatric); N18.30 Chronic kidney disease, stage 3 unspecified; Z86.711 Personal history of pulmonary embolism; Z86.718 Personal history of other venous thrombosis and embolism; Z87.891 Personal history of nicotine dependence; E89.0 Postprocedural hypothyroidism; Z98.84 Bariatric surgery status; I27.20 Pulmonary hypertension, unspecified

== ENCOUNTER → 2021-01-11 | Outpatient (POV) | payer OTHER ==
[~2021-01-11] VITALS: Ht 162.6 cm; Wt 109.1 kg
[~2021-01-11] MED LIST changes: +ACET650T61 PO; +ATEN50TA2 PO; +BACITAB PO; +GENT0.1C2 TOP; +LOPE1CAP5 PO; +PRAZ2CAP PO; +SENN1TAB41 PO; +SYNT175T2 PO; +ZOLO100T PO
[2021-01-11 14:47] VITALS: BP 123/74
--- NOTE | 2021-01-12 13:18 | IRPN ---
[facility] IR Progress Note IR Progress Note DATE: Jan 11, 2021 Patient is referred by the [facility] for right-sided PermCath removal. Patient states he was in the hospital for many weeks and went into renal failure, secondary to antibiotics that he was given. He then underwent right-sided PermCath placement by Dr. Hu at [facility]. He was treated by nephrology associates, he received a few sessions of dialysis and is now told that he requires no further dialysis. He is referred by the [facility] for PermCath removal. On examination: Right-sided PermCath in place with dressings on top. Imaging: I personally reviewed the fluoroscopy image from 12/16/2020. 23 cm right-sided PermCath was placed under fluoroscopy guidance, with the tip in the proximal SVC. Impression: Right-sided PermCath will require removal. Patient will be scheduled for PermCath removal. He will need to stop his Eliquis for 48 hours, if it is authorized by his PCP and/or prescribing provider. We have scheduled the patient for PermCath removal. Thank you for this referral Cc Dr. John Mcneal Allergies Coded Allergies: aspirin (Verified Adverse Reaction, Mild, NAUSEA / VOMITING, 10/18/19) NSAIDS (Non-Steroidal Anti-Inflamma (Verified Adverse Reaction, Unknown, STOMACHE ACHE, 10/18/19) VS,Fishbone, I+O VS, Fishbone, I+O Vital Signs Date Time Temp Pulse Resp B/P (MAP) Pulse Ox O2 Delivery O2 Flow Rate FiO2 01/11/21 14:47 97.5 90 16 123/74 (90) 96 Room Air YESENIA OGDEN MD Jan 12, 2021 13:18
== END ==
LOC: M IRPOV 13:42
PROVIDERS: ATTEND Radiology Diagnostic Radiology
DX: Z45.2 Encounter for adjustment and management of vascular access device (principal); Z79.01 Long term (current) use of anticoagulants

== ENCOUNTER → 2021-01-19 | Outpatient (CLI) | payer OTHER ==
[~2021-01-19] MED LIST changes: +LIDOCAINE 1% MDV 20ML VIAL As Ordered ONE
--- NOTE | 2021-01-19 12:27 | IRPON ---
IR Postoperative Note Date Of Procedure: Jan 19, 2021 Time Of Procedure: 12:27 IR Postoperative Note IR PermCath removal. Clinical indication: Renal failure. Kidney function improved. No further dialysis planned. The PermCath site was prepped and draped in the usual sterile fashion. Lidocaine was used for local anesthesia. The catheter cuff was dissected out of the soft tissues using blunt dissection. The catheter was removed in it's entirety. Patient tolerated the procedure well, hemostasis achieved and a sterile dressing was applied to the site. Blood loss: Less than 5 mL. Complications: None. Impression: Successful removal of PermCath. YESENIA OGDEN MD Jan 19, 2021 12:27
[2021-01-19 12:38] VITALS: BP 134/81
== END ==
LOC: M IRPRO 10:51
PROVIDERS: ATTEND Radiology Diagnostic Radiology
DX: Z45.2 Encounter for adjustment and management of vascular access device (principal); N19 Unspecified kidney failure

== ENCOUNTER → 2021-05-04 | Outpatient (REF) | payer MEDICARE, BC ==
[~2021-05-04] MED LIST changes: -KLOR10TA76 PO; -LIDOCAINE 1% MDV 20ML VIAL As Ordered ONE; +POTA-136 PO
== END ==
LOC: M LAB REF 17:28
PROVIDERS: ATTEND Nurse Practitioner Family
DX: E83.42 Hypomagnesemia (principal)

== ENCOUNTER → 2021-06-20 | Outpatient (REF) | payer MEDICARE, BC ==
[2021-06-20 15:57] LABS: BASO # 0.1 10^3/uL (0.0-0.2); EOS # 0.5 10^3/uL (0.0-0.5); EOS % 5.4 % (0.0-3.0); HEMATOCRIT 33.3 % (42.0-52.0); HEMOGLOBIN 10.1 g/dl (13.5-17.5); LYMPH # 1.3 10^3/uL (1.5-5.0); LYMPH % 12.8 % (24.0-44.0); MEAN CORPUSCULAR HEMOGLOBIN 30.6 pg (27.0-33.0); MEAN CORPUSCULAR HGB CONC 30.3 g/dl (32.0-36.5); MEAN CORPUSCULAR VOLUME 100.9 fl (80.0-96.0); MONO % 9.9 % (2.0-8.0); NEUTROPHILS % 70.6 % (36.0-66.0); PLATELET COUNT, AUTOMATED 285 10^3/uL (150-450); WHITE BLOOD COUNT 9.9 10^3/uL (4.0-10.0)
[2021-06-20 16:18] LABS: ALBUMIN 2.5 GM/DL (3.2-5.2); BILIRUBIN,TOTAL 0.3 MG/DL (0.2-1.0); CALCIUM LEVEL 8.6 MG/DL (8.8-10.2); CREATININE FOR GFR 2.68 MG/DL (0.70-1.30); GLOMERULAR FILTRATION RATE 24.9 (>42); POTASSIUM SERUM 4.2 MEQ/L (3.5-5.1); TOTAL PROTEIN 6.3 GM/DL (6.4-8.2)
== END ==
LOC: M LAB REF 14:35
DX: L03.116 Cellulitis of left lower limb (principal)

== ENCOUNTER → 2021-07-08 | Outpatient (REF) | payer MEDICARE, BC | LOC: M LAB REF 13:06 | PROVIDERS: ATTEND Nurse Practitioner Family | DX: E83.42 Hypomagnesemia (principal) ==

== ENCOUNTER → 2022-02-02 | Outpatient (REF) | payer MEDICARE, BC ==
[~2022-02-02] MED LIST changes: -AMIO200T3 PO; +AMIO200T49 PO; -D31000TA2 PO; -GLUCTAB6 PO; +GLUCTAB7 PO; -LISI-898 PO; +LISI5TAB11 PO; +VITA100093 PO
[2022-02-02 17:51] LABS: PERCENT SATURATION 18.4 % (19.7-50.0)
== END ==
LOC: M LAB REF 16:47
PROVIDERS: ATTEND Nurse Practitioner Family
DX: D50.9 Iron deficiency anemia, unspecified (principal)

== ENCOUNTER 2022-03-09 03:30 | Emergency (ER) | payer MEDICARE, BC ==
[~2022-03-09] VITALS: Ht 162.6 cm; Wt 99.0 kg
[2022-03-09 04:09] LABS: BASO # 0.1 10^3/uL (0.0-0.2); BASO % 1.2 % (0.0-1.0); EOS # 0.6 10^3/uL (0.0-0.5); EOS % 7.1 % (0.0-3.0); HEMATOCRIT 32.8 % (42.0-52.0); LYMPH # 1.6 10^3/uL (1.5-5.0); LYMPH % 18.6 % (24.0-44.0); MEAN CORPUSCULAR HEMOGLOBIN 29.7 pg (27.0-33.0); MEAN CORPUSCULAR HGB CONC 30.5 g/dl (32.0-36.5); MEAN CORPUSCULAR VOLUME 97.3 fl (80.0-96.0); MONO # 1.1 10^3/uL (0.0-0.8); MONO % 13.3 % (2.0-8.0); NEUTROPHILS # 5.1 10^3/uL (1.5-8.5); NEUTROPHILS % 59.4 % (36.0-66.0); PLATELET COUNT, AUTOMATED 255 10^3/uL (150-450); RED BLOOD COUNT 3.37 10^6/uL (4.30-6.10); WHITE BLOOD COUNT 8.5 10^3/uL (4.0-10.0)
[2022-03-09 04:21] LABS: INR 1.18; PROTHROMBIN TIME 15.4 SECONDS (12.7-14.5)
[2022-03-09 04:22] LABS: PARTIAL THROMBOPLASTIN TIME 36.8 SECONDS (25.9-37.0)
[2022-03-09 04:33] LABS: CK-MB VALUE MASS 1.7 NG/ML (<3.6); MB/CK RELATIVE INDEX 5.86 (< OR =4)
[2022-03-09 04:40] LABS: CALCIUM LEVEL 8.4 MG/DL (8.8-10.2); CREATININE FOR GFR 2.04 MG/DL (0.70-1.30); GLOMERULAR FILTRATION RATE 34.2 (>42); POTASSIUM SERUM 4.3 MEQ/L (3.5-5.1); THYROID STIMULATING HORMONE 2.95 uIU/ML (0.358-3.740)
[2022-03-09 06:00] VITALS: BP 143/90
== END 2022-03-09 07:24 | disposition home or self-care (01) ==
LOC: EDBD 03:30 → M ED 03:30
DX: S01.81XA Laceration without foreign body of other part of head, initial encounter (principal); W18.12XA Fall from or off toilet with subsequent striking against object, initial encounter; I48.0 Paroxysmal atrial fibrillation; I10 Essential (primary) hypertension; Z86.79 Personal history of other diseases of the circulatory system; Z79.01 Long term (current) use of anticoagulants; Y92.012 Bathroom of single-family (private) house as the place of occurrence of the external cause; Y93.9 Activity, unspecified; Y99.9 Unspecified external cause status; Z88.6 Allergy status to analgesic agent; Z79.899 Other long term (current) drug therapy; Z79.891 Long term (current) use of opiate analgesic

== ENCOUNTER 2022-05-11 18:49 | Observation (INO) | payer BC, MEDICARE, OTHER ==
[~2022-05-11] VITALS: Ht 167.6 cm; Wt 101.9 kg
[2022-05-11 19:22] LABS: BASO # 0.1 10^3/uL (0.0-0.2); BASO % 0.9 % (0.0-1.0); EOS # 0.3 10^3/uL (0.0-0.5); EOS % 2.9 % (0.0-3.0); HEMATOCRIT 37.5 % (42.0-52.0); HEMOGLOBIN 11.4 g/dl (13.5-17.5); LYMPH # 1.4 10^3/uL (1.5-5.0); LYMPH % 14.9 % (24.0-44.0); MEAN CORPUSCULAR HEMOGLOBIN 30.4 pg (27.0-33.0); MEAN CORPUSCULAR HGB CONC 30.4 g/dl (32.0-36.5); MONO # 1.1 10^3/uL (0.0-0.8); MONO % 11.1 % (2.0-8.0); NEUTROPHILS # 6.6 10^3/uL (1.5-8.5); NEUTROPHILS % 69.8 % (36.0-66.0); PLATELET COUNT, AUTOMATED 302 10^3/uL (150-450); RED BLOOD COUNT 3.75 10^6/uL (4.30-6.10); WHITE BLOOD COUNT 9.5 10^3/uL (4.0-10.0)
[2022-05-11 19:44] LABS: INR 1.06; PROTHROMBIN TIME 14.2 SECONDS (12.7-14.5)
[2022-05-11 19:54] LABS: CK-MB VALUE MASS 1.7 NG/ML (<3.6); MB/CK RELATIVE INDEX 7.08 (< OR =4)
[2022-05-11 20:03] LABS: CALCIUM LEVEL 8.5 MG/DL (8.8-10.2); CREATININE FOR GFR 2.12 MG/DL (0.70-1.30); FREE T4 1.51 NG/DL (0.76-1.46); GLOMERULAR FILTRATION RATE 32.7 (>42); POTASSIUM SERUM 4.7 MEQ/L (3.5-5.1); THYROID STIMULATING HORMONE 1.53 uIU/ML (0.358-3.740)
[2022-05-11] MEDS ORDERED: SERTRALINE HCL 50 MG TAB PO SCH (21:00)
[2022-05-11] MEDS ORDERED: atenoloL 25 MG TAB PO SCH (21:00)
[2022-05-11] MEDS ORDERED: PRAZOSIN 1 MG CAP PO SCH (21:00)
[2022-05-11] MEDS ORDERED: oxyCODONE 5MG TAB PO ONE (21:20)
[2022-05-11 21:55] LABS: MAGNESIUM LEVEL 1.9 MG/DL (1.8-2.4)
[2022-05-11 22:14] LABS: CK-MB VALUE MASS 1.6 NG/ML (<3.6); MB/CK RELATIVE INDEX 6.4 (< OR =4)
[2022-05-11 23:41] LABS: RSV AMPLIFICATION NEGATIVE (NEGATIVE)
[2022-05-12] MEDS ORDERED: MAALOX 30 ML SUSP *UDC PO PRN (00:25)
[2022-05-12] MEDS ORDERED: MOM 30ML SUSPENSION UDC PO PRN (00:25)
[2022-05-12] MEDS ORDERED: ACETAMINOPHEN TAB 650MG DOSE (2X325MG) PO PRN (00:25)
[2022-05-12] MEDS ORDERED: FERR32TA PO (03:59)
[2022-05-12] MEDS ORDERED: FLUOCRE EXT (03:59)
[2022-05-12] MEDS ORDERED: REFR0.5D8 OU (03:59)
[2022-05-12] MEDS ORDERED: FURO40TA2 PO (03:59)
[2022-05-12] MEDS ORDERED: ATEN50TA2 PO (03:59)
[2022-05-12] MEDS ORDERED: BACI500O8 TOP (03:59)
[2022-05-12] MEDS ORDERED: DICL1GEL3 TOP (03:59)
[2022-05-12] MEDS ORDERED: LANO454C TOP (03:59)
[2022-05-12] MEDS ORDERED: CHLO120L TOP (03:59)
[2022-05-12] MEDS ORDERED: HOME MED LIST COMPLETE! XX SCH (04:00)
[2022-05-12] MEDS ORDERED: VITA500T41 PO (04:00)
[2022-05-12] MEDS ORDERED: oxyCODONE 5MG TAB PO ONE (04:00)
[2022-05-12] MEDS ORDERED: traMADol 50 MG TAB PO PRN (05:50)
[2022-05-12] MEDS ORDERED: LEVOTHYROXINE 100MCG TABLET (0.1MG) PO SCH (06:00)
[2022-05-12] MEDS ORDERED: LEVOTHYROXINE 75MCG TABLET (0.075MG) PO SCH (06:00)
[2022-05-12] MEDS ORDERED: OMEPRAZOLE 20MG CAP PO SCH (09:00)
[2022-05-12] MEDS ORDERED: DOCUSATE SODIUM 100MG CAPSULE PO SCH (09:00)
[2022-05-12] MEDS ORDERED: FERROUS GLUCONATE 324 MG TAB PO SCH (09:00)
[2022-05-12] MEDS ORDERED: APIXABAN 2.5 MG TAB (ELIQUIS) PO SCH (09:00)
[2022-05-12] MEDS ORDERED: CYANOCOBALAMIN 500 MCG TAB PO SCH (09:00)
[2022-05-12] MEDS ORDERED: allopurinoL 100 MG TAB PO SCH (09:00)
[2022-05-12] MEDS ORDERED: VITAMIN D 1,000 INTERNATIONAL UNITS TABLET PO SCH (09:00)
[2022-05-12] MEDS ORDERED: FUROSEMIDE 40 MG TAB PO SCH (09:00)
[2022-05-12] MEDS: oxyCODONE 5MG TAB PO SCH ×2 (09:54→14:04)
[2022-05-12 17:24] VITALS: BP 150/80
[2022-05-12] MEDS ORDERED: GABAPENTIN 300 MG CAP PO SCH (21:00)
[2022-05-12] MEDS ORDERED: CALCITRIOL 0.25 MCG CAP (S0169) PO SCH (21:00)
[2022-05-12] MEDS ORDERED: AMIODARONE 200 MG TAB (PACERONE) PO SCH (21:00)
== END 2022-05-12 17:28 | disposition home or self-care (01) ==
LOC: M ED 18:49 → EDBD 18:49 → M ED INP 18:50 → UNDOADMOB 23:11 → INTOOBSV 23:11
PROVIDERS: ADMIT Family Medicine; ATTEND Family Medicine
DX: I47.1 Supraventricular tachycardia (principal); N18.30 Chronic kidney disease, stage 3 unspecified; I26.99 Other pulmonary embolism without acute cor pulmonale; I27.24 Chronic thromboembolic pulmonary hypertension; I48.20 Chronic atrial fibrillation, unspecified; G47.33 Obstructive sleep apnea (adult) (pediatric); I50.9 Heart failure, unspecified; F32.A Depression, unspecified; E89.0 Postprocedural hypothyroidism; M81.0 Age-related osteoporosis without current pathological fracture; E66.01 Morbid (severe) obesity due to excess calories; Z98.84 Bariatric surgery status; N40.0 Benign prostatic hyperplasia without lower urinary tract symptoms; F11.10 Opioid abuse, uncomplicated
CPT/HCPCS: 36415; 71045; 80047; 80048; 82550; 82553; 83735; 84439; 84443; 84484; 85025; 85610; 85730; 87040; 87631; 93005; 93041; 94760; 99285; G0378

== ENCOUNTER → 2022-05-17 | Outpatient (REF) | payer BC, MEDICARE, OTHER ==
[~2022-05-17] MED LIST changes: +BACI500O8 TOP; +CHLO120L TOP; +DICL1GEL3 TOP; +FERR32TA PO; +FLUOCRE EXT; +LANO454C TOP; +REFR0.5D8 OU; +VITA500T41 PO
== END ==
LOC: M SFHCDERM 12:31
PROVIDERS: ATTEND Nurse Practitioner Family
DX: C44.619 Basal cell carcinoma of skin of left upper limb, including shoulder (principal); C44.329 Squamous cell carcinoma of skin of other parts of face

== ENCOUNTER 2022-09-05 18:25 | Inpatient (IN) | payer BC, MEDICARE, OTHER ==
[~2022-09-05] VITALS: Ht 165.1 cm; Wt 110.5 kg
[2022-09-05 19:39] LABS: BASO # 0.1 10^3/uL (0.0-0.2); BASO % 0.8 % (0.0-1.0); EOS # 0.2 10^3/uL (0.0-0.5); EOS % 2.2 % (0.0-3.0); HEMATOCRIT 26.2 % (42.0-52.0); HEMOGLOBIN 7.9 g/dl (13.5-17.5); LYMPH # 0.7 10^3/uL (1.5-5.0); LYMPH % 6.8 % (24.0-44.0); MEAN CORPUSCULAR HEMOGLOBIN 31.5 pg (27.0-33.0); MEAN CORPUSCULAR HGB CONC 30.2 g/dl (32.0-36.5); MEAN CORPUSCULAR VOLUME 104.4 fl (80.0-96.0); MONO % 10.3 % (2.0-8.0); NEUTROPHILS # 7.6 10^3/uL (1.5-8.5); NEUTROPHILS % 79.5 % (36.0-66.0); PLATELET COUNT, AUTOMATED 279 10^3/uL (150-450); RED BLOOD COUNT 2.51 10^6/uL (4.30-6.10); WHITE BLOOD COUNT 9.6 10^3/uL (4.0-10.0)
[2022-09-05 20:05] LABS: CK-MB VALUE MASS 1.4 NG/ML (<3.6); INR 1.38; PROTHROMBIN TIME 17.2 SECONDS (12.5-14.5)
[2022-09-05 20:06] LABS: PARTIAL THROMBOPLASTIN TIME 34.6 SECONDS (24.8-34.2)
[2022-09-05 20:08] LABS: ALBUMIN 2.6 G/DL (3.2-5.2); BILIRUBIN,DIRECT 0.5 MG/DL (<0.4); BILIRUBIN,TOTAL 1.3 MG/DL (0.3-1.2); CREATININE FOR GFR 2.18 MG/DL (0.70-1.30); GLOMERULAR FILTRATION RATE 31.6 (>42); POTASSIUM SERUM 5.1 MMOL/L (3.5-5.1); TOTAL PROTEIN 5.8 G/DL (5.7-8.2)
[2022-09-05 20:09] LABS: MB/CK RELATIVE INDEX 1.41 (< OR =4)
[2022-09-05 21:45] LABS: CK-MB VALUE MASS 1.2 NG/ML (<3.6)
[2022-09-05 21:46] LABS: MB/CK RELATIVE INDEX 1.41 (< OR =4)
[2022-09-05 21:57] LABS: RSV AMPLIFICATION NEGATIVE (NEGATIVE)
[2022-09-05] MEDS ORDERED: FUROSEMIDE 40MG/4ML VIAL IV ONE (22:10)
[2022-09-05] MEDS ORDERED: OPER4LIQ EXT (23:24)
[2022-09-05] MEDS ORDERED: DAKI1SOL EXT (23:24)
[2022-09-05] MEDS ORDERED: SENN1TAB41 PO (23:24)
[2022-09-05] MEDS ORDERED: HOME MED LIST COMPLETE! XX SCH (23:25)
[2022-09-06] VITALS (7 sets, daily range): BP systolic 114–168; BP diastolic 59–82
[2022-09-06 01:24] LABS: THYROID STIMULATING HORMONE 4.495 uIU/ML (0.55-4.78)
[2022-09-06] MEDS ORDERED: SENOKOT S TAB PO PRN (05:00)
[2022-09-06] MEDS ORDERED: traMADol 50 MG TAB PO PRN (05:00)
[2022-09-06] MEDS ORDERED: ACETAMINOPHEN 650MG ER TAB (TYLENOL ARTHRITIS) PO PRN (05:00)
[2022-09-06] MEDS ORDERED: ALBUTEROL SULFATE 2.5MG/0.5ML INH NEB SOLN INH PRN (05:10)
[2022-09-06] MEDS: LEVOTHYROXINE 75MCG TABLET (0.075MG) PO SCH (06:00)
[2022-09-06] MEDS ORDERED: DOXYCYCLINE HYCLATE 100 MG in D5W MINI-BAG PLUS 100 ML IV SCH (06:00)
[2022-09-06] MEDS: LEVOTHYROXINE 100MCG TABLET (0.1MG) PO SCH (06:01)
[2022-09-06] MEDS ORDERED: MIRALAX *UNIT DOSE* 17GM PACKET PO PRN (07:15)
[2022-09-06] MEDS: allopurinoL 100 MG TAB PO SCH (07:33)
[2022-09-06] MEDS: OMEPRAZOLE 20MG CAP PO SCH (07:34)
[2022-09-06] MEDS: MOM 30ML SUSPENSION UDC PO SCH ×2 (08:00→09:00)
[2022-09-06] MEDS: IPRATROPIUM 0.5MG/ALBUTEROL 2.5MG INH SOL UD 3ML (DUONEB) INH SCH ×3 (08:39→19:40)
[2022-09-06] MEDS: oxyCODONE 5MG TAB PO SCH ×4 (08:50→21:35)
[2022-09-06] MEDS: SENOKOT S TAB PO SCH ×2 (08:50→21:35)
[2022-09-06] MEDS ORDERED: MOM 30ML SUSPENSION UDC PO PRN (09:01)
[2022-09-06] MEDS ORDERED: FUROSEMIDE 40MG/4ML VIAL IV ONE (10:50)
[2022-09-06] MEDS: FERROUS GLUCONATE 324 MG TAB PO SCH ×2 (11:38→21:36)
[2022-09-06] MEDS: LACTOBACILLUS ACIDOPHILUS CAP (BACID) PO SCH ×2 (12:19→17:27)
[2022-09-06] MEDS: DOXYCYCLINE HYCLATE 100MG TABLET PO SCH ×2 (15:20→21:36)
[2022-09-06] MEDS: cefTRIAXone SOD 1 GM in D5W MINI-BAG PLUS 50 ML IV SCH (15:20)
[2022-09-06] MEDS: AMIODARONE 200 MG TAB (PACERONE) PO SCH (17:27)
[2022-09-06 18:08] LABS: HEMOGLOBIN 9.4 g/dl (13.5-17.5)
[2022-09-06] MEDS ORDERED: GABAPENTIN 300 MG CAP PO SCH (21:00)
[2022-09-06] MEDS ORDERED: atenoloL 25 MG TAB PO SCH (21:00)
[2022-09-06] MEDS ORDERED: CALCITRIOL 0.25 MCG CAP (S0169) PO SCH (21:00)
[2022-09-07] VITALS: BP 150/67
[2022-09-07 00:47] LABS: HEMATOCRIT 27.3 % (42.0-52.0); HEMOGLOBIN 8.6 g/dl (13.5-17.5)
[2022-09-07] MEDS: IPRATROPIUM 0.5MG/ALBUTEROL 2.5MG INH SOL UD 3ML (DUONEB) INH SCH ×2 (00:57→08:17)
[2022-09-07 04:00] VITALS: BP 130/58
[2022-09-07] MEDS: cefTRIAXone SOD 1 GM in D5W MINI-BAG PLUS 50 ML IV SCH (05:00)
[2022-09-07] MEDS ORDERED: LEVOTHYROXINE 100MCG TABLET (0.1MG) As Ordered ONE (05:03)
[2022-09-07] MEDS ORDERED: LEVOTHYROXINE 75MCG TABLET (0.075MG) As Ordered ONE (05:03)
[2022-09-07] MEDS: LEVOTHYROXINE 100MCG TABLET (0.1MG) PO SCH (05:07)
[2022-09-07] MEDS: LEVOTHYROXINE 75MCG TABLET (0.075MG) PO SCH (05:07)
[2022-09-07] MEDS ORDERED: CEFD300C41 PO (05:42)
[2022-09-07] MEDS ORDERED: BACI1CAP PO (05:42)
[2022-09-07] MEDS ORDERED: DOXY-444 PO (05:42)
[2022-09-07 07:15] LABS: BASO # 0.1 10^3/uL (0.0-0.2); BASO % 1.2 % (0.0-1.0); EOS # 0.5 10^3/uL (0.0-0.5); HEMATOCRIT 24.8 % (42.0-52.0); HEMOGLOBIN 7.8 g/dl (13.5-17.5); LYMPH # 1.1 10^3/uL (1.5-5.0); LYMPH % 12.5 % (24.0-44.0); MEAN CORPUSCULAR HEMOGLOBIN 31.7 pg (27.0-33.0); MEAN CORPUSCULAR HGB CONC 31.5 g/dl (32.0-36.5); MEAN CORPUSCULAR VOLUME 100.8 fl (80.0-96.0); MONO # 1.1 10^3/uL (0.0-0.8); MONO % 13.2 % (2.0-8.0); NEUTROPHILS # 5.6 10^3/uL (1.5-8.5); NEUTROPHILS % 66.7 % (36.0-66.0); PLATELET COUNT, AUTOMATED 236 10^3/uL (150-450); RED BLOOD COUNT 2.46 10^6/uL (4.30-6.10); WHITE BLOOD COUNT 8.5 10^3/uL (4.0-10.0)
[2022-09-07 07:42] LABS: CALCIUM LEVEL 7.5 MG/DL (8.3-10.6); CREATININE FOR GFR 2.07 MG/DL (0.70-1.30); GLOMERULAR FILTRATION RATE 33.5 (>42); POTASSIUM SERUM 3.8 MMOL/L (3.5-5.1)
[2022-09-07 08:00] VITALS: BP 137/63
[2022-09-07] MEDS: LACTOBACILLUS ACIDOPHILUS CAP (BACID) PO SCH (08:27)
[2022-09-07] MEDS: oxyCODONE 5MG TAB PO SCH ×3 (08:30→16:26)
[2022-09-07] MEDS: allopurinoL 100 MG TAB PO SCH (08:30)
[2022-09-07] MEDS: DOXYCYCLINE HYCLATE 100MG TABLET PO SCH (08:30)
[2022-09-07] MEDS: OMEPRAZOLE 20MG CAP PO SCH (08:30)
[2022-09-07] MEDS: SENOKOT S TAB PO SCH (08:31)
[2022-09-07] MEDS: FERROUS GLUCONATE 324 MG TAB PO SCH (08:31)
[2022-09-07] MEDS: DAKIN'S 0.25% HALF-STRENGTH SOLN 480 ML TOP SCH ×2 (09:00→13:39)
[2022-09-07 10:46] LABS: HEMATOCRIT 29.7 % (42.0-52.0); HEMOGLOBIN 9.1 g/dl (13.5-17.5)
[2022-09-07 12:00] VITALS: BP 149/66
[2022-09-07 16:00] VITALS: BP 142/62
[2022-09-07] MEDS: AMIODARONE 200 MG TAB (PACERONE) PO SCH (16:25)
== END 2022-09-07 18:39 | disposition home health service (06) | DRG 604 ==
LOC: M ED 18:25 → EDBD 18:25 → M ED INP 09-06 04:46 → ENRESERV 09-06 14:11 → M PCU 09-06 15:00
PROVIDERS: ADMIT Internal Medicine; ATTEND General Practice
PROC: 30233N1 Transfusion of Nonautologous Red Blood Cells into Peripheral Vein, Percutaneous Approach (ICD-10-PCS; principal; 2022-09-06)
DX: S30.1XXA Contusion of abdominal wall, initial encounter (principal); J18.9 Pneumonia, unspecified organism; D62 Acute posthemorrhagic anemia; I50.32 Chronic diastolic (congestive) heart failure; I13.0 Hypertensive heart and chronic kidney disease with heart failure and stage 1 through stage 4 chronic kidney disease, or unspecified chronic kidney disease; L97.919 Non-pressure chronic ulcer of unspecified part of right lower leg with unspecified severity; L97.929 Non-pressure chronic ulcer of unspecified part of left lower leg with unspecified severity; I48.20 Chronic atrial fibrillation, unspecified; Z66 Do not resuscitate; N18.30 Chronic kidney disease, stage 3 unspecified; D63.1 Anemia in chronic kidney disease; E03.9 Hypothyroidism, unspecified; M10.9 Gout, unspecified; F41.9 Anxiety disorder, unspecified; I27.81 Cor pulmonale (chronic); F17.210 Nicotine dependence, cigarettes, uncomplicated; E05.00 Thyrotoxicosis with diffuse goiter without thyrotoxic crisis or storm; F32.A Depression, unspecified; Z79.01 Long term (current) use of anticoagulants; Z79.890 Hormone replacement therapy; Z79.891 Long term (current) use of opiate analgesic; Z79.899 Other long term (current) drug therapy; Z99.3 Dependence on wheelchair; Z88.6 Allergy status to analgesic agent; Z98.84 Bariatric surgery status

== ENCOUNTER → 2022-11-24 | Outpatient (REF) | payer MEDICARE, BC ==
[~2022-11-24] MED LIST changes: +BACI1CAP PO; +CEFD300C41 PO; +DAKI1SOL EXT; +DOXY-444 PO; +OPER4LIQ EXT
[2022-11-24 18:25] LABS: PERCENT SATURATION 16.8 % (19.7-50.0)
== END ==
LOC: M LAB REF 16:56
PROVIDERS: ATTEND Nurse Practitioner Family
DX: D50.9 Iron deficiency anemia, unspecified (principal)

== ENCOUNTER 2023-01-09 12:15 | Inpatient (IN) | payer MEDICARE, BC ==
[~2023-01-09] VITALS: Ht 165.1 cm; Wt 117.0 kg
[2023-01-09 14:57] VITALS: BP 143/83; TEMP 97.7; O2SAT 98
[2023-01-09 15:33] LABS: BASO % 0.3 % (0.0-1.0); EOS % 0.2 % (0.0-3.0); HEMATOCRIT 29.6 % (42.0-52.0); HEMOGLOBIN 9.1 g/dl (13.5-17.5); LYMPH # 0.7 10^3/uL (1.5-5.0); LYMPH % 4.6 % (24.0-44.0); MEAN CORPUSCULAR HEMOGLOBIN 31.4 pg (27.0-33.0); MEAN CORPUSCULAR HGB CONC 30.7 g/dl (32.0-36.5); MEAN CORPUSCULAR VOLUME 102.1 fl (80.0-96.0); MONO # 1.1 10^3/uL (0.0-0.8); MONO % 7.4 % (2.0-8.0); NEUTROPHILS # 12.7 10^3/uL (1.5-8.5); PLATELET COUNT, AUTOMATED 269 10^3/uL (150-450); WHITE BLOOD COUNT 14.6 10^3/uL (4.0-10.0)
[2023-01-09 15:43] LABS: C REACTIVE PROTEIN QUANTITATIV 6.4 MG/DL (<1.0)
[2023-01-09 15:44] LABS: ALBUMIN 2.4 G/DL (3.2-5.2); BILIRUBIN,TOTAL 0.4 MG/DL (0.3-1.2); CALCIUM LEVEL 8.1 MG/DL (8.3-10.6); CK-MB VALUE MASS 1.7 NG/ML (<3.6); CREATININE FOR GFR 1.67 MG/DL (0.70-1.30); GLOMERULAR FILTRATION RATE 42.9 (>42); MB/CK RELATIVE INDEX 6.07 (< OR =4); POTASSIUM SERUM 4.3 MMOL/L (3.5-5.1); TOTAL PROTEIN 5.7 G/DL (5.7-8.2)
[2023-01-09 15:47] LABS: ERYTHROCYTE SEDIMENTATION RATE 37 mm/hr (0-20)
[2023-01-09] MEDS ORDERED: VANCOMYCIN HCL 750 MG, VIAL MATE ADAPTER 1 EACH in D5W 250 ML IV SCH (16:00)
[2023-01-09] MEDS ORDERED: CEFEPIME HCL 2 GM in D5W MINI-BAG PLUS 50 ML IV SCH (16:00)
[2023-01-09] MEDS ORDERED: MAGN400T2 PO (18:14)
[2023-01-09] MEDS ORDERED: BACI500O59 TOP (18:17)
[2023-01-09] MEDS ORDERED: ACETIC ACID TOP (18:17)
[2023-01-09] MEDS ORDERED: ELIQ2.5T PO (18:17)
[2023-01-09] MEDS ORDERED: NARC1SPR (18:18)
[2023-01-09] MEDS ORDERED: CALC500T61 PO (18:18)
[2023-01-09] MEDS ORDERED: TUMS500C PO (18:24)
[2023-01-09] MEDS ORDERED: HOME MED LIST COMPLETE! XX SCH (18:25)
[2023-01-09] MEDS ORDERED: SENOKOT S TAB PO PRN (18:30)
[2023-01-09] MEDS: CEFEPIME HCL 1 GM in D5W MINI-BAG PLUS 50 ML IV SCH (18:40)
[2023-01-09 20:00] VITALS: BP 148/97; TEMP 97.8; O2SAT 94
[2023-01-09] MEDS ORDERED: VANCOMYCIN HCL 1,000 MG, VIAL MATE ADAPTER 1 EACH in D5W 250 ML IV ONE ×2 (20:00→21:00)
[2023-01-09] MEDS: CALCITRIOL 0.25 MCG CAP (S0169) PO SCH (20:26)
[2023-01-09] MEDS: GABAPENTIN 300 MG CAP PO SCH (20:26)
[2023-01-09] MEDS: AMIODARONE 200 MG TAB (PACERONE) PO SCH (20:26)
[2023-01-09] MEDS: FERROUS GLUCONATE 324 MG TAB PO SCH (20:26)
[2023-01-09] MEDS: SERTRALINE 100 MG TAB PO SCH (20:26)
[2023-01-09] MEDS: FUROSEMIDE 40MG/4ML VIAL IV SCH (20:26)
[2023-01-09] MEDS: MAGNESIUM OXIDE 400MG TAB (MAG-OX) PO SCH (20:26)
[2023-01-09] MEDS: APIXABAN 2.5 MG TAB (ELIQUIS) PO SCH (20:26)
[2023-01-09] MEDS: atenoloL 50 MG TAB PO SCH (20:27)
[2023-01-09] MEDS: oxyCODONE 5MG TAB PO SCH (20:28)
[2023-01-09] MEDS: metroNIDAZOLE (FLAGYL) 500MG TABLET PO SCH (23:06)
[2023-01-09 23:59] VITALS: BP 128/83; TEMP 98; O2SAT 90
[2023-01-10] MEDS: FUROSEMIDE 40MG/4ML VIAL IV SCH ×2 (02:47→08:34)
[2023-01-10 04:00] VITALS: BP 128/72; TEMP 97.8; O2SAT 90
[2023-01-10] MEDS: LEVOTHYROXINE 25MCG TABLET (0.025MG) PO SCH (05:17)
[2023-01-10] MEDS: LEVOTHYROXINE 150MCG TABLET (0.15MG) PO SCH (05:17)
[2023-01-10] MEDS: metroNIDAZOLE (FLAGYL) 500MG TABLET PO SCH ×3 (05:17→21:51)
[2023-01-10] MEDS: CEFEPIME HCL 1 GM in D5W MINI-BAG PLUS 50 ML IV SCH ×2 (05:17→18:26)
[2023-01-10 06:40] LABS: BASO # 0.1 10^3/uL (0.0-0.2); BASO % 0.4 % (0.0-1.0); EOS # 0.1 10^3/uL (0.0-0.5); EOS % 0.9 % (0.0-3.0); HEMOGLOBIN 8.5 g/dl (13.5-17.5); LYMPH # 0.7 10^3/uL (1.5-5.0); LYMPH % 5.6 % (24.0-44.0); MEAN CORPUSCULAR HEMOGLOBIN 31.6 pg (27.0-33.0); MEAN CORPUSCULAR HGB CONC 31.5 g/dl (32.0-36.5); MEAN CORPUSCULAR VOLUME 100.4 fl (80.0-96.0); MONO % 12.5 % (2.0-8.0); NEUTROPHILS # 10.2 10^3/uL (1.5-8.5); NEUTROPHILS % 80.1 % (36.0-66.0); PLATELET COUNT, AUTOMATED 264 10^3/uL (150-450); RED BLOOD COUNT 2.69 10^6/uL (4.30-6.10); WHITE BLOOD COUNT 12.7 10^3/uL (4.0-10.0)
[2023-01-10 07:08] LABS: VANCOMYCIN RANDOM 17.1 UG/ML
[2023-01-10 07:10] LABS: ALBUMIN 2.2 G/DL (3.2-5.2); BILIRUBIN,TOTAL 0.5 MG/DL (0.3-1.2); CALCIUM LEVEL 7.6 MG/DL (8.3-10.6); CREATININE FOR GFR 1.61 MG/DL (0.70-1.30); GLOMERULAR FILTRATION RATE 44.8 (>42); MAGNESIUM LEVEL 1.5 MG/DL (1.8-2.4); PHOSPHORUS LEVEL 3.5 MG/DL (2.4-5.1); POTASSIUM SERUM 4.1 MMOL/L (3.5-5.1); TOTAL PROTEIN 5.2 G/DL (5.7-8.2)
[2023-01-10 07:34] LABS: MONO # 1.6 10^3/uL (0.0-0.8)
[2023-01-10 07:35] VITALS: BP 112/61; TEMP 97.7; O2SAT 91
[2023-01-10] MEDS: OYSTER SHELL CALCIUM 500 MG TAB PO SCH (08:33)
[2023-01-10] MEDS: oxyCODONE 5MG TAB PO SCH ×4 (08:33→21:52)
[2023-01-10] MEDS: OMEPRAZOLE 20MG CAP PO SCH (08:33)
[2023-01-10] MEDS: APIXABAN 2.5 MG TAB (ELIQUIS) PO SCH (08:34)
[2023-01-10] MEDS: MAGNESIUM OXIDE 400MG TAB (MAG-OX) PO SCH ×2 (08:34→21:51)
[2023-01-10] MEDS: FERROUS GLUCONATE 324 MG TAB PO SCH ×2 (08:34→21:51)
[2023-01-10] MEDS: allopurinoL 100 MG TAB PO SCH (08:34)
[2023-01-10] MEDS ORDERED: LIDOCAINE W/EPINEPHRINE 1% 20ML VIAL SC ONE (09:00)
[2023-01-10 09:51] LABS: PERCENT SATURATION 11.3 % (19.7-50.0)
[2023-01-10 09:54] LABS: FERRITIN 75.9 NG/ML (10.5-307.3); FOLATE 11.4 NG/ML (>5.4)
[2023-01-10] MEDS ORDERED: LIDOCAINE 1% MDV 20ML VIAL As Ordered ONE (11:43)
[2023-01-10] MEDS ORDERED: VANCOMYCIN HCL 750 MG, VIAL MATE ADAPTER 1 EACH in D5W 250 ML IV SCH (12:00)
[2023-01-10] MEDS ORDERED: VANCOMYCIN HCL 500 MG in D5W MINI-BAG PLUS 100 ML IV SCH (13:00)
[2023-01-10 13:08] VITALS: BP 109/64; TEMP 98.6; O2SAT 94
[2023-01-10] MEDS ORDERED: FERRIC CARBOXYMALTOSE INJ 750 MG, VIAL MATE ADAPTER 1 EACH in NS 250 ML IV ONE (14:00)
[2023-01-10 16:00] VITALS: BP 102/52; TEMP 97.6; O2SAT 92
[2023-01-10] MEDS: FUROSEMIDE 100MG/10ML VIAL IV SCH ×2 (16:05→21:50)
[2023-01-10] MEDS: AMIODARONE 200 MG TAB (PACERONE) PO SCH (18:31)
[2023-01-10] MEDS: SODIUM CHLORIDE 0.9% INJ 10 ML SYR IV SCH (18:31)
[2023-01-10 19:33] VITALS: BP 104/52; TEMP 98.7; O2SAT 91
[2023-01-10] MEDS: atenoloL 50 MG TAB PO SCH (21:00)
[2023-01-10] MEDS: SODIUM CHLORIDE 0.9% INJ 10 ML SYR IV PRN (21:49)
[2023-01-10] MEDS: CALCITRIOL 0.25 MCG CAP (S0169) PO SCH (21:50)
[2023-01-10] MEDS: GABAPENTIN 300 MG CAP PO SCH (21:51)
[2023-01-10] MEDS: SERTRALINE 100 MG TAB PO SCH (21:51)
[2023-01-11 00:39] VITALS: BP 119/64; TEMP 98.5; O2SAT 92
[2023-01-11] MEDS: FUROSEMIDE 100MG/10ML VIAL IV SCH ×4 (03:16→21:12)
[2023-01-11] MEDS: SODIUM CHLORIDE 0.9% INJ 10 ML SYR IV PRN (03:16)
[2023-01-11 04:34] VITALS: BP 101/92; TEMP 97.9; O2SAT 93
[2023-01-11 05:47] LABS: HEMATOCRIT 26.2 % (42.0-52.0); HEMOGLOBIN 8.3 g/dl (13.5-17.5); MEAN CORPUSCULAR HEMOGLOBIN 31.4 pg (27.0-33.0); MEAN CORPUSCULAR HGB CONC 31.7 g/dl (32.0-36.5); MEAN CORPUSCULAR VOLUME 99.2 fl (80.0-96.0); PLATELET COUNT, AUTOMATED 244 10^3/uL (150-450); RED BLOOD COUNT 2.64 10^6/uL (4.30-6.10); WHITE BLOOD COUNT 16.3 10^3/uL (4.0-10.0)
[2023-01-11] MEDS: metroNIDAZOLE (FLAGYL) 500MG TABLET PO SCH (05:55)
[2023-01-11] MEDS: LEVOTHYROXINE 25MCG TABLET (0.025MG) PO SCH (05:55)
[2023-01-11] MEDS: SODIUM CHLORIDE 0.9% INJ 10 ML SYR IV SCH ×2 (05:55→18:22)
[2023-01-11] MEDS: LEVOTHYROXINE 150MCG TABLET (0.15MG) PO SCH (05:55)
[2023-01-11] MEDS: CEFEPIME HCL 1 GM in D5W MINI-BAG PLUS 50 ML IV SCH ×2 (05:55→18:21)
[2023-01-11 06:28] LABS: CALCIUM LEVEL 7.5 MG/DL (8.3-10.6); CREATININE FOR GFR 1.69 MG/DL (0.70-1.30); GLOMERULAR FILTRATION RATE 42.3 (>42); MAGNESIUM LEVEL 1.5 MG/DL (1.8-2.4); PHOSPHORUS LEVEL 3.5 MG/DL (2.4-5.1); POTASSIUM SERUM 3.1 MMOL/L (3.5-5.1)
[2023-01-11] MEDS: POTASSIUM CHLORIDE 10MEQ SR TABLET PO SCH ×2 (06:47→08:43)
[2023-01-11 07:11] LABS: ERYTHROCYTE SEDIMENTATION RATE 35 mm/hr (0-20)
[2023-01-11 08:26] VITALS: BP 99/57; TEMP 97.4; O2SAT 94
[2023-01-11 08:26] LABS: C REACTIVE PROTEIN QUANTITATIV 10.8 MG/DL (<1.0)
[2023-01-11] MEDS: OYSTER SHELL CALCIUM 500 MG TAB PO SCH (08:42)
[2023-01-11] MEDS: FERROUS GLUCONATE 324 MG TAB PO SCH ×2 (08:43→21:11)
[2023-01-11] MEDS: oxyCODONE 5MG TAB PO SCH ×4 (08:43→21:11)
[2023-01-11] MEDS: OMEPRAZOLE 20MG CAP PO SCH (08:43)
[2023-01-11] MEDS: allopurinoL 100 MG TAB PO SCH (08:44)
[2023-01-11] MEDS: MAGNESIUM OXIDE 400MG TAB (MAG-OX) PO SCH ×2 (08:44→21:10)
[2023-01-11] MEDS ORDERED: HEPARIN SOD (PORCINE) 5000UNITS/ML 1ML VIAL/SYRINGE IV PRN (11:30)
[2023-01-11] MEDS ORDERED: HEPARIN SOD (PORCINE) 5000UNITS/ML 1ML VIAL/SYRINGE IV ONE (11:30)
[2023-01-11 11:39] VITALS: BP 105/70; TEMP 97.2; O2SAT 96
[2023-01-11] MEDS ORDERED: HEPARIN DRIP 25,000 UNITS in IV 1 EA IV SCH (11:55)
[2023-01-11 11:56] LABS: FREE T4 1.44 NG/DL (0.89-1.76)
[2023-01-11 11:57] LABS: THYROID STIMULATING HORMONE 1.351 uIU/ML (0.55-4.78)
[2023-01-11] MEDS: AMIODARONE 200 MG TAB (PACERONE) PO SCH (18:21)
[2023-01-11 20:00] VITALS: BP 101/64; TEMP 98.9; O2SAT 96
[2023-01-11 20:23] LABS: INR 1.6; PROTHROMBIN TIME 19.3 SECONDS (12.5-14.5)
[2023-01-11] MEDS: atenoloL 50 MG TAB PO SCH (21:00)
[2023-01-11] MEDS: GABAPENTIN 300 MG CAP PO SCH (21:10)
[2023-01-11] MEDS: CALCITRIOL 0.25 MCG CAP (S0169) PO SCH (21:10)
[2023-01-11] MEDS: SERTRALINE 100 MG TAB PO SCH (21:10)
[2023-01-12] MEDS: traMADol 50 MG TAB PO PRN (00:20)
[2023-01-12] MEDS: FUROSEMIDE 100MG/10ML VIAL IV SCH ×5 (02:07→21:16)
[2023-01-12 04:00] VITALS: BP 107/64; TEMP 98.4; O2SAT 96
[2023-01-12 05:22] LABS: HEMATOCRIT 27.7 % (42.0-52.0); HEMOGLOBIN 8.9 g/dl (13.5-17.5); MEAN CORPUSCULAR HEMOGLOBIN 31.8 pg (27.0-33.0); MEAN CORPUSCULAR HGB CONC 32.1 g/dl (32.0-36.5); MEAN CORPUSCULAR VOLUME 98.9 fl (80.0-96.0); PLATELET COUNT, AUTOMATED 250 10^3/uL (150-450); WHITE BLOOD COUNT 18.1 10^3/uL (4.0-10.0)
[2023-01-12] MEDS: LEVOTHYROXINE 150MCG TABLET (0.15MG) PO SCH (05:40)
[2023-01-12] MEDS: LEVOTHYROXINE 25MCG TABLET (0.025MG) PO SCH (05:40)
[2023-01-12] MEDS: CEFEPIME HCL 1 GM in D5W MINI-BAG PLUS 50 ML IV SCH ×2 (05:40→17:33)
[2023-01-12 06:12] LABS: CALCIUM LEVEL 7.9 MG/DL (8.3-10.6); CREATININE FOR GFR 1.74 MG/DL (0.70-1.30); GLOMERULAR FILTRATION RATE 40.9 (>42); MAGNESIUM LEVEL 1.5 MG/DL (1.8-2.4); POTASSIUM SERUM 3.3 MMOL/L (3.5-5.1)
[2023-01-12] MEDS: SODIUM CHLORIDE 0.9% INJ 10 ML SYR IV SCH ×2 (06:24→18:35)
[2023-01-12 06:27] LABS: VANCOMYCIN RANDOM 16.1 UG/ML
[2023-01-12 07:33] VITALS: BP 96/66; TEMP 98.1; O2SAT 94
[2023-01-12] MEDS: MAG SULF 1GM/100ML (MAG RUN) 1 GM in IV 1 EA IV SCH ×2 (08:00→09:00)
[2023-01-12] MEDS ORDERED: POTASSIUM CHL PWD 20MEQ PACKET PO ONE (09:00)
[2023-01-12] MEDS: allopurinoL 100 MG TAB PO SCH (09:40)
[2023-01-12] MEDS: oxyCODONE 5MG TAB PO SCH ×4 (09:40→21:18)
[2023-01-12] MEDS: OMEPRAZOLE 20MG CAP PO SCH (09:40)
[2023-01-12] MEDS: OYSTER SHELL CALCIUM 500 MG TAB PO SCH (09:40)
[2023-01-12] MEDS: MAGNESIUM OXIDE 400MG TAB (MAG-OX) PO SCH ×2 (09:41→21:17)
[2023-01-12] MEDS: FERROUS GLUCONATE 324 MG TAB PO SCH ×2 (09:41→21:17)
[2023-01-12] MEDS ORDERED: VANCOMYCIN HCL 1,000 MG, VIAL MATE ADAPTER 1 EACH in D5W 250 ML IV SCH (10:00)
[2023-01-12 11:55] VITALS: BP 101/55; TEMP 96.7; O2SAT 96
[2023-01-12] MEDS: POTASSIUM CHLORIDE 10MEQ SR TABLET PO SCH ×2 (15:32→21:17)
[2023-01-12] MEDS: AMIODARONE 200 MG TAB (PACERONE) PO SCH (17:33)
[2023-01-12 20:11] VITALS: BP 107/75; TEMP 97.9; O2SAT 95
[2023-01-12] MEDS: CALCITRIOL 0.25 MCG CAP (S0169) PO SCH (21:16)
[2023-01-12] MEDS: atenoloL 50 MG TAB PO SCH (21:17)
[2023-01-12] MEDS: SERTRALINE 100 MG TAB PO SCH (21:17)
[2023-01-12] MEDS: GABAPENTIN 300 MG CAP PO SCH (21:17)
[2023-01-13] VITALS (7 sets, daily range): BP systolic 91–114; BP diastolic 55–71; TEMP 97.5–99.1; O2SAT 92–94
[2023-01-13] MEDS: FUROSEMIDE 100MG/10ML VIAL IV SCH ×2 (02:00→07:56)
[2023-01-13 05:35] LABS: BASO # 0.1 10^3/uL (0.0-0.2); BASO % 0.4 % (0.0-1.0); EOS # 0.4 10^3/uL (0.0-0.5); EOS % 2.8 % (0.0-3.0); HEMATOCRIT 28.2 % (42.0-52.0); LYMPH % 6.3 % (24.0-44.0); MEAN CORPUSCULAR HEMOGLOBIN 31.9 pg (27.0-33.0); MEAN CORPUSCULAR HGB CONC 31.9 g/dl (32.0-36.5); MONO % 13.5 % (2.0-8.0); NEUTROPHILS # 11.6 10^3/uL (1.5-8.5); NEUTROPHILS % 76.1 % (36.0-66.0); PLATELET COUNT, AUTOMATED 284 10^3/uL (150-450); RED BLOOD COUNT 2.82 10^6/uL (4.30-6.10); WHITE BLOOD COUNT 15.2 10^3/uL (4.0-10.0)
[2023-01-13] MEDS: CEFEPIME HCL 1 GM in D5W MINI-BAG PLUS 50 ML IV SCH ×2 (05:38→17:41)
[2023-01-13] MEDS: LEVOTHYROXINE 25MCG TABLET (0.025MG) PO SCH (05:38)
[2023-01-13] MEDS: LEVOTHYROXINE 150MCG TABLET (0.15MG) PO SCH (05:38)
[2023-01-13 05:42] LABS: MONO # 2.1 10^3/uL (0.0-0.8)
[2023-01-13 05:52] LABS: CALCIUM LEVEL 8.1 MG/DL (8.3-10.6); CREATININE FOR GFR 1.88 MG/DL (0.70-1.30); GLOMERULAR FILTRATION RATE 37.4 (>42); MAGNESIUM LEVEL 1.7 MG/DL (1.8-2.4); POTASSIUM SERUM 3.5 MMOL/L (3.5-5.1)
[2023-01-13] MEDS: SODIUM CHLORIDE 0.9% INJ 10 ML SYR IV SCH ×2 (06:24→17:42)
[2023-01-13] MEDS ORDERED: LIDOCAINE 1% SDV 30ML VIAL As Ordered ONE (07:59)
[2023-01-13] MEDS ORDERED: MIDAZOLAM INJ 2MG/2ML VIAL As Ordered ONE (09:03)
[2023-01-13] MEDS ORDERED: fentaNYL 100 MCG/2 ML INJECTION As Ordered ONE (09:03)
[2023-01-13] MEDS ORDERED: propofoL 200 MG/20 ML VIAL As Ordered ONE (09:03)
[2023-01-13] MEDS ORDERED: KETAMINE HCL 200MG/20ML VIAL As Ordered ONE (09:05)
[2023-01-13] MEDS ORDERED: fentaNYL 100 MCG/2 ML INJECTION IV PRN (09:45)
[2023-01-13] MEDS ORDERED: HYDROMORPHONE HCL 0.5 MG/ 0.5 ML SYRINGE IV PRN (09:45)
[2023-01-13] MEDS ORDERED: ONDANSETRON 4MG 2ML VIAL IV PRN (09:45)
[2023-01-13] MEDS: allopurinoL 100 MG TAB PO SCH (10:21)
[2023-01-13] MEDS: FERROUS GLUCONATE 324 MG TAB PO SCH ×2 (10:21→20:16)
[2023-01-13] MEDS: OMEPRAZOLE 20MG CAP PO SCH (10:21)
[2023-01-13] MEDS: OYSTER SHELL CALCIUM 500 MG TAB PO SCH (10:21)
[2023-01-13] MEDS: MAGNESIUM OXIDE 400MG TAB (MAG-OX) PO SCH ×2 (10:21→20:16)
[2023-01-13] MEDS: MAG SULF 1GM/100ML (MAG RUN) 1 GM in IV 1 EA IV SCH ×2 (10:22→10:23)
[2023-01-13] MEDS: POTASSIUM CHLORIDE 10MEQ SR TABLET PO SCH ×3 (10:22→20:16)
[2023-01-13] MEDS: oxyCODONE 5MG TAB PO SCH ×4 (10:22→20:21)
[2023-01-13] MEDS: AMIODARONE 200 MG TAB (PACERONE) PO SCH (17:42)
[2023-01-13] MEDS: SODIUM CHLORIDE 0.9% INJ 10 ML SYR IV PRN (18:39)
[2023-01-13] MEDS: CALCITRIOL 0.25 MCG CAP (S0169) PO SCH (20:16)
[2023-01-13] MEDS: SERTRALINE 100 MG TAB PO SCH (20:16)
[2023-01-13] MEDS: GABAPENTIN 300 MG CAP PO SCH (20:16)
[2023-01-13] MEDS: atenoloL 50 MG TAB PO SCH (20:21)
[2023-01-14] MEDS: LEVOTHYROXINE 25MCG TABLET (0.025MG) PO SCH (05:23)
[2023-01-14] MEDS: CEFEPIME HCL 1 GM in D5W MINI-BAG PLUS 50 ML IV SCH ×2 (05:23→18:11)
[2023-01-14] MEDS: LEVOTHYROXINE 150MCG TABLET (0.15MG) PO SCH (05:24)
[2023-01-14] MEDS: SODIUM CHLORIDE 0.9% INJ 10 ML SYR IV SCH ×2 (05:49→18:11)
[2023-01-14 05:54] LABS: BASO # 0.1 10^3/uL (0.0-0.2); BASO % 0.4 % (0.0-1.0); EOS # 0.5 10^3/uL (0.0-0.5); EOS % 3.4 % (0.0-3.0); HEMATOCRIT 29.8 % (42.0-52.0); HEMOGLOBIN 9.5 g/dl (13.5-17.5); LYMPH # 1.2 10^3/uL (1.5-5.0); LYMPH % 7.3 % (24.0-44.0); MEAN CORPUSCULAR HEMOGLOBIN 32.2 pg (27.0-33.0); MEAN CORPUSCULAR HGB CONC 31.9 g/dl (32.0-36.5); MONO # 1.8 10^3/uL (0.0-0.8); MONO % 11.3 % (2.0-8.0); NEUTROPHILS # 12.1 10^3/uL (1.5-8.5); NEUTROPHILS % 76.6 % (36.0-66.0); PLATELET COUNT, AUTOMATED 284 10^3/uL (150-450); RED BLOOD COUNT 2.95 10^6/uL (4.30-6.10); WHITE BLOOD COUNT 15.9 10^3/uL (4.0-10.0)
[2023-01-14 06:00] VITALS: BP 104/70; TEMP 98.1; O2SAT 94
[2023-01-14 06:13] LABS: VANCOMYCIN LEVEL TROUGH 15.2 UG/ML (10.0-20.0)
[2023-01-14 06:22] LABS: CALCIUM LEVEL 8.2 MG/DL (8.3-10.6); CREATININE FOR GFR 1.91 MG/DL (0.70-1.30); GLOMERULAR FILTRATION RATE 36.8 (>42); MAGNESIUM LEVEL 2.1 MG/DL (1.8-2.4); PHOSPHORUS LEVEL 2.4 MG/DL (2.4-5.1); POTASSIUM SERUM 4.2 MMOL/L (3.5-5.1)
[2023-01-14] MEDS: POTASSIUM CHLORIDE 10MEQ SR TABLET PO SCH ×3 (09:00→20:14)
[2023-01-14] MEDS: MAGNESIUM OXIDE 400MG TAB (MAG-OX) PO SCH ×2 (09:44→20:15)
[2023-01-14] MEDS: APIXABAN 2.5 MG TAB (ELIQUIS) PO SCH ×2 (09:44→20:14)
[2023-01-14] MEDS: oxyCODONE 5MG TAB PO SCH ×4 (09:44→20:15)
[2023-01-14] MEDS: FERROUS GLUCONATE 324 MG TAB PO SCH ×2 (09:45→20:14)
[2023-01-14] MEDS: OMEPRAZOLE 20MG CAP PO SCH (09:45)
[2023-01-14] MEDS: allopurinoL 100 MG TAB PO SCH (09:46)
[2023-01-14] MEDS: OYSTER SHELL CALCIUM 500 MG TAB PO SCH (09:46)
[2023-01-14] MEDS: FUROSEMIDE 100MG/10ML VIAL IV SCH ×2 (12:25→18:10)
[2023-01-14] MEDS: SODIUM CHLORIDE 0.9% INJ 10 ML SYR IV PRN (12:53)
[2023-01-14] MEDS ORDERED: VANCOMYCIN HCL 1,000 MG, VIAL MATE ADAPTER 1 EACH in D5W 250 ML IV SCH (13:00)
[2023-01-14 14:00] VITALS: BP 102/68; TEMP 98.1; O2SAT 97
[2023-01-14] MEDS ORDERED: VANCOMYCIN HCL 750 MG, VIAL MATE ADAPTER 1 EACH in D5W 250 ML IV SCH (14:00)
[2023-01-14] MEDS: AMIODARONE 200 MG TAB (PACERONE) PO SCH (18:22)
[2023-01-14] MEDS: CALCITRIOL 0.25 MCG CAP (S0169) PO SCH (20:14)
[2023-01-14] MEDS: GABAPENTIN 300 MG CAP PO SCH (20:14)
[2023-01-14] MEDS: SERTRALINE 100 MG TAB PO SCH (20:14)
[2023-01-14] MEDS: atenoloL 50 MG TAB PO SCH (20:15)
[2023-01-14 20:48] VITALS: BP 97/67; TEMP 97.9; O2SAT 98
[2023-01-15] VITALS (8 sets, daily range): BP systolic 74–105; BP diastolic 48–69; TEMP 97.7–98.6; O2SAT 92–98
[2023-01-15] MEDS: FUROSEMIDE 100MG/10ML VIAL IV SCH ×3 (02:30→17:56)
[2023-01-15] MEDS: CEFEPIME HCL 1 GM in D5W MINI-BAG PLUS 50 ML IV SCH (05:30)
[2023-01-15] MEDS: LEVOTHYROXINE 150MCG TABLET (0.15MG) PO SCH (05:31)
[2023-01-15] MEDS: LEVOTHYROXINE 25MCG TABLET (0.025MG) PO SCH (05:31)
[2023-01-15] MEDS: SODIUM CHLORIDE 0.9% INJ 10 ML SYR IV SCH ×2 (06:05→14:17)
[2023-01-15 06:50] LABS: BASO # 0.1 10^3/uL (0.0-0.2); BASO % 0.6 % (0.0-1.0); EOS # 0.7 10^3/uL (0.0-0.5); EOS % 4.8 % (0.0-3.0); HEMATOCRIT 31.6 % (42.0-52.0); HEMOGLOBIN 9.7 g/dl (13.5-17.5); LYMPH # 1.3 10^3/uL (1.5-5.0); LYMPH % 8.5 % (24.0-44.0); MEAN CORPUSCULAR HEMOGLOBIN 31.2 pg (27.0-33.0); MEAN CORPUSCULAR HGB CONC 30.7 g/dl (32.0-36.5); MEAN CORPUSCULAR VOLUME 101.6 fl (80.0-96.0); MONO % 10.8 % (2.0-8.0); NEUTROPHILS # 11.4 10^3/uL (1.5-8.5); NEUTROPHILS % 73.9 % (36.0-66.0); PLATELET COUNT, AUTOMATED 312 10^3/uL (150-450); RED BLOOD COUNT 3.11 10^6/uL (4.30-6.10); WHITE BLOOD COUNT 15.5 10^3/uL (4.0-10.0)
[2023-01-15 07:26] LABS: CALCIUM LEVEL 7.9 MG/DL (8.3-10.6); CREATININE FOR GFR 1.97 MG/DL (0.70-1.30); GLOMERULAR FILTRATION RATE 35.5 (>42); MAGNESIUM LEVEL 2.2 MG/DL (1.8-2.4); PHOSPHORUS LEVEL 2.7 MG/DL (2.4-5.1)
[2023-01-15 07:32] LABS: MONO # 1.7 10^3/uL (0.0-0.8)
[2023-01-15 07:56] LABS: VANCOMYCIN RANDOM 20.4 UG/ML
[2023-01-15] MEDS: OMEPRAZOLE 20MG CAP PO SCH (09:21)
[2023-01-15] MEDS: APIXABAN 2.5 MG TAB (ELIQUIS) PO SCH ×2 (09:22→21:04)
[2023-01-15] MEDS: OYSTER SHELL CALCIUM 500 MG TAB PO SCH (09:22)
[2023-01-15] MEDS: oxyCODONE 5MG TAB PO SCH ×4 (09:22→20:56)
[2023-01-15] MEDS: POTASSIUM CHLORIDE 10MEQ SR TABLET PO SCH ×3 (09:22→21:04)
[2023-01-15] MEDS: FERROUS GLUCONATE 324 MG TAB PO SCH ×2 (09:22→21:04)
[2023-01-15] MEDS: MAGNESIUM OXIDE 400MG TAB (MAG-OX) PO SCH ×2 (09:22→21:04)
[2023-01-15] MEDS: allopurinoL 100 MG TAB PO SCH (09:22)
[2023-01-15 13:37] LABS: C REACTIVE PROTEIN QUANTITATIV 6.5 MG/DL (<1.0)
[2023-01-15] MEDS ORDERED: VANCOMYCIN HCL 750 MG, VIAL MATE ADAPTER 1 EACH in D5W 250 ML IV SCH (14:00)
[2023-01-15 14:20] LABS: ERYTHROCYTE SEDIMENTATION RATE 84 mm/hr (0-20)
[2023-01-15] MEDS: AUGMENTIN 875 MG TAB PO SCH (16:23)
[2023-01-15] MEDS: AMIODARONE 200 MG TAB (PACERONE) PO SCH (18:16)
[2023-01-15] MEDS ORDERED: NS 500 ML IV ONE (19:10)
[2023-01-15] MEDS: atenoloL 50 MG TAB PO SCH (20:55)
[2023-01-15] MEDS ORDERED: MIDODRINE 5 MG TAB PO ONE ×2 (21:00→23:10)
[2023-01-15] MEDS: GABAPENTIN 300 MG CAP PO SCH (21:04)
[2023-01-15] MEDS: SERTRALINE 100 MG TAB PO SCH (21:05)
[2023-01-15] MEDS: SODIUM CHLORIDE 0.9% INJ 10 ML SYR IV PRN (21:05)
[2023-01-15] MEDS: CALCITRIOL 0.25 MCG CAP (S0169) PO SCH (21:05)
[2023-01-15] MEDS ORDERED: ACETAMINOPHEN TAB 650MG DOSE (2X325MG) PO PRN (23:10)
[2023-01-15] MEDS ORDERED: SODIUM CHLORIDE 0.9% 1000ML IV ONE (23:10)
[2023-01-16] VITALS (9 sets, daily range): BP systolic 82–118; BP diastolic 54–90; TEMP 97.9–98.4; O2SAT 91–95
[2023-01-16] MEDS: oxyCODONE 5MG TAB PO SCH ×5 (00:12→23:25)
[2023-01-16] MEDS: SODIUM CHLORIDE 0.9% INJ 10 ML SYR IV PRN ×2 (00:27→06:25)
[2023-01-16] MEDS: FUROSEMIDE 100MG/10ML VIAL IV SCH ×3 (04:00→18:48)
[2023-01-16 04:26] LABS: BASO # 0.1 10^3/uL (0.0-0.2); BASO % 0.7 % (0.0-1.0); EOS # 0.7 10^3/uL (0.0-0.5); EOS % 5.2 % (0.0-3.0); HEMATOCRIT 29.5 % (42.0-52.0); HEMOGLOBIN 9.3 g/dl (13.5-17.5); LYMPH # 1.4 10^3/uL (1.5-5.0); LYMPH % 9.7 % (24.0-44.0); MEAN CORPUSCULAR HEMOGLOBIN 31.6 pg (27.0-33.0); MEAN CORPUSCULAR HGB CONC 31.5 g/dl (32.0-36.5); MEAN CORPUSCULAR VOLUME 100.3 fl (80.0-96.0); NEUTROPHILS # 9.9 10^3/uL (1.5-8.5); NEUTROPHILS % 70.7 % (36.0-66.0); PLATELET COUNT, AUTOMATED 316 10^3/uL (150-450); RED BLOOD COUNT 2.94 10^6/uL (4.30-6.10); WHITE BLOOD COUNT 13.9 10^3/uL (4.0-10.0)
[2023-01-16 04:43] LABS: ALBUMIN 1.8 G/DL (3.2-5.2); BILIRUBIN,TOTAL 0.3 MG/DL (0.3-1.2); CALCIUM LEVEL 7.6 MG/DL (8.3-10.6); CREATININE FOR GFR 2.16 MG/DL (0.70-1.30); GLOMERULAR FILTRATION RATE 31.9 (>42); POTASSIUM SERUM 4.5 MMOL/L (3.5-5.1); TOTAL PROTEIN 4.9 G/DL (5.7-8.2)
[2023-01-16 04:55] LABS: MAGNESIUM LEVEL 2.1 MG/DL (1.8-2.4); PHOSPHORUS LEVEL 3.2 MG/DL (2.4-5.1)
[2023-01-16 05:06] LABS: MONO # 1.7 10^3/uL (0.0-0.8)
[2023-01-16] MEDS: LEVOTHYROXINE 25MCG TABLET (0.025MG) PO SCH (06:23)
[2023-01-16] MEDS: LEVOTHYROXINE 150MCG TABLET (0.15MG) PO SCH (06:23)
[2023-01-16] MEDS: AUGMENTIN 875 MG TAB PO SCH ×2 (06:23→17:17)
[2023-01-16] MEDS: SODIUM CHLORIDE 0.9% INJ 10 ML SYR IV SCH ×2 (06:24→17:24)
[2023-01-16] MEDS ORDERED: MIDODRINE 5 MG TAB PO SCH (08:00)
[2023-01-16] MEDS: OMEPRAZOLE 20MG CAP PO SCH (08:40)
[2023-01-16] MEDS: FERROUS GLUCONATE 324 MG TAB PO SCH ×2 (08:40→23:23)
[2023-01-16] MEDS: OYSTER SHELL CALCIUM 500 MG TAB PO SCH (08:40)
[2023-01-16] MEDS: allopurinoL 100 MG TAB PO SCH (08:40)
[2023-01-16] MEDS: POTASSIUM CHLORIDE 10MEQ SR TABLET PO SCH ×2 (08:40→23:23)
[2023-01-16] MEDS: APIXABAN 2.5 MG TAB (ELIQUIS) PO SCH ×2 (08:40→23:22)
[2023-01-16] MEDS: MAGNESIUM OXIDE 400MG TAB (MAG-OX) PO SCH ×2 (08:40→23:23)
[2023-01-16] MEDS ORDERED: VANCOMYCIN HCL 1,000 MG, VIAL MATE ADAPTER 1 EACH in D5W 250 ML IV SCH (10:00)
[2023-01-16] MEDS: MIDODRINE 5 MG TAB PO SCH ×2 (12:00→17:18)
[2023-01-16] MEDS: AMIODARONE 200 MG TAB (PACERONE) PO SCH (17:17)
[2023-01-16] MEDS: CALCITRIOL 0.25 MCG CAP (S0169) PO SCH (23:23)
[2023-01-16] MEDS: GABAPENTIN 300 MG CAP PO SCH (23:23)
[2023-01-16] MEDS: atenoloL 25 MG TAB PO SCH (23:24)
[2023-01-16] MEDS: SERTRALINE 100 MG TAB PO SCH (23:24)
[2023-01-17 03:30] VITALS: BP 113/70
[2023-01-17] MEDS: FUROSEMIDE 100MG/10ML VIAL IV SCH (03:38)
[2023-01-17] MEDS: SODIUM CHLORIDE 0.9% INJ 10 ML SYR IV PRN ×2 (03:39→04:09)
[2023-01-17] MEDS: SODIUM CHLORIDE 0.9% INJ 10 ML SYR IV SCH ×2 (04:08→17:19)
[2023-01-17 06:00] VITALS: BP 113/69; TEMP 97.7; O2SAT 97
[2023-01-17] MEDS: LEVOTHYROXINE 25MCG TABLET (0.025MG) PO SCH (06:18)
[2023-01-17] MEDS: AUGMENTIN 875 MG TAB PO SCH (06:18)
[2023-01-17] MEDS: LEVOTHYROXINE 150MCG TABLET (0.15MG) PO SCH (06:18)
[2023-01-17] MEDS: traMADol 50 MG TAB PO PRN (06:19)
[2023-01-17 08:13] LABS: HEMATOCRIT 34.2 % (42.0-52.0); HEMOGLOBIN 10.5 g/dl (13.5-17.5); MEAN CORPUSCULAR HEMOGLOBIN 31.1 pg (27.0-33.0); MEAN CORPUSCULAR HGB CONC 30.7 g/dl (32.0-36.5); MEAN CORPUSCULAR VOLUME 101.2 fl (80.0-96.0); PLATELET COUNT, AUTOMATED 384 10^3/uL (150-450); RED BLOOD COUNT 3.38 10^6/uL (4.30-6.10); WHITE BLOOD COUNT 13.6 10^3/uL (4.0-10.0)
[2023-01-17 08:46] LABS: ALBUMIN 2.1 G/DL (3.2-5.2); BILIRUBIN,TOTAL 0.4 MG/DL (0.3-1.2); CALCIUM LEVEL 8.3 MG/DL (8.3-10.6); CREATININE FOR GFR 2.48 MG/DL (0.70-1.30); GLOMERULAR FILTRATION RATE 27.2 (>42); POTASSIUM SERUM 4.6 MMOL/L (3.5-5.1); TOTAL PROTEIN 5.7 G/DL (5.7-8.2)
[2023-01-17] MEDS: FERROUS GLUCONATE 324 MG TAB PO SCH (08:46)
[2023-01-17] MEDS: OYSTER SHELL CALCIUM 500 MG TAB PO SCH (08:46)
[2023-01-17] MEDS: APIXABAN 2.5 MG TAB (ELIQUIS) PO SCH ×2 (08:46→22:23)
[2023-01-17] MEDS: OMEPRAZOLE 20MG CAP PO SCH (08:46)
[2023-01-17] MEDS: MAGNESIUM OXIDE 400MG TAB (MAG-OX) PO SCH ×2 (08:46→22:23)
[2023-01-17] MEDS: allopurinoL 100 MG TAB PO SCH (08:46)
[2023-01-17] MEDS: POTASSIUM CHLORIDE 10MEQ SR TABLET PO SCH (08:46)
[2023-01-17] MEDS: MIDODRINE 5 MG TAB PO SCH ×3 (08:47→17:20)
[2023-01-17] MEDS: oxyCODONE 5MG TAB PO SCH ×4 (08:47→22:24)
[2023-01-17 14:00] VITALS: BP 115/73; TEMP 98.4; O2SAT 94
[2023-01-17] MEDS: AUGMENTIN 500MG TAB PO SCH (17:19)
[2023-01-17] MEDS: AMIODARONE 200 MG TAB (PACERONE) PO SCH (17:20)
[2023-01-17 20:40] VITALS: BP 114/72; TEMP 98.1; O2SAT 97
[2023-01-17] MEDS ORDERED: GABAPENTIN 100 MG CAP PO SCH (21:00)
[2023-01-17] MEDS: SERTRALINE 100 MG TAB PO SCH (22:07)
[2023-01-17 22:12] VITALS: O2SAT 85
[2023-01-17 22:13] VITALS: O2SAT 91
[2023-01-17] MEDS: CALCITRIOL 0.25 MCG CAP (S0169) PO SCH (22:23)
[2023-01-17] MEDS: CEFDINIR 300 MG CAP (OMNICEF) PO SCH (22:23)
[2023-01-17] MEDS: atenoloL 25 MG TAB PO SCH (22:24)
[2023-01-18 05:50] VITALS: BP 120/90; TEMP 97.7; O2SAT 95
[2023-01-18] MEDS: LEVOTHYROXINE 150MCG TABLET (0.15MG) PO SCH (06:16)
[2023-01-18] MEDS: SODIUM CHLORIDE 0.9% INJ 10 ML SYR IV PRN (06:16)
[2023-01-18] MEDS: LEVOTHYROXINE 25MCG TABLET (0.025MG) PO SCH (06:16)
[2023-01-18] MEDS: AUGMENTIN 500MG TAB PO SCH (06:16)
[2023-01-18] MEDS: SODIUM CHLORIDE 0.9% INJ 10 ML SYR IV SCH ×2 (06:16→18:00)
[2023-01-18 07:15] LABS: HEMATOCRIT 34.4 % (42.0-52.0); HEMOGLOBIN 10.6 g/dl (13.5-17.5); MEAN CORPUSCULAR HEMOGLOBIN 31.4 pg (27.0-33.0); MEAN CORPUSCULAR HGB CONC 30.8 g/dl (32.0-36.5); MEAN CORPUSCULAR VOLUME 101.8 fl (80.0-96.0); PLATELET COUNT, AUTOMATED 378 10^3/uL (150-450); RED BLOOD COUNT 3.38 10^6/uL (4.30-6.10); WHITE BLOOD COUNT 11.2 10^3/uL (4.0-10.0)
[2023-01-18 07:41] LABS: ALBUMIN 2.1 G/DL (3.2-5.2); BILIRUBIN,TOTAL 0.5 MG/DL (0.3-1.2); CALCIUM LEVEL 8.3 MG/DL (8.3-10.6); CREATININE FOR GFR 2.67 MG/DL (0.70-1.30); POTASSIUM SERUM 4.9 MMOL/L (3.5-5.1); TOTAL PROTEIN 5.7 G/DL (5.7-8.2)
[2023-01-18] MEDS: OMEPRAZOLE 20MG CAP PO SCH (09:09)
[2023-01-18] MEDS: allopurinoL 100 MG TAB PO SCH (09:09)
[2023-01-18] MEDS: OYSTER SHELL CALCIUM 500 MG TAB PO SCH (09:09)
[2023-01-18] MEDS: CEFDINIR 300 MG CAP (OMNICEF) PO SCH (09:09)
[2023-01-18] MEDS: oxyCODONE 5MG TAB PO SCH ×4 (09:10→20:37)
[2023-01-18] MEDS: MAGNESIUM OXIDE 400MG TAB (MAG-OX) PO SCH ×2 (09:10→20:37)
[2023-01-18] MEDS: APIXABAN 2.5 MG TAB (ELIQUIS) PO SCH ×2 (09:10→20:37)
[2023-01-18] MEDS: MIDODRINE 5 MG TAB PO SCH ×3 (09:10→16:59)
[2023-01-18] MEDS: AMIODARONE 200 MG TAB (PACERONE) PO SCH (17:00)
[2023-01-18] MEDS: SERTRALINE 100 MG TAB PO SCH (20:36)
[2023-01-18] MEDS: atenoloL 25 MG TAB PO SCH (20:36)
[2023-01-18] MEDS: CALCITRIOL 0.25 MCG CAP (S0169) PO SCH (20:37)
[2023-01-18 21:00] VITALS: BP 110/69; TEMP 98.1; O2SAT 94
[2023-01-19] MEDS: SODIUM CHLORIDE 0.9% INJ 10 ML SYR IV SCH ×2 (05:27→17:37)
[2023-01-19] MEDS: LEVOTHYROXINE 150MCG TABLET (0.15MG) PO SCH (05:27)
[2023-01-19] MEDS: LEVOTHYROXINE 25MCG TABLET (0.025MG) PO SCH (05:27)
[2023-01-19 06:00] VITALS: BP 100/51; TEMP 98.1; O2SAT 92
[2023-01-19 06:20] LABS: HEMATOCRIT 34.7 % (42.0-52.0); HEMOGLOBIN 10.4 g/dl (13.5-17.5); MEAN CORPUSCULAR HEMOGLOBIN 30.5 pg (27.0-33.0); MEAN CORPUSCULAR VOLUME 101.8 fl (80.0-96.0); PLATELET COUNT, AUTOMATED 383 10^3/uL (150-450); RED BLOOD COUNT 3.41 10^6/uL (4.30-6.10); WHITE BLOOD COUNT 10.8 10^3/uL (4.0-10.0)
[2023-01-19 06:49] LABS: BILIRUBIN,TOTAL 0.4 MG/DL (0.3-1.2); CALCIUM LEVEL 8.2 MG/DL (8.3-10.6); CREATININE FOR GFR 2.88 MG/DL (0.70-1.30); GLOMERULAR FILTRATION RATE 22.9 (>42); POTASSIUM SERUM 4.7 MMOL/L (3.5-5.1); TOTAL PROTEIN 5.5 G/DL (5.7-8.2)
[2023-01-19] MEDS: OMEPRAZOLE 20MG CAP PO SCH (08:32)
[2023-01-19] MEDS: MAGNESIUM OXIDE 400MG TAB (MAG-OX) PO SCH ×2 (08:33→21:41)
[2023-01-19] MEDS: allopurinoL 100 MG TAB PO SCH (08:33)
[2023-01-19] MEDS: APIXABAN 2.5 MG TAB (ELIQUIS) PO SCH ×2 (08:33→21:41)
[2023-01-19] MEDS: OYSTER SHELL CALCIUM 500 MG TAB PO SCH (08:33)
[2023-01-19] MEDS: oxyCODONE 5MG TAB PO SCH ×4 (08:33→21:43)
[2023-01-19] MEDS: MIDODRINE 5 MG TAB PO SCH ×3 (08:34→17:36)
[2023-01-19] MEDS: CEFDINIR 300 MG CAP (OMNICEF) PO SCH (08:38)
[2023-01-19] MEDS ORDERED: FERRIC CARBOXYMALTOSE INJ 750 MG, VIAL MATE ADAPTER 1 EACH in NS 250 ML IV ONE (09:00)
[2023-01-19 14:00] VITALS: BP 120/87; TEMP 98.4; O2SAT 90
[2023-01-19] MEDS: AMIODARONE 200 MG TAB (PACERONE) PO SCH (17:35)
[2023-01-19] MEDS: CALCITRIOL 0.25 MCG CAP (S0169) PO SCH (21:40)
[2023-01-19] MEDS: SERTRALINE 100 MG TAB PO SCH (21:41)
[2023-01-19] MEDS: atenoloL 25 MG TAB PO SCH (21:43)
[2023-01-20 05:42] VITALS: BP 116/79; TEMP 97.9; O2SAT 94
[2023-01-20] MEDS: SODIUM CHLORIDE 0.9% INJ 10 ML SYR IV SCH ×2 (05:53→17:43)
[2023-01-20] MEDS: LEVOTHYROXINE 25MCG TABLET (0.025MG) PO SCH (05:54)
[2023-01-20] MEDS: LEVOTHYROXINE 150MCG TABLET (0.15MG) PO SCH (05:54)
[2023-01-20 06:18] LABS: HEMATOCRIT 33.3 % (42.0-52.0); HEMOGLOBIN 10.2 g/dl (13.5-17.5); MEAN CORPUSCULAR HEMOGLOBIN 31.5 pg (27.0-33.0); MEAN CORPUSCULAR HGB CONC 30.6 g/dl (32.0-36.5); MEAN CORPUSCULAR VOLUME 102.8 fl (80.0-96.0); PLATELET COUNT, AUTOMATED 353 10^3/uL (150-450); RED BLOOD COUNT 3.24 10^6/uL (4.30-6.10); WHITE BLOOD COUNT 9.4 10^3/uL (4.0-10.0)
[2023-01-20 06:33] LABS: BILIRUBIN,TOTAL 0.4 MG/DL (0.3-1.2); CALCIUM LEVEL 8.3 MG/DL (8.3-10.6); CREATININE FOR GFR 2.64 MG/DL (0.70-1.30); GLOMERULAR FILTRATION RATE 25.3 (>42); POTASSIUM SERUM 4.5 MMOL/L (3.5-5.1); TOTAL PROTEIN 5.3 G/DL (5.7-8.2)
[2023-01-20] MEDS: oxyCODONE 5MG TAB PO SCH ×4 (09:22→21:18)
[2023-01-20] MEDS: OMEPRAZOLE 20MG CAP PO SCH (09:22)
[2023-01-20] MEDS: allopurinoL 100 MG TAB PO SCH (09:22)
[2023-01-20] MEDS: OYSTER SHELL CALCIUM 500 MG TAB PO SCH (09:22)
[2023-01-20] MEDS: CEFDINIR 300 MG CAP (OMNICEF) PO SCH (09:22)
[2023-01-20] MEDS: APIXABAN 2.5 MG TAB (ELIQUIS) PO SCH ×2 (09:22→21:18)
[2023-01-20] MEDS: MAGNESIUM OXIDE 400MG TAB (MAG-OX) PO SCH ×2 (09:23→21:19)
[2023-01-20] MEDS: MIDODRINE 5 MG TAB PO SCH ×3 (09:23→16:40)
[2023-01-20 14:00] VITALS: BP 130/89; TEMP 98.1; O2SAT 94
[2023-01-20] MEDS: AMIODARONE 200 MG TAB (PACERONE) PO SCH (17:43)
[2023-01-20] MEDS: CALCITRIOL 0.25 MCG CAP (S0169) PO SCH (21:19)
[2023-01-20] MEDS: SERTRALINE 100 MG TAB PO SCH (21:19)
[2023-01-20] MEDS: atenoloL 25 MG TAB PO SCH (21:19)
[2023-01-20 22:00] VITALS: O2SAT 94
[2023-01-21] MEDS: SODIUM CHLORIDE 0.9% INJ 10 ML SYR IV SCH ×2 (05:52→17:12)
[2023-01-21] MEDS: LEVOTHYROXINE 150MCG TABLET (0.15MG) PO SCH (05:53)
[2023-01-21] MEDS: LEVOTHYROXINE 25MCG TABLET (0.025MG) PO SCH (05:53)
[2023-01-21 06:00] VITALS: BP_SYST 108; BP_SYST 136; BP_DIAS 60; BP_DIAS 78; TEMP 97.7; TEMP 98.1; O2SAT 90; O2SAT 91
[2023-01-21 06:50] LABS: HEMATOCRIT 34.5 % (42.0-52.0); HEMOGLOBIN 10.4 g/dl (13.5-17.5); MEAN CORPUSCULAR HEMOGLOBIN 31.1 pg (27.0-33.0); MEAN CORPUSCULAR HGB CONC 30.1 g/dl (32.0-36.5); MEAN CORPUSCULAR VOLUME 103.3 fl (80.0-96.0); PLATELET COUNT, AUTOMATED 353 10^3/uL (150-450); RED BLOOD COUNT 3.34 10^6/uL (4.30-6.10)
[2023-01-21 07:15] LABS: ALBUMIN 2.2 G/DL (3.2-5.2); BILIRUBIN,TOTAL 0.4 MG/DL (0.3-1.2); CALCIUM LEVEL 8.8 MG/DL (8.3-10.6); CREATININE FOR GFR 2.47 MG/DL (0.70-1.30); GLOMERULAR FILTRATION RATE 27.3 (>42); POTASSIUM SERUM 4.8 MMOL/L (3.5-5.1); TOTAL PROTEIN 5.6 G/DL (5.7-8.2)
[2023-01-21] MEDS: OYSTER SHELL CALCIUM 500 MG TAB PO SCH (08:42)
[2023-01-21] MEDS: MIDODRINE 5 MG TAB PO SCH ×3 (08:43→17:12)
[2023-01-21] MEDS: MAGNESIUM OXIDE 400MG TAB (MAG-OX) PO SCH ×2 (08:43→20:09)
[2023-01-21] MEDS: APIXABAN 2.5 MG TAB (ELIQUIS) PO SCH ×2 (08:43→20:08)
[2023-01-21] MEDS: OMEPRAZOLE 20MG CAP PO SCH (08:43)
[2023-01-21] MEDS: CEFDINIR 300 MG CAP (OMNICEF) PO SCH (08:43)
[2023-01-21] MEDS: oxyCODONE 5MG TAB PO SCH ×4 (08:44→21:33)
[2023-01-21] MEDS: allopurinoL 100 MG TAB PO SCH (08:50)
[2023-01-21] MEDS ORDERED: diphenhydrAMINE 25MG CAP PO PRN (11:15)
[2023-01-21] MEDS ORDERED: FUROSEMIDE 100MG/10ML VIAL IV ONE (12:00)
[2023-01-21 14:00] VITALS: BP 121/79; TEMP 97.9; O2SAT 97
[2023-01-21] MEDS: AMIODARONE 200 MG TAB (PACERONE) PO SCH (17:11)
[2023-01-21 19:47] VITALS: BP 99/59; TEMP 98.8; O2SAT 94
[2023-01-21 19:56] VITALS: BP 110/80
[2023-01-21] MEDS: SERTRALINE 100 MG TAB PO SCH (20:09)
[2023-01-21] MEDS: atenoloL 25 MG TAB PO SCH (20:09)
[2023-01-21] MEDS: CALCITRIOL 0.25 MCG CAP (S0169) PO SCH (20:09)
[2023-01-22 04:27] VITALS: BP 102/70; TEMP 98.1; O2SAT 92
[2023-01-22] MEDS: LEVOTHYROXINE 150MCG TABLET (0.15MG) PO SCH (05:34)
[2023-01-22] MEDS: LEVOTHYROXINE 25MCG TABLET (0.025MG) PO SCH (05:34)
[2023-01-22] MEDS: SODIUM CHLORIDE 0.9% INJ 10 ML SYR IV SCH ×2 (05:35→16:24)
[2023-01-22 06:08] LABS: HEMATOCRIT 35.2 % (42.0-52.0); HEMOGLOBIN 10.7 g/dl (13.5-17.5); MEAN CORPUSCULAR HEMOGLOBIN 31.2 pg (27.0-33.0); MEAN CORPUSCULAR HGB CONC 30.4 g/dl (32.0-36.5); MEAN CORPUSCULAR VOLUME 102.6 fl (80.0-96.0); PLATELET COUNT, AUTOMATED 343 10^3/uL (150-450); RED BLOOD COUNT 3.43 10^6/uL (4.30-6.10); WHITE BLOOD COUNT 9.3 10^3/uL (4.0-10.0)
[2023-01-22 06:42] LABS: ALBUMIN 2.2 G/DL (3.2-5.2); BILIRUBIN,TOTAL 0.5 MG/DL (0.3-1.2); CALCIUM LEVEL 8.9 MG/DL (8.3-10.6); CREATININE FOR GFR 2.4 MG/DL (0.70-1.30); GLOMERULAR FILTRATION RATE 28.2 (>42); POTASSIUM SERUM 4.6 MMOL/L (3.5-5.1); TOTAL PROTEIN 5.6 G/DL (5.7-8.2)
[2023-01-22] MEDS: CEFDINIR 300 MG CAP (OMNICEF) PO SCH (08:43)
[2023-01-22] MEDS: allopurinoL 100 MG TAB PO SCH (08:44)
[2023-01-22] MEDS: MAGNESIUM OXIDE 400MG TAB (MAG-OX) PO SCH ×2 (08:44→21:25)
[2023-01-22] MEDS: OMEPRAZOLE 20MG CAP PO SCH (08:44)
[2023-01-22] MEDS: APIXABAN 2.5 MG TAB (ELIQUIS) PO SCH ×2 (08:44→21:23)
[2023-01-22] MEDS: OYSTER SHELL CALCIUM 500 MG TAB PO SCH (08:44)
[2023-01-22] MEDS: MIDODRINE 5 MG TAB PO SCH ×3 (08:44→16:22)
[2023-01-22] MEDS: oxyCODONE 5MG TAB PO SCH ×4 (08:44→21:23)
[2023-01-22 12:12] VITALS: BP 114/82
[2023-01-22 14:00] VITALS: BP 94/60; TEMP 97.9; O2SAT 96
[2023-01-22] MEDS: LACTOBACILLUS ACIDOPHILUS CAP (BACID) PO SCH (16:22)
[2023-01-22] MEDS: AMIODARONE 200 MG TAB (PACERONE) PO SCH (16:23)
[2023-01-22 21:00] VITALS: BP 108/66; TEMP 97.9; O2SAT 96
[2023-01-22] MEDS: CALCITRIOL 0.25 MCG CAP (S0169) PO SCH (21:23)
[2023-01-22] MEDS: atenoloL 25 MG TAB PO SCH (21:24)
[2023-01-22] MEDS: SERTRALINE 100 MG TAB PO SCH (21:24)
[2023-01-23 06:02] LABS: HEMATOCRIT 34.4 % (42.0-52.0); HEMOGLOBIN 10.5 g/dl (13.5-17.5); MEAN CORPUSCULAR HEMOGLOBIN 31.3 pg (27.0-33.0); MEAN CORPUSCULAR HGB CONC 30.5 g/dl (32.0-36.5); MEAN CORPUSCULAR VOLUME 102.4 fl (80.0-96.0); PLATELET COUNT, AUTOMATED 313 10^3/uL (150-450); RED BLOOD COUNT 3.36 10^6/uL (4.30-6.10)
[2023-01-23 06:17] VITALS: BP 106/68; TEMP 98.2; O2SAT 95
[2023-01-23] MEDS: LEVOTHYROXINE 150MCG TABLET (0.15MG) PO SCH (06:22)
[2023-01-23] MEDS: LEVOTHYROXINE 25MCG TABLET (0.025MG) PO SCH (06:22)
[2023-01-23] MEDS: SODIUM CHLORIDE 0.9% INJ 10 ML SYR IV SCH ×2 (06:22→17:03)
[2023-01-23 06:37] LABS: ALBUMIN 2.1 G/DL (3.2-5.2); BILIRUBIN,TOTAL 0.5 MG/DL (0.3-1.2); CALCIUM LEVEL 8.6 MG/DL (8.3-10.6); CREATININE FOR GFR 2.28 MG/DL (0.70-1.30); POTASSIUM SERUM 4.5 MMOL/L (3.5-5.1); TOTAL PROTEIN 5.4 G/DL (5.7-8.2)
[2023-01-23] MEDS: LACTOBACILLUS ACIDOPHILUS CAP (BACID) PO SCH ×2 (08:43→17:03)
[2023-01-23] MEDS: OYSTER SHELL CALCIUM 500 MG TAB PO SCH (08:43)
[2023-01-23] MEDS: MIDODRINE 5 MG TAB PO SCH ×3 (08:43→17:04)
[2023-01-23] MEDS: APIXABAN 2.5 MG TAB (ELIQUIS) PO SCH ×2 (08:43→20:47)
[2023-01-23] MEDS: OMEPRAZOLE 20MG CAP PO SCH (08:43)
[2023-01-23] MEDS: MAGNESIUM OXIDE 400MG TAB (MAG-OX) PO SCH ×2 (08:43→20:47)
[2023-01-23] MEDS: oxyCODONE 5MG TAB PO SCH ×4 (08:44→20:47)
[2023-01-23] MEDS: allopurinoL 100 MG TAB PO SCH (08:44)
[2023-01-23] MEDS: CEFDINIR 300 MG CAP (OMNICEF) PO SCH (08:44)
[2023-01-23 08:46] VITALS: BP 98/62
[2023-01-23] MEDS ORDERED: FUROSEMIDE 100MG/10ML VIAL IV ONE (09:00)
[2023-01-23 14:00] VITALS: BP 100/60; TEMP 97.7; O2SAT 97
[2023-01-23] MEDS: AMIODARONE 200 MG TAB (PACERONE) PO SCH (17:04)
[2023-01-23 20:44] VITALS: BP 128/73; TEMP 97.9; O2SAT 96
[2023-01-23 20:46] VITALS: BP 128/73
[2023-01-23] MEDS: CALCITRIOL 0.25 MCG CAP (S0169) PO SCH (20:46)
[2023-01-23] MEDS: atenoloL 25 MG TAB PO SCH (20:46)
[2023-01-23] MEDS: SERTRALINE 100 MG TAB PO SCH (20:47)
[2023-01-24] MEDS: LEVOTHYROXINE 25MCG TABLET (0.025MG) PO SCH (05:54)
[2023-01-24] MEDS: SODIUM CHLORIDE 0.9% INJ 10 ML SYR IV SCH (05:54)
[2023-01-24] MEDS: LEVOTHYROXINE 150MCG TABLET (0.15MG) PO SCH (05:54)
[2023-01-24 05:59] VITALS: BP 127/76; TEMP 99; O2SAT 94
[2023-01-24 06:25] LABS: HEMATOCRIT 35.4 % (42.0-52.0); HEMOGLOBIN 10.7 g/dl (13.5-17.5); MEAN CORPUSCULAR HEMOGLOBIN 31.1 pg (27.0-33.0); MEAN CORPUSCULAR HGB CONC 30.2 g/dl (32.0-36.5); MEAN CORPUSCULAR VOLUME 102.9 fl (80.0-96.0); PLATELET COUNT, AUTOMATED 307 10^3/uL (150-450); RED BLOOD COUNT 3.44 10^6/uL (4.30-6.10); WHITE BLOOD COUNT 8.2 10^3/uL (4.0-10.0)
[2023-01-24 07:11] LABS: ALBUMIN 2.2 G/DL (3.2-5.2); BILIRUBIN,TOTAL 0.5 MG/DL (0.3-1.2); CALCIUM LEVEL 9.6 MG/DL (8.3-10.6); CREATININE FOR GFR 2.34 MG/DL (0.70-1.30); GLOMERULAR FILTRATION RATE 29.1 (>42); POTASSIUM SERUM 4.4 MMOL/L (3.5-5.1); TOTAL PROTEIN 5.5 G/DL (5.7-8.2)
[2023-01-24] MEDS ORDERED: TORSEMIDE 20 MG TAB PO SCH (09:00)
[2023-01-24] MEDS: CEFDINIR 300 MG CAP (OMNICEF) PO SCH (09:15)
[2023-01-24] MEDS: OMEPRAZOLE 20MG CAP PO SCH (09:15)
[2023-01-24] MEDS: LACTOBACILLUS ACIDOPHILUS CAP (BACID) PO SCH (09:15)
[2023-01-24] MEDS: MIDODRINE 5 MG TAB PO SCH ×2 (09:15→12:53)
[2023-01-24] MEDS: OYSTER SHELL CALCIUM 500 MG TAB PO SCH (09:15)
[2023-01-24] MEDS: APIXABAN 2.5 MG TAB (ELIQUIS) PO SCH (09:16)
[2023-01-24] MEDS: oxyCODONE 5MG TAB PO SCH ×2 (09:16→12:53)
[2023-01-24] MEDS: MAGNESIUM OXIDE 400MG TAB (MAG-OX) PO SCH (09:16)
[2023-01-24] MEDS: allopurinoL 100 MG TAB PO SCH (09:16)
[2023-01-24] MEDS ORDERED: MIDO5TA PO (10:02)
[2023-01-24] MEDS ORDERED: ATEN25TA PO (10:02)
[2023-01-24 12:52] VITALS: BP 108/70
[2023-01-24 14:00] VITALS: BP 106/71; TEMP 98.6; O2SAT 96
== END 2023-01-24 14:49 | DRG 264 ==
LOC: M PCU 14:11 → M MSPAV 01-13 18:06
PROVIDERS: ADMIT General Practice; ATTEND Family Medicine
PROC: 0JB70ZZ Excision of Back Subcutaneous Tissue and Fascia, Open Approach (ICD-10-PCS; 2023-01-10)
PROC: 05HB33Z Insertion of Infusion Device into Right Basilic Vein, Percutaneous Approach (ICD-10-PCS; principal; 2023-01-11)
PROC: 0JB70ZZ Excision of Back Subcutaneous Tissue and Fascia, Open Approach (ICD-10-PCS; 2023-01-13)
DX: I13.0 Hypertensive heart and chronic kidney disease with heart failure and stage 1 through stage 4 chronic kidney disease, or unspecified chronic kidney disease (principal); I50.23 Acute on chronic systolic (congestive) heart failure; Z68.41 Body mass index [BMI] 40.0-44.9, adult; E87.3 Alkalosis; E46 Unspecified protein-calorie malnutrition; N18.4 Chronic kidney disease, stage 4 (severe); N17.9 Acute kidney failure, unspecified; I27.81 Cor pulmonale (chronic); F39 Unspecified mood [affective] disorder; E03.9 Hypothyroidism, unspecified; I27.20 Pulmonary hypertension, unspecified; D53.9 Nutritional anemia, unspecified; I08.3 Combined rheumatic disorders of mitral, aortic and tricuspid valves; I48.91 Unspecified atrial fibrillation; M10.9 Gout, unspecified; Z66 Do not resuscitate; Z99.3 Dependence on wheelchair; L89.150 Pressure ulcer of sacral region, unstageable; I50.813 Acute on chronic right heart failure; K21.9 Gastro-esophageal reflux disease without esophagitis; E66.01 Morbid (severe) obesity due to excess calories; G25.3 Myoclonus; Z86.711 Personal history of pulmonary embolism; Z79.899 Other long term (current) drug therapy; Z88.6 Allergy status to analgesic agent

== ENCOUNTER 2023-01-24 13:54 | Inpatient (IN) | payer MEDICARE, BC ==
[~2023-01-24] VITALS: Ht 160 cm; Wt 117.0 kg
[~2023-01-24 13:54] MED LIST changes: +ACETIC ACID TOP; +BACI500O59 TOP; +CALC500T61 PO; +MAGN400T2 PO; +MIDO5TA PO; +NARC1SPR; +TUMS500C PO
[2023-01-24 15:08] VITALS: BP 135/84; TEMP 96.7; O2SAT 98
[2023-01-24] MEDS ORDERED: ACETAMINOPHEN TAB 650MG DOSE (2X325MG) PO PRN (15:45)
[2023-01-24] MEDS ORDERED: BISACODYL 5MG TAB PO PRN (15:45)
[2023-01-24] MEDS: LACTOBACILLUS ACIDOPHILUS CAP (BACID) PO SCH (17:30)
[2023-01-24] MEDS: MIDODRINE 5 MG TAB PO SCH (17:30)
[2023-01-24] MEDS: AMIODARONE 200 MG TAB (PACERONE) PO SCH (17:30)
[2023-01-24] MEDS: TORSEMIDE 10 MG TABLET PO SCH (17:31)
[2023-01-24] MEDS: oxyCODONE 5MG TAB PO SCH ×2 (17:42→21:14)
[2023-01-24 20:46] VITALS: BP 128/70; TEMP 97.6; O2SAT 97
[2023-01-24] MEDS: REMEDY PHYTOPLEX Z-GUARD PASTE 113GM TUBE (FROM STOREROOM PRODUCT) TOP SCH (21:00)
[2023-01-24] MEDS: SENNA 8.6 MG TAB (SENOKOT) PO SCH ×2 (21:00→21:13)
[2023-01-24] MEDS: DOCUSATE SODIUM 100MG CAPSULE PO SCH ×2 (21:00→21:13)
[2023-01-24] MEDS: atenoloL 25 MG TAB PO SCH (21:00)
[2023-01-24] MEDS: SERTRALINE 100 MG TAB PO SCH (21:13)
[2023-01-24] MEDS: CALCITRIOL 0.25 MCG CAP (S0169) PO SCH (21:13)
[2023-01-24] MEDS: APIXABAN 2.5 MG TAB (ELIQUIS) PO SCH (21:13)
[2023-01-24] MEDS: MAGNESIUM OXIDE 400MG TAB (MAG-OX) PO SCH (21:13)
[2023-01-25] MEDS: LEVOTHYROXINE 25MCG TABLET (0.025MG) PO SCH (05:29)
[2023-01-25] MEDS: LEVOTHYROXINE 150MCG TABLET (0.15MG) PO SCH (05:29)
[2023-01-25 06:00] VITALS: BP 121/66; TEMP 97.4; O2SAT 95
[2023-01-25 06:08] LABS: BASO # 0.2 10^3/uL (0.0-0.2); BASO % 1.9 % (0.0-1.0); EOS # 0.4 10^3/uL (0.0-0.5); EOS % 4.9 % (0.0-3.0); HEMATOCRIT 35.2 % (42.0-52.0); HEMOGLOBIN 10.8 g/dl (13.5-17.5); LYMPH # 1.1 10^3/uL (1.5-5.0); LYMPH % 12.6 % (24.0-44.0); MEAN CORPUSCULAR HEMOGLOBIN 31.3 pg (27.0-33.0); MEAN CORPUSCULAR HGB CONC 30.7 g/dl (32.0-36.5); MONO # 1.4 10^3/uL (0.0-0.8); MONO % 15.4 % (2.0-8.0); NEUTROPHILS # 5.8 10^3/uL (1.5-8.5); NEUTROPHILS % 64.8 % (36.0-66.0); PLATELET COUNT, AUTOMATED 308 10^3/uL (150-450); RED BLOOD COUNT 3.45 10^6/uL (4.30-6.10)
[2023-01-25 06:34] LABS: ALBUMIN 2.3 G/DL (3.2-5.2); BILIRUBIN,TOTAL 0.5 MG/DL (0.3-1.2); CALCIUM LEVEL 9.4 MG/DL (8.3-10.6); CREATININE FOR GFR 2.36 MG/DL (0.70-1.30); GLOMERULAR FILTRATION RATE 28.8 (>42); POTASSIUM SERUM 4.3 MMOL/L (3.5-5.1); TOTAL PROTEIN 5.7 G/DL (5.7-8.2)
[2023-01-25] MEDS: MIDODRINE 5 MG TAB PO SCH ×3 (08:00→16:58)
[2023-01-25] MEDS: REMEDY PHYTOPLEX Z-GUARD PASTE 113GM TUBE (FROM STOREROOM PRODUCT) TOP SCH ×3 (09:00→21:00)
[2023-01-25] MEDS: DOCUSATE SODIUM 100MG CAPSULE PO SCH ×2 (09:00→21:50)
[2023-01-25] MEDS: TORSEMIDE 10 MG TABLET PO SCH ×2 (09:07→16:58)
[2023-01-25] MEDS: CALCIUM/VITAMIN D 500 MG TAB PO SCH (09:07)
[2023-01-25] MEDS: allopurinoL 100 MG TAB PO SCH (09:07)
[2023-01-25] MEDS: MAGNESIUM OXIDE 400MG TAB (MAG-OX) PO SCH ×2 (09:07→21:53)
[2023-01-25] MEDS: APIXABAN 2.5 MG TAB (ELIQUIS) PO SCH ×2 (09:08→21:50)
[2023-01-25] MEDS: LACTOBACILLUS ACIDOPHILUS CAP (BACID) PO SCH ×2 (09:08→18:08)
[2023-01-25] MEDS: OMEPRAZOLE 20MG CAP PO SCH (09:08)
[2023-01-25] MEDS: oxyCODONE 5MG TAB PO SCH ×2 (09:08→21:53)
[2023-01-25] MEDS: CEFDINIR 300 MG CAP (OMNICEF) PO SCH (09:08)
[2023-01-25] MEDS ORDERED: NALOXONE INJ 0.4MG/1ML VIAL IV PRN (16:25)
[2023-01-25] MEDS ORDERED: oxyCODONE 5MG TAB PO SCH (16:25)
[2023-01-25] MEDS ORDERED: LIDOCAINE 2% JELLY 6ML SYRINGE TOP PRN (16:35)
[2023-01-25] MEDS: AMIODARONE 200 MG TAB (PACERONE) PO SCH (18:08)
[2023-01-25 20:00] VITALS: BP 109/62; TEMP 97.9; O2SAT 95
[2023-01-25] MEDS: atenoloL 25 MG TAB PO SCH (21:00)
[2023-01-25] MEDS: CALCITRIOL 0.25 MCG CAP (S0169) PO SCH (21:50)
[2023-01-25] MEDS: SENNA 8.6 MG TAB (SENOKOT) PO SCH (21:50)
[2023-01-25] MEDS: ACETAMINOPHEN 500 MG TAB PO SCH (21:54)
[2023-01-25] MEDS: SERTRALINE 100 MG TAB PO SCH (21:54)
[2023-01-26] MEDS: LEVOTHYROXINE 25MCG TABLET (0.025MG) PO SCH (05:50)
[2023-01-26] MEDS: LEVOTHYROXINE 150MCG TABLET (0.15MG) PO SCH (05:50)
[2023-01-26 05:54] LABS: BASO # 0.1 10^3/uL (0.0-0.2); BASO % 1.5 % (0.0-1.0); EOS # 0.3 10^3/uL (0.0-0.5); EOS % 3.8 % (0.0-3.0); HEMATOCRIT 34.7 % (42.0-52.0); HEMOGLOBIN 10.7 g/dl (13.5-17.5); LYMPH % 13.6 % (24.0-44.0); MEAN CORPUSCULAR HEMOGLOBIN 31.5 pg (27.0-33.0); MEAN CORPUSCULAR HGB CONC 30.8 g/dl (32.0-36.5); MEAN CORPUSCULAR VOLUME 102.1 fl (80.0-96.0); MONO # 1.3 10^3/uL (0.0-0.8); MONO % 17.2 % (2.0-8.0); NEUTROPHILS # 4.7 10^3/uL (1.5-8.5); NEUTROPHILS % 63.6 % (36.0-66.0); PLATELET COUNT, AUTOMATED 270 10^3/uL (150-450); WHITE BLOOD COUNT 7.4 10^3/uL (4.0-10.0)
[2023-01-26 06:00] VITALS: BP 98/71; TEMP 97.9; O2SAT 96
[2023-01-26 06:19] LABS: CALCIUM LEVEL 8.4 MG/DL (8.3-10.6); CREATININE FOR GFR 2.45 MG/DL (0.70-1.30); GLOMERULAR FILTRATION RATE 27.6 (>42); POTASSIUM SERUM 4.1 MMOL/L (3.5-5.1)
[2023-01-26] MEDS: LIDOCAINE 5% (LIDODERM) PATCH TD SCH ×2 (08:37→20:38)
[2023-01-26] MEDS: CALCIUM/VITAMIN D 500 MG TAB PO SCH (08:38)
[2023-01-26] MEDS: LACTOBACILLUS ACIDOPHILUS CAP (BACID) PO SCH ×2 (08:38→18:48)
[2023-01-26] MEDS: TORSEMIDE 10 MG TABLET PO SCH ×2 (08:38→16:50)
[2023-01-26] MEDS: MAGNESIUM OXIDE 400MG TAB (MAG-OX) PO SCH ×2 (08:38→20:41)
[2023-01-26] MEDS: allopurinoL 100 MG TAB PO SCH (08:38)
[2023-01-26] MEDS: CEFDINIR 300 MG CAP (OMNICEF) PO SCH (08:38)
[2023-01-26] MEDS: OMEPRAZOLE 20MG CAP PO SCH (08:38)
[2023-01-26] MEDS: APIXABAN 2.5 MG TAB (ELIQUIS) PO SCH ×2 (08:38→20:41)
[2023-01-26] MEDS: MIDODRINE 5 MG TAB PO SCH ×3 (08:38→16:50)
[2023-01-26] MEDS: DOCUSATE SODIUM 100MG CAPSULE PO SCH ×2 (08:42→20:40)
[2023-01-26] MEDS: ACETAMINOPHEN 500 MG TAB PO SCH ×4 (08:42→20:48)
[2023-01-26] MEDS: oxyCODONE 5MG TAB PO SCH ×4 (08:45→20:47)
[2023-01-26] MEDS: LACTIC ACID 12% LOTION 225 GM BTL TOP SCH (11:25)
[2023-01-26] MEDS: REMEDY PHYTOPLEX Z-GUARD PASTE 113GM TUBE (FROM STOREROOM PRODUCT) TOP SCH ×3 (11:26→20:49)
[2023-01-26] MEDS: SANTYL OINT 30GM TOP SCH (11:26)
[2023-01-26 14:00] VITALS: BP 120/60; TEMP 97.9; O2SAT 99
[2023-01-26] MEDS ORDERED: IBUPROFEN 400MG TAB PO ONE (15:45)
[2023-01-26] MEDS ORDERED: GABAPENTIN 100 MG CAP PO ONE (15:50)
[2023-01-26] MEDS ORDERED: oxyCODONE 5MG TAB PO SCH (17:00)
[2023-01-26] MEDS: AMIODARONE 200 MG TAB (PACERONE) PO SCH (18:48)
[2023-01-26 20:00] VITALS: BP 115/70; TEMP 98.3; O2SAT 94
[2023-01-26] MEDS: SERTRALINE 100 MG TAB PO SCH (20:41)
[2023-01-26] MEDS: SENNA 8.6 MG TAB (SENOKOT) PO SCH (20:41)
[2023-01-26] MEDS: CALCITRIOL 0.25 MCG CAP (S0169) PO SCH (20:41)
[2023-01-26] MEDS: atenoloL 25 MG TAB PO SCH (20:43)
[2023-01-27 06:00] VITALS: BP 140/72; TEMP 97.5; O2SAT 93
[2023-01-27] MEDS: LEVOTHYROXINE 150MCG TABLET (0.15MG) PO SCH (06:16)
[2023-01-27] MEDS: LEVOTHYROXINE 25MCG TABLET (0.025MG) PO SCH (06:16)
[2023-01-27] MEDS: allopurinoL 100 MG TAB PO SCH (08:53)
[2023-01-27] MEDS: TORSEMIDE 10 MG TABLET PO SCH ×2 (08:53→16:36)
[2023-01-27] MEDS: CALCIUM/VITAMIN D 500 MG TAB PO SCH (08:53)
[2023-01-27] MEDS: MIDODRINE 5 MG TAB PO SCH ×3 (08:53→16:36)
[2023-01-27] MEDS: APIXABAN 2.5 MG TAB (ELIQUIS) PO SCH ×2 (08:53→20:48)
[2023-01-27] MEDS: OMEPRAZOLE 20MG CAP PO SCH (08:54)
[2023-01-27] MEDS: MAGNESIUM OXIDE 400MG TAB (MAG-OX) PO SCH ×2 (08:54→20:48)
[2023-01-27] MEDS: LACTOBACILLUS ACIDOPHILUS CAP (BACID) PO SCH ×2 (08:54→16:36)
[2023-01-27] MEDS: DOCUSATE SODIUM 100MG CAPSULE PO SCH ×2 (08:54→20:49)
[2023-01-27] MEDS: oxyCODONE 5MG TAB PO SCH ×4 (08:54→20:47)
[2023-01-27] MEDS: CEFDINIR 300 MG CAP (OMNICEF) PO SCH (08:54)
[2023-01-27] MEDS: ACETAMINOPHEN 500 MG TAB PO SCH ×3 (08:54→20:47)
[2023-01-27] MEDS: SANTYL OINT 30GM TOP SCH (08:55)
[2023-01-27] MEDS: REMEDY PHYTOPLEX Z-GUARD PASTE 113GM TUBE (FROM STOREROOM PRODUCT) TOP SCH ×3 (08:56→20:49)
[2023-01-27] MEDS: LACTIC ACID 12% LOTION 225 GM BTL TOP SCH (09:00)
[2023-01-27 14:00] VITALS: BP 103/65; TEMP 97.8; O2SAT 93
[2023-01-27] MEDS: AMIODARONE 200 MG TAB (PACERONE) PO SCH (16:41)
[2023-01-27 20:30] VITALS: BP 126/84; TEMP 98.9; O2SAT 96
[2023-01-27] MEDS: SENNA 8.6 MG TAB (SENOKOT) PO SCH (20:47)
[2023-01-27] MEDS: atenoloL 25 MG TAB PO SCH (20:48)
[2023-01-27] MEDS: SERTRALINE 100 MG TAB PO SCH (20:48)
[2023-01-27] MEDS: CALCITRIOL 0.25 MCG CAP (S0169) PO SCH (20:48)
[2023-01-28 05:29] VITALS: BP 129/71; TEMP 98.2; O2SAT 99
[2023-01-28] MEDS: LEVOTHYROXINE 25MCG TABLET (0.025MG) PO SCH (05:33)
[2023-01-28] MEDS: LEVOTHYROXINE 150MCG TABLET (0.15MG) PO SCH (05:33)
[2023-01-28] MEDS: REMEDY PHYTOPLEX Z-GUARD PASTE 113GM TUBE (FROM STOREROOM PRODUCT) TOP SCH ×3 (09:00→21:00)
[2023-01-28] MEDS: ACETAMINOPHEN 500 MG TAB PO SCH ×3 (09:00→20:59)
[2023-01-28] MEDS: DOCUSATE SODIUM 100MG CAPSULE PO SCH ×2 (09:25→21:00)
[2023-01-28] MEDS: oxyCODONE 5MG TAB PO SCH ×4 (09:25→20:59)
[2023-01-28] MEDS: MIDODRINE 5 MG TAB PO SCH ×3 (09:25→16:27)
[2023-01-28] MEDS: LACTOBACILLUS ACIDOPHILUS CAP (BACID) PO SCH ×2 (09:25→16:26)
[2023-01-28] MEDS: CALCIUM/VITAMIN D 500 MG TAB PO SCH (09:25)
[2023-01-28] MEDS: OMEPRAZOLE 20MG CAP PO SCH (09:25)
[2023-01-28] MEDS: allopurinoL 100 MG TAB PO SCH (09:25)
[2023-01-28] MEDS: TORSEMIDE 10 MG TABLET PO SCH ×2 (09:25→16:26)
[2023-01-28] MEDS: CEFDINIR 300 MG CAP (OMNICEF) PO SCH (09:26)
[2023-01-28] MEDS: MAGNESIUM OXIDE 400MG TAB (MAG-OX) PO SCH ×2 (09:26→21:01)
[2023-01-28] MEDS: SANTYL OINT 30GM TOP SCH (09:26)
[2023-01-28] MEDS: APIXABAN 2.5 MG TAB (ELIQUIS) PO SCH ×2 (09:26→21:00)
[2023-01-28] MEDS: LIDOCAINE 5% (LIDODERM) PATCH TD SCH ×2 (09:27→21:01)
[2023-01-28] MEDS: LACTIC ACID 12% LOTION 225 GM BTL TOP SCH (09:32)
[2023-01-28 14:00] VITALS: BP 126/65; TEMP 97.3; O2SAT 90
[2023-01-28] MEDS: AMIODARONE 200 MG TAB (PACERONE) PO SCH (16:26)
[2023-01-28 19:51] VITALS: BP 142/79; TEMP 97.8; O2SAT 92
[2023-01-28] MEDS: CALCITRIOL 0.25 MCG CAP (S0169) PO SCH (21:00)
[2023-01-28] MEDS: atenoloL 25 MG TAB PO SCH (21:00)
[2023-01-28] MEDS: SERTRALINE 100 MG TAB PO SCH (21:00)
[2023-01-28] MEDS: SENNA 8.6 MG TAB (SENOKOT) PO SCH (21:00)
[2023-01-29] MEDS: LEVOTHYROXINE 25MCG TABLET (0.025MG) PO SCH (05:43)
[2023-01-29] MEDS: LEVOTHYROXINE 150MCG TABLET (0.15MG) PO SCH (05:43)
[2023-01-29 06:01] VITALS: BP 121/74; TEMP 97.9; O2SAT 94
[2023-01-29] MEDS: LACTOBACILLUS ACIDOPHILUS CAP (BACID) PO SCH ×3 (08:00→17:26)
[2023-01-29] MEDS: REMEDY PHYTOPLEX Z-GUARD PASTE 113GM TUBE (FROM STOREROOM PRODUCT) TOP SCH ×3 (09:00→21:56)
[2023-01-29] MEDS: DOCUSATE SODIUM 100MG CAPSULE PO SCH ×3 (09:00→21:54)
[2023-01-29 09:40] LABS: BASO # 0.1 10^3/uL (0.0-0.2); BASO % 1.3 % (0.0-1.0); EOS # 0.2 10^3/uL (0.0-0.5); EOS % 2.2 % (0.0-3.0); HEMATOCRIT 41.5 % (42.0-52.0); HEMOGLOBIN 12.7 g/dl (13.5-17.5); LYMPH # 1.2 10^3/uL (1.5-5.0); MEAN CORPUSCULAR HEMOGLOBIN 31.4 pg (27.0-33.0); MEAN CORPUSCULAR HGB CONC 30.6 g/dl (32.0-36.5); MEAN CORPUSCULAR VOLUME 102.5 fl (80.0-96.0); MONO # 1.4 10^3/uL (0.0-0.8); MONO % 17.2 % (2.0-8.0); NEUTROPHILS # 5.3 10^3/uL (1.5-8.5); NEUTROPHILS % 63.9 % (36.0-66.0); PLATELET COUNT, AUTOMATED 305 10^3/uL (150-450); RED BLOOD COUNT 4.05 10^6/uL (4.30-6.10); WHITE BLOOD COUNT 8.2 10^3/uL (4.0-10.0)
[2023-01-29] MEDS: TORSEMIDE 10 MG TABLET PO SCH ×2 (09:44→17:22)
[2023-01-29] MEDS: LIDOCAINE 5% (LIDODERM) PATCH TD SCH (09:44)
[2023-01-29] MEDS: allopurinoL 100 MG TAB PO SCH (09:44)
[2023-01-29] MEDS: CALCIUM/VITAMIN D 500 MG TAB PO SCH (09:44)
[2023-01-29] MEDS: OMEPRAZOLE 20MG CAP PO SCH (09:44)
[2023-01-29] MEDS: ACETAMINOPHEN 500 MG TAB PO SCH ×3 (09:45→21:54)
[2023-01-29] MEDS: MAGNESIUM OXIDE 400MG TAB (MAG-OX) PO SCH ×2 (09:45→21:54)
[2023-01-29] MEDS: APIXABAN 2.5 MG TAB (ELIQUIS) PO SCH ×2 (09:45→21:54)
[2023-01-29] MEDS: MIDODRINE 5 MG TAB PO SCH ×4 (09:45→17:22)
[2023-01-29] MEDS: oxyCODONE 5MG TAB PO SCH ×4 (09:46→21:55)
[2023-01-29] MEDS: SANTYL OINT 30GM TOP SCH (09:46)
[2023-01-29] MEDS: LACTIC ACID 12% LOTION 225 GM BTL TOP SCH (09:47)
[2023-01-29 10:29] LABS: CALCIUM LEVEL 9.1 MG/DL (8.3-10.6); CREATININE FOR GFR 2.16 MG/DL (0.70-1.30); GLOMERULAR FILTRATION RATE 31.9 (>42); POTASSIUM SERUM 4.3 MMOL/L (3.5-5.1)
[2023-01-29 14:00] VITALS: BP 107/62; TEMP 97.6; O2SAT 96
[2023-01-29] MEDS: AMIODARONE 200 MG TAB (PACERONE) PO SCH ×2 (17:22→17:29)
[2023-01-29 20:00] VITALS: BP 116/69; TEMP 98.7; O2SAT 94
[2023-01-29] MEDS: CALCITRIOL 0.25 MCG CAP (S0169) PO SCH (21:53)
[2023-01-29] MEDS: oxyBUTYnin *DITROPAN XL* 5 MG TABCR PO SCH (21:54)
[2023-01-29] MEDS: SENNA 8.6 MG TAB (SENOKOT) PO SCH (21:54)
[2023-01-29] MEDS: SERTRALINE 100 MG TAB PO SCH (21:54)
[2023-01-29] MEDS: atenoloL 25 MG TAB PO SCH (21:55)
[2023-01-30] MEDS: LEVOTHYROXINE 25MCG TABLET (0.025MG) PO SCH (05:34)
[2023-01-30] MEDS: LEVOTHYROXINE 150MCG TABLET (0.15MG) PO SCH (05:34)
[2023-01-30 06:00] VITALS: BP 108/67; TEMP 97.7; O2SAT 96
[2023-01-30] MEDS: ACETAMINOPHEN 500 MG TAB PO SCH ×3 (09:54→21:00)
[2023-01-30] MEDS: CALCIUM/VITAMIN D 500 MG TAB PO SCH (09:55)
[2023-01-30] MEDS: allopurinoL 100 MG TAB PO SCH (09:55)
[2023-01-30] MEDS: MAGNESIUM OXIDE 400MG TAB (MAG-OX) PO SCH ×2 (09:55→21:38)
[2023-01-30] MEDS: DOCUSATE SODIUM 100MG CAPSULE PO SCH ×2 (09:55→21:37)
[2023-01-30] MEDS: OMEPRAZOLE 20MG CAP PO SCH (09:55)
[2023-01-30] MEDS: APIXABAN 2.5 MG TAB (ELIQUIS) PO SCH ×2 (09:55→21:37)
[2023-01-30] MEDS: TORSEMIDE 10 MG TABLET PO SCH ×2 (09:55→17:05)
[2023-01-30] MEDS: SANTYL OINT 30GM TOP SCH (09:57)
[2023-01-30] MEDS: oxyCODONE 5MG TAB PO SCH ×4 (09:57→21:38)
[2023-01-30] MEDS: REMEDY PHYTOPLEX Z-GUARD PASTE 113GM TUBE (FROM STOREROOM PRODUCT) TOP SCH ×3 (09:57→21:58)
[2023-01-30] MEDS: LACTOBACILLUS ACIDOPHILUS CAP (BACID) PO SCH ×2 (10:00→17:05)
[2023-01-30] MEDS: LACTIC ACID 12% LOTION 225 GM BTL TOP SCH (10:17)
[2023-01-30] MEDS: MIDODRINE 5 MG TAB PO SCH ×3 (10:17→17:05)
[2023-01-30 14:00] VITALS: BP 111/77; TEMP 97.7; O2SAT 96
[2023-01-30] MEDS: AMIODARONE 200 MG TAB (PACERONE) PO SCH (17:05)
[2023-01-30 17:07] VITALS: O2SAT 68
[2023-01-30 20:00] VITALS: BP 110/71; TEMP 97.7; O2SAT 95
[2023-01-30] MEDS: SENNA 8.6 MG TAB (SENOKOT) PO SCH (21:37)
[2023-01-30] MEDS: atenoloL 25 MG TAB PO SCH (21:37)
[2023-01-30] MEDS: oxyBUTYnin *DITROPAN XL* 5 MG TABCR PO SCH (21:37)
[2023-01-30] MEDS: CALCITRIOL 0.25 MCG CAP (S0169) PO SCH (21:37)
[2023-01-30] MEDS: SERTRALINE 100 MG TAB PO SCH (21:38)
[2023-01-31] MEDS: LEVOTHYROXINE 150MCG TABLET (0.15MG) PO SCH (05:30)
[2023-01-31] MEDS: LEVOTHYROXINE 25MCG TABLET (0.025MG) PO SCH (05:30)
[2023-01-31 06:00] VITALS: BP 107/71; TEMP 96.9; O2SAT 97
[2023-01-31 06:20] LABS: BASO # 0.1 10^3/uL (0.0-0.2); BASO % 1.3 % (0.0-1.0); EOS # 0.3 10^3/uL (0.0-0.5); EOS % 4.5 % (0.0-3.0); HEMATOCRIT 35.5 % (42.0-52.0); HEMOGLOBIN 11.1 g/dl (13.5-17.5); LYMPH # 1.4 10^3/uL (1.5-5.0); LYMPH % 20.2 % (24.0-44.0); MEAN CORPUSCULAR HEMOGLOBIN 31.5 pg (27.0-33.0); MEAN CORPUSCULAR HGB CONC 31.3 g/dl (32.0-36.5); MEAN CORPUSCULAR VOLUME 100.9 fl (80.0-96.0); MONO # 1.1 10^3/uL (0.0-0.8); MONO % 16.4 % (2.0-8.0); NEUTROPHILS # 3.9 10^3/uL (1.5-8.5); NEUTROPHILS % 57.3 % (36.0-66.0); PLATELET COUNT, AUTOMATED 268 10^3/uL (150-450); RED BLOOD COUNT 3.52 10^6/uL (4.30-6.10); WHITE BLOOD COUNT 6.8 10^3/uL (4.0-10.0)
[2023-01-31 06:51] LABS: CALCIUM LEVEL 9.3 MG/DL (8.3-10.6); CREATININE FOR GFR 2.03 MG/DL (0.70-1.30); GLOMERULAR FILTRATION RATE 34.3 (>42); POTASSIUM SERUM 3.7 MMOL/L (3.5-5.1)
[2023-01-31] MEDS: LACTOBACILLUS ACIDOPHILUS CAP (BACID) PO SCH ×2 (08:00→17:33)
[2023-01-31] MEDS: CALCIUM/VITAMIN D 500 MG TAB PO SCH (09:00)
[2023-01-31] MEDS: OMEPRAZOLE 20MG CAP PO SCH ×2 (09:00→09:42)
[2023-01-31] MEDS: REMEDY PHYTOPLEX Z-GUARD PASTE 113GM TUBE (FROM STOREROOM PRODUCT) TOP SCH ×3 (09:00→21:00)
[2023-01-31] MEDS: DOCUSATE SODIUM 100MG CAPSULE PO SCH ×2 (09:00→21:56)
[2023-01-31] MEDS: allopurinoL 100 MG TAB PO SCH ×2 (09:00→09:41)
[2023-01-31] MEDS: ACETAMINOPHEN 500 MG TAB PO SCH ×3 (09:00→21:00)
[2023-01-31] MEDS: APIXABAN 2.5 MG TAB (ELIQUIS) PO SCH ×2 (09:41→21:59)
[2023-01-31] MEDS: MAGNESIUM OXIDE 400MG TAB (MAG-OX) PO SCH ×2 (09:41→22:00)
[2023-01-31] MEDS: MIDODRINE 5 MG TAB PO SCH ×3 (09:41→17:33)
[2023-01-31] MEDS: oxyCODONE 5MG TAB PO SCH ×4 (09:42→21:59)
[2023-01-31] MEDS: TORSEMIDE 10 MG TABLET PO SCH ×2 (09:42→17:33)
[2023-01-31] MEDS: LIDOCAINE 5% (LIDODERM) PATCH TD SCH (09:43)
[2023-01-31] MEDS: LACTIC ACID 12% LOTION 225 GM BTL TOP SCH (09:44)
[2023-01-31] MEDS: SANTYL OINT 30GM TOP SCH (09:44)
[2023-01-31 14:00] VITALS: BP 122/73; TEMP 97.8; O2SAT 96
[2023-01-31] MEDS ORDERED: LIDOCAINE W/EPINEPHRINE 1% 20ML VIAL SC ONE (14:00)
[2023-01-31] MEDS: AMIODARONE 200 MG TAB (PACERONE) PO SCH (17:33)
[2023-01-31 20:00] VITALS: BP 122/72; TEMP 97.6; O2SAT 94
[2023-01-31] MEDS: SENNA 8.6 MG TAB (SENOKOT) PO SCH (21:00)
[2023-01-31] MEDS: CALCITRIOL 0.25 MCG CAP (S0169) PO SCH (22:00)
[2023-01-31] MEDS: oxyBUTYnin *DITROPAN XL* 5 MG TABCR PO SCH (22:00)
[2023-01-31] MEDS: SERTRALINE 100 MG TAB PO SCH (22:01)
[2023-01-31] MEDS: atenoloL 25 MG TAB PO SCH (22:01)
[2023-02-01] MEDS: LEVOTHYROXINE 25MCG TABLET (0.025MG) PO SCH (05:56)
[2023-02-01] MEDS: LEVOTHYROXINE 150MCG TABLET (0.15MG) PO SCH (05:56)
[2023-02-01] MEDS: LACTOBACILLUS ACIDOPHILUS CAP (BACID) PO SCH ×3 (08:00→17:00)
[2023-02-01] MEDS: LIDOCAINE 5% (LIDODERM) PATCH TD SCH (08:43)
[2023-02-01] MEDS: MIDODRINE 5 MG TAB PO SCH ×3 (08:44→16:00)
[2023-02-01] MEDS: allopurinoL 100 MG TAB PO SCH (08:44)
[2023-02-01] MEDS: MAGNESIUM OXIDE 400MG TAB (MAG-OX) PO SCH ×2 (08:44→20:11)
[2023-02-01] MEDS: ACETAMINOPHEN 500 MG TAB PO SCH ×4 (08:44→20:11)
[2023-02-01] MEDS: OMEPRAZOLE 20MG CAP PO SCH (08:45)
[2023-02-01] MEDS: TORSEMIDE 10 MG TABLET PO SCH ×2 (08:45→16:57)
[2023-02-01] MEDS: oxyCODONE 5MG TAB PO SCH ×4 (08:45→20:10)
[2023-02-01] MEDS: CALCIUM/VITAMIN D 500 MG TAB PO SCH ×2 (08:45→09:00)
[2023-02-01] MEDS: APIXABAN 2.5 MG TAB (ELIQUIS) PO SCH ×2 (08:45→20:09)
[2023-02-01] MEDS: DOCUSATE SODIUM 100MG CAPSULE PO SCH ×2 (08:46→20:10)
[2023-02-01] MEDS: LACTIC ACID 12% LOTION 225 GM BTL TOP SCH (08:46)
[2023-02-01] MEDS: REMEDY PHYTOPLEX Z-GUARD PASTE 113GM TUBE (FROM STOREROOM PRODUCT) TOP SCH ×3 (08:47→20:15)
[2023-02-01 12:13] VITALS: BP 134/78
[2023-02-01 14:00] VITALS: BP 140/60; TEMP 97.6; O2SAT 95
[2023-02-01] MEDS: AMIODARONE 200 MG TAB (PACERONE) PO SCH (17:00)
[2023-02-01 20:00] VITALS: BP 125/84; TEMP 97.4; O2SAT 96
[2023-02-01] MEDS: SERTRALINE 100 MG TAB PO SCH (20:08)
[2023-02-01] MEDS: atenoloL 25 MG TAB PO SCH (20:09)
[2023-02-01] MEDS: oxyBUTYnin *DITROPAN XL* 5 MG TABCR PO SCH (20:10)
[2023-02-01] MEDS: SENNA 8.6 MG TAB (SENOKOT) PO SCH (20:11)
[2023-02-01] MEDS: CALCITRIOL 0.25 MCG CAP (S0169) PO SCH (20:11)
[2023-02-02] MEDS: LEVOTHYROXINE 150MCG TABLET (0.15MG) PO SCH (05:47)
[2023-02-02] MEDS: LEVOTHYROXINE 25MCG TABLET (0.025MG) PO SCH (05:47)
[2023-02-02 06:00] VITALS: BP 124/76; TEMP 98.2; O2SAT 94
[2023-02-02 07:35] LABS: BASO # 0.1 10^3/uL (0.0-0.2); BASO % 0.9 % (0.0-1.0); EOS # 0.2 10^3/uL (0.0-0.5); EOS % 3.1 % (0.0-3.0); HEMOGLOBIN 11.1 g/dl (13.5-17.5); LYMPH % 14.9 % (24.0-44.0); MEAN CORPUSCULAR HEMOGLOBIN 31.2 pg (27.0-33.0); MEAN CORPUSCULAR HGB CONC 30.8 g/dl (32.0-36.5); MEAN CORPUSCULAR VOLUME 101.1 fl (80.0-96.0); MONO # 0.9 10^3/uL (0.0-0.8); NEUTROPHILS # 4.4 10^3/uL (1.5-8.5); NEUTROPHILS % 67.8 % (36.0-66.0); PLATELET COUNT, AUTOMATED 333 10^3/uL (150-450); RED BLOOD COUNT 3.56 10^6/uL (4.30-6.10); WHITE BLOOD COUNT 6.5 10^3/uL (4.0-10.0)
[2023-02-02] MEDS: oxyCODONE 5MG TAB PO SCH ×4 (07:53→20:09)
[2023-02-02] MEDS: MIDODRINE 5 MG TAB PO SCH ×4 (07:54→16:00)
[2023-02-02 08:00] LABS: CALCIUM LEVEL 8.5 MG/DL (8.3-10.6); CREATININE FOR GFR 1.97 MG/DL (0.70-1.30); GLOMERULAR FILTRATION RATE 35.5 (>42); POTASSIUM SERUM 3.5 MMOL/L (3.5-5.1)
[2023-02-02] MEDS: LACTOBACILLUS ACIDOPHILUS CAP (BACID) PO SCH ×2 (08:00→17:51)
[2023-02-02] MEDS: LACTIC ACID 12% LOTION 225 GM BTL TOP SCH (09:00)
[2023-02-02] MEDS: REMEDY PHYTOPLEX Z-GUARD PASTE 113GM TUBE (FROM STOREROOM PRODUCT) TOP SCH ×3 (09:00→20:10)
[2023-02-02] MEDS: ACETAMINOPHEN 500 MG TAB PO SCH ×3 (09:00→20:09)
[2023-02-02] MEDS: DOCUSATE SODIUM 100MG CAPSULE PO SCH ×2 (09:00→20:13)
[2023-02-02] MEDS: MAGNESIUM OXIDE 400MG TAB (MAG-OX) PO SCH ×2 (09:00→20:12)
[2023-02-02] MEDS: CALCIUM/VITAMIN D 500 MG TAB PO SCH (09:00)
[2023-02-02] MEDS: OMEPRAZOLE 20MG CAP PO SCH (09:00)
[2023-02-02] MEDS: APIXABAN 2.5 MG TAB (ELIQUIS) PO SCH ×2 (09:40→20:08)
[2023-02-02] MEDS: LIDOCAINE 5% (LIDODERM) PATCH TD SCH (09:40)
[2023-02-02] MEDS: allopurinoL 100 MG TAB PO SCH (09:40)
[2023-02-02] MEDS: TORSEMIDE 10 MG TABLET PO SCH ×2 (09:40→16:30)
[2023-02-02 13:15] VITALS: BP 127/83
[2023-02-02 14:00] VITALS: BP 130/90; TEMP 96.9; O2SAT 93
[2023-02-02 16:00] VITALS: BP 118/81
[2023-02-02] MEDS: AMIODARONE 200 MG TAB (PACERONE) PO SCH (17:55)
[2023-02-02 19:34] VITALS: BP 120/92; TEMP 97.5; O2SAT 95
[2023-02-02] MEDS: CALCITRIOL 0.25 MCG CAP (S0169) PO SCH (20:08)
[2023-02-02] MEDS: SERTRALINE 100 MG TAB PO SCH (20:08)
[2023-02-02] MEDS: atenoloL 25 MG TAB PO SCH (20:08)
[2023-02-02] MEDS: SENNA 8.6 MG TAB (SENOKOT) PO SCH (20:09)
[2023-02-02] MEDS: oxyBUTYnin *DITROPAN XL* 5 MG TABCR PO SCH (20:13)
[2023-02-03] MEDS: LEVOTHYROXINE 25MCG TABLET (0.025MG) PO SCH (05:51)
[2023-02-03] MEDS: LEVOTHYROXINE 150MCG TABLET (0.15MG) PO SCH (05:51)
[2023-02-03 05:52] VITALS: BP 114/69; TEMP 97.9; O2SAT 97
[2023-02-03] MEDS: MAGNESIUM OXIDE 400MG TAB (MAG-OX) PO SCH ×2 (09:00→20:34)
[2023-02-03] MEDS: CALCIUM/VITAMIN D 500 MG TAB PO SCH (09:00)
[2023-02-03] MEDS: LACTIC ACID 12% LOTION 225 GM BTL TOP SCH (09:00)
[2023-02-03] MEDS: DOCUSATE SODIUM 100MG CAPSULE PO SCH ×2 (09:00→20:34)
[2023-02-03] MEDS: allopurinoL 100 MG TAB PO SCH (09:00)
[2023-02-03] MEDS: REMEDY PHYTOPLEX Z-GUARD PASTE 113GM TUBE (FROM STOREROOM PRODUCT) TOP SCH ×3 (09:00→20:38)
[2023-02-03] MEDS: MIDODRINE 5 MG TAB PO SCH ×3 (09:21→16:00)
[2023-02-03] MEDS: LACTOBACILLUS ACIDOPHILUS CAP (BACID) PO SCH ×2 (09:21→18:00)
[2023-02-03] MEDS: APIXABAN 2.5 MG TAB (ELIQUIS) PO SCH ×2 (09:22→20:37)
[2023-02-03] MEDS: LIDOCAINE 5% (LIDODERM) PATCH TD SCH (09:22)
[2023-02-03] MEDS: OMEPRAZOLE 20MG CAP PO SCH (09:22)
[2023-02-03] MEDS: oxyCODONE 5MG TAB PO SCH ×4 (09:22→20:37)
[2023-02-03] MEDS: ACETAMINOPHEN 500 MG TAB PO SCH ×3 (09:22→20:36)
[2023-02-03] MEDS: TORSEMIDE 10 MG TABLET PO SCH ×2 (09:22→17:00)
[2023-02-03] MEDS: AMIODARONE 200 MG TAB (PACERONE) PO SCH (18:05)
[2023-02-03 19:47] VITALS: BP 101/58; TEMP 97.2; O2SAT 95
[2023-02-03] MEDS: SENNA 8.6 MG TAB (SENOKOT) PO SCH (20:34)
[2023-02-03] MEDS: CALCITRIOL 0.25 MCG CAP (S0169) PO SCH (20:34)
[2023-02-03] MEDS: SERTRALINE 100 MG TAB PO SCH (20:34)
[2023-02-03] MEDS: oxyBUTYnin *DITROPAN XL* 5 MG TABCR PO SCH (20:34)
[2023-02-03] MEDS: atenoloL 25 MG TAB PO SCH (20:35)
[2023-02-04] MEDS: LEVOTHYROXINE 25MCG TABLET (0.025MG) PO SCH (05:40)
[2023-02-04] MEDS: LEVOTHYROXINE 150MCG TABLET (0.15MG) PO SCH (05:40)
[2023-02-04 05:49] VITALS: BP 112/69; TEMP 97.8; O2SAT 94
[2023-02-04] MEDS: LIDOCAINE 5% (LIDODERM) PATCH TD SCH (08:13)
[2023-02-04] MEDS: ACETAMINOPHEN 500 MG TAB PO SCH ×3 (08:13→21:00)
[2023-02-04] MEDS: allopurinoL 100 MG TAB PO SCH (08:13)
[2023-02-04] MEDS: TORSEMIDE 10 MG TABLET PO SCH ×2 (08:14→16:23)
[2023-02-04] MEDS: OMEPRAZOLE 20MG CAP PO SCH (08:14)
[2023-02-04] MEDS: APIXABAN 2.5 MG TAB (ELIQUIS) PO SCH ×2 (08:14→20:51)
[2023-02-04] MEDS: MIDODRINE 5 MG TAB PO SCH ×3 (08:14→16:00)
[2023-02-04] MEDS: oxyCODONE 5MG TAB PO SCH ×4 (08:14→20:53)
[2023-02-04] MEDS: DOCUSATE SODIUM 100MG CAPSULE PO SCH ×2 (08:14→21:00)
[2023-02-04] MEDS: LACTIC ACID 12% LOTION 225 GM BTL TOP SCH (08:15)
[2023-02-04] MEDS: REMEDY PHYTOPLEX Z-GUARD PASTE 113GM TUBE (FROM STOREROOM PRODUCT) TOP SCH ×3 (08:15→21:00)
[2023-02-04] MEDS: LACTOBACILLUS ACIDOPHILUS CAP (BACID) PO SCH ×2 (08:15→18:26)
[2023-02-04] MEDS: CALCIUM/VITAMIN D 500 MG TAB PO SCH (08:15)
[2023-02-04] MEDS: MAGNESIUM OXIDE 400MG TAB (MAG-OX) PO SCH ×2 (08:15→21:00)
[2023-02-04 12:00] VITALS: BP 123/76; O2SAT 98
[2023-02-04 14:00] VITALS: BP 133/70; TEMP 97.8; O2SAT 98
[2023-02-04 16:17] VITALS: BP 131/85
[2023-02-04] MEDS: AMIODARONE 200 MG TAB (PACERONE) PO SCH (18:26)
[2023-02-04 20:10] VITALS: BP 111/58; TEMP 97.8; O2SAT 94
[2023-02-04] MEDS: SERTRALINE 100 MG TAB PO SCH (20:52)
[2023-02-04] MEDS: oxyBUTYnin *DITROPAN XL* 5 MG TABCR PO SCH (20:52)
[2023-02-04] MEDS: atenoloL 25 MG TAB PO SCH (21:00)
[2023-02-04] MEDS: SENNA 8.6 MG TAB (SENOKOT) PO SCH (21:00)
[2023-02-04] MEDS: CALCITRIOL 0.25 MCG CAP (S0169) PO SCH (21:00)
[2023-02-05 05:55] VITALS: BP 129/66; TEMP 97.9; O2SAT 96
[2023-02-05] MEDS: LEVOTHYROXINE 150MCG TABLET (0.15MG) PO SCH (06:04)
[2023-02-05] MEDS: LEVOTHYROXINE 25MCG TABLET (0.025MG) PO SCH (06:04)
[2023-02-05] MEDS: MIDODRINE 5 MG TAB PO SCH ×3 (08:00→16:00)
[2023-02-05] MEDS: LACTOBACILLUS ACIDOPHILUS CAP (BACID) PO SCH ×2 (08:00→16:54)
[2023-02-05] MEDS: LIDOCAINE 5% (LIDODERM) PATCH TD SCH (08:45)
[2023-02-05] MEDS: TORSEMIDE 10 MG TABLET PO SCH ×2 (08:45→16:52)
[2023-02-05] MEDS: allopurinoL 100 MG TAB PO SCH (08:45)
[2023-02-05] MEDS: APIXABAN 2.5 MG TAB (ELIQUIS) PO SCH ×2 (08:45→21:56)
[2023-02-05] MEDS: oxyCODONE 5MG TAB PO SCH ×4 (08:46→21:56)
[2023-02-05] MEDS: LACTIC ACID 12% LOTION 225 GM BTL TOP SCH (08:46)
[2023-02-05] MEDS: REMEDY PHYTOPLEX Z-GUARD PASTE 113GM TUBE (FROM STOREROOM PRODUCT) TOP SCH ×3 (08:51→21:00)
[2023-02-05] MEDS: MAGNESIUM OXIDE 400MG TAB (MAG-OX) PO SCH ×2 (08:55→21:00)
[2023-02-05] MEDS: CALCIUM/VITAMIN D 500 MG TAB PO SCH (08:55)
[2023-02-05] MEDS: DOCUSATE SODIUM 100MG CAPSULE PO SCH ×2 (08:55→21:00)
[2023-02-05] MEDS: ACETAMINOPHEN 500 MG TAB PO SCH ×3 (08:56→21:00)
[2023-02-05] MEDS: OMEPRAZOLE 20MG CAP PO SCH (08:56)
[2023-02-05 14:00] VITALS: BP 99/61; TEMP 97.5; O2SAT 94
[2023-02-05] MEDS: AMIODARONE 200 MG TAB (PACERONE) PO SCH (16:54)
[2023-02-05 20:00] VITALS: BP 118/64; TEMP 98.2; O2SAT 93
[2023-02-05] MEDS: CALCITRIOL 0.25 MCG CAP (S0169) PO SCH (21:00)
[2023-02-05] MEDS: atenoloL 25 MG TAB PO SCH (21:00)
[2023-02-05] MEDS: oxyBUTYnin *DITROPAN XL* 5 MG TABCR PO SCH (21:00)
[2023-02-05] MEDS: SENNA 8.6 MG TAB (SENOKOT) PO SCH (21:00)
[2023-02-05] MEDS: SERTRALINE 100 MG TAB PO SCH (21:56)
[2023-02-06] MEDS: LEVOTHYROXINE 150MCG TABLET (0.15MG) PO SCH (05:19)
[2023-02-06] MEDS: LEVOTHYROXINE 25MCG TABLET (0.025MG) PO SCH (05:19)
[2023-02-06 06:00] VITALS: BP 120/60; TEMP 96.9; O2SAT 95
[2023-02-06 07:55] LABS: BASO # 0.1 10^3/uL (0.0-0.2); BASO % 1.5 % (0.0-1.0); EOS # 0.5 10^3/uL (0.0-0.5); EOS % 7.4 % (0.0-3.0); HEMATOCRIT 34.6 % (42.0-52.0); HEMOGLOBIN 10.6 g/dl (13.5-17.5); LYMPH # 1.1 10^3/uL (1.5-5.0); LYMPH % 16.7 % (24.0-44.0); MEAN CORPUSCULAR HEMOGLOBIN 31.1 pg (27.0-33.0); MEAN CORPUSCULAR HGB CONC 30.6 g/dl (32.0-36.5); MEAN CORPUSCULAR VOLUME 101.5 fl (80.0-96.0); MONO % 14.9 % (2.0-8.0); NEUTROPHILS # 3.9 10^3/uL (1.5-8.5); PLATELET COUNT, AUTOMATED 324 10^3/uL (150-450); RED BLOOD COUNT 3.41 10^6/uL (4.30-6.10); WHITE BLOOD COUNT 6.7 10^3/uL (4.0-10.0)
[2023-02-06] MEDS: LIDOCAINE 5% (LIDODERM) PATCH TD SCH (07:59)
[2023-02-06] MEDS: MIDODRINE 5 MG TAB PO SCH ×3 (08:00→16:00)
[2023-02-06] MEDS: LACTOBACILLUS ACIDOPHILUS CAP (BACID) PO SCH ×2 (08:00→17:07)
[2023-02-06] MEDS: APIXABAN 2.5 MG TAB (ELIQUIS) PO SCH ×2 (08:00→21:33)
[2023-02-06] MEDS: TORSEMIDE 10 MG TABLET PO SCH ×2 (08:00→17:04)
[2023-02-06] MEDS: oxyCODONE 5MG TAB PO SCH ×4 (08:00→21:34)
[2023-02-06] MEDS: allopurinoL 100 MG TAB PO SCH (08:00)
[2023-02-06] MEDS: MAGNESIUM OXIDE 400MG TAB (MAG-OX) PO SCH ×2 (08:05→21:00)
[2023-02-06] MEDS: DOCUSATE SODIUM 100MG CAPSULE PO SCH ×2 (08:05→21:00)
[2023-02-06] MEDS: CALCIUM/VITAMIN D 500 MG TAB PO SCH (08:05)
[2023-02-06] MEDS: LACTIC ACID 12% LOTION 225 GM BTL TOP SCH (08:06)
[2023-02-06] MEDS: OMEPRAZOLE 20MG CAP PO SCH (08:06)
[2023-02-06] MEDS: ACETAMINOPHEN 500 MG TAB PO SCH ×3 (08:06→21:00)
[2023-02-06] MEDS: REMEDY PHYTOPLEX Z-GUARD PASTE 113GM TUBE (FROM STOREROOM PRODUCT) TOP SCH ×3 (08:06→21:00)
[2023-02-06 08:39] LABS: CREATININE FOR GFR 1.97 MG/DL (0.70-1.30); GLOMERULAR FILTRATION RATE 35.5 (>42); POTASSIUM SERUM 3.5 MMOL/L (3.5-5.1)
[2023-02-06] MEDS: AMIODARONE 200 MG TAB (PACERONE) PO SCH (17:04)
[2023-02-06 20:00] VITALS: TEMP 97.5; O2SAT 97
[2023-02-06 20:19] VITALS: BP 97/54; TEMP 97.5; O2SAT 97
[2023-02-06 21:00] VITALS: BP 97/54
[2023-02-06] MEDS: oxyBUTYnin *DITROPAN XL* 5 MG TABCR PO SCH (21:00)
[2023-02-06] MEDS: CALCITRIOL 0.25 MCG CAP (S0169) PO SCH (21:00)
[2023-02-06] MEDS: SENNA 8.6 MG TAB (SENOKOT) PO SCH (21:00)
[2023-02-06] MEDS: atenoloL 25 MG TAB PO SCH (21:00)
[2023-02-06] MEDS: SERTRALINE 100 MG TAB PO SCH (21:33)
[2023-02-07 05:04] VITALS: BP 112/79; TEMP 97.7; O2SAT 95
[2023-02-07] MEDS: LEVOTHYROXINE 150MCG TABLET (0.15MG) PO SCH (05:09)
[2023-02-07] MEDS: LEVOTHYROXINE 25MCG TABLET (0.025MG) PO SCH (05:09)
[2023-02-07] MEDS: TORSEMIDE 10 MG TABLET PO SCH ×2 (07:40→17:00)
[2023-02-07] MEDS: allopurinoL 100 MG TAB PO SCH (07:40)
[2023-02-07] MEDS: APIXABAN 2.5 MG TAB (ELIQUIS) PO SCH (07:40)
[2023-02-07] MEDS: oxyCODONE 5MG TAB PO SCH ×3 (07:41→16:42)
[2023-02-07] MEDS: LACTIC ACID 12% LOTION 225 GM BTL TOP SCH (07:42)
[2023-02-07] MEDS: MIDODRINE 5 MG TAB PO SCH ×3 (07:50→16:00)
[2023-02-07] MEDS: DOCUSATE SODIUM 100MG CAPSULE PO SCH (07:50)
[2023-02-07] MEDS: LACTOBACILLUS ACIDOPHILUS CAP (BACID) PO SCH ×2 (07:50→17:01)
[2023-02-07] MEDS: CALCIUM/VITAMIN D 500 MG TAB PO SCH (07:50)
[2023-02-07] MEDS: OMEPRAZOLE 20MG CAP PO SCH (07:50)
[2023-02-07] MEDS: MAGNESIUM OXIDE 400MG TAB (MAG-OX) PO SCH (07:50)
[2023-02-07] MEDS: ACETAMINOPHEN 500 MG TAB PO SCH ×2 (07:51→16:00)
[2023-02-07] MEDS: LIDOCAINE 5% (LIDODERM) PATCH TD SCH (07:51)
[2023-02-07] MEDS: REMEDY PHYTOPLEX Z-GUARD PASTE 113GM TUBE (FROM STOREROOM PRODUCT) TOP SCH ×2 (07:51→16:00)
[2023-02-07] MEDS ORDERED: OXYC10TA12 PO (09:40)
[2023-02-07] MEDS ORDERED: ATEN25TA PO (09:40)
[2023-02-07] MEDS ORDERED: ALLO100T PO (09:40)
[2023-02-07] MEDS ORDERED: MIDO5TA PO (09:40)
[2023-02-07] MEDS ORDERED: SYNT175T2 PO (09:40)
[2023-02-07] MEDS ORDERED: ELIQ2.5T PO (09:40)
[2023-02-07] MEDS ORDERED: DITR5TAB PO (09:40)
[2023-02-07] MEDS ORDERED: CALC1CAP31 PO (09:40)
[2023-02-07] MEDS ORDERED: ZOLO100T PO (09:40)
[2023-02-07] MEDS ORDERED: AMIO200T49 PO (09:40)
[2023-02-07] MEDS ORDERED: NARC1SPR (09:40)
[2023-02-07] MEDS ORDERED: OMEP1CAP73 PO (09:40)
[2023-02-07 14:00] VITALS: BP 125/86; TEMP 97.9; O2SAT 97
[2023-02-07] MEDS ORDERED: TORS10TA3 PO (14:07)
== END 2023-02-07 16:55 | disposition home health service (06) | DRG 264 ==
LOC: M PM&R 15:00
PROVIDERS: ADMIT General Practice; ATTEND Physical Medicine & Rehabilitation
PROC: 0JBC0ZZ Excision of Pelvic Region Subcutaneous Tissue and Fascia, Open Approach (ICD-10-PCS; principal; 2023-02-01)
DX: I50.23 Acute on chronic systolic (congestive) heart failure (principal); N18.4 Chronic kidney disease, stage 4 (severe); E87.29 Other acidosis; L97.929 Non-pressure chronic ulcer of unspecified part of left lower leg with unspecified severity; D50.9 Iron deficiency anemia, unspecified; R25.1 Tremor, unspecified; I48.91 Unspecified atrial fibrillation; E03.9 Hypothyroidism, unspecified; M10.9 Gout, unspecified; Z86.711 Personal history of pulmonary embolism; F39 Unspecified mood [affective] disorder; L89.159 Pressure ulcer of sacral region, unspecified stage; I95.9 Hypotension, unspecified; I87.8 Other specified disorders of veins; K21.9 Gastro-esophageal reflux disease without esophagitis; Z79.899 Other long term (current) drug therapy

== ENCOUNTER 2023-02-13 11:22 | Inpatient (IN) | payer BC, MEDICARE, OTHER ==
[~2023-02-13] VITALS: Ht 162.6 cm; Wt 84.6 kg
[~2023-02-13 11:22] MED LIST changes: +DITR5TAB PO; +TORS10TA3 PO
[2023-02-13 12:47] LABS: BASO # 0.1 10^3/uL (0.0-0.2); BASO % 0.9 % (0.0-1.0); EOS # 0.2 10^3/uL (0.0-0.5); EOS % 1.4 % (0.0-3.0); HEMATOCRIT 34.3 % (42.0-52.0); HEMOGLOBIN 10.9 g/dl (13.5-17.5); LYMPH % 7.5 % (24.0-44.0); MEAN CORPUSCULAR HEMOGLOBIN 31.5 pg (27.0-33.0); MEAN CORPUSCULAR HGB CONC 31.8 g/dl (32.0-36.5); MEAN CORPUSCULAR VOLUME 99.1 fl (80.0-96.0); MONO # 1.5 10^3/uL (0.0-0.8); MONO % 11.5 % (2.0-8.0); NEUTROPHILS # 9.9 10^3/uL (1.5-8.5); NEUTROPHILS % 78.3 % (36.0-66.0); PLATELET COUNT, AUTOMATED 305 10^3/uL (150-450); RED BLOOD COUNT 3.46 10^6/uL (4.30-6.10); WHITE BLOOD COUNT 12.6 10^3/uL (4.0-10.0)
[2023-02-13 13:12] LABS: CALCIUM LEVEL 8.2 MG/DL (8.3-10.6); CREATININE FOR GFR 2.74 MG/DL (0.70-1.30); GLOMERULAR FILTRATION RATE 24.2 (>42); POTASSIUM SERUM 4.1 MMOL/L (3.5-5.1)
[2023-02-13] MEDS ORDERED: NS 500 ML IV ONE (13:20)
[2023-02-13] MEDS: LR 1,000 ML IV SCH ×2 (13:45→20:48)
[2023-02-13] MEDS ORDERED: MED REC IN PROGRESS XX SCH (14:15)
[2023-02-13] MEDS ORDERED: ELIQ2.5T PO (15:14)
[2023-02-13] MEDS ORDERED: OXYC10TA12 PO (15:14)
[2023-02-13] MEDS ORDERED: MIDO5TA PO (15:14)
[2023-02-13] MEDS ORDERED: AMIO200T49 PO (15:14)
[2023-02-13] MEDS ORDERED: TORS10TA3 PO (15:14)
[2023-02-13] MEDS ORDERED: LEVO175T2 PO (15:14)
[2023-02-13] MEDS ORDERED: ZOLO100T PO (15:14)
[2023-02-13] MEDS ORDERED: CALC1CAP31 PO (15:14)
[2023-02-13] MEDS ORDERED: OMEP1CAP73 PO (15:14)
[2023-02-13] MEDS ORDERED: ALLO100T PO (15:14)
[2023-02-13] MEDS ORDERED: HOME MED LIST COMPLETE! XX SCH (15:15)
[2023-02-13 16:15] VITALS: BP 116/76; TEMP 97.3; O2SAT 94
[2023-02-13] MEDS ORDERED: CALCIUM CARBONATE 500 MG CHEW U/D PO PRN (17:20)
[2023-02-13] MEDS ORDERED: ACETAMINOPHEN 650MG ER TAB (TYLENOL ARTHRITIS) PO PRN (17:20)
[2023-02-13] MEDS: AMIODARONE 200 MG TAB (PACERONE) PO SCH (17:43)
[2023-02-13] MEDS: CALCITRIOL 0.25 MCG CAP (S0169) PO SCH (17:43)
[2023-02-13] MEDS: MULTIVITAMINS/MINERALS THERAP 1 TAB PO SCH (17:43)
[2023-02-13] MEDS: MIDODRINE 5 MG TAB PO SCH (17:44)
[2023-02-13] MEDS: oxyCODONE 5MG TAB PO PRN ×2 (17:45→22:18)
[2023-02-13] MEDS: MAGNESIUM OXIDE 400MG TAB (MAG-OX) PO SCH (17:45)
[2023-02-13 19:27] VITALS: BP 141/85; TEMP 96.8; O2SAT 94
[2023-02-13] MEDS: FERROUS GLUCONATE 324 MG TAB PO SCH (20:47)
[2023-02-13] MEDS: SERTRALINE 100 MG TAB PO SCH (20:47)
[2023-02-13] MEDS: APIXABAN 2.5 MG TAB (ELIQUIS) PO SCH (20:47)
[2023-02-13 22:00] VITALS: BP 134/86; TEMP 98.4; O2SAT 95
[2023-02-14] VITALS (8 sets, daily range): BP systolic 110–131; BP diastolic 63–78; TEMP 97.3–98.1; O2SAT 93–100
[2023-02-14] MEDS: LR 1,000 ML IV SCH ×2 (03:05→10:08)
[2023-02-14 05:46] LABS: HEMATOCRIT 32.5 % (42.0-52.0); HEMOGLOBIN 10.3 g/dl (13.5-17.5); MEAN CORPUSCULAR HEMOGLOBIN 31.4 pg (27.0-33.0); MEAN CORPUSCULAR HGB CONC 31.7 g/dl (32.0-36.5); MEAN CORPUSCULAR VOLUME 99.1 fl (80.0-96.0); PLATELET COUNT, AUTOMATED 276 10^3/uL (150-450); RED BLOOD COUNT 3.28 10^6/uL (4.30-6.10); WHITE BLOOD COUNT 9.6 10^3/uL (4.0-10.0)
[2023-02-14 06:28] LABS: CALCIUM LEVEL 8.2 MG/DL (8.3-10.6); CREATININE FOR GFR 2.35 MG/DL (0.70-1.30); GLOMERULAR FILTRATION RATE 28.9 (>42); MAGNESIUM LEVEL 2.1 MG/DL (1.8-2.4); POTASSIUM SERUM 3.9 MMOL/L (3.5-5.1)
[2023-02-14] MEDS: LEVOTHYROXINE 125MCG TABLET (0.125MG) PO SCH (06:30)
[2023-02-14] MEDS: LEVOTHYROXINE 50MCG TABLET (0.05MG) PO SCH (06:30)
[2023-02-14] MEDS: oxyCODONE 5MG TAB PO PRN ×3 (06:47→20:21)
[2023-02-14] MEDS: OYSTER SHELL CALCIUM 500 MG TAB PO SCH (09:03)
[2023-02-14] MEDS: VITAMIN D 1,000 INTERNATIONAL UNITS TABLET PO SCH (09:03)
[2023-02-14] MEDS: MIDODRINE 5 MG TAB PO SCH ×3 (09:04→17:04)
[2023-02-14] MEDS: APIXABAN 2.5 MG TAB (ELIQUIS) PO SCH ×2 (09:04→20:20)
[2023-02-14] MEDS: allopurinoL 100 MG TAB PO SCH (09:04)
[2023-02-14] MEDS: CYANOCOBALAMIN 500 MCG TAB PO SCH (09:04)
[2023-02-14] MEDS: FERROUS GLUCONATE 324 MG TAB PO SCH ×2 (09:04→20:20)
[2023-02-14] MEDS: OMEPRAZOLE 20MG CAP PO SCH (09:04)
[2023-02-14] MEDS: AMIODARONE 200 MG TAB (PACERONE) PO SCH (17:04)
[2023-02-14] MEDS: CALCITRIOL 0.25 MCG CAP (S0169) PO SCH (17:04)
[2023-02-14] MEDS: MAGNESIUM OXIDE 400MG TAB (MAG-OX) PO SCH (17:05)
[2023-02-14] MEDS: MULTIVITAMINS/MINERALS THERAP 1 TAB PO SCH (17:05)
[2023-02-14] MEDS: SERTRALINE 100 MG TAB PO SCH (20:20)
[2023-02-15 02:00] VITALS: BP 128/74; TEMP 97.4; O2SAT 99
[2023-02-15] MEDS: oxyCODONE 5MG TAB PO PRN (05:39)
[2023-02-15] MEDS: LEVOTHYROXINE 125MCG TABLET (0.125MG) PO SCH (05:40)
[2023-02-15] MEDS: LEVOTHYROXINE 50MCG TABLET (0.05MG) PO SCH (05:40)
[2023-02-15 05:58] LABS: HEMATOCRIT 33.3 % (42.0-52.0); HEMOGLOBIN 10.3 g/dl (13.5-17.5); MEAN CORPUSCULAR HEMOGLOBIN 30.7 pg (27.0-33.0); MEAN CORPUSCULAR HGB CONC 30.9 g/dl (32.0-36.5); MEAN CORPUSCULAR VOLUME 99.1 fl (80.0-96.0); PLATELET COUNT, AUTOMATED 286 10^3/uL (150-450); RED BLOOD COUNT 3.36 10^6/uL (4.30-6.10); WHITE BLOOD COUNT 9.5 10^3/uL (4.0-10.0)
[2023-02-15 06:00] VITALS: BP 128/80; TEMP 97.9; O2SAT 92
[2023-02-15 06:28] LABS: CALCIUM LEVEL 9.4 MG/DL (8.3-10.6); CREATININE FOR GFR 2.03 MG/DL (0.70-1.30); GLOMERULAR FILTRATION RATE 34.3 (>42); MAGNESIUM LEVEL 1.9 MG/DL (1.8-2.4); POTASSIUM SERUM 4.2 MMOL/L (3.5-5.1)
[2023-02-15 06:50] VITALS: BP 130/78; O2SAT 100
[2023-02-15] MEDS: APIXABAN 2.5 MG TAB (ELIQUIS) PO SCH ×2 (08:27→20:20)
[2023-02-15] MEDS: CYANOCOBALAMIN 500 MCG TAB PO SCH (08:27)
[2023-02-15] MEDS: FERROUS GLUCONATE 324 MG TAB PO SCH ×2 (08:27→20:21)
[2023-02-15] MEDS: OYSTER SHELL CALCIUM 500 MG TAB PO SCH (08:27)
[2023-02-15] MEDS: allopurinoL 100 MG TAB PO SCH (08:27)
[2023-02-15] MEDS: OMEPRAZOLE 20MG CAP PO SCH (08:27)
[2023-02-15] MEDS: MIDODRINE 5 MG TAB PO SCH ×3 (08:27→16:25)
[2023-02-15] MEDS: VITAMIN D 1,000 INTERNATIONAL UNITS TABLET PO SCH (08:29)
[2023-02-15 10:00] VITALS: BP 101/68; TEMP 97.5; O2SAT 97
[2023-02-15 14:00] VITALS: BP 111/74; TEMP 97.9; O2SAT 97
[2023-02-15] MEDS: MULTIVITAMINS/MINERALS THERAP 1 TAB PO SCH (18:00)
[2023-02-15] MEDS: MAGNESIUM OXIDE 400MG TAB (MAG-OX) PO SCH (18:47)
[2023-02-15] MEDS: CALCITRIOL 0.25 MCG CAP (S0169) PO SCH (18:47)
[2023-02-15] MEDS: AMIODARONE 200 MG TAB (PACERONE) PO SCH (18:47)
[2023-02-15] MEDS: SERTRALINE 100 MG TAB PO SCH (20:21)
[2023-02-15 20:47] VITALS: BP 136/77; TEMP 97.7; O2SAT 96
[2023-02-16 02:00] VITALS: BP 133/75; TEMP 97.5; O2SAT 98
[2023-02-16] MEDS: LEVOTHYROXINE 125MCG TABLET (0.125MG) PO SCH (05:48)
[2023-02-16] MEDS: LEVOTHYROXINE 50MCG TABLET (0.05MG) PO SCH (05:48)
[2023-02-16] MEDS: oxyCODONE 5MG TAB PO PRN ×3 (05:51→16:48)
[2023-02-16 06:00] VITALS: BP 131/77; TEMP 97.5; O2SAT 95
[2023-02-16 06:12] LABS: HEMATOCRIT 32.8 % (42.0-52.0); HEMOGLOBIN 10.1 g/dl (13.5-17.5); MEAN CORPUSCULAR HEMOGLOBIN 30.7 pg (27.0-33.0); MEAN CORPUSCULAR HGB CONC 30.8 g/dl (32.0-36.5); MEAN CORPUSCULAR VOLUME 99.7 fl (80.0-96.0); PLATELET COUNT, AUTOMATED 268 10^3/uL (150-450); RED BLOOD COUNT 3.29 10^6/uL (4.30-6.10); WHITE BLOOD COUNT 8.3 10^3/uL (4.0-10.0)
[2023-02-16 06:23] LABS: CALCIUM LEVEL 8.7 MG/DL (8.3-10.6); CREATININE FOR GFR 1.87 MG/DL (0.70-1.30); GLOMERULAR FILTRATION RATE 37.7 (>42); MAGNESIUM LEVEL 1.9 MG/DL (1.8-2.4); POTASSIUM SERUM 4.5 MMOL/L (3.5-5.1)
[2023-02-16] MEDS: OYSTER SHELL CALCIUM 500 MG TAB PO SCH (08:20)
[2023-02-16] MEDS: allopurinoL 100 MG TAB PO SCH (08:21)
[2023-02-16] MEDS: OMEPRAZOLE 20MG CAP PO SCH (08:21)
[2023-02-16] MEDS: APIXABAN 2.5 MG TAB (ELIQUIS) PO SCH ×2 (08:21→20:10)
[2023-02-16] MEDS: CYANOCOBALAMIN 500 MCG TAB PO SCH (08:21)
[2023-02-16] MEDS: FERROUS GLUCONATE 324 MG TAB PO SCH ×2 (08:21→20:10)
[2023-02-16] MEDS: VITAMIN D 1,000 INTERNATIONAL UNITS TABLET PO SCH (08:21)
[2023-02-16] MEDS: MIDODRINE 5 MG TAB PO SCH ×3 (08:21→16:44)
[2023-02-16 10:00] VITALS: BP 144/88; TEMP 97.5; O2SAT 94
[2023-02-16] MEDS: LIDOCAINE 5% (LIDODERM) PATCH TD SCH (13:04)
[2023-02-16 14:00] VITALS: BP 126/70; TEMP 97.4; O2SAT 97
[2023-02-16 18:00] VITALS: BP 127/73; TEMP 97.5; O2SAT 97
[2023-02-16] MEDS: AMIODARONE 200 MG TAB (PACERONE) PO SCH (18:25)
[2023-02-16] MEDS: MAGNESIUM OXIDE 400MG TAB (MAG-OX) PO SCH (18:25)
[2023-02-16] MEDS: CALCITRIOL 0.25 MCG CAP (S0169) PO SCH (18:25)
[2023-02-16] MEDS: MULTIVITAMINS/MINERALS THERAP 1 TAB PO SCH (18:25)
[2023-02-16] MEDS: SERTRALINE 100 MG TAB PO SCH (20:10)
[2023-02-16 22:00] VITALS: BP 138/87; TEMP 97.7; O2SAT 98
[2023-02-17 02:00] VITALS: BP 132/78; TEMP 97.5; O2SAT 96
[2023-02-17] MEDS: LEVOTHYROXINE 50MCG TABLET (0.05MG) PO SCH (05:55)
[2023-02-17] MEDS: LEVOTHYROXINE 125MCG TABLET (0.125MG) PO SCH (05:55)
[2023-02-17 06:00] VITALS: BP 122/89; TEMP 97.3; O2SAT 97
[2023-02-17] MEDS: oxyCODONE 5MG TAB PO PRN ×3 (06:03→17:47)
[2023-02-17 06:31] LABS: HEMATOCRIT 36.1 % (42.0-52.0); HEMOGLOBIN 10.9 g/dl (13.5-17.5); MEAN CORPUSCULAR HEMOGLOBIN 30.4 pg (27.0-33.0); MEAN CORPUSCULAR HGB CONC 30.2 g/dl (32.0-36.5); MEAN CORPUSCULAR VOLUME 100.6 fl (80.0-96.0); PLATELET COUNT, AUTOMATED 285 10^3/uL (150-450); RED BLOOD COUNT 3.59 10^6/uL (4.30-6.10); WHITE BLOOD COUNT 8.8 10^3/uL (4.0-10.0)
[2023-02-17 07:05] LABS: CALCIUM LEVEL 8.9 MG/DL (8.3-10.6); CREATININE FOR GFR 1.71 MG/DL (0.70-1.30); GLOMERULAR FILTRATION RATE 41.8 (>42); MAGNESIUM LEVEL 1.9 MG/DL (1.8-2.4); POTASSIUM SERUM 4.7 MMOL/L (3.5-5.1)
[2023-02-17 08:04] VITALS: BP 122/76; TEMP 98.1; O2SAT 94
[2023-02-17] MEDS: OYSTER SHELL CALCIUM 500 MG TAB PO SCH (09:08)
[2023-02-17] MEDS: VITAMIN D 1,000 INTERNATIONAL UNITS TABLET PO SCH (09:08)
[2023-02-17] MEDS: MIDODRINE 5 MG TAB PO SCH ×3 (09:08→17:43)
[2023-02-17] MEDS: OMEPRAZOLE 20MG CAP PO SCH (09:08)
[2023-02-17] MEDS: FERROUS GLUCONATE 324 MG TAB PO SCH ×2 (09:08→20:25)
[2023-02-17] MEDS: allopurinoL 100 MG TAB PO SCH (09:09)
[2023-02-17] MEDS: LIDOCAINE 5% (LIDODERM) PATCH TD SCH (09:09)
[2023-02-17] MEDS: APIXABAN 2.5 MG TAB (ELIQUIS) PO SCH ×2 (09:09→20:25)
[2023-02-17] MEDS: CYANOCOBALAMIN 500 MCG TAB PO SCH (09:09)
[2023-02-17 14:00] VITALS: BP 114/71; TEMP 98.2; O2SAT 98
[2023-02-17] MEDS: CALCITRIOL 0.25 MCG CAP (S0169) PO SCH (17:42)
[2023-02-17] MEDS: MULTIVITAMINS/MINERALS THERAP 1 TAB PO SCH (17:43)
[2023-02-17] MEDS: MAGNESIUM OXIDE 400MG TAB (MAG-OX) PO SCH ×2 (17:43→18:00)
[2023-02-17] MEDS: AMIODARONE 200 MG TAB (PACERONE) PO SCH (17:43)
[2023-02-17 18:00] VITALS: BP 137/86; TEMP 98.1; O2SAT 97
[2023-02-17 20:00] VITALS: BP 124/79; TEMP 98.4; O2SAT 99
[2023-02-17] MEDS: SERTRALINE 100 MG TAB PO SCH (20:26)
[2023-02-18] VITALS: BP 140/96; TEMP 98.1; O2SAT 98
[2023-02-18 04:00] VITALS: BP 132/90; TEMP 98.2; O2SAT 92
[2023-02-18] MEDS: LEVOTHYROXINE 125MCG TABLET (0.125MG) PO SCH (05:43)
[2023-02-18] MEDS: LEVOTHYROXINE 50MCG TABLET (0.05MG) PO SCH (05:43)
[2023-02-18] MEDS: oxyCODONE 5MG TAB PO PRN ×3 (05:46→16:14)
[2023-02-18 06:38] LABS: HEMATOCRIT 34.7 % (42.0-52.0); HEMOGLOBIN 10.5 g/dl (13.5-17.5); MEAN CORPUSCULAR HEMOGLOBIN 30.6 pg (27.0-33.0); MEAN CORPUSCULAR HGB CONC 30.3 g/dl (32.0-36.5); MEAN CORPUSCULAR VOLUME 101.2 fl (80.0-96.0); PLATELET COUNT, AUTOMATED 280 10^3/uL (150-450); RED BLOOD COUNT 3.43 10^6/uL (4.30-6.10); WHITE BLOOD COUNT 9.5 10^3/uL (4.0-10.0)
[2023-02-18 07:12] LABS: CALCIUM LEVEL 8.6 MG/DL (8.3-10.6); CREATININE FOR GFR 1.62 MG/DL (0.70-1.30); GLOMERULAR FILTRATION RATE 44.4 (>42); MAGNESIUM LEVEL 1.7 MG/DL (1.8-2.4); POTASSIUM SERUM 4.9 MMOL/L (3.5-5.1)
[2023-02-18] MEDS: OYSTER SHELL CALCIUM 500 MG TAB PO SCH (09:28)
[2023-02-18] MEDS: APIXABAN 2.5 MG TAB (ELIQUIS) PO SCH ×2 (09:28→20:11)
[2023-02-18] MEDS: FERROUS GLUCONATE 324 MG TAB PO SCH ×2 (09:28→20:11)
[2023-02-18] MEDS: allopurinoL 100 MG TAB PO SCH (09:28)
[2023-02-18] MEDS: CYANOCOBALAMIN 500 MCG TAB PO SCH (09:28)
[2023-02-18] MEDS: VITAMIN D 1,000 INTERNATIONAL UNITS TABLET PO SCH (09:28)
[2023-02-18] MEDS: LIDOCAINE 5% (LIDODERM) PATCH TD SCH (09:28)
[2023-02-18] MEDS: MIDODRINE 5 MG TAB PO SCH ×3 (09:28→16:12)
[2023-02-18] MEDS: OMEPRAZOLE 20MG CAP PO SCH (09:28)
[2023-02-18] MEDS: CALCITRIOL 0.25 MCG CAP (S0169) PO SCH (17:21)
[2023-02-18] MEDS: MAGNESIUM OXIDE 400MG TAB (MAG-OX) PO SCH ×2 (17:21→17:29)
[2023-02-18] MEDS: AMIODARONE 200 MG TAB (PACERONE) PO SCH (17:21)
[2023-02-18] MEDS: MULTIVITAMINS/MINERALS THERAP 1 TAB PO SCH ×2 (17:22→17:29)
[2023-02-18] MEDS: SERTRALINE 100 MG TAB PO SCH (20:11)
[2023-02-19 05:59] LABS: HEMATOCRIT 34.8 % (42.0-52.0); HEMOGLOBIN 10.4 g/dl (13.5-17.5); MEAN CORPUSCULAR HEMOGLOBIN 30.4 pg (27.0-33.0); MEAN CORPUSCULAR HGB CONC 29.9 g/dl (32.0-36.5); MEAN CORPUSCULAR VOLUME 101.8 fl (80.0-96.0); PLATELET COUNT, AUTOMATED 248 10^3/uL (150-450); RED BLOOD COUNT 3.42 10^6/uL (4.30-6.10); WHITE BLOOD COUNT 9.5 10^3/uL (4.0-10.0)
[2023-02-19 06:00] VITALS: BP 139/93; TEMP 98.2; O2SAT 97
[2023-02-19] MEDS: LEVOTHYROXINE 50MCG TABLET (0.05MG) PO SCH (06:11)
[2023-02-19] MEDS: LEVOTHYROXINE 125MCG TABLET (0.125MG) PO SCH (06:11)
[2023-02-19 06:27] LABS: CALCIUM LEVEL 8.4 MG/DL (8.3-10.6); CREATININE FOR GFR 1.58 MG/DL (0.70-1.30); GLOMERULAR FILTRATION RATE 45.7 (>42); MAGNESIUM LEVEL 1.6 MG/DL (1.8-2.4); POTASSIUM SERUM 5.3 MMOL/L (3.5-5.1)
[2023-02-19] MEDS: LIDOCAINE 5% (LIDODERM) PATCH TD SCH (08:50)
[2023-02-19] MEDS: OYSTER SHELL CALCIUM 500 MG TAB PO SCH (08:50)
[2023-02-19] MEDS: OMEPRAZOLE 20MG CAP PO SCH (08:50)
[2023-02-19] MEDS: VITAMIN D 1,000 INTERNATIONAL UNITS TABLET PO SCH (08:50)
[2023-02-19] MEDS: MIDODRINE 5 MG TAB PO SCH ×3 (08:51→16:13)
[2023-02-19] MEDS: allopurinoL 100 MG TAB PO SCH (08:51)
[2023-02-19] MEDS: CYANOCOBALAMIN 500 MCG TAB PO SCH (08:51)
[2023-02-19] MEDS: FERROUS GLUCONATE 324 MG TAB PO SCH ×2 (08:51→20:26)
[2023-02-19] MEDS: APIXABAN 2.5 MG TAB (ELIQUIS) PO SCH ×2 (08:51→20:25)
[2023-02-19] MEDS: oxyCODONE 5MG TAB PO PRN ×3 (08:52→20:24)
[2023-02-19] MEDS: MAGNESIUM OXIDE 400MG TAB (MAG-OX) PO SCH (18:54)
[2023-02-19] MEDS: AMIODARONE 200 MG TAB (PACERONE) PO SCH (18:54)
[2023-02-19] MEDS: CALCITRIOL 0.25 MCG CAP (S0169) PO SCH (18:54)
[2023-02-19] MEDS: MULTIVITAMINS/MINERALS THERAP 1 TAB PO SCH (18:54)
[2023-02-19] MEDS: SERTRALINE 100 MG TAB PO SCH ×2 (20:25→21:00)
[2023-02-20 05:52] LABS: HEMOGLOBIN 9.8 g/dl (13.5-17.5); MEAN CORPUSCULAR HEMOGLOBIN 30.7 pg (27.0-33.0); MEAN CORPUSCULAR HGB CONC 30.6 g/dl (32.0-36.5); MEAN CORPUSCULAR VOLUME 100.3 fl (80.0-96.0); PLATELET COUNT, AUTOMATED 259 10^3/uL (150-450); RED BLOOD COUNT 3.19 10^6/uL (4.30-6.10); WHITE BLOOD COUNT 9.5 10^3/uL (4.0-10.0)
[2023-02-20] MEDS: LEVOTHYROXINE 50MCG TABLET (0.05MG) PO SCH (05:52)
[2023-02-20] MEDS: LEVOTHYROXINE 125MCG TABLET (0.125MG) PO SCH (05:52)
[2023-02-20 05:57] VITALS: BP 126/89; TEMP 97.7; O2SAT 93
[2023-02-20 06:25] LABS: CALCIUM LEVEL 8.3 MG/DL (8.3-10.6); CREATININE FOR GFR 1.73 MG/DL (0.70-1.30); GLOMERULAR FILTRATION RATE 41.2 (>42); MAGNESIUM LEVEL 1.6 MG/DL (1.8-2.4); POTASSIUM SERUM 4.8 MMOL/L (3.5-5.1)
[2023-02-20] MEDS: FERROUS GLUCONATE 324 MG TAB PO SCH ×2 (09:00→09:27)
[2023-02-20] MEDS: OMEPRAZOLE 20MG CAP PO SCH ×2 (09:00→09:26)
[2023-02-20] MEDS: OYSTER SHELL CALCIUM 500 MG TAB PO SCH ×2 (09:00→09:26)
[2023-02-20] MEDS: LIDOCAINE 5% (LIDODERM) PATCH TD SCH (09:26)
[2023-02-20] MEDS: MIDODRINE 5 MG TAB PO SCH ×2 (09:27→11:37)
[2023-02-20] MEDS: allopurinoL 100 MG TAB PO SCH (09:27)
[2023-02-20] MEDS: APIXABAN 2.5 MG TAB (ELIQUIS) PO SCH (09:27)
[2023-02-20] MEDS: CYANOCOBALAMIN 500 MCG TAB PO SCH (09:27)
[2023-02-20] MEDS: VITAMIN D 1,000 INTERNATIONAL UNITS TABLET PO SCH (09:27)
[2023-02-20] MEDS: oxyCODONE 5MG TAB PO PRN (09:40)
== END 2023-02-20 12:32 | DRG 682 ==
LOC: EDSEX 11:22 → EDBD 11:22 → M ED 11:22 → M ED INP 13:43 → ENRESERV 14:49 → M MSPAV 16:16
PROVIDERS: ADMIT Family Medicine; ATTEND Internal Medicine
DX: N17.9 Acute kidney failure, unspecified (principal); L89.323 Pressure ulcer of left buttock, stage 3; I13.0 Hypertensive heart and chronic kidney disease with heart failure and stage 1 through stage 4 chronic kidney disease, or unspecified chronic kidney disease; I50.32 Chronic diastolic (congestive) heart failure; I27.20 Pulmonary hypertension, unspecified; M10.9 Gout, unspecified; I48.91 Unspecified atrial fibrillation; N18.32 Chronic kidney disease, stage 3b; D53.9 Nutritional anemia, unspecified; D72.829 Elevated white blood cell count, unspecified; I08.1 Rheumatic disorders of both mitral and tricuspid valves; E03.9 Hypothyroidism, unspecified; F39 Unspecified mood [affective] disorder; Z79.899 Other long term (current) drug therapy

== ENCOUNTER → 2023-02-27 | Outpatient (REF) | payer OTHER, MEDICARE, BC ==
[~2023-02-27] MED LIST changes: +DICL100G10 TOP; -DICL1GEL3 TOP; +LEVO175T2 PO
[2023-02-27 13:36] LABS: HEMATOCRIT 33.8 % (42.0-52.0); HEMOGLOBIN 10.4 g/dl (13.5-17.5); MEAN CORPUSCULAR HGB CONC 30.8 g/dl (32.0-36.5); MEAN CORPUSCULAR VOLUME 100.6 fl (80.0-96.0); PLATELET COUNT, AUTOMATED 344 10^3/uL (150-450); RED BLOOD COUNT 3.36 10^6/uL (4.30-6.10); WHITE BLOOD COUNT 10.5 10^3/uL (4.0-10.0)
[2023-02-27 14:03] LABS: ALBUMIN 2.3 G/DL (3.2-5.2); BILIRUBIN,TOTAL 0.5 MG/DL (0.3-1.2); CALCIUM LEVEL 8.7 MG/DL (8.3-10.6); CREATININE FOR GFR 1.81 MG/DL (0.70-1.30); GLOMERULAR FILTRATION RATE 39.1 (>42); POTASSIUM SERUM 4.5 MMOL/L (3.5-5.1); TOTAL PROTEIN 5.8 G/DL (5.7-8.2)
[2023-02-27 14:05] LABS: THYROID STIMULATING HORMONE 0.208 uIU/ML (0.55-4.78)
== END ==
LOC: SKLAB4 12:56
PROVIDERS: ATTEND Internal Medicine
DX: I50.9 Heart failure, unspecified (principal); N18.9 Chronic kidney disease, unspecified